=== PATIENT | male | born 1940 | race Caucasian/White ===

== ENCOUNTER → 2017-01-01 | Outpatient (CLI) | payer OTHER ==
[~2017-01-01] MED LIST: ALLO300T2 PO; ALPR-411 PO; CHOL100010 PO; CMD5 PO; CYAN10005 PO; ENAL1TAB34 PO; HYDR-5688 PO; LSX20 PO; LVNIS80 SQ; MAGN400T6 PO
== END ==
LOC: C.RDSM 14:31
PROVIDERS: ATTEND Orthopaedic Surgery
DX: M25.562 Pain in left knee (principal)

== ENCOUNTER 2017-02-05 21:23 | Emergency (ER) | payer OTHER ==
[~2017-02-05] VITALS: Ht 188 cm; Wt 85.0 kg
[2017-02-05 21:23] VITALS: TEMP 36.4; O2SAT 96; Ht 188 cm; Wt 85.0 kg
--- NOTE | 2017-02-05 21:54 | EMERGENCY ROOM VISIT NOTE ---
History Report prepared by Dakotah: Mona Hinton Under the Supervision of: Dr. Christopher Vasquez M.D. First contact with patient: 21:43 Chief Complaint: HYPERTENSION Stated Complaint: HTN History of Present Illness The patient is a 76 year old male who presents to the Emergency Room with complaints of constant hypertension beginning tonight. The patient states that he checks his blood pressure at home and he was concerned because it was 225/ 100 tonight. He reports that 1 month ago he had surgery on his sinuses and has been feeling dizzy intermittently since. He denies any headache, abdominal pain , chest pain, and shortness of breath. He notes that his dizziness is worsened when he gets up or walks around. The patient states that his right shoulder is normally out of place and he is seeing his doctor. Source of History: patient Onset: tonight Position: other (global) Symptom Intensity: 225/100 Quality: other (hypertension) Modifying Factors (Worsening): other (getting up) Associated Symptoms: No headache, No chest pain, No SOB, No abdominal pain Note: The patient complains of dizziness. Review of Systems See HPI for pertinent positives & negatives. A total of 10 systems reviewed and were otherwise negative. Past Medical & Surgical Medical Problems: (1) Anxiety (2) Gout (3) Hypertension (4) [place] Family History Diabetes mellitus MOTHER Heart disease FATHER Social History Smoking Status: Never Smoker Alcohol Use: none Drug Use: none Marital Status: Housing Status: lives alone Occupation Status: employed Current/Historical Medications Scheduled Allopurinol (Zyloprim), 300 MG PO QAM Cholecalciferol (Vitamin D), 1,000 UNITS PO DAILY Enalapril Maleate (Vasotec), 20 MG PO QAM Furosemide (Furosemide), 10 MG PO Q2D Multivitamin (Multivitamin), 1 TAB PO DAILY Pantoprazole (Protonix), 40 MG PO DAILY Allergies Coded Allergies: No Known Allergies (Unverified , 02/05/17) Physical Exam Vital Signs Date Time Temp Pulse Resp B/P (MAP) Pulse Ox O2 Delivery O2 Flow Rate FiO2 02/05/17 22:57 74 19 191/100 95 Room Air 02/05/17 22:35 71 21 95 Room Air 02/05/17 22:06 202/110 02/05/17 21:49 72 02/05/17 21:23 96 Room Air 02/05/17 21:23 36.4 83 20 212/106 96 Room Air 02/05/17 21:23 96 Room Air Physical Exam GENERAL: Patient is a healthy-appearing well-nourished male HEAD: Normocephalic atraumatic EYES: Ocular movements intact pupils equal and react to light OROPHARYNX mucous membranes are moist no exudates present no erythema or edema present NECK: Supple no nuchal rigidity CHEST: Good equal expansion LUNGS: Clear and equal to auscultation CARDIAC: Normal S1 and S2 ABDOMEN: Soft nontender no guarding BACK: No CVA tenderness EXTREMITIES: No pain upon palpation normal muscle strength in all groups no clubbing cyanosis or edema NEURO: Patient is following commands and answering questions appropriately. Alert and oriented x3 Cranial Nerves 2-12 grossly intact Medical Decision & Procedures ER Provider Diagnostic Interpretation: Radiology results as stated below per my review and radiologist interpretation: CHEST ONE VIEW PORTABLE FINDINGS: The heart is normal in size. There is mild aortic tortuosity/ectasia. There are old right-sided rib deformities. There is a 12 mm right midlung zone nodule versus healing rib fracture. There is a 1 cm left basilar nodule versus nipple shadow. A nonemergent CT scan should be considered in follow-up. There is no failure. There is no focal pulmonary consolidation. There is minor basilar atelectasis.[ IMPRESSION: 1. No evidence of acute parenchymal consolidation 2. 12 mm right midlung zone nodule versus healing rib fracture. 1 cm left basilar nodule versus nipple shadow. Electronically signed by: Ty Mcbride M.D. 02/05/2017 10:21 PM Dictated Date/Time: 02/05/2017 10:18 PM R SHOULDER MIN 2 VIEWS ROUTINE DISCUSSION: No acute fractures or dislocations are visualized. There is slight narrowing of the ureteral coronal distance raises the possibility of chronic rotator cuff degeneration. There are multiple old right-sided rib fractures. These likely explain the recently queried right midlung zone nodule/healing rib fracture. IMPRESSION: 1. No acute fractures or dislocations. 2. Slight narrowing of the humeral acromial distance suggesting rotator cuff disease 3. Multiple old right-sided rib fractures. These appear to explain the recently queried right midlung zone nodule. Electronically signed by: Ty Mcbride M.D. 02/05/2017 10:25 PM Dictated Date/Time: 02/05/2017 10:[address] HEAD WITHOUT CONTRAST (CT) FINDINGS: There are postsurgical changes of a right occipital craniotomy. There is right cerebellar encephalomalacia. There is no CT evidence of acute cortical infarction. There is no midline shift. There is no acute hemorrhage. There are moderate white matter hypodensities likely on a small vessel basis. There is mild ventricular dilatation likely secondary to volume loss There is no evidence of acute sinusitis IMPRESSION: Postsurgical changes of a right occipital craniotomy. No acute findings. Electronically signed by: Ty Mcbride M.D. 02/05/2017 10:27 PM Dictated Date/Time: 02/05/2017 10:25 PM Laboratory Results 02/05/17 21:50 Red Blood Count 4.88, Mean Corpuscular Volume 89.3, Mean Corpuscular Hemoglobin 30.3, Mean Corpuscular Hemoglobin Concent 33.9, Mean Platelet Volume 9.8, Neutrophils (%) (Auto) 68.0, Lymphocytes (%) (Auto) 21.5, Monocytes (%) (Auto) 8.2, Eosinophils (%) (Auto) 1.6, Basophils (%) (Auto) 0.5, Neutrophils # (Auto) 2.90, Lymphocytes # (Auto) 0.92, Monocytes # (Auto) 0.35, Eosinophils # (Auto) 0.07, Basophils # (Auto) 0.02 02/05/17 21:50 Test 02/05/17 21:44 02/05/17 21:50 Urine Color YELLOW Urine Appearance CLEAR (CLEAR) Urine pH 7.5 (4.5-7.5) Urine Specific [place] 1.011 (1.000-1.030) Urine Protein 1+ (NEG) Urine Glucose (UA) NEG (NEG) Urine Ketones NEG (NEG) Urine Occult Blood NEG (NEG) Urine Nitrite NEG (NEG) Urine Bilirubin NEG (NEG) Urine Urobilinogen NEG (NEG) Urine Leukocyte Esterase NEG (NEG) Urine WBC (Auto) 0 /hpf (0-5) Urine RBC (Auto) 0-4 /hpf (0-4) Urine Hyaline Casts (Auto) 0 /lpf (0-5) Urine Epithelial Cells (Auto) 0-5 /lpf (0-5) Urine Bacteria (Auto) NEG (NEG) White Blood Count 4.27 K/uL (4.8-10.8) Red Blood Count 4.88 M/uL (4.7-6.1) Hemoglobin 14.8 g/dL (14.0-18.0) Hematocrit 43.6 % (42-52) Mean Corpuscular Volume 89.3 fL (80-100) Mean Corpuscular Hemoglobin 30.3 pg (25-34) Mean Corpuscular Hemoglobin Concent 33.9 g/dl (32-36) Platelet Count 139 K/uL (130-400) Mean Platelet Volume 9.8 fL (7.4-10.4) Neutrophils (%) (Auto) 68.0 % Lymphocytes (%) (Auto) 21.5 % Monocytes (%) (Auto) 8.2 % Eosinophils (%) (Auto) 1.6 % Basophils (%) (Auto) 0.5 % Neutrophils # (Auto) 2.90 K/uL (1.4-6.5) Lymphocytes # (Auto) 0.92 K/uL (1.2-3.4) Monocytes # (Auto) 0.35 K/uL (0.11-0.59) Eosinophils # (Auto) 0.07 K/uL (0-0.5) Basophils # (Auto) 0.02 K/uL (0-0.2) RDW Standard Deviation 45.7 fL (36.4-46.3) RDW Coefficient of Variation 13.9 % (11.5-14.5) Immature Granulocyte % (Auto) 0.2 % Immature Granulocyte # (Auto) 0.01 K/uL (0.00-0.02) Prothrombin Time 9.6 SECONDS (9.0-12.0) Prothromb Time International Ratio 0.9 (0.9-1.1) Activated Partial Thromboplast Time 25.9 SECONDS (21.0-31.0) Partial Thromboplastin Ratio 1.0 Anion Gap 6.0 mmol/L (3-11) Est Creatinine Clear Calc Drug Dose 110.6 ml/min Estimated GFR () 108.7 Estimated GFR (Non- 93.8 BUN/Creatinine Ratio 19.2 (10-20) Calcium Level 8.7 mg/dl (8.5-10.1) Total Bilirubin 0.5 mg/dl (0.2-1) Direct Bilirubin 0.1 mg/dl (0-0.2) Aspartate Amino Transf (AST/SGOT) 20 U/L (15-37) Alanine Aminotransferase (ALT/SGPT) 23 U/L (12-78) Alkaline Phosphatase 83 U/L (45-117) Total Creatine Kinase 105 U/L (39-308) Creatine Kinase MB 3.0 ng/ml (0.5-3.6) Creatine Kinase MB Ratio 2.9 (0-3.0) Troponin I < 0.015 ng/ml (0-0.045) Pro-B-Type Natriuretic Peptide 891 pg/ml (0-1800) Total Protein 7.0 gm/dl (6.4-8.2) Albumin 3.7 gm/dl (3.4-5.0) Lipase 210 U/L (73-393) Thyroid Stimulating Hormone (TSH) 1.580 uIu/ml (0.300-4.500) Labs reviewed by ED physician. Medications Administered Medications (Trade) Dose Ordered Sig/Chris Route Start Time Stop Time Status Last Admin Dose Admin Potassium Chloride (Trudi Ciel Elix) 40 meq NOW STAT PO 02/05/17 22:55 02/05/17 22:58 DC 02/05/17 23:15 40 MEQ ECG Indication: weakness Rate (beats per minute): 72 Rhythm: normal sinus Findings: RBBB, no acute ischemic change, no ectopy ED Course 2142: Past medical records reviewed. The patient was evaluated in room A2. A complete history and physical examination was performed. 2220: Lopressor Tab 25mg PO. 2255: Potassium Chloride 40meq PO. 2300: I reevaluated and updated the patient. He notes that he has not taken his Lasix in 3 days. 2301: Upon reexamination the patient is doing well. I discussed results and treatment plan with the patient. He verbalizes agreement and understanding. The patient is ready for discharge. Medical Decision Differential diagnosis: Etiologies such as benign hypertension, hypertensive emergency, cardiovascular pathology, pheochromocytoma, electrolyte abnormality, renal disease, endorgan damage, as well as others were entertained. This is a 76-year-old male who presents emergency department complaining of hypertension. I will note that the patient does have an elevation in his blood pressure however without me doing anything the blood pressure has slowly come down. I do suspect there is an element of anxiety to the blood pressure just speaking with the patient about it. In addition the patient reports to me that he has not taken his Lasix medication and some time and I suspect this is contributed to the patient's high blood pressure. In addition the patient is also hypokalemic therefore he was given potassium. He is also convinced that his right shoulder is out of the socket therefore he was sent for x-rays of the right shoulder. This does not show any evidence of fracture dislocation. Based on these findings I felt that the patient can be safely discharged home however I stressed the need for follow-up with the patient's primary care physician as well as to take his medications as previously prescribed. Medication Reconcilliation Current Medication List: was personally reviewed by me Blood Pressure Screening Patient's blood pressure: Elevated blood pressure Blood pressure disposition: Referred to PCP Impression Primary Impression: Hypertension Scribe Attestation The scribe's documentation has been prepared under my direction and personally reviewed by me in its entirety. I confirm that the note above accurately reflects all work, treatment, procedures, and medical decision making performed by me. Departure Information Dispostion Home / Self-Care Referrals No Doctor, Assigned (PCP) Forms HOME CARE DOCUMENTATION FORM, IMPORTANT VISIT INFORMATION, WORK / SCHOOL INSTRUCTIONS Patient Instructions Hypertension Control, Hypertension Nv, [facility] [employer] Additional Instructions Take Lasix as directed Follow up with DR Arenas's office as directed You were found to have an elevated blood pressure today (>120 sytolic or >90 diastolic). Per medicare guidelines, you need to follow up with this blood pressure screening with your Primary Care Physician (PCP). For a new PCP call [phone]. You have been examined and treated today on an emergency basis only. This is not a substitute for, or an effort to provide, complete comprehensive medical care. It is impossible to recognize and treat all injuries or illnesses in a single emergency department visit. It is therefore important that you follow up closely with your PCP. Call as soon as possible for an appointment. Thank you for your time and consideration. I look forward to speaking with you again soon. Please don't hesitate to call us if you have any questions. Problem Qualifiers Primary Impression: Hypertension Hypertension type: unspecified Qualified Codes: I10 - Essential (primary) hypertension
[2017-02-05 22:01] LABS: BASO % 0.5 %; BASO ABS # 0.02 K/uL (0-0.2); COMPLETE YES; EOS % 1.6 %; HEMATOCRIT 43.6 % (42-52); IG% 0.2 %; LYMPH % 21.5 %; LYMPH ABS # 0.92 K/uL (1.2-3.4); MEAN CELL VOLUME 89.3 fL (80-100); MEAN CORPUSCULAR HEMOGLOBIN 30.3 pg (25-34); MEAN CORPUSCULAR HGB CONC 33.9 g/dl (32-36); MEAN PLATELET VOLUME 9.8 fL (7.4-10.4); MONO % 8.2 %; PLATELET COUNT 139 K/uL (130-400); RED BLOOD COUNT 4.88 M/uL (4.7-6.1); WHITE BLOOD COUNT 4.27 K/uL (4.8-10.8)
[2017-02-05 22:10] LABS: INR 0.9 (0.9-1.1); PROTHROMBIN TIME (PATIENT) 9.6 SECONDS (9.0-12.0)
[2017-02-05 22:11] LABS: URINE APPEARANCE CLEAR (CLEAR); URINE BILIRUBIN NEG (NEG); URINE COLOR YELLOW; URINE EPITHELIAL CELL AUTO 0-5 /lpf (0-5); URINE NITRITE NEG (NEG); URINE PH 7.5 (4.5-7.5); URINE SPECIFIC GRAVITY 1.011 (1.000-1.030); UROBILINOGEN NEG (NEG)
[2017-02-05 22:12] LABS: MANUAL MICROSCOPIC REQUIRED? NO; REVIEW REQ? NO
[2017-02-05 22:13] LABS: SULFASALICYLIC ACID POS (NEG)
[2017-02-05] MEDS ORDERED: CHOL100010 PO (22:16)
[2017-02-05] MEDS ORDERED: PANT40TA PO (22:16)
[2017-02-05] MEDS ORDERED: MULT-506 PO (22:16)
[2017-02-05 22:19] LABS: ALT/SGPT 23 U/L (12-78); BLOOD UREA NITROGEN 12 mg/dl (7-18); BUN/CREATININE RATIO 19.2 (10-20); CALCIUM 8.7 mg/dl (8.5-10.1); CARBON DIOXIDE 29 mmol/L (21-32); CHLORIDE 104 mmol/L (98-107); CREATININE 0.64 mg/dl (0.60-1.40); GLUCOSE 95 mg/dl (70-99); POTASSIUM 3.5 mmol/L (3.5-5.1); SODIUM 138 mmol/L (136-145)
[2017-02-05] MEDS ORDERED: METOPROLOL TARTRATE 25 MG TAB PO STA (22:21)
--- NOTE | 2017-02-05 22:23 | DIAGNOSTIC IMAGING REPORT ---
CHEST ONE VIEW PORTABLE CLINICAL HISTORY: severe hypertension COMPARISON STUDY: 06/26/2014 FINDINGS: The heart is normal in size. There is mild aortic tortuosity/ectasia. There are old right-sided rib deformities. There is a 12 mm right midlung zone nodule versus healing rib fracture. There is a 1 cm left basilar nodule versus nipple shadow. A nonemergent CT scan should be considered in follow-up. There is no failure. There is no focal pulmonary consolidation. There is minor basilar atelectasis.[ IMPRESSION: 1. No evidence of acute parenchymal consolidation 2. 12 mm right midlung zone nodule versus healing rib fracture. 1 cm left basilar nodule versus nipple shadow. Electronically signed by: Ty Mcbride M.D. 02/05/2017 10:21 PM Dictated Date/Time: 02/05/2017 10:18 PM
--- NOTE | 2017-02-05 22:26 | DIAGNOSTIC IMAGING REPORT ---
R SHOULDER MIN 2 VIEWS ROUTINE CLINICAL HISTORY: Right shoulder pain COMPARISON: None. DISCUSSION: No acute fractures or dislocations are visualized. There is slight narrowing of the ureteral coronal distance raises the possibility of chronic rotator cuff degeneration. There are multiple old right-sided rib fractures. These likely explain the recently queried right midlung zone nodule/healing rib fracture. IMPRESSION: 1. No acute fractures or dislocations. 2. Slight narrowing of the humeral acromial distance suggesting rotator cuff disease 3. Multiple old right-sided rib fractures. These appear to explain the recently queried right midlung zone nodule. Electronically signed by: Ty Mcbride M.D. 02/05/2017 10:25 PM Dictated Date/Time: 02/05/2017 10:23 PM
--- NOTE | 2017-02-05 22:28 | DIAGNOSTIC IMAGING REPORT ---
CT HEAD WITHOUT CONTRAST (CT) CLINICAL HISTORY: Severe hypertension COMPARISON STUDY: 10/30/2013 TECHNIQUE: Axial CT of the brain is performed from the vertex to the skull base. IV contrast was not administered for this examination. A dose lowering technique was utilized adhering to the principles of ALARA. CT DOSE: 712.55 mGy.cm FINDINGS: There are postsurgical changes of a right occipital craniotomy. There is right cerebellar encephalomalacia. There is no CT evidence of acute cortical infarction. There is no midline shift. There is no acute hemorrhage. There are moderate white matter hypodensities likely on a small vessel basis. There is mild ventricular dilatation likely secondary to volume loss There is no evidence of acute sinusitis IMPRESSION: Postsurgical changes of a right occipital craniotomy. No acute findings. Electronically signed by: Ty Mcbride M.D. 02/05/2017 10:27 PM Dictated Date/Time: 02/05/2017 10:25 PM
[2017-02-05 22:30] LABS: ALKALINE PHOSPHATASE 83 U/L (45-117); AST/SGOT 20 U/L (15-37); CKMB/CK RATIO 2.9 (0-3.0)
[2017-02-05] MEDS ORDERED: POTASSIUM CHLORIDE 20 MEQ/15 ML UDC PO STA (22:55)
[2017-02-05 22:57] VITALS: BP 191/100; PULSE 74; O2SAT 95
== END 2017-02-05 23:24 | disposition home or self-care (01) ==
LOC: C.EDA 21:23 → EDUNIT# 21:28 → EDBD 21:32 → C.EDA 23:24
DX: I10 Essential (primary) hypertension (principal); E87.6 Hypokalemia; I45.10 Unspecified right bundle-branch block; F41.9 Anxiety disorder, unspecified; M10.9 Gout, unspecified; Z79.899 Other long term (current) drug therapy; Z83.3 Family history of diabetes mellitus; Z82.49 Family history of ischemic heart disease and other diseases of the circulatory system

== ENCOUNTER 2018-10-02 18:13 | Inpatient (IN) ==
--- OUTSIDE RECORDS SUMMARY | 2018-10-02 18:18 | External Medical Summary | Continuity of Care Document ---
:1940 Author Name Rhea Aquino Address Unavailable Unavailable , Care Team Providers Name Role Phone Bienvenido Beckett PA-C Unavailable [email or web address] Luisa Aquino Unavailable [email or web address], NO Unavailable Unavailable Unavailable Unavailable Unavailable Assessments Assessed Problems:Paroxysmal atrial fibrillationRight bundle branch block HypertensionHyperlipidemiaPre-operative cardiovascular examinationCoronary artery disease Problems Right bundle branch block (426.4) (I45.0) Prostate cancer (185) (C61) Hyperlipidemia (272.4) (E78.5) Depression with anxiety (300.4) (F41.8) Coronary artery disease (414.00) (I25.10) Pre-operative cardiovascular examination (V72.81) (Z01.810) Paroxysmal atrial fibrillation (427.31) (I48.0) Sick sinus syndrome (427.81) (I49.5) Hypertension (401.9) (I10) Allergies and Adverse Reactions Simvastatin TABS (Allergy) Medications Vitamin D3 5000 UNIT Oral Tablet; Take 1 tablet daily Refills: 0 Allopurinol 300 MG Oral Tablet; TAKE 1 TABLET DAILY DIREC MEET. Refills: 0 hydroCHLOROthiazide 25 MG Oral Tablet; TAKE 1 TABLET D AILY. Alberto Bynum M.D. Start: 08-Dec-2011 Quantity: 30 [place] Refills: 5 Metoprolol Succinate ER 25 MG Oral Table t Extended Release 24 Hour; TAKE 1 TABLET DAILY. Miles Moran Start: 24-Nov-2011 Quantity: 30 [place] Refills: 3 Magnesium Oxide 400 MG Oral Tablet; TAKE (1) TABLET DA BENNETTSiddharth Bynum M.D. Start: 26-Nov-2011 Quantity: 30 [place] Refills: 0 Enalapril Maleate 20 MG Oral Tablet; TAKE 1 TABLET FLAQUITO LY DIRECTED. Miles Moran Start: 05-Feb-2012 Quantity: 30 [place] Refills: 3 Procedures History of Prostatectomy Robotic-Assisted Status: Completed History of Laminectomy Lumbar Status: Co mpleted History of Lithotomy Status: Completed History of Uvulectomy Status: Completed History of Division Of Trigeminal Nerve Status: Completed History of Tonsillectomy With Adenoidectomy Status: Completed Immunizations Immunizations not documented Family History Father Family history of Coronary Artery Disease (V17.49) Status: A ctive Mother Family history of Denial Of Any Significant Medical History Status: Active Social History - Smoking Status Never smoker Interventions Discussion/Summary presents today for preoperative cardiac evaluation. He has a history of paroxysmal atrial fibrillation and nonocclusive coronary artery disease (Cardiac catheterization 2011), hypertension, and dyslipidemia. He is scheduled undergo revision of right rotator cuff repair in the near future.Based on his levels of physical activity without limiting cardiopulmonary symptoms, normal LV systolic function, and nonocclusive coronary artery disease on cardiac catheterization 2011, he is an acceptable surgical risk to proceed with surgery as scheduled provided he take his usual dose of metoprolol succinate the morning of surgery with sips of water. There is no need for further cardiac workup atthis time.Thank you for asking us to see this patient in consultation. Return to our office as needed, or at next regularly scheduled visit with Dr. Peterson. Patient agrees. Plan of Treatment Planned Observations Planned Goals not documented Results No Known Results Results not documented Encounters Appointment; Ascencion Beckett PA-C 03-Mar-2013 10:45 Encounter Diagnosis: Problem not documented
[2018-10-02 19:01] LABS: Basophils # (auto) 0.01 K/uL (0-0.2); Basophils % (auto) 0.2 %; Eosinophils # (auto) 0.03 K/uL (0-0.5); Eosinophils % (auto) 0.6 %; Hematocrit (blood only) 44.8 % (42-52); Hemoglobin 14.9 g/dL (14.0-18.0); Immature Granulocytes # (auto) 0.01 K/uL (0.00-0.02); Immature Granulocytes % (auto) 0.2 %; Lymphocytes # (auto) 0.81 K/uL (1.2-3.4); Lymphocytes % (auto) 16.7 %; Mean Corpuscular Hgb Conc 33.3 g/dL (32-36); Mean Corpuscular Volume 85.8 fL (80-100); Mean Platelet Volume 9.8 fL (7.4-10.4); Monocytes # (auto) 0.44 K/uL (0.11-0.59); Monocytes % (auto) 9.1 %; Neutrophils # (auto) 3.54 K/uL (1.4-6.5); Neutrophils % (auto) 73.2 %; Platelet Count 131 K/uL (130-400); RDW Coefficient of Variation 17.7 % (11.5-14.5); RDW Standard Deviation 55.5 fL (36.4-46.3); Red Blood Count 5.22 M/uL (4.7-6.1); White Blood Count 4.84 K/uL (4.8-10.8)
[2018-10-02] MEDS ORDERED: SODIUM CHLORIDE 0.9% 1000ML 500 ML IV ONE (19:03)
[2018-10-02] MEDS ORDERED: LORazepam 0.5 MG/1 ML VIAL IV STA ×2 (19:06→22:08)
[2018-10-02 19:12] LABS: Partial Thromboplastin Ratio 0.9; Partial Thromboplastin Time 25.7 Seconds (21.0-31.0); Prothrombin Time 10.2 Seconds (9.0-12.0)
[2018-10-02 19:19] LABS: Alanine Aminotransferase 64 U/L (12-78); Albumin Level 3.5 gm/dl (3.4-5.0); Aspartate Aminotransferase 41 U/L (15-37); BUN Creatinine Ratio 23.2 (10-20); Blood Urea Nitrogen 18 mg/dl (7-18); Calcium 8.5 mg/dl (8.5-10.1); Carbon Dioxide 24 mmol/L (21-32); Chloride 109 mmol/L (98-107); Creatinine Clr Calc Pharmacy 85.1 ml/min; Est GFR (African American) 99.9; Est GFR (Non-African American) 86.2; Glucose 103 mg/dl (70-99); Magnesium 2.2 mg/dl (1.8-2.4); Potassium 3.9 mmol/L (3.5-5.1); Sodium 142 mmol/L (136-145)
[2018-10-02 19:30] LABS: Albumin Globulin Ratio 1.1 (0.9-2); Alkaline Phosphatase 88 U/L (45-117); Bilirubin,Total 0.7 mg/dl (0.2-1); Globulin 3.2 gm/dl (2.5-4.0); Total Protein 6.7 gm/dl (6.4-8.2); Troponin I < 0.015 ng/ml (0-0.045)
[2018-10-02 19:37] LABS: Acetaminophen < 2 ug/ml (10-30); Salicylate < 1.7 mg/dl (2.8-20)
[2018-10-02] MEDS ORDERED: METOPROLOL TARTRATE 1 MG/ML VIAL IV STA ×2 (19:40→22:43)
--- NOTE | 2018-10-02 19:55 | CT Scan Report ---
CT head/brain wo con CT DOSE: 614.27 mGy.cm HISTORY: Mental status change Reported homicidal statements TECHNIQUE: Multiaxial CT images of the head were performed without the use of intravenous contrast. A dose lowering technique was utilized adhering to the principles of ALARA. Comparison: 02/05/2017 Findings: The paranasal sinuses and mastoid air cells are clear. Findings of a lateral right occipita l craniotomy are again noted. 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 Findings of atrophy combined with moderate chronic small vessel change are noted and appears stable. No evidence for acute intracranial hemorrhage. No evidence for midline shift. Impression: 1. Findings of pre-existing postoperative and chronic small vessel change. 2. Findings of mild atrophy also stable. 3. No acute process. The above report was generated using voice recognition software. It may contain grammatical, syntax or spelling errors. Electronically signed by: Rigoberto Suh M.D. 10/02/2018 7:54 PM
[2018-10-02] MEDS ORDERED: METOPROLOL TARTRATE 50 MG TAB PO STA ×2 (21:24→22:55)
[2018-10-02] MEDS ORDERED: POTASSIUM CHLORIDE 20 MEQ TABCR PO STA (21:24)
--- NOTE | 2018-10-02 22:02 | History & Physical Report ---
Date of Service October 02, 2018 Assessment & Plan (1) Atrial flutter with rapid ventricular response: hx sick sinus syndrome hx DVT on Eliquis rx Hypertensive urgency ? Medication compliance given possible functional debility with possible dementia nonocclusive CAD as per records Prostate cancer status post surgery gout as per records PCU Facilitate home beta-britany Rx, may need titration Continue home Eliquis PT OT eval Social service RE discharge planning DVT prophylaxis. Eliquis Full code as per grandson, Mr. Brad Muro. He requests updates from providers through [phone]. History of Present Illness Chief Complaint: Something was wrong as per patient 302 petition by daughter from [place] as per records [facility] History obtained from patient, family, and records. Patient is not a reliable historian secondary to disorientation. Medical history significant for sick sinus syndrome/hx atrial flutter/hx DVT on Eliquis, nonocclusive CAD as per records, hypertension, gout as per records, prostate cancer status post surgery, anxiety/mood disorder. Recent confinement June 2014 for RLE DVT. Patient discharged on Coumadin. Patient brought in [facility] by ambulance after patient's daughter residing [place] called for patient to be evaluated at the hospital for homicidality. Patient denied homicidal allegations to psych liaison at the emergency room. Patient not homicidal as per patient's grandson who lives close by. At the emergency room, patient noted to be in rapid atrial flutter, cardiac rate 140s despite IV beta-britany administration at the ER. Patient denies chest pain, S OB, abdominal pain. Patient grandson thinks patient might be developing dementia. 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; lives by self, closest family member is a grandson who checks on px from time to time Allergies Allergy/AdvReac Type Severity Reaction Status Date / Time No Known Allergies Allergy Unverified 10/02/18 22:56 Home Medications Home Medications Medication Instructions Recorded Confirmed Type apixaban 5 mg PO Q12 10/02/18 10/02/18 History atorvastatin 40 mg PO PM 10/02/18 10/02/18 History bee pollen 0 mg PO DAILY 10/02/18 10/02/18 History calcium carbonate-vitamin D3 1 tab PO BID 10/02/18 10/02/18 History [Calcium 500 + D] cetirizine [Zyrtec] 10 mg PO DAILY 10/02/18 10/02/18 History cholecalciferol (vitamin D3) 2,000 unit PO DAILY 10/02/18 10/02/18 History [Vitamin D3] citalopram 10 mg PO DAILY 10/02/18 10/02/18 History clotrimazole-betamethasone 1 applic TOPICAL BID PRN 10/02/18 10/02/18 History cyanocobalamin (vitamin B-12) 1,000 mcg PO DAILY 10/02/18 10/02/18 History docusate sodium 100 mg PO DAILY 10/02/18 10/02/18 History food supplemt, lactose-reduced 1 ea PO DAILY 10/02/18 10/02/18 History [Ensure] furosemide 20 mg PO DAILY 10/02/18 10/02/18 History lisinopril 10 mg PO DAILY 10/02/18 10/02/18 History meclizine 12.5 mg PO BID PRN 10/02/18 10/02/18 History metoprolol tartrate 50 mg PO TID 10/02/18 10/02/18 History pantoprazole 20 mg PO DAILY 10/02/18 10/02/18 History polyethylene glycol 3350 [Miralax] 17 g PO DAILY PRN 10/02/18 10/02/18 History vitamin E 400 unit PO DAILY 10/02/18 10/02/18 History Past Med/Surg History Medical History Tic douloureux (Chronic) Anxiety (Chronic) Gout (Chronic) Hypertension (Chronic) Deep vein thrombosis (Acute) Hypertension (Acute) Family History Other No pertinent family history in first degree relatives Social History Preferred Language: Setswana Communication Ability: Effective Communication Ability Comment: [facility] 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 Required: No Beliefs That Will Affect Care: [employer] Current Living Situation: Alone Feels Safe at Home: Yes Safety Concerns: Feels Safe At This Time Smoking Status: Never smoker Do You Dip or Chew Tobacco: No ; Hx Alcohol Use: No Hx Substance Use: No Review of Systems Review of Systems: Could not be reliably obtained Physical Exam Physical Exam: GENERAL: Disoriented, hard of hearing, no respiratory distress SKIN: Normal color, warm HEENT: [place] palpebral conjunctivae, no ptosis, dry buccal mucosa NECK : Supple, no tenderness CHEST : CTA, no tenderness HEART : Tachycardic, systolic murmur ABDOMEN: Some distention, nontender EXTREMITIES : Minimal LE swelling, no LE tenderness, no other conspicuous deformities noted NEUROLOGIC : Disoriented, slightly hard of hearing, agitated, no facial asymmetry, gait and stance not assessed Results & Data Vital Signs (Past 12 Hours) Vital Signs Temp Pulse Resp BP Pulse Ox 10/02/18 21:00 78 17 145/90 H 95 10/02/18 20:50 92 H 17 94 10/02/18 20:40 91 H 16 94 10/02/18 20:30 92 H 14 163/109 H 98 10/02/18 20:20 91 H 21 93 10/02/18 20:10 110 H 16 96 10/02/18 20:07 114 H 15 141/121 H 97 10/02/18 20:04 103 H 20 138/108 H 10/02/18 20:02 126 H 28 H 152/129 H 10/02/18 20:00 142 H 18 10/02/18 19:58 143 H 12 145/116 H 10/02/18 19:55 142 H 10/02/18 19:40 143 H 10/02/18 19:38 141 H 23 151/122 H 10/02/18 19:30 142 H 20 10/02/18 19:20 144 H 25 H 10/02/18 19:16 144 H 23 10/02/18 18:41 37.2 C 130 H 18 164/119 H 98 Laboratory Results Laboratory Results WBC 4.84 K/uL (4.8-10.8) 10/02/18 18:40 RBC 5.22 M/uL (4.7-6.1) 10/02/18 18:40 Hgb 14.9 g/dL (14.0-18.0) 10/02/18 18:40 Hct 44.8 % (42-52) 10/02/18 18:40 MCV 85.8 fL (80-100) 10/02/18 18:40 MCH 28.5 pg (25-34) 10/02/18 18:40 MCHC 33.3 g/dL (32-36) 10/02/18 18:40 RDW Std Deviation 55.5 fL (36.4-46.3) H 10/02/18 18:40 RDW Coeff of Martha 17.7 % (11.5-14.5) H 10/02/18 18:40 Plt Count 131 K/uL (130-400) 10/02/18 18:40 MPV 9.8 fL (7.4-10.4) 10/02/18 18:40 Immature Gran % (Auto) 0.2 % 10/02/18 18:40 Neut % (Auto) 73.2 % 10/02/18 18:40 Lymph % (Auto) 16.7 % 10/02/18 18:40 [place] % (Auto) 9.1 % 10/02/18 18:40 Eos % (Auto) 0.6 % 10/02/18 18:40 Baso % (Auto) 0.2 % 10/02/18 18:40 Immature Gran # (Auto) 0.01 K/uL (0.00-0.02) 10/02/18 18:40 Neut # (Auto) 3.54 K/uL (1.4-6.5) 10/02/18 18:40 Lymph # (Auto) 0.81 K/uL (1.2-3.4) L 10/02/18 18:40 [place] # (Auto) 0.44 K/uL (0.11-0.59) 10/02/18 18:40 Eos # (Auto) 0.03 K/uL (0-0.5) 10/02/18 18:40 Baso # (Auto) 0.01 K/uL (0-0.2) 10/02/18 18:40 PT 10.2 Seconds (9.0-12.0) 10/02/18 18:40 INR 1.0 (0.9-1.1) 10/02/18 18:40 APTT 25.7 Seconds (21.0-31.0) 10/02/18 18:40 PTT Ratio 0.9 10/02/18 18:40 Sodium 142 mmol/L (136-145) 10/02/18 18:40 Potassium 3.9 mmol/L (3.5-5.1) 10/02/18 18:40 Chloride 109 mmol/L (98-107) H 10/02/18 18:40 Carbon Dioxide 24 mmol/L (21-32) 10/02/18 18:40 Anion Gap 9.0 (3-11) 10/02/18 18:40 BUN 18 mg/dl (7-18) 10/02/18 18:40 Creatinine 0.76 mg/dl (0.6-1.4) 10/02/18 18:40 Est Cr Clr Drug Dosing 85.1 ml/min 10/02/18 18:40 Est GFR ( Amer) 99.9 10/02/18 18:40 Est GFR (Non-Af Amer) 86.2 10/02/18 18:40 BUN/Creatinine Ratio 23.2 (10-20) H 10/02/18 18:40 Glucose 103 mg/dl (70-99) H 10/02/18 18:40 Calcium 8.5 mg/dl (8.5-10.1) 10/02/18 18:40 Magnesium 2.2 mg/dl (1.8-2.4) 10/02/18 18:40 Total Bilirubin 0.7 mg/dl (0.2-1) 10/02/18 18:40 AST 41 U/L (15-37) H 10/02/18 18:40 ALT 64 U/L (12-78) 10/02/18 18:40 Alkaline Phosphatase 88 U/L (45-117) 10/02/18 18:40 Troponin I < 0.015 ng/ml (0-0.045) 10/02/18 18:40 Total Protein 6.7 gm/dl (6.4-8.2) 10/02/18 18:40 Albumin 3.5 gm/dl (3.4-5.0) 10/02/18 18:40 Globulin 3.2 gm/dl (2.5-4.0) 10/02/18 18:40 Albumin/Globulin Ratio 1.1 (0.9-2) 10/02/18 18:40 TSH 1.380 uIu/ml (0.300-4.500) 10/02/18 18:40 Salicylates < 1.7 mg/dl (2.8-20) L 10/02/18 18:40 Acetaminophen < 2 ug/ml (10-30) L 10/02/18 18:40 Ethyl Alcohol mg/dL < 3.0 mg/dl (0-3) 10/02/18 18:[address] head: 1. Findings of pre-existing postoperative and chronic small vessel change. 2. Findings of mild atrophy also stable. 3. No acute process. Chest x-ray as per my interpretation: Atelectasis, elevated right hemidiaphragm, cardiomegaly EKG as per my interpretation : rate 95, atrial flutter, LAD, LAFB, RBBB, LVH
[2018-10-02] MEDS ORDERED: HEPARIN SODIUM/DEXTROSE 25,000 UNITS/500 ML BAG IV SCH (22:15)
[2018-10-02] MEDS ORDERED: HEPARIN 25000 UNIT/500 ML D5W IV ONE (22:15)
[2018-10-02] MEDS ORDERED: Heparin IV Standard *NO* Bolus IV SCH (22:19)
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
[2018-10-03] MEDS ORDERED: POLYETHYLENE (MIRALAX) 17 GM PACK PO PRN (00:10)
[2018-10-03] MEDS ORDERED: PROMETHAZINE HCL 12.5 MG in SODIUM CHLORIDE 0.9% 50 ML IV PRN (00:19)
[2018-10-03] MEDS ORDERED: OLANZapine 10 MG/2.1 ML SDV IM PRN (00:19)
[2018-10-03] MEDS ORDERED: NITROGLYCERIN SL 0.4 MG/TAB TAB SL PRN (00:19)
[2018-10-03] MEDS ORDERED: ACETAMINOPHEN 325 MG TAB PO PRN (00:19)
[2018-10-03 01:14] LABS: Appearance Urine Clear (Clear); Bacteria Urine Automated Negative (Negative); Bilirubin Urine Negative (Negative); Blood Urine Negative (Negative); Cast Urine Automated 0 /lpf (0-5); Color Urine Yellow; Glucose Urine UA Negative (Negative); Ketones Urine Negative (Negative); Leukocyte Esterase Urine Negative (Negative); Nitrite Urine Negative (Negative); Protein Urine 3+ (Negative); RBC Urine Automated 0-4 /hpf (0-4); Specific Gravity Urine 1.019 (1.000-1.030); Urobilinogen Urine Negative (Negative)
[2018-10-03] MEDS: APIXABAN 5 MG TABLET PO SCH ×3 (01:22→19:23)
[2018-10-03 01:30] LABS: Amphetamines+Metham, Urine Neg (Neg); Barbiturates, Urine Neg (Neg); Benzodiazepine, Urine Neg (Neg); Cocaine, Urine Neg (Neg); MDMA (Ecstacy), Urine Neg (Neg); Methadone, Urine Neg (Neg); Opiate, Urine Neg (Neg); Phencyclidine, Urine Neg (Neg)
[2018-10-03] MEDS ORDERED: POTASSIUM CHLORIDE 10 MEQ TABCR PO STA (03:52)
[2018-10-03] MEDS: LISINOPRIL 10 MG TAB PO SCH (03:55)
[2018-10-03 05:58] LABS: Basophils # (auto) 0.02 K/uL (0-0.2); Basophils % (auto) 0.5 %; Eosinophils # (auto) 0.03 K/uL (0-0.5); Eosinophils % (auto) 0.8 %; Hematocrit (blood only) 41.1 % (42-52); Hemoglobin 13.6 g/dL (14.0-18.0); Lymphocytes % (auto) 23.9 %; Mean Corpuscular Hgb Conc 33.1 g/dL (32-36); Mean Corpuscular Volume 86.3 fL (80-100); Mean Platelet Volume 9.1 fL (7.4-10.4); Monocytes # (auto) 0.38 K/uL (0.11-0.59); Monocytes % (auto) 10.1 %; Neutrophils # (auto) 2.43 K/uL (1.4-6.5); Neutrophils % (auto) 64.7 %; Platelet Count 119 K/uL (130-400); RDW Coefficient of Variation 17.7 % (11.5-14.5); RDW Standard Deviation 55.9 fL (36.4-46.3); Red Blood Count 4.76 M/uL (4.7-6.1); White Blood Count 3.76 K/uL (4.8-10.8)
[2018-10-03 06:23] LABS: RBC Morphology Unremarkable
--- NOTE | 2018-10-03 06:43 | XRay Report ---
XR chest 1V portable CLINICAL HISTORY: tachycardia COMPARISON STUDY: Chest CT June 26, 2014. Chest radiograph February 05, 2017. FINDINGS: Right shoulder arthroplasty is incidentally noted. There is no pneumothorax or pleural effu anaid. There is no evidence for pulmonary edema or pneumonia. Mild cardiomegaly is noted. Patient is r otated. Calcified left lower lobe granuloma is incidentally noted. IMPRESSION: No acute cardiopulmonary findings. Electronically signed by: Jason Fleming M.D. 10/03/2018 6:41 AM
[2018-10-03] MEDS: PANTOprazole 40 MG TAB PO SCH (08:04)
[2018-10-03] MEDS: METOPROLOL TARTRATE 50 MG TAB PO SCH ×3 (08:04→19:24)
[2018-10-03] MEDS: CYANOCOBALAMIN 500 MCG TABLET (VITAMIN B-12) PO SCH (08:04)
[2018-10-03] MEDS: CETIRIZINE HCL 10 MG TABLET PO SCH (08:04)
[2018-10-03] MEDS: DOCUSATE SODIUM 100 MG CAP PO SCH (08:04)
[2018-10-03] MEDS: CITALOPRAM 20 MG TAB PO SCH (08:04)
[2018-10-03] MEDS ORDERED: LISINOPRIL 10 MG TAB PO SCH (09:00)
--- NOTE | 2018-10-03 14:23 | Psychiatric Consultation ---
Date of Consultation October 03, 2018 Impression / Recommendations Impression 78-year-old male brought to the ED by police on a 302 warrant for mental health evaluation. Patient's daughter completed petitioning statement reporting that the patient had been making homicidal statements planning to "blow people away." According to grandson, patient does not have access to guns other than an air pellet gun, as they are currently secured by the grandson. We will confirm this history with the grandson to ensure this is the case. It would be beneficial to obtain information from the patient's daughter and petitioner, as she is clearly verbalizing concern regarding her father. However, without substantial information to suggest the patient is at acute risk of , serious bodily injury, or serious physical debilitation within 30 days. Given reports of the patient and his grandson, it also does not appear the patient is at acute risk of harm to others at this time, as he denies homicidal ideation and reportedly does not have access to weapons he could easily use to harm another individual. We will request that liaison gather additional information from the patient's grandson, and primary local support. We will also ensure that we attempt to reach out to petitioner regarding her concerns. Patient denies suicidal ideation, homicidal ideation, auditory or visual hallucinations, disorganized thinking, and other signs of acute psychosis. At this time, with information currently available, it does not appear the patient would meet criteria for inpatient psychiatric admission. We will attempt to gather collateral information from daughter; however, it is likely the patient could be discharged home at time of medical clearance. If this remains the case, 302 warrant would need to be disposed at or before time of discharge by attending physician. Please reach out to our service with any additional concerns. We appreciate the opportunity to participate in the care of this patient. At this time, patient's primary stressor is dealing with his daughter. It does not appear that adjustments in psychiatric medications would be necessary. Patient's home medication list suggests that he is taking 10 mg of citalopram; however, his external med history does not show this medication. Would recommend clarifying the patient is indeed to be on this medication. We will avoid further titration, as patient's QTc remains prolonged at this time. If ongoing issues with prolonged QTc consider discontinuation of the medication. Dr. Sheyla Feliz was directly involved in review and discussion of the patient's case and participated in medical decision making regarding treatment recommendations. Risk Factors Assessment Do You Have Access To A Gun?: No (Grandson has secured) CPT Code Initial Consultation: 62168 Psych History Identifying Data 78-year-old male admitted medically on 10/02/2018 due to atrial flutter and appearing unsteady on his feet. Patient initially presented to the ED by police on a 302 warrant to receive a mental health evaluation. 302 petitioning statement was completed by his daughter felt there were concerns related to patient and his potential harm to self and others. Psychiatric consultation is requested to further evaluate the patient to determine discharge recommendations. Information is gathered from hospital documentation, 302 petitioning statement, and the patient himself - combination of which is considered to be reliable. Chief Complaint "You really want to know? You are not the type of girl my daughter is. She is a witch, a thief, and a liar." History of Present Illness Haim Muro is an 78-year-old male who was initially brought to the ED by police on a 302 warrant for a mental health evaluation. 302 petitioning statement was completed by the patient's daughter who expressed concern about homicidal statements she states her father had made. While being evaluated in the emergency room, the patient was noted to be in atrial flutter with persistent tachycardia. As he was not responding to initial medications provided, it inpatient medical admission was recommended. Patient is seen on psychiatric consult service to further assess his mental status, and determine his disposition with the presence of a 302 warrant. Case is reviewed with psychiatric nurse liaison, who is able to speak with the patient with his grand son present. Prior medical documentation as well as conversation with the liaison suggests that there is limited history to confirm the patient had made the statements, or is actually intending to harm others. Prior to psychiatric evaluation, patient's grandson is documented to feel comfortable with him returning home and does not believe him to be acutely suicidal or homicidal. 302 petitioning statement completed by the patient's daughter. It reads: "Frequent states going to "blow people away", has hand guns. Threatens to use them. Unable to control anger threatened grandson with cane (with antlers on it). Not in control of emotions and has sat in driveway of his estranged son Fabio Muro of [place], [place] for long periods of time." Statement completed by Robert Nair, patient daughter ([phone]) residing in [place]. At time of evaluation, patient is found to be resting comfortably in bed with no visitors present. Patient states that his daughter is a "witch, a thief, and a liar." He states that his daughter had borrowed $2500 as a loan to pay for a car to make the trip to come see him. Patient states he was clear that he would require the money back, and was simply requesting for his daughter to pay what was owed to him. The patient states "I sent her a text message, she someone back in every other word was a cuss word. I called my senior c developer, I will just let him deal with it." The patient reports understanding that he was brought to the emergency room for mental health evaluation, patient states that his daughter believed "I was insane, that I was having thoughts to kill myself or other people." Patient denies truth to these allegations. 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 He also denies suicidal ideation stating, "God can take me when he is ready, but just because I am 78 years old does not mean I do not want to live. I am not in the grade yet." Patient does admit to lower than normal mood recently "because I have been dealing with all of the stuff with her." Patient denies significant anxiety as it relates to these situations. We reviewed that he is receiving an antidepressant medication, citalopram. He is not aware of his history with this medication. Patient denies previous psychiatric history, has not been hospitalized on an inpatient behavior health unit, and denies previous suicide attempts. Patient denies history of auditory or visual hallucinations, disorganized thoughts, and significant paranoia. Patient denies any other psychiatric concerns. Past Psychiatric History Previous Psych History: Patient denies previous psychiatric history; however, he is prescribed citalopram 10 mg daily. Patient is not able to provide history regarding the duration of this dose or because of its initiation. We will attempt to confirm that it is inaccurate medication, as external medication history does not have it listed. Current Psychiatric Diagnosis: Unknown Outpatient Services: None Previous Psych Admissions: Denied Do You Have Access To A Gun?: No (Grandson has secured) History of Previous Suicide Attempt: No Allergies Allergy/AdvReac Type Severity Reaction Status Date / Time No Known Allergies Allergy Unverified 10/02/18 22:56 Home Medications Home Medications Medication Instructions Recorded Confirmed Type apixaban 5 mg PO Q12 10/02/18 10/02/18 History atorvastatin 40 mg PO PM 10/02/18 10/02/18 History bee pollen 0 mg PO DAILY 10/02/18 10/02/18 History calcium carbonate-vitamin D3 1 tab PO BID 10/02/18 10/02/18 History [Calcium 500 + D] cetirizine [Zyrtec] 10 mg PO DAILY 10/02/18 10/02/18 History cholecalciferol (vitamin D3) 2,000 unit PO DAILY 10/02/18 10/02/18 History [Vitamin D3] citalopram 10 mg PO DAILY 10/02/18 10/02/18 History clotrimazole-betamethasone 1 applic TOPICAL BID PRN 10/02/18 10/02/18 History cyanocobalamin (vitamin B-12) 1,000 mcg PO DAILY 10/02/18 10/02/18 History docusate sodium 100 mg PO DAILY 10/02/18 10/02/18 History food supplemt, lactose-reduced 1 ea PO DAILY 10/02/18 10/02/18 History [Ensure] furosemide 20 mg PO DAILY 10/02/18 10/02/18 History lisinopril 10 mg PO DAILY 10/02/18 10/02/18 History meclizine 12.5 mg PO BID PRN 10/02/18 10/02/18 History metoprolol tartrate 50 mg PO TID 10/02/18 10/02/18 History pantoprazole 20 mg PO DAILY 10/02/18 10/02/18 History polyethylene glycol 3350 [Miralax] 17 g PO DAILY PRN 10/02/18 10/02/18 History vitamin E 400 unit PO DAILY 10/02/18 10/02/18 History Personal History Living Arrangements: Home (receives assistance from the [facility] on Aging) Living Arrangements Comments: Grandson living locally, checks on patient regularly Marital Status: (previously for 15 years) Number Of Children: 2 - one daughter, one son Beliefs That Will Affect Care: Restorationist Psychological Trauma History Comment: Previous service in the Patient History Medical History Tic douloureux (Chronic) Anxiety (Chronic) Gout (Chronic) Hypertension (Chronic) Deep vein thrombosis (Acute) Hypertension (Acute) Family History Other No pertinent family history in first degree relatives Social History Preferred Language: Mongolian Communication Ability: Effective Communication Ability Comment: [facility] Tabulating Clerk Required: No Beliefs That Will Affect Care: Restorationist marital status: / Current Living Situation: Alone Feels Safe at Home: Yes Safety Concerns: Feels Safe At This Time Smoking Status: Never smoker Do You Dip or Chew Tobacco: No ; Hx Alcohol Use: No Hx Substance Use: No Physical Exam Psychiatric: Orientation: alert, oriented to person, oriented to place, oriented to time and cooperative Apperance: appropriately dressed (In hospital gown, wearing [employer] hat), appropriately groomed and appeared stated age Eye Contact: good eye contact Motor Behavior: no abnormal motor movements (Observed while laying in bed) Speech: normal rate/rhythm/volume of speech (Speech is muffled at times, overall soft tone) Affect: + blunted affect (Appearing somewhat fatigued); no depressed affect and no anxious affect Mood: + depressed mood ("Well yeah, because of dealing with all this with my daughter") and + irritable mood (As it relates to his daughter's allegations); no anxious mood Thought Process: goal directed thought process, clear/coherent thought process and + circumstantial thought process (Mildly, interjects with stories related to his service, but returns to topic) Thought Content: reality based without delusions and + loneliness; no hopelessness and no worthlessness Suicidal Thoughts: denies suicidal thoughts, denies suicidal plan and denies suicidal intent Homicidal Thoughts: denies homicidal thoughts and denies homicidal intent Hallucinations: no auditory hallucinations and no visual hallucinations Cognition: remote memory grossly intact, attention grossly intact and language grossly intact Estimated Intelligence: consistent with education level Insight: + fair insight Judgement: + fair judgement Vital Signs (Past 24 Hours): Last Vital Signs Temp 36.6 C 10/03/18 07:14 Pulse 85 10/03/18 11:42 Resp 16 10/03/18 11:42 BP 147/97 H 10/03/18 11:42 Pulse Ox 95 10/03/18 11:42 Review of Systems Constitutional: denied Cardiovascular: denied Respiratory: denied Gastrointestinal: denied Neurological: denied Psychiatric: denies symptoms other than stated above Total of at least 10 systems reviewed, pertinent positives as above and in HPI. Results & Data Medications Administered Acetaminophen (Tylenol) 650 mg PO Q4H PRN PRN Reason: Pain or Fever Stop: 11/02/18 00:18 Last Admin: 10/03/18 13:03 Dose: 650 mg Documented by: [id number] Apixaban (Eliquis) 5 mg PO Q12 ELI Stop: 11/02/18 00:09 Last Admin: 10/03/18 08:05 Dose: 5 mg Documented by: [id number] Admin: 10/03/18 01:22 Dose: 5 mg Documented by: [id number] Cetirizine HCl (Zyrtec) 10 mg PO DAILY [facility] Stop: 11/02/18 08:59 Last Admin: 10/03/18 08:04 Dose: 10 mg Documented by: [id number] Citalopram Hydrobromide (Celexa) 10 mg PO DAILY [facility] Stop: 11/02/18 08:59 Last Admin: 10/03/18 08:04 Dose: 10 mg Documented by: [id number] Cyanocobalamin (Vitamin B-12) 1,000 mcg PO DAILY ELI Stop: 11/02/18 08:59 Last Admin: 10/03/18 08:04 Dose: 1,000 mcg Documented by: [id number] Docusate Sodium (Colace) 100 mg PO DAILY [facility] Stop: 11/02/18 08:59 Last Admin: 10/03/18 08:04 Dose: 100 mg Documented by: [id number] Lisinopril (Zestril) 10 mg PO DAILY [facility] Stop: 11/02/18 03:14 Last Admin: 10/03/18 03:55 Dose: 10 mg Documented by: [id number] Metoprolol Tartrate (Lopressor) 50 mg PO TID [facility] Stop: 11/02/18 08:59 Last Admin: 10/03/18 13:03 Dose: 50 mg Documented by: [id number] Admin: 10/03/18 08:04 Dose: 50 mg Documented by: [id number] Pantoprazole Sodium (Protonix) 40 mg PO DAILY [facility] Stop: 11/02/18 08:59 Last Admin: 10/03/18 08:04 Dose: 40 mg Documented by: [id number]
--- NOTE | 2018-10-03 15:44 | Hospitalist Progress Note ---
Date of Service October 03, 2018 Assessment & Plan (1) Atrial flutter with rapid ventricular response: hx sick sinus syndrome hx DVT on Eliquis rx --Currently patient is in atrial flutter with controlled heart rate --Continue usual metoprolol and Eliquis Continue monitoring telemetry unit Hypertensive urgency --Likely secondary to emotional stress Blood pressure has improved Continue usual lisinopril and metoprolol Report of homicidal statements --Patient's daughter found to petition for 302 --Today patient is oriented x3, denies homicidality --Psychiatry consulted for re-evaluation nonocclusive CAD as per records --Continue Eliquis and atorvastatin Prostate cancer status post surgery --No issues Disposition PT/OT evaluation today Social service RE discharge planning Full code as per grandson, Mr. Brad Muro. Subjective Follow-up for atrial flutter with rapid ventricular response Seen sitting up in bed, comfortable, not in distress Denies chest pain, shortness of breath, palpitations, dizziness States he was very upset with the events yesterday Still reports feeling upset with her daughter due to several disagreements On exam, no active chest pain, shortness of breath no palpitations, dizziness Patient is oriented x3, calm and cooperative on my exam Answers all questions appropriately Thought pattern is logical Remembers details very well Denies suicidal ideation or homicidal ideations No other symptoms Review of Systems Review of Systems: All systems reviewed & are unremarkable except as noted in HPI & below Physical Exam Physical Exam: General- oriented x 3, not in distress, speaks in sentences with no effort or accessory muscle use Head- atraumatic Eyes- PERRL, EOMI, anicteric ENT- oropharynx clear Neck- supple, no JVD, no adenopathy, no thyromegaly; carotids +2/2, no bruits appreciated Lungs- clear to auscultation bilaterally, no crackles, no wheezing Heart- normal rate, irregularly irregular rhythm; no murmur, no gallop, no rub appreciated Abdomen- normal bowel sounds, nondistended, soft, nontender, no masses or hepatosplenomegaly Extremities- no pretibial edema, no calf tenderness; peripheral pulses intact Neuro- alert, oriented x 3; CN 2-12 grossly intact; motor 5/5 bilaterally;sensation 100% on all extremities; no other gross focal neurologic deficits Skin- warm & dry Results & Data Vital Signs (Past 12 Hours) Vital Signs Temp Pulse Resp BP BP Pulse Ox 10/03/18 15:25 36.6 C 80 18 162/102 H 158/98 H 96 10/03/18 11:42 85 16 147/97 H 95 10/03/18 07:14 36.6 C 69 20 145/92 H 98 Laboratory Results Laboratory Results - last 24 hr 10/02/18 10/02/18 10/02/18 18:40 18:40 18:40 WBC 4.84 RBC 5.22 Hgb 14.9 Hct 44.8 MCV 85.8 MCH 28.5 MCHC 33.3 RDW Std Deviation 55.5 H RDW Coeff of Martha 17.7 H Plt Count 131 MPV 9.8 Immature Gran % (Auto) 0.2 Neut % (Auto) 73.2 Lymph % (Auto) 16.7 [place] % (Auto) 9.1 Eos % (Auto) 0.6 Baso % (Auto) 0.2 Immature Gran # (Auto) 0.01 Neut # (Auto) 3.54 Lymph # (Auto) 0.81 L [place] # (Auto) 0.44 Eos # (Auto) 0.03 Baso # (Auto) 0.01 RBC Morphology PT 10.2 INR 1.0 APTT 25.7 PTT Ratio 0.9 Sodium 142 Potassium 3.9 Chloride 109 H Carbon Dioxide 24 Anion Gap 9.0 BUN 18 Creatinine 0.76 Est Cr Clr Drug Dosing 85.1 Est GFR ( Amer) 99.9 Est GFR (Non-Af Amer) 86.2 BUN/Creatinine Ratio 23.2 H Glucose 103 H Calcium 8.5 Magnesium 2.2 Total Bilirubin 0.7 AST 41 H ALT 64 Alkaline Phosphatase 88 Troponin I < 0.015 Total Protein 6.7 Albumin 3.5 Globulin 3.2 Albumin/Globulin Ratio 1.1 TSH 1.380 Urine Color Urine Appearance Urine pH Ur Specific [place] Urine Protein Urine Glucose (UA) Urine Ketones Urine Blood Urine Nitrite Urine Bilirubin Urine Urobilinogen Ur Leukocyte Esterase Urine WBC (Auto) Urine RBC (Auto) U Hyaline Cast (Auto) U Epithel Cells (Auto) Urine Bacteria (Auto) Salicylates Urine Opiates Screen Ur Methadone, Qual Acetaminophen Urine Barbiturates Ur Phencyclidine (PCP) U Amphetamin/Meth Scrn MDMA (Ecstasy) Screen U Benzodiazepines Scrn Ur Cocaine Metabolite U Marijuana (THC) Screen Ethyl Alcohol mg/dL 10/02/18 10/02/18 10/02/18 18:40 18:40 22:05 WBC RBC Hgb Hct MCV MCH MCHC RDW Std Deviation RDW Coeff of Martha Plt Count MPV Immature Gran % (Auto) Neut % (Auto) Lymph % (Auto) [place] % (Auto) Eos % (Auto) Baso % (Auto) Immature Gran # (Auto) Neut # (Auto) Lymph # (Auto) [place] # (Auto) Eos # (Auto) Baso # (Auto) RBC Morphology PT INR APTT PTT Ratio Sodium Potassium Chloride Carbon Dioxide Anion Gap BUN Creatinine Est Cr Clr Drug Dosing Est GFR ( Amer) Est GFR (Non-Af Amer) BUN/Creatinine Ratio Glucose Calcium Magnesium Total Bilirubin AST ALT Alkaline Phosphatase Troponin I Total Protein Albumin Globulin Albumin/Globulin Ratio TSH Urine Color Urine Appearance Urine pH Ur Specific [place] Urine Protein Urine Glucose (UA) Urine Ketones Urine Blood Urine Nitrite Urine Bilirubin Urine Urobilinogen Ur Leukocyte Esterase Urine WBC (Auto) Urine RBC (Auto) U Hyaline Cast (Auto) U Epithel Cells (Auto) Urine Bacteria (Auto) Salicylates < 1.7 L Urine Opiates Screen Neg Ur Methadone, Qual Neg Acetaminophen < 2 L Urine Barbiturates Neg Ur Phencyclidine (PCP) Neg U Amphetamin/Meth Scrn Neg MDMA (Ecstasy) Screen Neg U Benzodiazepines Scrn Neg Ur Cocaine Metabolite Neg U Marijuana (THC) Screen Neg Ethyl Alcohol mg/dL < 3.0 10/02/18 10/03/18 22:05 05:39 WBC 3.76 L RBC 4.76 Hgb 13.6 L Hct 41.1 L MCV 86.3 MCH 28.6 MCHC 33.1 RDW Std Deviation 55.9 H RDW Coeff of Martha 17.7 H Plt Count 119 L MPV 9.1 Immature Gran % (Auto) 0.0 Neut % (Auto) 64.7 Lymph % (Auto) 23.9 [place] % (Auto) 10.1 Eos % (Auto) 0.8 Baso % (Auto) 0.5 Immature Gran # (Auto) 0.00 Neut # (Auto) 2.43 Lymph # (Auto) 0.90 L [place] # (Auto) 0.38 Eos # (Auto) 0.03 Baso # (Auto) 0.02 RBC Morphology Unremarkable PT INR APTT PTT Ratio Sodium Potassium Chloride Carbon Dioxide Anion Gap BUN Creatinine Est Cr Clr Drug Dosing Est GFR ( Amer) Est GFR (Non-Af Amer) BUN/Creatinine Ratio Glucose Calcium Magnesium Total Bilirubin AST ALT Alkaline Phosphatase Troponin I Total Protein Albumin Globulin Albumin/Globulin Ratio TSH Urine Color Yellow Urine Appearance Clear Urine pH 7.0 Ur Specific [place] 1.019 Urine Protein 3+ H Urine Glucose (UA) Negative Urine Ketones Negative Urine Blood Negative Urine Nitrite Negative Urine Bilirubin Negative Urine Urobilinogen Negative Ur Leukocyte Esterase Negative Urine WBC (Auto) 1-5 Urine RBC (Auto) 0-4 U Hyaline Cast (Auto) 0 U Epithel Cells (Auto) 5-10 H Urine Bacteria (Auto) Negative Salicylates Urine Opiates Screen Ur Methadone, Qual Acetaminophen Urine Barbiturates Ur Phencyclidine (PCP) U Amphetamin/Meth Scrn MDMA (Ecstasy) Screen U Benzodiazepines Scrn Ur Cocaine Metabolite U Marijuana (THC) Screen Ethyl Alcohol mg/dL
[2018-10-03] MEDS: ATORVASTATIN 40 MG TAB PO SCH (19:23)
[2018-10-04] MEDS: DOCUSATE SODIUM 100 MG CAP PO SCH (07:21)
[2018-10-04] MEDS: CITALOPRAM 20 MG TAB PO SCH (07:21)
[2018-10-04] MEDS: PANTOprazole 40 MG TAB PO SCH (07:21)
[2018-10-04] MEDS: APIXABAN 5 MG TABLET PO SCH ×2 (07:21→19:19)
[2018-10-04] MEDS: CYANOCOBALAMIN 500 MCG TABLET (VITAMIN B-12) PO SCH (07:21)
[2018-10-04] MEDS: METOPROLOL TARTRATE 50 MG TAB PO SCH ×3 (07:21→19:20)
[2018-10-04] MEDS: CETIRIZINE HCL 10 MG TABLET PO SCH (07:22)
[2018-10-04] MEDS: LISINOPRIL 10 MG TAB PO SCH (07:23)
[2018-10-04] MEDS ORDERED: MAGNESIUM HYDROXIDE SUSP 30 ML UDC PO PRN (09:16)
[2018-10-04] MEDS ORDERED: AMLODIPINE BESYLATE 5 MG TAB PO ONE (09:17)
[2018-10-04 09:41] LABS: Basophils # (auto) 0.02 K/uL (0-0.2); Basophils % (auto) 0.3 %; Eosinophils # (auto) 0.05 K/uL (0-0.5); Eosinophils % (auto) 0.8 %; Hematocrit (blood only) 44.8 % (42-52); Hemoglobin 15.2 g/dL (14.0-18.0); Immature Granulocytes # (auto) 0.01 K/uL (0.00-0.02); Immature Granulocytes % (auto) 0.2 %; Lymphocytes # (auto) 1.04 K/uL (1.2-3.4); Lymphocytes % (auto) 17.6 %; Mean Corpuscular Hgb Conc 33.9 g/dL (32-36); Mean Corpuscular Volume 85.2 fL (80-100); Mean Platelet Volume 9.5 fL (7.4-10.4); Monocytes # (auto) 0.44 K/uL (0.11-0.59); Monocytes % (auto) 7.4 %; Neutrophils # (auto) 4.35 K/uL (1.4-6.5); Neutrophils % (auto) 73.7 %; Platelet Count 148 K/uL (130-400); RDW Coefficient of Variation 17.5 % (11.5-14.5); RDW Standard Deviation 54.7 fL (36.4-46.3); Red Blood Count 5.26 M/uL (4.7-6.1); White Blood Count 5.91 K/uL (4.8-10.8)
[2018-10-04] MEDS: DOCUSATE SODIUM/SENNA 50/8.6MG TAB PO SCH (09:41)
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
[2018-10-04 10:24] LABS: BUN Creatinine Ratio 20.7 (10-20); Calcium 8.3 mg/dl (8.5-10.1); Creatinine Clr Calc Pharmacy 85.4 ml/min; Est GFR (African American) 97.8; Est GFR (Non-African American) 84.4; Potassium 4.4 mmol/L (3.5-5.1)
--- NOTE | 2018-10-04 10:31 | Hospitalist Progress Note ---
Date of Service October 04, 2018 Assessment & Plan (1) Atrial flutter with rapid ventricular response: History of sick sinus syndrome --Currently patient is in atrial flutter with episodes of rapid ventricular response up to 140s patient claims to monitor --Currently metoprolol 50 mg p.o. 3 times daily, Eliquis 5 milligrams twice daily --Records obtained from [place] [facility], medication list does not include metoprolol --[employer] Supervisor consulted for further recommendations History of DVT --On Eliquis twice daily Hypertensive urgency --Likely secondary to emotional stress --Started on metoprolol and lisinopril on admission Records from the [facility] system indicate that the patient is taking metoprolol and lisinopril and outpatient Will need to verify this with the patient --Amlodipine 1 dose ordered for today for BP control Monitor blood pressure and titrate medications accordingly Report of homicidal statements --Patient's daughter filed petition for 302, leading to patient's being brought to the emergency room and subsequently admitted --On exam, patient denies homicidal ideations --Psychiatry consulted for re-evaluation Discussed at length with Dr. Feliz today over the phone, expressed my concern over the situation, requested to evaluate patient and evaluate 302 petition as well After her evaluation, Dr. Feliz feels patient does not meet criteria for inpatient psychiatric admission at this time She has discussed case with patient's grandson Jt, he will make sure patient has no access to guns when he returns home, which should be confirmed prior to discharge Refer to her note for complete details Appreciate psychiatry service recommendations --As per [place] [facility] records, patient takes citalopram 10 mg p.o. daily Repeat EKG today reveals QT corrected of 490 Will need to be monitored closely as outpatient Nonocclusive CAD as per records --Continue Eliquis and atorvastatin Prostate cancer status post surgery --No issues with urination Disposition PT and OT evaluation: Recommends inpatient rehab, discussed with patient and is agreeable to go to [place] re[facility] when medically stable I have discussed the case with therapy manager Guadalupe Subjective Follow-up for atrial fibrillation with rapid response Patient seen resting in bed, comfortable, no acute distress Still upset with events leading up to his hospitalization, still expressing being very upset with her daughter States he feels fine overall otherwise His chest pain, shortness of breath, palpitations, dizziness Walking to the bathroom with no problems administration vice president reveals episodes of atrial flutter IN RVR apparently while patient was ambulating No other symptoms Review of Systems Review of Systems: All systems reviewed & are unremarkable except as noted in HPI & below Physical Exam Physical Exam: General- oriented x 3, not in distress, speaks in sentences with no effort or accessory muscle use Eyes- anicteric Neck- no JVD Lungs- clear breath sounds, no crackles, no wheezing bilaterally Heart- normal rate, irregularly irregular rhythm; no murmurs Abdomen- normal bowel sounds, nondistended, soft, nontender Extremities- no pretibial edema, no calf tenderness Neuro- alert, oriented x 3; no gross focal neurologic deficits Skin- warm & dry Results & Data Vital Signs (Past 12 Hours) Vital Signs Temp Pulse Pulse Resp BP BP Pulse Ox 10/04/18 08:27 180/120 H 160/120 H 10/04/18 07:17 36.8 C 93 H 18 171/101 H 96 10/04/18 03:00 36.3 C L 69 17 148/92 H 97 10/04/18 00:00 69 10/03/18 23:00 36.5 C 69 16 129/82 96 Laboratory Results Laboratory Results - last 24 hr 10/04/18 10/04/18 09:21 09:21 WBC 5.91 RBC 5.26 Hgb 15.2 Hct 44.8 MCV 85.2 MCH 28.9 MCHC 33.9 RDW Std Deviation 54.7 H RDW Coeff of Martha 17.5 H Plt Count 148 MPV 9.5 Immature Gran % (Auto) 0.2 Neut % (Auto) 73.7 Lymph % (Auto) 17.6 [place] % (Auto) 7.4 Eos % (Auto) 0.8 Baso % (Auto) 0.3 Immature Gran # (Auto) 0.01 Neut # (Auto) 4.35 Lymph # (Auto) 1.04 L [place] # (Auto) 0.44 Eos # (Auto) 0.05 Baso # (Auto) 0.02 Sodium 138 Potassium 4.4 Chloride 107 Carbon Dioxide 23 Anion Gap 8.0 BUN 16 Creatinine 0.80 Est Cr Clr Drug Dosing 85.4 Est GFR ( Amer) 97.8 Est GFR (Non-Af Amer) 84.4 BUN/Creatinine Ratio 20.7 H Glucose 111 H Calcium 8.3 L
[2018-10-04] MEDS ORDERED: AMIODARONE IV BOLUS / DRIP IV STA (12:32)
[2018-10-04] MEDS ORDERED: AMIODARONE / D5W 360 MG/200 ML BAG IV SCH (12:50)
[2018-10-04] MEDS: AMIODARONE / D5W 150 MG/100 ML BAG IV STA ×2 (13:14→13:23)
--- NOTE | 2018-10-04 14:49 | Cardiology Consultation ---
Date of Consultation October 04, 2018 Assessment & Plan (1) Atrial flutter with rapid ventricular response: As the patient has been maintained on Eliquis, will initiate intravenous amiodarone hoping to convert patient to sinus rhythm. Agree with continuation of metoprolol tartrate 50 mg t.i.d.. (2) CAD (coronary artery disease): Mild diffuse disease noted at the time of a cardiac catheterization in 2011. (3) Hypertension: Adequate control on current medical regimen. (4) Hypercholesterolemia: Continue atorvastatin. History of Present Illness Attending Physician: Robert Montiel MD History of Present Illness Mr. Muro is an 78-year-old male admitted yesterday on a 302 because of homicidal statements. The patient was noted to be in atrial flutter with a rapid ventricular response. Of note, the patient's continuity coordinator is located within the [place] system. History was obtained from the chart as the patient seem somewhat unreliable. In any event, he developed a rapid ventricular response to his atrial flutter earlier today which was refractory to usual treatments. The patient denies palpitations, exercise intolerance, and exertional dyspnea. He further denies chest discomfort, syncope, presyncope, PND, orthopnea, lower extremity edema, and claudication. The patient does carry history of mild diffuse coronary artery disease. In 2011, he presented to our institution in atrial fibrillation with a rapid ventricular response. Because of an elevated troponin level and 1 a cardiac catheterization. This revealed mild diffuse coronary artery disease. As above, [facility]. Currently, patient is resting comfortably at the bedside without complaints. Past medical and surgical history 1. Coronary artery [id number] 2. Hypertension 3. Hypercholesterolemia 4. Paroxysmal atrial fibrillation/flutter 5. RBBB 6. Gout 7. Anxiety 8. Possible dementia 9. Right lower extremity DVT 10. 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 Allergies Allergy/AdvReac Type Severity Reaction Status Date / Time No Known Allergies Allergy Unverified 10/02/18 22:56 Home Medications Home Medications Medication Instructions Recorded Confirmed Type apixaban 5 mg PO Q12 10/02/18 10/02/18 History atorvastatin 40 mg PO PM 10/02/18 10/02/18 History bee pollen 0 mg PO DAILY 10/02/18 10/02/18 History calcium carbonate-vitamin D3 1 tab PO BID 10/02/18 10/02/18 History [Calcium 500 + D] cetirizine [Zyrtec] 10 mg PO DAILY 10/02/18 10/02/18 History cholecalciferol (vitamin D3) 2,000 unit PO DAILY 10/02/18 10/02/18 History [Vitamin D3] citalopram 10 mg PO DAILY 10/02/18 10/02/18 History clotrimazole-betamethasone 1 applic TOPICAL BID PRN 10/02/18 10/02/18 History cyanocobalamin (vitamin B-12) 1,000 mcg PO DAILY 10/02/18 10/02/18 History docusate sodium 100 mg PO DAILY 10/02/18 10/02/18 History food supplemt, lactose-reduced 1 ea PO DAILY 10/02/18 10/02/18 History [Ensure] furosemide 20 mg PO DAILY 10/02/18 10/02/18 History lisinopril 10 mg PO DAILY 10/02/18 10/02/18 History meclizine 12.5 mg PO BID PRN 10/02/18 10/02/18 History metoprolol tartrate 50 mg PO TID 10/02/18 10/02/18 History pantoprazole 20 mg PO DAILY 10/02/18 10/02/18 History polyethylene glycol 3350 [Miralax] 17 g PO DAILY PRN 10/02/18 10/02/18 History vitamin E 400 unit PO DAILY 10/02/18 10/02/18 History Patient History Medical History Tic douloureux (Chronic) Anxiety (Chronic) Gout (Chronic) Hypertension (Chronic) Deep vein thrombosis (Acute) Hypertension (Acute) Family History Other No pertinent family history in first degree relatives Social History Preferred Language: [place] Communication Ability: Effective Communication Ability Comment: [facility] Invertebrate Paleontologist Required: No Beliefs That Will Affect Care: Caodaism marital status: / Current Living Situation: Alone Feels Safe at Home: Yes Safety Concerns: Feels Safe At This Time Smoking Status: Never smoker Do You Dip or Chew Tobacco: No ; Hx Alcohol Use: No Hx Substance Use: No Physical Exam Physical Exam: In general this is a well-developed well-nourished white male in no acute distress. HEENT exam is negative. Neck is supple with full carotid upstrokes. There are no carotid bruits. Jugular venous pressure is flat at 90. There is no thyromegaly. Cardiovascular exam reveals a rapid irregular rhythm. There are no obvious murmurs. Lungs are clear without rales, rhonchi or wheezes. Abdomen is soft and nontender without bruits. Extremities reveal intact radial artery and posterior tibial pulses bilaterally. There is trace pretibial edema. Results & Data Vital Signs (Past 12 Hours) Vital Signs Temp Pulse Resp BP BP Pulse Ox 10/04/18 11:35 36.4 C L 62 17 80/53 L 96 10/04/18 08:27 180/120 H 160/120 H 10/04/18 07:17 36.8 C 93 H 18 171/101 H 96 10/04/18 03:00 36.3 C L 69 17 148/92 H 97 Laboratory Results CBC notes hemoglobin 15.2, crit 44.8, white count 5.9, platelet count 149 1000. Electrolytes notice of 138, potassium 4.4, chloride 107, bicarb 23, BUN 16, creatinine 0.8, glucose of 111. Troponin I levels less than 0.015. Magnesium level is 2.2. TSH is 1.3. Diagnostic Findings EKG notes atrial flutter with variable AV conduction. There is a complete right bundle-branch block. Chest x-ray notes cardiomegaly but no active disease. PG Care Time/CCT Total # of Minutes Spent Total Time Spent with Patient: Total time spent is greater than 50% in coordination of care (as documented) at patient's floor/unit and/or counseling patient:
[2018-10-04] MEDS: AMIODARONE / D5W 360 MG/200 ML BAG IV SCH (19:07)
[2018-10-04] MEDS: ATORVASTATIN 40 MG TAB PO SCH (19:19)
[2018-10-05] MEDS: AMIODARONE / D5W 360 MG/200 ML BAG IV SCH ×2 (04:53→17:45)
[2018-10-05] MEDS: CYANOCOBALAMIN 500 MCG TABLET (VITAMIN B-12) PO SCH (07:46)
[2018-10-05] MEDS: DOCUSATE SODIUM 100 MG CAP PO SCH (07:46)
[2018-10-05] MEDS: PANTOprazole 40 MG TAB PO SCH (07:46)
[2018-10-05] MEDS: CITALOPRAM 20 MG TAB PO SCH (07:47)
[2018-10-05] MEDS: DOCUSATE SODIUM/SENNA 50/8.6MG TAB PO SCH (07:53)
[2018-10-05] MEDS: APIXABAN 5 MG TABLET PO SCH ×2 (07:53→21:30)
[2018-10-05] MEDS: METOPROLOL TARTRATE 50 MG TAB PO SCH ×3 (07:54→21:31)
[2018-10-05] MEDS: LISINOPRIL 10 MG TAB PO SCH (07:58)
--- NOTE | 2018-10-05 11:46 | Cardiology Progress Note ---
Date of Service October 05, 2018 Assessment & Plan (1) Atrial flutter with rapid ventricular response: Tolerating intravenous amiodarone without difficulty. Ventricular response now adequately controlled. At the end of the 24 hour infusion, could convert amiodarone 200 mg daily. Continue metoprolol tartrate and Eliquis. (2) CAD (coronary artery disease): Mild diffuse disease noted at the time of a cardiac catheterization in 2011. (3) Hypertension: Adequate control. (4) Hypercholesterolemia: Continue atorvastatin. Subjective The patient is resting comfortably at the bedside without complaints of chest pain, dyspnea, or palpitations. Physical Exam Physical Exam: In general this is a well-developed well-nourished white male in no acute distress. HEENT exam is negative. Neck is supple with full carotid upstrokes. There are no carotid bruits. Jugular venous pressure is flat at 90. There is no thyromegaly. Cardiovascular exam reveals a rapid irregular rhythm. There are no obvious murmurs. Lungs are clear without rales, rhonchi or wheezes. Abdomen is soft and nontender without bruits. Extremities reveal intact radial artery and posterior tibial pulses bilaterally. There is trace pretibial edema. Results & Data Vital Signs (Past 12 Hours) Vital Signs Temp Pulse Pulse Pulse Resp BP BP 10/05/18 10:57 36.9 C 89 18 157/105 H 10/05/18 09:45 145/91 H 10/05/18 08:02 190/111 H 10/05/18 07:31 36.6 C 93 H 19 75/49 L 10/05/18 04:50 36.5 C 98 H 17 159/110 H 10/05/18 00:00 36.4 C L 62 91 H 18 139/90 Pulse Ox 10/05/18 10:57 97 10/05/18 09:45 10/05/18 08:02 10/05/18 07:31 91 10/05/18 04:50 96 10/05/18 00:00 95 Diagnostic Findings athletic monitor notes atrial flutter with a controlled ventricular response. PG Care Time/CCT Total # of Minutes Spent Total Time Spent with Patient: Total time spent is greater than 50% in coordination of care (as documented) at patient's floor/unit and/or counseling patient:
--- NOTE | 2018-10-05 13:50 | Hospitalist Progress Note ---
Date of Service October 05, 2018 Assessment & Plan (1) Atrial flutter with rapid ventricular response: History of sick sinus syndrome Currently patient is in atrial flutter with episodes of rapid ventricular response up to 140s patient claims to monitor Cardiology consulted. Appreciate input and recommendation Was on metoprolol 50 mg p.o. 3 times daily, Eliquis 5 milligrams twice daily Records obtained from [place] [facility], medication list does not include metoprolol Has been on intravenous amiodarone-Will change to oral as per cardiology recommendation Heart rate remains stable History of DVT On Eliquis twice daily Hypertensive urgency Likely secondary to emotional stress Started on metoprolol and lisinopril on admission Amlodipine 1 dose ordered for today for BP control On 10/04 BP remains in the upper side Report of homicidal statements Patient's daughter filed petition for 302, leading to patient's being brought to the emergency room and subsequently admitted Psychiatry consulted for re-evaluation;Appreciate input and recommendation Dr. frey "discussed at length with Dr. Feliz today 0n 10/04 over the phone, expressed my concern over the situation, requested to evaluate patient and evaluate 302 petition as well After her evaluation, Dr. Feliz feels patient does not meet criteria for inpatient psychiatric admission at this time She has discussed case with patient's grandson Jt, he will make sure patient has no access to guns when he returns home, which should be confirmed prior to discharge Refer to her note for complete details" As per [place] [facility] records, patient takes citalopram 10 mg p.o. daily Remains stable as of today and denies any suicidal and/or homicidal tendencies He is strongly feels that does intentional from her daughter And he does not have any homicidal tendency Nonocclusive CAD as per records --Continue Eliquis and atorvastatin Prostate cancer status post surgery --No issues with urination Disposition PT and OT evaluation: Recommends inpatient rehab, discussed with patient and is agreeable to go to [place] rehab when medically stable I have discussed the case with manager it training Guadalupe Patient likes to go to rehab at the [place] facility Subjective 10/05 The patient was seen and examined in the telemetry unit He has significant Medical history of sick sinus syndrome/hx atrial flutter/hx DVT on Eliquis, nonocclusive CAD as per records, hypertension, gout as per records, prostate cancer status post surgery, anxiety/mood disorder was admitted with rapid A. fib and Homicidal intention Worried about having high blood pressure as of today Denies any symptoms of chest pain,Shortness of breath, abdominal pain nausea and/or vomiting Review of Systems Review of Systems: All systems reviewed and are unremarkable except as noted below Respiratory: no dyspnea Cardiovascular: no chest pain Neurologic: Alert, awake and oriented x3 Physical Exam Physical Exam: No apparent distress at rest Constitutional: cooperative and comfortable; no acute distress and not combative Eyes: PERRL, conjunctivae normal, anicteric sclerae Respiratory: normal respiratory effort; no respiratory distress Auscultation: lungs clear to auscultation bilaterally Cardiovascular: Rate/Rhythm: regular rate and regular rhythm Gastrointestinal (Abdomen): Inspection/Auscultation: abdomen normal to inspection and normal bowel sounds Percussion/Palpation: abdomen soft Musculoskeletal: No acute arthritis in any joints Neurologic: Alert, awake. Pleasantly confused Psychiatric: Orientation: alert, oriented to person, oriented to place, oriented to time and cooperative Apperance: appropriately dressed (Hospital gown), appropriately groomed and appeared stated age Eye Contact: good eye contact Motor Behavior: no abnormal motor movements Speech: normal rate/rhythm/volume of speech Affect: + blunted affect (Appearing somewhat fatigued); no depressed affect and no anxious affect Mood: + depressed mood ("Well yeah, because of dealing with all this with my daughter"); no anxious mood Thought Process: goal directed thought process, clear/coherent thought process and + circumstantial thought process Thought Content: reality based without delusions and + loneliness; no hopelessness and no worthlessness Suicidal Thoughts: denies suicidal thoughts, denies suicidal plan and denies suicidal intent Homicidal Thoughts: denies homicidal thoughts and denies homicidal intent Hallucinations: no auditory hallucinations and no visual elisa lucinations Cognition: recent memory grossly intact, remote memory grossly intact, attention grossly intact and language grossly intact Estimated Intelligence: consistent with education level Insight: + fair insight Judgement: + fair judgement Lymphatic: no cervical or axillary lymphadenopathy Results & Data Vital Signs (Past 12 Hours) Vital Signs Temp Pulse Resp BP BP Pulse Ox 10/05/18 10:57 36.9 C 89 18 157/105 H 97 10/05/18 09:45 145/91 H 10/05/18 08:02 190/111 H 10/05/18 07:31 36.6 C 93 H 19 75/49 L 91 10/05/18 04:50 36.5 C 98 H 17 159/110 H 96 Medications Administered Current Inpatient Medications Acetaminophen (Tylenol) 650 mg PO Q4H PRN PRN Reason: Pain or Fever Stop: 11/02/18 00:18 Last Admin: 10/03/18 13:03 Dose: 650 mg Documented by: Apixaban (Eliquis) 5 mg PO Q12 [facility]I Stop: 11/02/18 00:09 Last Admin: 10/05/18 07:53 Dose: 5 mg Documented by: Atorvastatin Calcium (Lipitor) 40 mg PO PM [facility]I Stop: 11/02/18 20:59 Last Admin: 10/04/18 19:19 Dose: 40 mg Documented by: Citalopram Hydrobromide (Celexa) 10 mg PO DAILY [facility] Stop: 11/02/18 08:59 Last Admin: 10/05/18 07:47 Dose: 10 mg Documented by: Cyanocobalamin (Vitamin B-12) 1,000 mcg PO DAILY [facility] Stop: 11/02/18 08:59 Last Admin: 10/05/18 07:46 Dose: 1,000 mcg Documented by: Docusate Sodium (Colace) 100 mg PO DAILY [facility] Stop: 11/02/18 08:59 Last Admin: 10/05/18 07:46 Dose: 100 mg Documented by: Promethazine HCl 12.5 mg/ (Sodium Chloride) 50.5 mls @ 202 mls/hr IV Q6H PRN PRN Reason: Nausea And Vomiting Stop: 11/02/18 00:18 Amiodarone HCl/Dextrose (Nexterone / D5w) 360 mg in 200 mls @ 16.667 mls/hr IV .Q12H ELI Stop: 11/03/18 18:49 Last Admin: 10/05/18 04:53 Dose: 0.5 mg/min, 16.7 mls/hr Documented by: Lisinopril (Zestril) 10 mg PO DAILY [facility] Stop: 11/02/18 03:14 Last Admin: 10/05/18 07:58 Dose: 10 mg Documented by: Magnesium Hydroxide (Milk Of Magnesia) 30 ml PO Q6H PRN PRN Reason: Constipation Stop: 11/03/18 09:15 Metoprolol Tartrate (Lopressor) 50 mg PO TID [facility] Stop: 11/02/18 08:59 Last Admin: 10/05/18 07:54 Dose: 50 mg Documented by: Nitroglycerin (Nitrostat) 0.4 mg SL UD PRN PRN Reason: Chest Pain Stop: 11/02/18 00:18 Olanzapine (Zyprexa) 2.5 mg IM Q4H PRN PRN Reason: Anxiety/Agitation Stop: 11/02/18 00:18 Pantoprazole Sodium (Protonix) 40 mg PO DAILY [facility] Stop: 11/02/18 08:59 Last Admin: 10/05/18 07:46 Dose: 40 mg Documented by: Polyethylene Glycol (Miralax Powder Packet) 17 gm PO DAILY PRN PRN Reason: Constipation Stop: 11/02/18 00:09 Senna/Docusate Sodium (Senokot S) 1 tab PO QAM [facility] Stop: 11/03/18 09:29 Last Admin: 10/05/18 07:53 Dose: 1 tab Documented by:
[2018-10-05] MEDS: ATORVASTATIN 40 MG TAB PO SCH (21:31)
[2018-10-06] MEDS: AMIODARONE / D5W 360 MG/200 ML BAG IV SCH (05:13)
[2018-10-06 05:59] LABS: Eosinophils # (auto) 0.03 K/uL (0-0.5); Eosinophils % (auto) 0.9 %; Hemoglobin 13.9 g/dL (14.0-18.0); Immature Granulocytes # (auto) 0.01 K/uL (0.00-0.02); Immature Granulocytes % (auto) 0.3 %; Lymphocytes # (auto) 0.66 K/uL (1.2-3.4); Lymphocytes % (auto) 20.7 %; Mean Corpuscular Hgb Conc 33.1 g/dL (32-36); Mean Corpuscular Volume 85.2 fL (80-100); Mean Platelet Volume 9.6 fL (7.4-10.4); Monocytes % (auto) 9.4 %; Neutrophils # (auto) 2.19 K/uL (1.4-6.5); Neutrophils % (auto) 68.7 %; Platelet Count 110 K/uL (130-400); RDW Coefficient of Variation 17.1 % (11.5-14.5); RDW Standard Deviation 53.1 fL (36.4-46.3); Red Blood Count 4.93 M/uL (4.7-6.1); White Blood Count 3.19 K/uL (4.8-10.8)
[2018-10-06 06:27] LABS: BUN Creatinine Ratio 19.3 (10-20); Est GFR (African American) 103.9; Est GFR (Non-African American) 89.7; Magnesium 1.8 mg/dl (1.8-2.4); Potassium 4.2 mmol/L (3.5-5.1)
[2018-10-06] MEDS: DOCUSATE SODIUM/SENNA 50/8.6MG TAB PO SCH (08:30)
[2018-10-06] MEDS: CITALOPRAM 20 MG TAB PO SCH (08:30)
[2018-10-06] MEDS: CYANOCOBALAMIN 500 MCG TABLET (VITAMIN B-12) PO SCH (08:31)
[2018-10-06] MEDS: DOCUSATE SODIUM 100 MG CAP PO SCH (08:31)
[2018-10-06] MEDS: PANTOprazole 40 MG TAB PO SCH (08:31)
[2018-10-06] MEDS: LISINOPRIL 10 MG TAB PO SCH (08:31)
[2018-10-06] MEDS: METOPROLOL TARTRATE 50 MG TAB PO SCH ×3 (08:32→20:15)
[2018-10-06] MEDS: APIXABAN 5 MG TABLET PO SCH ×2 (08:32→20:14)
[2018-10-06] MEDS ORDERED: AMIODARONE 200 MG TAB PO ONE (10:15)
[2018-10-06] MEDS: LISINOPRIL 20 MG TAB PO SCH (10:47)
--- NOTE | 2018-10-06 11:52 | Cardiology Progress Note ---
Date of Service October 06, 2018 Assessment & Plan (1) Atrial flutter with rapid ventricular response: Ventricular response now adequately controlled. Could convert amiodarone to 200 mg po BID. Continue metoprolol tartrate and Eliquis. (2) CAD (coronary artery disease): Mild diffuse disease noted at the time of a cardiac catheterization in 2011. (3) Hypertension: Borderline control on current medical regimen. (4) Hypercholesterolemia: Continue atorvastatin. Subjective The patient is resting comfortably in bed without complaints of chest pain, dyspnea, or palpitations. Physical Exam Physical Exam: In general this is a well-developed well-nourished white male in no acute distress. HEENT exam is negative. Neck is supple with full carotid upstrokes. There are no carotid bruits. Jugular venous pressure is flat at 90. There is no thyromegaly. Cardiovascular exam reveals a rapid irregular rhythm. There are no obvious murmurs. Lungs are clear without rales, rhonchi or wheezes. Abdomen is soft and nontender without bruits. Extremities reveal intact radial artery and posterior tibial pulses bilaterally. There is trace pretibial edema. Results & Data Vital Signs (Past 12 Hours) Vital Signs Temp Pulse Pulse Pulse Resp BP BP 10/06/18 11:33 37.0 C 76 18 155/97 H 10/06/18 09:43 83 10/06/18 07:07 37.0 C 57 L 19 171/93 H 10/06/18 04:19 165/100 H 10/06/18 03:48 36.9 C 60 16 10/06/18 03:35 174/104 H 10/06/18 00:14 36.4 C L 57 L 18 151/96 H 10/06/18 00:00 59 L Pulse Ox 10/06/18 11:33 96 10/06/18 09:43 10/06/18 07:07 96 10/06/18 04:19 10/06/18 03:48 97 10/06/18 03:35 10/06/18 00:14 97 10/06/18 00:00 Diagnostic Findings cardiac monitor technician notes rate controlled atrial flutter. PG Care Time/CCT Total # of Minutes Spent Total Time Spent with Patient: Total time spent is greater than 50% in coordination of care (as documented) at patient's floor/unit and/or counseling patient:
--- NOTE | 2018-10-06 16:33 | Hospitalist Progress Note ---
Date of Service October 06, 2018 Assessment & Plan (1) Atrial flutter with rapid ventricular response: History of sick sinus syndrome Currently patient is in atrial flutter with episodes of rapid ventricular response up to 140s patient claims to monitor Cardiology consulted. Appreciate input and recommendation Was on metoprolol 50 mg p.o. 3 times daily, Eliquis 5 milligrams twice daily Records obtained from [place] [facility] system, medication list does not include metoprolol Has been on intravenous amiodarone-Will change to oral as per cardiology recommendation Heart rate remains stable Amiodarone drip has been stopped and he has been put on amiodarone 200 mg twice daily We will continue other cardiac medications including beta-[place] Denies any symptoms History of DVT On Eliquis twice daily Hypertensive urgency Likely secondary to emotional stress Started on metoprolol and lisinopril on admission Amlodipine 1 dose ordered for today for BP control On 10/04 BP remains in the upper side Report of homicidal statements Patient's daughter filed petition for 302, leading to patient's being brought to the emergency room and subsequently admitted Psychiatry consulted for re-evaluation;Appreciate input and recommendation Dr. frey "discussed at length with Dr. Feliz today 0n 10/04 over the phone, expressed my concern over the situation, requested to evaluate patient and evaluate 302 petition as well After her evaluation, Dr. Feliz feels patient does not meet criteria for inpatient psychiatric admission at this time She has discussed case with patient's grandson Jt, he will make sure patient has no access to guns when he returns home, which should be confirmed prior to discharge Refer to her note for complete details" As per [place] [facility] records, patient takes citalopram 10 mg p.o. daily Remains stable as of today and denies any suicidal and/or homicidal tendencies He is strongly feels that does intentional from her daughter And he does not have any homicidal tendency He seems to be very depressed Nonocclusive CAD as per records --Continue Eliquis and atorvastatin Prostate cancer status post surgery --No issues with urination Disposition PT and OT evaluation: Recommends inpatient rehab, discussed with patient and is agreeable to go to [place] rehab when medically stable I have discussed the case with mds manager Guadalupe Patient likes to go to rehab at the [place] facility Awaiting to be placed Subjective 10/05 The patient was seen and examined in the telemetry unit He has significant Medical history of sick sinus syndrome/hx atrial flutter/hx DVT on Eliquis, nonocclusive CAD as per records, hypertension, gout as per records, prostate cancer status post surgery, anxiety/mood disorder was admitted with rapid A. fib and Homicidal intention Worried about having high blood pressure as of today Denies any symptoms of chest pain,Shortness of breath, abdominal pain nausea and/or vomiting 10/06 Patient is seen and examined in telemetry unit He complains of generalized weakness and some dyspepsia Denies any vomiting and his bowel has been moving He is anxious and also at the same time depressed Review of Systems Review of Systems: All systems reviewed and are unremarkable except as noted below Neurologic: Alert, awake and oriented x3 Physical Exam Physical Exam: Lying in bed very depressed Constitutional: + ill appearing, cooperative and comfortable; no acute distress and not combative Eyes: PERRL, conjunctivae normal, anicteric sclerae ENMT: external ear and nose normal, oropharynx normal Neck: trachea midline, no thyromegaly Respiratory: normal respiratory effort; no respiratory distress Auscultation: lungs clear to auscultation bilaterally Cardiovascular: Rate/Rhythm: regular rate and regular rhythm Gastrointestinal (Abdomen): Inspection/Auscultation: abdomen normal to inspection and normal bowel sounds Percussion/Palpation: abdomen soft Musculoskeletal: No acute arthritis in any joint Neurologic: moves all extremities; no focal motor deficits Psychiatric: Orientation: alert, oriented to person, oriented to place, oriented to time and cooperative Apperance: appropriately dressed (Hospital gown), appropriately groomed and appeared stated age Eye Contact: good eye contact Motor Behavior: no abnormal motor movements Speech: normal rate/rhythm/volume of speech Affect: + blunted affect (Appearing somewhat fatigued); no depressed affect and no anxious affect Mood: + depressed mood ("Well yeah, because of dealing with all this with my daughter"); no anxious mood Thought Process: goal directed thought process, clear/coherent thought process and + circumstantial thought process Thought Content: reality based without delusions and + loneliness; no hopelessness and no worthlessness Suicidal Thoughts: denies suicidal thoughts, denies suicidal plan and denies suicidal intent Homicidal Thoughts: denies homicidal thoughts and denies homicidal intent Hallucinations: no auditory hallucinations and no visual hallucinations Cognition: recent memory grossly intact, remote memory grossly intact, attention grossly intact and language grossly intact Estimated Intelligence: consistent with education level Insight: + fair insight Judgement: + fair judgement Lymphatic: no cervical or axillary lymphadenopathy Results & Data Vital Signs (Past 12 Hours) Vital Signs Temp Pulse Pulse Resp BP BP Pulse Ox 10/06/18 15:50 36.2 C L 70 19 158/98 H 96 10/06/18 15:21 71 10/06/18 11:33 37.0 C 76 18 155/97 H 96 10/06/18 09:43 83 10/06/18 07:07 37.0 C 57 L 19 171/93 H 96 Laboratory Results Short CBC 10/06/18 Range/Units 05:33 WBC 3.19 L (4.8-10.8) K/uL Hgb 13.9 L (14.0-18.0) g/dL Hct 42.0 (42-52) % Plt Count 110 L (130-400) K/uL BMP 10/06/18 05:33 Sodium 134 L Potassium 4.2 Chloride 101 Carbon Dioxide 28 BUN 13 Creatinine 0.69 Glucose 91 Calcium 8.0 L Medications Administered Current Inpatient Medications Acetaminophen (Tylenol) 650 mg PO Q4H PRN PRN Reason: Pain or Fever Stop: 11/02/18 00:18 Last Admin: 10/03/18 13:03 Dose: 650 mg Documented by: Amiodarone HCl (Cordarone) 200 mg PO BIDM [facility] Stop: 11/05/18 16:59 Apixaban (Eliquis) 5 mg PO Q12 [facility]I Stop: 11/02/18 00:09 Last Admin: 10/06/18 08:32 Dose: 5 mg Documented by: Atorvastatin Calcium (Lipitor) 40 mg PO PM [facility] Stop: 11/02/18 20:59 Last Admin: 10/05/18 21:31 Dose: 40 mg Documented by: Citalopram Hydrobromide (Celexa) 10 mg PO DAILY [facility] Stop: 11/02/18 08:59 Last Admin: 10/06/18 08:30 Dose: 10 mg Documented by: Cyanocobalamin (Vitamin B-12) 1,000 mcg PO DAILY [facility] Stop: 11/02/18 08:59 Last Admin: 10/06/18 08:31 Dose: 1,000 mcg Documented by: Docusate Sodium (Colace) 100 mg PO DAILY [facility] Stop: 11/02/18 08:59 Last Admin: 10/06/18 08:31 Dose: 100 mg Documented by: Promethazine HCl 12.5 mg/ (Sodium Chloride) 50.5 mls @ 202 mls/hr IV Q6H PRN PRN Reason: Nausea And Vomiting Stop: 11/02/18 00:18 Lisinopril (Zestril) 20 mg PO DAILY [facility] Stop: 11/05/18 09:29 Last Admin: 10/06/18 10:47 Dose: 20 mg Documented by: Magnesium Hydroxide (Milk Of Magnesia) 30 ml PO Q6H PRN PRN Reason: Constipation Stop: 11/03/18 09:15 Metoprolol Tartrate (Lopressor) 50 mg PO TID [facility] Stop: 11/02/18 08:59 Last Admin: 10/06/18 15:01 Dose: 50 mg Documented by: Nitroglycerin (Nitrostat) 0.4 mg SL UD PRN PRN Reason: Chest Pain Stop: 11/02/18 00:18 Olanzapine (Zyprexa) 2.5 mg IM Q4H PRN PRN Reason: Anxiety/Agitation Stop: 11/02/18 00:18 Pantoprazole Sodium (Protonix) 40 mg PO DAILY [facility] Stop: 11/02/18 08:59 Last Admin: 10/06/18 08:31 Dose: 40 mg Documented by: Polyethylene Glycol (Miralax Powder Packet) 17 gm PO DAILY PRN PRN Reason: Constipation Stop: 11/02/18 00:09 Senna/Docusate Sodium (Senokot S) 1 tab PO QAM [facility] Stop: 11/03/18 09:29 Last Admin: 10/06/18 08:30 Dose: 1 tab Documented by:
[2018-10-06] MEDS: AMIODARONE 200 MG TAB PO SCH (18:28)
[2018-10-06] MEDS: ATORVASTATIN 40 MG TAB PO SCH (20:15)
[2018-10-07] MEDS ORDERED: cloNIDine HCl 0.1 MG TAB PO ONE (04:58)
[2018-10-07] MEDS: DOCUSATE SODIUM 100 MG CAP PO SCH (08:10)
[2018-10-07] MEDS: AMIODARONE 200 MG TAB PO SCH (08:10)
[2018-10-07] MEDS: CITALOPRAM 20 MG TAB PO SCH (08:10)
[2018-10-07] MEDS: METOPROLOL TARTRATE 50 MG TAB PO SCH ×2 (08:11→15:06)
[2018-10-07] MEDS: DOCUSATE SODIUM/SENNA 50/8.6MG TAB PO SCH (08:11)
[2018-10-07] MEDS: PANTOprazole 40 MG TAB PO SCH (08:11)
[2018-10-07] MEDS: LISINOPRIL 20 MG TAB PO SCH (08:12)
[2018-10-07] MEDS: APIXABAN 5 MG TABLET PO SCH (08:12)
[2018-10-07] MEDS: CYANOCOBALAMIN 500 MCG TABLET (VITAMIN B-12) PO SCH (08:12)
[2018-10-07] MEDS ORDERED: LORazepam 0.5 MG TAB PO PRN (09:59)
--- NOTE | 2018-10-07 11:22 | Hospitalist Progress Note ---
Date of Service October 07, 2018 Assessment & Plan (1) SARA (generalized anxiety disorder): The patient was noted to be very anxious this morning and threatening to leave the hospital He is very much worried about the bills that he has to play for his hospital stay He is willing to go to a [facility] for rehab Not aggressive during the examination Ativan 0.5 mg twice daily as needed was prescribed Psychiatric reevaluation in case the patient wants to sign out AMA and required to have decision making capacity before he can do that Medically stable otherwise. Discussed with the case management (2) Atrial flutter with rapid ventricular response: History of sick sinus syndrome Currently patient is in atrial flutter with episodes of rapid ventricular response up to 140s patient claims to monitor Cardiology consulted. Appreciate input and recommendation Was on metoprolol 50 mg p.o. 3 times daily, Eliquis 5 milligrams twice daily Records obtained from [facility], medication list does not include metoprolol Has been on intravenous amiodarone-Will change to oral as per cardiology recommendation Heart rate remains stable Amiodarone drip has been stopped and he has been put on amiodarone 200 mg twice daily We will continue other cardiac medications including beta-britany Denies any symptoms Heart rate remains controlled and the blood pressure is in the upper side History of DVT On Eliquis twice daily Hypertensive urgency Likely secondary to emotional stress Started on metoprolol and lisinopril on admission Amlodipine 1 dose ordered for today for BP control On 10/04 BP remains in the upper side Report of homicidal statements Patient's daughter filed petition for 302, leading to patient's being brought to the emergency room and subsequently admitted Psychiatry consulted for re-evaluation;Appreciate input and recommendation Dr. frey "discussed at length with Dr. Feliz today 0n 10/04 over the phone, expressed my concern over the situation, requested to evaluate patient and evaluate 302 petition as well After her evaluation, Dr. Feliz feels patient does not meet criteria for inpatient psychiatric admission at this time She has discussed case with patient's grandson Jt, he will make sure patient has no access to guns when he returns home, which should be confirmed prior to discharge Refer to her note for complete details" As per [employer] system records, patient takes citalopram 10 mg p.o. daily Remains stable as of today and denies any suicidal and/or homicidal tendencies He is strongly feels that does intentional from her daughter And he does not have any homicidal tendency He seems to be very depressed Nonocclusive CAD as per records --Continue Eliquis and atorvastatin Prostate cancer status post surgery --No issues with urination Disposition PT and OT evaluation: Recommends inpatient rehab, discussed with patient and is agreeable to go to [facility] when medically stable I have discussed the case with senior risk manager Guadalupe Patient likes to go to rehab at the [facility] facility Awaiting to be placed Subjective 10/05 The patient was seen and examined in the telemetry unit He has significant Medical history of sick sinus syndrome/hx atrial flutter/hx DVT on Eliquis, nonocclusive CAD as per records, hypertension, gout as per records, prostate cancer status post surgery, anxiety/mood disorder was admitted with rapid A. fib and Homicidal intention Worried about having high blood pressure as of today Denies any symptoms of chest pain,Shortness of breath, abdominal pain nausea and/or vomiting 10/06 Patient is seen and examined in telemetry unit He complains of generalized weakness and some dyspepsia Denies any vomiting and his bowel has been moving He is anxious and also at the same time depressed 10/07 The patient was seen and examined in telemetry unit This morning he was anxious and he wanted to leave the hospital and called the police He is very much worried about the bleeding that he is going to pay He is very much willing to go to rehab at the [facility] facility Denies any chest pain, shortness of breath, palpitation, abdominal pain, nausea no vomiting, any headache, dizziness or any weakness involving any side of the body Review of Systems Review of Systems: All systems reviewed and are unremarkable except as noted below Cardiovascular: no chest pain Gastrointestinal: no abdominal pain, no nausea and no vomiting Neurologic: Alert, awake and oriented x3 Physical Exam 2 Physical Exam: Sitting at the age of the bed very anxious Constitutional: cooperative and comfortable; no acute distress, not ill appearing and not combative Eyes: PERRL, conjunctivae normal, anicteric sclerae ENMT: external ear and nose normal, oropharynx normal Neck: trachea midline, no thyromegaly Respiratory: normal respiratory effort; no respiratory distress Auscultation: lungs clear to auscultation bilaterally Cardiovascular: Rate/Rhythm: regular rate and regular rhythm Gastrointestinal (Abdomen): Inspection/Auscultation: abdomen normal to inspection and normal bowel sounds Percussion/Palpation: abdomen soft Neurologic: moves all extremities; no focal motor deficits Anxious, agitated this morning and threatening to leave the hospital. Psychiatric: Orientation: alert, oriented to person, oriented to place, oriented to time and cooperative Apperance: appropriately dressed (Hospital gown), appropriately groomed and appeared stated age Eye Contact: good eye contact Motor Behavior: no abnormal motor movements Speech: normal rate/rhythm/volume of speech Affect: + blunted affect (Appearing somewhat fatigued); no depressed affect and no anxious affect Mood: + depressed mood ("Well yeah, because of dealing with all this with my daughter"); no anxious mood Thought Process: goal directed thought process, clear/coherent thought process and + circumstantial thought process Thought Content: reality based without delusions and + loneliness; no hopelessness and no worthlessness Suicidal Thoughts: denies suicidal thoughts, denies suicidal plan and denies suicidal intent Homicidal Thoughts: denies homicidal thoughts and denies homicidal intent Hallucinations: no auditory hallucinations and no visual hallucinations Cognition: recent memory grossly intact, remote memory grossly intact, attention grossly intact and language grossly intact Estimated Intelligence: consistent with education level Insight: + fair insight Judgement: + fair judgement Lymphatic: no cervical or axillary lymphadenopathy Results & Data Vital Signs (Past 12 Hours) Vital Signs Temp Pulse Pulse Pulse Resp BP BP 10/07/18 07:58 62 10/07/18 07:39 36.5 C 67 18 157/79 H 10/07/18 03:14 36.8 C 60 16 178/101 H 181/112 H 10/06/18 23:32 37.0 C 68 18 147/87 H Pulse Ox 10/07/18 07:58 10/07/18 07:39 97 10/07/18 03:14 96 10/06/18 23:32 95 Medications Administered Current Inpatient Medications Acetaminophen (Tylenol) 650 mg PO Q4H PRN PRN Reason: Pain or Fever Stop: 11/02/18 00:18 Last Admin: 10/03/18 13:03 Dose: 650 mg Documented by: Amiodarone HCl (Cordarone) 200 mg PO BIDM [facility] Stop: 11/05/18 16:59 Last Admin: 10/07/18 08:10 Dose: 200 mg Documented by: Apixaban (Eliquis) 5 mg PO Q12 [facility] Stop: 11/02/18 00:09 Last Admin: 10/07/18 08:12 Dose: 5 mg Documented by: Atorvastatin Calcium (Lipitor) 40 mg PO PM ELI Stop: 11/02/18 20:59 Last Admin: 10/06/18 20:15 Dose: 40 mg Documented by: Citalopram Hydrobromide (Celexa) 10 mg PO DAILY [facility] Stop: 11/02/18 08:59 Last Admin: 10/07/18 08:10 Dose: 10 mg Documented by: Cyanocobalamin (Vitamin B-12) 1,000 mcg PO DAILY [facility] Stop: 11/02/18 08:59 Last Admin: 10/07/18 08:12 Dose: 1,000 mcg Documented by: Docusate Sodium (Colace) 100 mg PO DAILY [facility] Stop: 11/02/18 08:59 Last Admin: 10/07/18 08:10 Dose: Not Given Documented by: Promethazine HCl 12.5 mg/ (Sodium Chloride) 50.5 mls @ 202 mls/hr IV Q6H PRN PRN Reason: Nausea And Vomiting Stop: 11/02/18 00:18 Lisinopril (Zestril) 20 mg PO DAILY [facility] Stop: 11/05/18 09:29 Last Admin: 10/07/18 08:12 Dose: 20 mg Documented by: Lorazepam (Ativan) 0.5 mg PO Q12H PRN PRN Reason: Anxiety Stop: 11/06/18 09:58 Last Admin: 10/07/18 10:33 Dose: 0.5 mg Documented by: Magnesium Hydroxide (Milk Of Magnesia) 30 ml PO Q6H PRN PRN Reason: Constipation Stop: 11/03/18 09:15 Metoprolol Tartrate (Lopressor) 50 mg PO TID [facility] Stop: 11/02/18 08:59 Last Admin: 10/07/18 08:11 Dose: 50 mg Documented by: Nitroglycerin (Nitrostat) 0.4 mg SL UD PRN PRN Reason: Chest Pain Stop: 11/02/18 00:18 Olanzapine (Zyprexa) 2.5 mg IM Q4H PRN PRN Reason: Anxiety/Agitation Stop: 11/02/18 00:18 Pantoprazole Sodium (Protonix) 40 mg PO DAILY [facility] Stop: 11/02/18 08:59 Last Admin: 10/07/18 08:11 Dose: 40 mg Documented by: Polyethylene Glycol (Miralax Powder Packet) 17 gm PO DAILY PRN PRN Reason: Constipation Stop: 11/02/18 00:09 Senna/Docusate Sodium (Senokot S) 1 tab PO QAM [facility] Stop: 11/03/18 09:29 Last Admin: 10/07/18 08:11 Dose: Not Given Documented by:
--- NOTE | 2018-10-08 08:26 | Discharge Summary ---
Date of Service October 08, 2018 Admission HPI Per Admitting Provider Haim Muro is an 78-year-old male who was initially brought to the ED by police on a 302 warrant for a mental health evaluation. 302 petitioning statement was completed by the patient's daughter who expressed concern about homicidal statements she states her father had made. While being evaluated in the emergency room, the patient was noted to be in atrial flutter with persistent tachycardia. As he was not responding to initial medications provided, it inpatient medical admission was recommended. Patient is seen on psychiatric consult service to further assess his mental status, and determine his disposition with the presence of a 302 warrant. Case is reviewed with psychiatric nurse liaison, who is able to speak with the patient with his grandson present. Prior medical documentation as well as conversation with the liaison suggests that there is limited history to confirm the patient had made the statements, or is actually intending to harm others. Prior to psychiatric evaluation, patient's grandson is documented to feel comfortable with him returning home and does not believe him to be acutely suicidal or homicidal. 302 petitioning statement completed by the patient's daughter. It reads: "Frequent states going to "blow people away", has hand guns. Threatens to use them. Unable to control anger threatened grandson with cane (with antlers on it). Not in control of emotions and has sat in driveway of his estranged son Fabio Muro of [place], [place] for long periods of time." Statement completed by Robert Nair, patient daughter ([phone]) residing in [place]. At time of evaluation, patient is found to be resting comfortably in bed with no visitors present. Patient states that his daughter is a "witch, a thief, and a liar." He states that his daughter had borrowed $2500 as a loan to pay for a car to make the trip to come see him. Patient states he was clear that he would require the money back, and was simply requesting for his daughter to pay what was owed to him. The patient states "I sent her a text message, she someone back in every other word was a cuss word. I called my marketing analyst, I will just let him deal with it." The patient reports understanding that he was brought to the emergency room for mental health evaluation, patient states that his daughter believed "I was insane, that I was having thoughts to kill myself or other people." Patient denies truth to these allegations. 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 He also denies suicidal ideation stating, "God can take me when he is ready, but just because I am 78 years old does not mean I do not want to live. I am not in the grade yet." Patient does admit to lower than normal mood recently "because I have been dealing with all of the stuff with her." Patient denies significant anxiety as it relates to these situations. We reviewed that he is receiving an antidepressant medication, citalopram. He is not aware of his history with this medication. Patient denies previous psychiatric history, has not been hospitalized on an inpatient behavior health unit, and denies previous suicide attempts. Patient denies history of auditory or visual hallucinations, disorganized thoughts, and significant paranoia. Patient denies any other psychiatric concerns. Admission Exam Per Admitting Provider Physical Exam: GENERAL: Disoriented, hard of hearing, no respiratory distress SKIN: Normal color, warm HEENT: [place] palpebral conjunctivae, no ptosis, dry buccal mucosa NECK : Supple, no tenderness CHEST : CTA, no tenderness HEART : Tachycardic, systolic murmur ABDOMEN: Some distention, nontender EXTREMITIES : Minimal LE swelling, no LE tenderness, no other conspicuous deformities noted NEUROLOGIC : Disoriented, slightly hard of hearing, agitated, no facial asymmetry, gait and stance not assessed Principal Diagnosis Atrial flutter with rapid ventricular response, hypertensive urgency, generalized anxiety disorder Discharge Exam Constitutional cooperative and comfortable; no acute distress, not ill appearing and not combative Eyes PERRL, conjunctivae normal, anicteric sclerae ENMT external ear and nose normal, oropharynx normal Neck trachea midline, no thyromegaly Respiratory normal respiratory effort; no respiratory distress Auscultation: lungs clear to auscultation bilaterally Cardiovascular Rate/Rhythm: regular rate and regular rhythm Gastrointestinal (Abdomen) Inspection/Auscultation: abdomen normal to inspection and normal bowel sounds Percussion/Palpation: abdomen soft Neurologic moves all extremities; no focal motor deficits Psychiatric Orientation: alert, oriented to person, oriented to place, oriented to time and cooperative Apperance: appropriately dressed (Hospital gown), appropriately groomed and appeared stated age Eye Contact: good eye contact Motor Behavior: no abnormal motor movements Speech: normal rate/rhythm/volume of speech Affect: + blunted affect (Appearing somewhat fatigued); no depressed affect and no anxious affect Mood: + depressed mood ("Well yeah, because of dealing with all this with my daughter"); no anxious mood Thought Process: goal directed thought process, clear/coherent thought process and + circumstantial thought process Thought Content: reality based without delusions and + loneliness; no hopelessness and no worthlessness Suicidal Thoughts: denies suicidal thoughts, denies suicidal plan and denies suicidal intent Homicidal Thoughts: denies homicidal thoughts and denies homicidal intent Hallucinations: no auditory hallucinations and no visual hallucinations Cognition: recent memory grossly intact, remote memory grossly intact, attention grossly intact and language grossly intact Estimated Intelligence: consistent with education level Insight: + fair insight Judgement: + fair judgement Lymphatic no cervical or axillary lymphadenopathy Discharge Data Allergies Allergy/AdvReac Type Severity Reaction Status Date / Time No Known Allergies Allergy Unverified 10/02/18 22:56 Consultations 10/02/18 21:19 ED Decision to Admit Stat 10/03/18 00:19 Consult Case Management - Discharge Planning Routine 10/03/18 11:50 Consult Psychiatry Routine 10/04/18 09:18 Consult Health Information Management Stat 10/04/18 10:29 Consult Cardiology Routine Ordered Studies 10/02/18 18:27 CT head/brain wo con Stat Hospital Course (1) SARA (generalized anxiety disorder): The patient was noted to be very anxious this morning and threatening to leave the hospital He is very much worried about the bills that he has to play for his hospital stay [facility] Not aggressive during the examination Ativan 0.5 mg twice daily as needed was prescribed Psychiatric reevaluation in case the patient wants to sign out AMA and required to have decision making capacity before he can do that Medically stable otherwise. Discussed with the case management (2) Atrial flutter with rapid ventricular response: History of sick sinus syndrome Currently patient is in atrial flutter with episodes of rapid ventricular response up to 140s patient claims to monitor Cardiology consulted. Appreciate input and recommendation Was on metoprolol 50 mg p.o. 3 times daily, Eliquis 5 milligrams twice daily Records obtained from [facility], medication list does not include metoprolol Has been on intravenous amiodarone-Will change to oral as per cardiology recommendation Heart rate remains stable Amiodarone drip has been stopped and he has been put on amiodarone 200 mg twice daily We will continue other cardiac medications including beta-britany Denies any symptoms Heart rate remains controlled and the blood pressure is in the upper side History of DVT On Eliquis twice daily Hypertensive urgency Likely secondary to emotional stress Started on metoprolol and lisinopril on admission Amlodipine 1 dose ordered for today for BP control On 10/04 BP remains in the upper side Report of homicidal statements Patient's daughter filed petition for 302, leading to patient's being brought to the emergency room and subsequently admitted Psychiatry consulted for re-evaluation;Appreciate input and recommendation Dr. frey "discussed at length with Dr. Feliz today 0n 10/04 over the phone, expressed my concern over the situation, requested to evaluate patient and evaluate 302 petition as well After her evaluation, Dr. Feliz feels patient does not meet criteria for inpatient psychiatric admission at this time She has discussed case with patient's grandson Jt, he will make sure patient has no access to guns when he returns home, which should be confirmed prior to discharge Refer to her note for complete details" As per [facility], patient takes citalopram 10 mg p.o. daily Remains stable as of today and denies any suicidal and/or homicidal tendencies He is strongly feels that does intentional from her daughter And he does not have any homicidal tendency He seems to be very depressed Nonocclusive CAD as per records --Continue Eliquis and atorvastatin Prostate cancer status post surgery --No issues with urination Disposition PT and OT evaluation: Recommends inpatient rehab, discussed with patient and is agreeable to go to [place] rehab when medically stable I have discussed the case with aquatic centre manager Guadalupe Patient likes to go to rehab at the [place] Awaiting to be placed Total Time Total Time Spent Total Time Spent (In Minutes): 40 minutes Total Time Includes: Examination of the Patient, Discharge Planning, Medication Reconciliation and Communication With Other Providers Discharge Plan Discharge Items Patient Disposition: Home - Self-Care Reason For Visit: RAPID AFLUTTER Discharge Diagnosis: Atrial flutter with rapid ventricular response, hypertensive urgency, generalized anxiety disorder Condition: Good Discharge Goals: Decrease discomfort, Improve function and Increase independence Activity: Resume your previous activity Non-emergency contact: Primary Care Provider Call non-emergency contact if: you have any medication questions and your symptoms worsen Follow-up/Referrals: Flavio Muniz [Primary Care Provider] - (Please make an appointment with your primary care provider within 1 week) Diet: Heart Healthy Addtl Provider Instructions: New medications; amiodarone 200 mg twice daily Lisinopril has been changed to 20 mg once daily Will need to PCP appointment within 1 week and cardiology appointment in 2 to 3 weeks Prescriptions: New amiodarone 200 mg Tablet 200 mg PO BIDM 30 Days Qty: 60 RF: 0 Continued atorvastatin 80 mg Tablet 40 mg PO PM RF: 0 polyethylene glycol 3350 [Miralax] 17 gram Powder In Packet 17 g PO DAILY PRN (Reason: Constipation) RF: 0 cetirizine [Zyrtec] 10 mg Tablet 10 mg PO DAILY RF: 0 meclizine 12.5 mg Tablet 12.5 mg PO BID PRN (Reason: DIZZYNESS) RF: 0 pantoprazole 20 mg Tablet,Delayed Release (Dr/Ec) 20 mg PO DAILY RF: 0 citalopram 20 mg Tablet 10 mg PO DAILY RF: 0 cyanocobalamin (vitamin B-12) 500 mcg Tablet 1,000 mcg PO DAILY RF: 0 clotrimazole-betamethasone 1-0.05 % cream 1 applic topical BID PRN (Reason: AFFECTED AREA) RF: 0 metoprolol tartrate 50 mg tablet 50 mg PO TID RF: 0 furosemide 20 mg Tablet 20 mg PO DAILY RF: 0 docusate sodium 100 mg Tablet 100 mg PO DAILY RF: 0 vitamin E 400 unit Capsule 400 unit PO DAILY RF: 0 cholecalciferol (vitamin D3) [Vitamin D3] 1,000 unit Capsule 2,000 unit PO DAILY RF: 0 Ensure Liquid 1 ea PO DAILY RF: 0 calcium carbonate-vitamin D3 [Calcium 500 + D] 500 mg(1,250mg) -200 unit Tablet 1 tab PO BID RF: 0 apixaban 5 mg Tablet 5 mg PO Q12 RF: 0 bee pollen 550 mg Capsule PO DAILY RF: 0 Changed lisinopril 10 mg Tablet 20 mg PO DAILY 30 Days Qty: 60 RF: 0 Stand-Alone Forms: [employer] [facility] [employer]/Other Patient Handouts: Amiodarone Hydrochloride Oral tablet, Hypertension Control, AFL/Afib, Anxiety Body Response, Relaxation Progressive, Stress Causes Effects, Hypertension Dc, Blood Pressure Dc Discharge Orders: Discharge Order (Routine); Ordered 10/07/18 Ordered By: Isabel Viera Admission Data Admit Date/Time: 10/02/18 22:43 Attending Provider: Isabel Viera Admit Provider: Eamon Gates Primary Care Provider: Flavio Muniz Other Providers: Eamon Gates ; Pavel Murray Jeffrey G. ; Robert Montiel Service: Telemetry Other Interventions: Discharge Summary Assessment (RN) Last Done: 10/07/18 15:24 DC Date/Time DO NOT enter until pt leaves facility: 10/07/18 16:24
== END 2018-10-07 16:24 | disposition home or self-care (01) | DRG 310 ==
LOC: ED 18:13 → SUATTDRO 22:43 → 2S 22:43

== ENCOUNTER 2020-12-04 16:18 | Inpatient (IN) ==
[2020-12-04] MEDS ORDERED: HYDROmorphone INJ 0.5 MG/0.5 ML SYR ONE (17:37)
[2020-12-04] MEDS ORDERED: ONDANSETRON INJ 2 MG/ML 2 ML VIAL IV STA (17:40)
[2020-12-04] MEDS ORDERED: HYDROmorphone INJ 0.5 MG/0.5 ML SYR IV STA ×2 (17:40→19:14)
--- NOTE | 2020-12-04 17:48 | Emergency Department Note ---
History of Present Illness General Chief complaint: Fall Time Seen by Provider: 12/04/20 17:32 Source: patient Mode of arrival: EMS History of Present Illness Provider complaint: Right arm and leg pain Onset (ago): hour(s) Location: upper extremity, lower extremity and right Severity: severe Pain Consistency: + constant Maximum Pain Intensity: 10 Quality: + sharp Exacerbated By: + movement Associated symptoms: no chest pain, no cough, no fever/chills, no headaches, no nausea/vomiting, no shortness of breath or no syncope This is an 80-year-old male who was found at home on the ground near his bathroom. He states that he was going to the bathroom and his knees buckled causing him to fall onto his right side. He complains of pain to the right arm and leg. He rates it a 10 out of 10 in severity. Pain is sharp. Is worse with movement. He is not sure if he hit his head. He denies any headache. He states his neck feels stiff because he has been lying with his neck turned to the right for several hours. He denies any chest pain, vomiting, fever, cough or cold symptoms, abdominal pain or back pain. He states the left leg does not hurt him. He did not pass out. He was found to have dried feces all over his body. Home Medications Medication Instructions Recorded Confirmed Type apixaban 5 mg tablet 5 mg PO Q12 10/02/18 09/18/20 History cholecalciferol (vitamin D3) 25 2,000 unit PO DAILY 10/02/18 09/18/20 History mcg (1,000 unit) capsule (Vitamin D3) cyanocobalamin (vitamin B-12) 500 500 mcg PO DAILY 10/02/18 09/18/20 History mcg tablet docusate sodium 100 mg tablet 100 mg PO DAILY 10/02/18 09/18/20 History furosemide 20 mg tablet 20 mg PO DAILY 10/02/18 09/18/20 History vitamin E 400 unit capsule 400 unit PO DAILY 10/02/18 09/18/20 History amiodarone 200 mg tablet 200 mg PO DAILY 04/27/20 09/18/20 History lisinopril 20 mg tablet 20 mg PO DAILY 04/27/20 09/18/20 History spironolactone 25 mg tablet 25 mg PO DAILY 04/27/20 09/18/20 History tramadol 50 mg tablet 50 mg PO Q8H PRN #10 tab 04/28/20 09/18/20 Rx Allergies Allergy/AdvReac Type Severity Reaction Status Date / Time No Known Allergies Allergy Unverified 12/04/20 17:59 Past Med/Surg History Medical History (Updated 12/04/20 @ 22:32 by Kris Mack MD) Atrial flutter Deep vein thrombosis Gout Hypertension Tic [place] Surgical History (Updated 12/04/20 @ 21:17 by Alie Ruelas DO) History of arthroplasty of right knee History of arthroplasty of right shoulder History of vertebroplasty Family History Other No pertinent family history in first degree relatives Social History Smoking Status: Unknown if ever smoked Hx Alcohol Use: No Hx Substance Use: No Preferred Language: Australian Communication Ability: Effective 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 and A total of 10 systems reviewed and were otherwise negative Physical Exam Vital Signs Vital Signs - 24 hr 12/04/20 16:48 12/04/20 17:40 12/04/20 18:52 Pulse Rate 73 Pulse Rate [Right Radial] 61 Pulse Rate from SpO2 Sensor Pulse Rhythm Regular Pulse Rhythm [Right Radial] Regular Pulse Strength Normal Pulse Strength [Right Radial] Normal Respiratory Rate 21 18 Respiratory Effort / Characteristics Non-Labored Spontaneous Non-Labored Spontaneous Respiratory Depth Normal Normal Respiratory Pattern Regular Regular Blood Pressure 174/88 H Blood Pressure [Left Arm] 165/77 H Blood Pressure Mean 116 Blood Pressure Mean [Left Arm] 106 Blood Pressure Position Lying Blood Pressure Position [Left Arm] Lying Pulse Oximetry 92 91 94 Oxygen Delivery Method Room Air Room Air Nasal Cannula Oxygen Flow Rate 2 Sepsis Recent Fever Within 48 Hours No Sepsis New/Unexplained Change in Mental Status N/A Sepsis Action Taken by Nursing No Action Required 12/04/20 18:54 12/04/20 19:00 Pulse Rate 61 68 Pulse Rate [Right Radial] Pulse Rate from SpO2 Sensor 62 68 Pulse Rhythm Pulse Rhythm [Right Radial] Pulse Strength Pulse Strength [Right Radial] Respiratory Rate 22 23 Respiratory Effort / Characteristics Respiratory Depth Respiratory Pattern Blood Pressure 165/77 H Blood Pressure [Left Arm] Blood Pressure Mean 106 Blood Pressure Mean [Left Arm] Blood Pressure Position Blood Pressure Position [Left Arm] Pulse Oximetry 93 93 Oxygen Delivery Method Oxygen Flow Rate Sepsis Recent Fever Within 48 Hours Sepsis New/Unexplained Change in Mental Status Sepsis Action Taken by Nursing Constitutional: Vital signs reviewed. The patient is lying semiprone with the right arm propped up. Eyes: Pupils are equal round reactive to light. Conjunctiva are noninjected. ENT: Pharynx is clear without erythema or exudate. Mucous membranes are moist. Neck supple without meningeal signs. Respiratory: Clear to auscultation bilaterally. Breath sounds are equal bilaterally. Cardiovascular: Regular rate and rhythm. No rubs or gallops. GI: Soft, nondistended and nontender. Bowel sounds are present. Musculoskeletal: Tenderness to the mid right femur without obvious deformity. No hip or knee tenderness or tib-fib or ankle tenderness. Normal dorsalis pedis pulse. He is able to feel his toes. He can wiggle his toes. No tenderness to the left leg. There is deformity and tenderness to the mid humerus of the right arm. Distal radial pulses intact. He is able to move his fingers and feel his fingers. Integumentary: No cyanosis. or jaundice. Neurological: The patient is awake and alert. Very hard of hearing. Psychiatric: Anxious. Course Administered Medications Discontinued Medications Fentanyl Citrate (Fentanyl Citrate 100 Mcg/2 Ml Vial) 50 mcg IV NOW STA Stop: 12/04/20 20:38 Last Admin: 12/04/20 20:41 Dose: 50 mcg Documented by: [id number] Hydromorphone HCl (Hydromorphone Inj 0.5 Mg/0.5 Ml Syr) Confirm Administered Dose 0.5 mg .ROUTE .[facility] Stop: 12/04/20 17:38 Last Admin: 12/04/20 17:39 Dose: 0.5 mg Documented by: [id number] Hydromorphone HCl (Hydromorphone Inj 0.5 Mg/0.5 Ml Syr) 0.5 mg IV NOW STA Stop: 12/04/20 17:41 Last Admin: 12/04/20 18:48 Dose: Not Given Documented by: [id number] Hydromorphone HCl (Hydromorphone Inj 0.5 Mg/0.5 Ml Syr) 0.5 mg IV NOW STA Stop: 12/04/20 19:15 Last Admin: 12/04/20 19:22 Dose: 0.5 mg Documented by: [id number] Ondansetron HCl (Ondansetron Inj 2 Mg/Ml 2 Ml Vial) 4 mg IV NOW STA Stop: 12/04/20 17:41 Last Admin: 12/04/20 19:22 Dose: 4 mg Documented by: [id number] Medical Decision Making Differential Diagnosis Femur fracture, hip fracture, humeral fracture, shoulder dislocation, head injury, intracranial hemorrhage Medical Records Attestation: I reviewed the patient's medical records. I did perform a limited focused review of portions of the patient's old chart on the electronic medical record. The patient was seen here for mental health evaluation in September. Home Medications Current Medication List: was personally reviewed by me Laboratory Data Attestation: I reviewed the patient's lab results. Result diagrams: 12/04/20 17:57 12/04/20 17:57 Lab Results 12/04/20 12/04/20 12/04/20 Range/Units 17:57 17:57 17:57 WBC 10.84 H (4.8-10.8) K/uL RBC 4.24 L (4.7-6.1) M/uL Hgb 12.4 L (14.0-18.0) g/dL Hct 39.1 L (42-52) % MCV 92.2 (80-100) fL MCH 29.2 (25-34) pg MCHC 31.7 L (32-36) g/dL RDW Std Deviation 50.3 H (36.4-46.3) fL RDW Coeff of Martha 14.9 H (11.5-14.5) % Plt Count 170 (130-400) K/uL MPV 9.1 (7.4-10.4) fL Immature Gran % (Auto) 1.0 % Neut % (Auto) 87.9 % Lymph % (Auto) 5.1 % [place] % (Auto) 5.8 % Eos % (Auto) 0.1 % Baso % (Auto) 0.1 % Neut # (Auto) 9.53 H (1.4-6.5) K/uL Lymph # (Auto) 0.55 L (1.2-3.4) K/uL [place] # (Auto) 0.63 H (0.11-0.59) K/uL Eos # (Auto) 0.01 (0-0.5) K/uL Baso # (Auto) 0.01 (0-0.2) K/uL Immature Gran # (Auto) 0.11 H (0.00-0.02) K/uL Sodium 139 (136-145) mmol/L Potassium 3.8 (3.5-5.1) mmol/L Chloride 108 H (98-107) mmol/L Carbon Dioxide 26 (21-32) mmol/L Anion Gap 5.0 (3-11) BUN 16 (7-18) mg/dl Creatinine 0.81 (0.6-1.4) mg/dl Est Cr Clr Drug Dosing 74.9 ml/min Est GFR ( Amer) 95.9 ml/min Est GFR (Non-Af Amer) 82.8 ml/min BUN/Creatinine Ratio 19.7 (10-20) Glucose 139 H (70-99) mg/dl Calcium 8.1 L (8.5-10.1) mg/dl Total Bilirubin 0.7 (0.2-1) mg/dl AST 28 (15-37) U/L ALT 28 (12-78) U/L Alkaline Phosphatase 69 (45-117) U/L Total Creatine Kinase 140 (39-308) U/L Troponin I 0.074 H* (0-0.045) ng/ml Total Protein 6.3 L (6.4-8.2) gm/dl Albumin 2.9 L (3.4-5.0) gm/dl Globulin 3.4 (2.5-4.0) gm/dl Albumin/Globulin Ratio 0.9 (0.9-2) Blood Type A Positive Antibody Screen NEGATIVE Imaging Data Radiologist's Impression: Cervical Spine CT 12/04/20 17:40 CT OF THE CERVICAL SPINE WITHOUT CONTRAST CLINICAL HISTORY: Fall. Evaluate for fracture. COMPARISON STUDY: No previous studies for comparison. TECHNIQUE: Helical axial images of the cervical spine were obtained without IV contrast. Sagittal and coronal reconstructions were viewed. Automated exposure control was utilized for the study. A dose lowering technique was utilized adhering to the principles of ALARA. FINDINGS: Alignment of the cervical spine is anatomic. Vertebral body heights are maintained. No acute cervical spine fracture or subluxation is present. There is no prevertebral edema. Facet joints are intact. A mild compression deformity of the superior endplate of C7 is unchanged since CT of June 26, 2014. Extensive degenerative changes at the C1-C2 articulation are noted. Multilevel degenerative disc disease and facet arthrosis is present. Small left mastoid effusion is unchanged. IMPRESSION: 1. No acute cervical spine fracture or subluxation. 2. No change in an old C7 mild compression deformity. ACT 112: Negative or not required by law. Electronically signed by: Jason Fleming M.D. 12/04/2020 6:54 PM Chest X-Ray 12/04/20 17:40 XR chest 1V portable CLINICAL HISTORY: fall COMPARISON STUDY: Chest radiograph September 18, 2020. FINDINGS: Lung volumes are normal. Lungs are clear. There is no pneumothorax or pleural effusion. Cardiac size is stable. Mediastinal contours are normal. There is no evidence for pulmonary edema. Calcified left lower lung nodule is incidentally noted. Numerous old right-sided rib fractures are noted. There are also several age indeterminate lateral right rib fractures. IMPRESSION: 1. No acute cardiopulmonary findings. 2. Several age indeterminate lateral right rib fractures. ACT 112: Negative or not required by law. Electronically signed by: Jason Fleming M.D. 12/04/2020 8:08 PM Elbow X-Ray 12/04/20 17:40 XR elbow RT min 3V routine CLINICAL HISTORY: Fall. Evaluate for fracture. COMPARISON: None FINDINGS: Right shoulder arthroplasty is better depicted on the right shoulder radiographs. Note is made of an acute displaced oblique fracture of the mid to distal shaft of the right humerus. Fracture is displaced 2.4 cm and located just distal to the humeral component of the arthroplasty. Alignment of the right elbow is anatomic. Osteoarthritis of the right elbow is present. There is no evidence for right elbow joint effusion. IMPRESSION: Acute displaced oblique distal diaphyseal fracture of the right humerus, just distal to the humeral component of the right shoulder arthroplasty. ACT 112: Negative or not required by law. Electronically signed by: Jason Fleming M.D. 12/04/2020 7:58 PM Femur X-Ray 12/04/20 17:40 XR femur RT 2V routine CLINICAL HISTORY: Fall. Evaluate for fracture. COMPARISON: Right femur radiographs April 14, 2014. FINDINGS: No proximal right femoral fracture is noted although evaluation is compromised given difficulty positioning. Right knee arthroplasty is noted. Right knee joint effusion with lipohemarthrosis is present. No acute fracture of the right femur is identified. IMPRESSION: 1. No proximal right femoral fracture identified although evaluation compromised given some difficulty positioning. 2. Status post total right knee arthroplasty. 3. Right knee joint effusion with lipohemarthrosis which raises the possibility of an occult intra-articular fracture. CT of the right knee is recommended for further evaluation. ACT 112: Negative or not required by law. Electronically signed by: Jason Fleming M.D. 12/04/2020 8:[address] 12/04/20 17:40 CT OF THE HEAD WITHOUT CONTRAST CLINICAL HISTORY: Fall. Evaluate for bleed. COMPARISON STUDY: Head CT September 18, 2020. TECHNIQUE: Helical axial images of the head were obtained without IV contrast. Automated exposure control was utilized for the study. A dose lowering technique was utilized adhering to the principles of ALARA. FINDINGS: Postoperative findings within the right posterior fossa are noted. 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 No acute intracranial hemorrhage, midline shift or mass effect is present. The ventricular system is stable. White matter hypodensities are unchanged and favor small vessel disease. The basal cisterns are patent. No extra-axial collections are present. There are no findings to suggest acute dural sinus thrombosis or acute territorial infarct. No significant calvarial abnormalities are present. Small amount of fluid within the left mastoid air cells is unchanged. IMPRESSION: 1. No acute intracranial findings. No change in appearance of the brain. 2. No calvarial fracture. ACT 112: Negative or not required by law. Electronically signed by: Jason Fleming M.D. 12/04/2020 6:50 PM Humerus X-Ray 12/04/20 17:40 XR humerus RT 2V CLINICAL HISTORY: fall eval for fx COMPARISON: Right shoulder radiographs February 05, 2017. FINDINGS: Alignment of the reverse total right shoulder arthroplasty is noted. Note is made of an acute displaced angulated fracture through the distal diaphysis of the right humerus, just distal to the humeral component of the right shoulder arthroplasty. There is also subtle cortical irregularity and lucency of the proximal right humerus. IMPRESSION: 1. Acute oblique displaced distal diaphyseal fracture of the humerus located just distal to the humeral component of the right shoulder arthroplasty. 2. Cortical irregularity and lucency of the proximal diaphysis of the right humerus. This appears chronic although is age indeterminate. An additional acute fracture is considered less likely however a CT could be obtained for further evaluation. ACT 112: Negative or not required by law. Electronically signed by: Jason Fleming M.D. 12/04/2020 8:01 PM Knee X-Ray 12/04/20 17:40 XR knee RT 1 or 2V routine CLINICAL HISTORY: Fall. Evaluate for fracture. COMPARISON: Right knee radiographs May 04, 2014. MRI of the right knee May 21, 2014. FINDINGS: Alignment of the right knee arthroplasty is anatomic. Note is made of a right knee joint effusion with lipohemarthrosis. This suggests an intra- articular fracture. No fracture is identified by radiography. There is extensive vascular calcification. IMPRESSION: 1. Status post total right knee arthroplasty. 2. Right knee joint effusion with lipohemarthrosis which raises the possibility of an occult intra-articular fracture. CT of the right knee is recommended for further evaluation. ACT 112: Negative or not required by law. Electronically signed by: Jason Fleming M.D. 12/04/2020 7:[address] 12/04/20 17:40 CT lumbar spine wo con CLINICAL HISTORY: Fall. Evaluate for fracture. COMPARISON STUDY: Lumbar spine CT April 27, 2020. TECHNIQUE: Axial images of the lumbar spine were obtained without IV contrast. Sagittal and coronal reconstructions were viewed. Automated exposure control was utilized for the study. A dose lowering technique was utilized adhering to the principles of ALARA. FINDINGS: For purposes of numbering on this exam, the L5-S1 disc space is assigned to axial image 326 [phone] [phone]. There is mild dextroscoliosis of the lumbar spine. Note is made of T12, L1 and L4 vertebroplasty. Old T11 compression fracture is also noted. No acute lumbar spine fracture is noted. L3-L5 posterior decompression is noted. Moderate to severe multilevel facet arthrosis and degenerative disc disease is present. The central canal and neural foramen are suboptimally assessed given CT technique. Paravertebral soft tissues are unremarkable. IMPRESSION: 1. No acute lumbar spine fracture or subluxation. 2. Status post T12, L1 and L4 vertebroplasties and L3-L5 posterior decompression. ACT 112: Negative or not required by law. Electronically signed by: Jason Fleming M.D. 12/04/2020 7:10 PM Pelvis X-Ray 12/04/20 17:40 XR pelvis 1-2V routine CLINICAL HISTORY: Fall. Evaluate for fracture. COMPARISON: CT of the abdomen and pelvis April 27, 2020. FINDINGS: No acute fracture is identified although sensitivity is significantly diminished given osteopenia. The sacroiliac joints and symphysis pubis are intact. Mild to moderate bilateral hip osteoporosis present. Vertebroplasty within the lower lumbar spine is noted. IMPRESSION: No acute fracture identified although sensitivity is significantly diminished given osteopenia. ACT 112: Negative or not required by law. Electronically signed by: Jason Fleming M.D. 12/04/2020 7:54 PM Shoulder X-Ray 12/04/20 17:40 XR shoulder RT min 2V routine CLINICAL HISTORY: fall eval for fx COMPARISON: Right shoulder radiographs February 05, 2017. FINDINGS: Numerous rib fractures are noted. These are probably old. Alignment of the right shoulder arthroplasty is anatomic. A displaced fracture of the diaphysis of the right humerus just distal to the humeral component is partially imaged on this examination. There is subtle cortical irregularity proximal shaft of the right humerus. IMPRESSION: 1. Anatomic alignment of the total right shoulder arthroplasty. 2. Acute displaced fracture of the mid to distal diaphysis of the right humerus, just distal to the humeral component of the right shoulder arthroplasty. 3. Subtle cortical irregularity of the proximal shaft of the right humerus. This is probably chronic however CT could be obtained to exclude an additional fracture. ACT 112: Negative or not required by law. Electronically signed by: Jason Fleming M.D. 12/04/2020 8:[address] 12/04/20 17:40 CT OF THE THORACIC SPINE CLINICAL HISTORY: Fall. Evaluate for fracture COMPARISON STUDY: Chest CT June 26, 2014. TECHNIQUE: Helical axial images of the thoracic spine were obtained. Sagittal and coronal reconstructions were viewed. Automated exposure control was utilized for the study. A dose lowering technique was utilized adhering to the principles of ALARA. FINDINGS: Alignment of the thoracic spine is anatomic. No acute thoracic spine fracture is noted. Old C7, T1, T2, T11 and T12 compression fractures are present. T12 vertebroplasty is noted. Facet joints are intact. Central canal neural foramen are suboptimally assessed by CT. Paravertebral soft tissues are unremarkable. No acute fractures identified within visualized portions of the posterior ribs. Cardiomegaly is noted. There is a right shoulder arthroplasty. Lumbar spine CT will be reported separately. IMPRESSION: 1. No acute thoracic spine fracture or subluxation. 2. Multiple old thoracic spine compression fractures, unchanged since chest CT of June 26, 2014. ACT 112: Negative or not required by law. Electronically signed by: Jason Fleming M.D. 12/04/2020 7:04 PM [facility] Patient: ZEENAT ZAVALA (Male) : 36 Status: ER Date: 12/04/20 21:42 Room #: History: ?acute intra-articular fracture mentioned on XR Slices: [id number] Priors: Tech: Shannan Hogan @ [phone] Exams: CT RIGHT KNEE Contrast: Accession Numbers: [id number] Referring Physician: REFERRED SELF Preliminary Findings Only See Final Report For Complete Findings CT RIGHT KNEE: Total knee prosthesis in place with normal alignment. Diffuse osteoporosis. No distinct fracture. Peripheral arterial disease. Nonspecific soft tissue swelling. There is significant artifact related to the nuclear spaces excluding a adjacent bony detail. There is no distinct linear fracture visualized however called fracture is not entirely excluded given extensive artifact is diffuse osteoporosis. Lipohemarthrosis visualized. Radiologist: Lisette Orlando MD Study ready at 21:46 and initial results transmitted at 22:24 ECG Data Attestation: I personally reviewed and interpreted this ECG as follows: Indication: + other (Fall) Rate (beats per minute): 63 Rhythm: + normal sinus ECG Intervals/blocks: + First degree AV block and + Right Bundle branch block ECG Lowry: + Left axis deviation Comparison ECG Date: from (September 18, 2020) Change: no significant change Head Trauma GCS Score: 15 MDM Narrative I was asked to see this patient immediately he was in significant distress. I did evaluate the patient as noted above. Initially on exam he has an obvious humeral fracture but he is neurovascularly intact. He also had significant pain when I moved his right leg but no obvious tenderness other than to his mid femur which was mild. There is no deformity suggesting fracture. IV access was established. I did treat him with IV morphine and Zofran. He had significant pain and was given Dilaudid 0.5 mg IV. He did feel better after this. I did place an order for continuous cardiac monitoring. The monitor showed normal sinus rhythm at a rate of 68 bpm. I did order and personally review the patient's 12-lead EKG as described above. He has no evidence of acute ischemia. I did order and personally reviewed the images of the patient's multiple x-rays as described above. He has a fracture to his humerus which is displaced and angulated. He is neurovascularly intact on exam. Chest x-ray demonstrates age- indeterminate right rib fractures. No pneumothorax is noted. I did order and review the patient's blood work as noted in the electronic medical record. His white count is 10.8. Hemoglobin is 12.4. Platelet count is 170. Electrolytes are unremarkable other than a chloride of 108. His troponin is 0.074. CPK is not elevated. Calcium is 8.1. I did order a CT of the head and spine. I did review the images myself as well as the radiology report as described above. There is no evidence of spinal fracture or acute intracranial abnormality. I did discuss case with Dr. Ruelas as the patient states he has no orthopedic doctor. He is feeling much better at this time. Dr. Ruelas recommended placing the patient in a coaptation splint without reduction. He stated that he should sat upright in order for gravity to bring his elbow down. He was placed in a coaptation splint and sling. He remains neurovascularly intact. I did discuss case with the hospitalist and shelter case manager. They did order a CT of the knee because of the radiology read and there was no evidence of acute fracture although there was some artifact from his hemarthrosis. The patient was able to lift his leg without pain when I reexamined him. Impression & Plan Closed right humeral fracture, Elevated troponin, Multiple rib fractures Discharge Plan Visit Data Chief Complaint: Fall ED Provider: Kris Mack Discharge Problem: Closed right humeral fracture, Elevated troponin, Multiple rib fractures Patient Disposition: Being Evaluated by Hospitalist Forms Stand Alone Forms: My [facility] Prescriptions Prescriptions: No Action cyanocobalamin (vitamin B-12) 500 mcg Tablet 500 mcg PO DAILY RF: 0 furosemide 20 mg Tablet 20 mg PO DAILY RF: 0 docusate sodium 100 mg Tablet 100 mg PO DAILY RF: 0 vitamin E 400 unit Capsule 400 unit PO DAILY RF: 0 cholecalciferol (vitamin D3) [Vitamin D3] 1,000 unit Capsule 2,000 unit PO DAILY RF: 0 apixaban 5 mg Tablet 5 mg PO Q12 RF: 0 amiodarone 200 mg tablet 200 mg PO DAILY RF: 0 lisinopril 20 mg Tablet 20 mg PO DAILY RF: 0 spironolactone 25 mg tablet 25 mg PO DAILY RF: 0 tramadol 50 mg tablet 50 mg PO Q8H PRN (Reason: pain) Qty: 10 RF: 0 Referrals Referrals: PCP,NO [Primary Care Provider] -
[2020-12-04 18:09] LABS: Basophils # (auto) 0.01 K/uL (0-0.2); Basophils % (auto) 0.1 %; Eosinophils # (auto) 0.01 K/uL (0-0.5); Eosinophils % (auto) 0.1 %; Hematocrit (blood only) 39.1 % (42-52); Hemoglobin 12.4 g/dL (14.0-18.0); Immature Granulocytes # (auto) 0.11 K/uL (0.00-0.02); Lymphocytes # (auto) 0.55 K/uL (1.2-3.4); Lymphocytes % (auto) 5.1 %; Mean Corpuscular Hemoglobin 29.2 pg (25-34); Mean Corpuscular Hgb Conc 31.7 g/dL (32-36); Mean Corpuscular Volume 92.2 fL (80-100); Mean Platelet Volume 9.1 fL (7.4-10.4); Monocytes # (auto) 0.63 K/uL (0.11-0.59); Monocytes % (auto) 5.8 %; Neutrophils # (auto) 9.53 K/uL (1.4-6.5); Neutrophils % (auto) 87.9 %; Platelet Count 170 K/uL (130-400); RDW Coefficient of Variation 14.9 % (11.5-14.5); RDW Standard Deviation 50.3 fL (36.4-46.3); Red Blood Count 4.24 M/uL (4.7-6.1); White Blood Count 10.84 K/uL (4.8-10.8)
[2020-12-04 18:24] LABS: Albumin Level 2.9 gm/dl (3.4-5.0); BUN Creatinine Ratio 19.7 (10-20); Calcium 8.1 mg/dl (8.5-10.1); Creatinine Clr Calc Pharmacy 74.9 ml/min; Est GFR (African American) 95.9 ml/min; Est GFR (Non-African American) 82.8 ml/min; Potassium 3.8 mmol/L (3.5-5.1)
[2020-12-04 18:31] LABS: Albumin Globulin Ratio 0.9 (0.9-2); Bilirubin,Total 0.7 mg/dl (0.2-1); Globulin 3.4 gm/dl (2.5-4.0); Total Protein 6.3 gm/dl (6.4-8.2); Troponin I 0.074 ng/ml (0-0.045)
--- NOTE | 2020-12-04 18:51 | CT Scan Report ---
CT OF THE HEAD WITHOUT CONTRAST CLINICAL HISTORY: Fall. Evaluate for bleed. COMPARISON STUDY: Head CT September 18, 2020. TECHNIQUE: Helical axial images of the head were obtained without IV contrast. Automated exposure con trol was utilized for the study. A dose lowering technique was utilized adhering to the principles o f ALARA. FINDINGS: Postoperative findings within the right posterior fossa are noted. 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 No acute intracranial hemorrhage, midline shift or mass effect is present. The ventricular system is stable. White matter hypodensities are unchanged and favor smal l vessel disease. The basal cisterns are patent. No extra-axial collections are present. There are no findings to suggest acute dural sinus thrombosis or acute territorial infarct. No significant calvar ial abnormalities are present. Small amount of fluid within the left mastoid air cells is unchanged. IMPRESSION: 1. No acute intracranial findings. No change in appearance of the brain. 2. No calvarial fracture. ACT 112: Negative or not required by law. Electronically signed by: Jason Fleming M.D. 12/04/2020 6:50 PM
--- NOTE | 2020-12-04 18:55 | CT Scan Report ---
CT OF THE CERVICAL SPINE WITHOUT CONTRAST CLINICAL HISTORY: Fall. Evaluate for fracture. COMPARISON STUDY: No previous studies for comparison. TECHNIQUE: Helical axial images of the cervical spine were obtained without IV contrast. Sagittal a nd coronal reconstructions were viewed. Automated exposure control was utilized for the study. A do se lowering technique was utilized adhering to the principles of ALARA. FINDINGS: Alignment of the cervical spine is anatomic. Vertebral body heights are maintained. No acut e cervical spine fracture or subluxation is present. There is no prevertebral edema. Facet joints are intact. A mild compression deformity of the superior endplate of C7 is unchanged since CT of June. Extensive degenerative changes at the C1-C2 articulation are noted. Multilevel degenerative d isc disease and facet arthrosis is present. Small left mastoid effusion is unchanged. IMPRESSION: 1. No acute cervical spine fracture or subluxation. 2. No change in an old C7 mild compression deformity. ACT 112: Negative or not required by law. Electronically signed by: Jason Fleming M.D. 12/04/2020 6:54 PM
--- NOTE | 2020-12-04 19:05 | CT Scan Report ---
CT OF THE THORACIC SPINE CLINICAL HISTORY: Fall. Evaluate for fracture COMPARISON STUDY: Chest CT June 26, 2014. TECHNIQUE: Helical axial images of the thoracic spine were obtained. Sagittal and coronal reconstru ctions were viewed. Automated exposure control was utilized for the study. A dose lowering techniqu e was utilized adhering to the principles of ALARA. FINDINGS: Alignment of the thoracic spine is anatomic. No acute thoracic spine fracture is noted. Old C7, T1, T2, T11 and T12 compression fractures are present. T12 vertebroplasty is noted. Facet joints are intact. Central canal neural foramen are suboptimally assessed by CT. Paravertebral soft tissues are unremarkable. No acute fractures identified within visualized portions of the posterior ribs. Ca rdiomegaly is noted. There is a right shoulder arthroplasty. Lumbar spine CT will be reported marimra dickinson. IMPRESSION: 1. No acute thoracic spine fracture or subluxation. 2. Multiple old thoracic spine compression fractures, unchanged since chest CT of June 26, 2014. ACT 112: Negative or not required by law. Electronically signed by: Jason Fleming M.D. 12/04/2020 7:04 PM
--- NOTE | 2020-12-04 19:12 | CT Scan Report ---
CT lumbar spine wo con CLINICAL HISTORY: Fall. Evaluate for fracture. COMPARISON STUDY: Lumbar spine CT April 27, 2020. TECHNIQUE: Axial images of the lumbar spine were obtained without IV contrast. Sagittal and coronal r econstructions were viewed. Automated exposure control was utilized for the study. A dose lowering t echnique was utilized adhering to the principles of ALARA. FINDINGS: For purposes of numbering on this exam, the L5-S1 disc space is assigned to axial image 326 [phone] [id number]. There is mild dextroscoliosis of the lumbar spine. Note is made of T12, L1 and L4 vertebropl asty. Old T11 compression fracture is also noted. No acute lumbar spine fracture is noted. L3-L5 post erior decompression is noted. Moderate to severe multilevel facet arthrosis and degenerative disc dis ease is present. The central canal and neural foramen are suboptimally assessed given CT technique. P aravertebral soft tissues are unremarkable. IMPRESSION: 1. No acute lumbar spine fracture or subluxation. 2. Status post T12, L1 and L4 vertebroplasties and L3-L5 posterior decompression. ACT 112: Negative or not required by law. Electronically signed by: Jason Fleming M.D. 12/04/2020 7:10 PM
--- NOTE | 2020-12-04 19:56 | XRay Report ---
XR pelvis 1-2V routine CLINICAL HISTORY: Fall. Evaluate for fracture. COMPARISON: CT of the abdomen and pelvis April 27, 2020. FINDINGS: No acute fracture is identified although sensitivity is significantly diminished given ost eopenia. The sacroiliac joints and symphysis pubis are intact. Mild to moderate bilateral hip osteopo rosis present. Vertebroplasty within the lower lumbar spine is noted. IMPRESSION: No acute fracture identified although sensitivity is significantly diminished given osteo penia. ACT 112: Negative or not required by law. Electronically signed by: Jason Fleming M.D. 12/04/2020 7:54 PM
--- NOTE | 2020-12-04 19:58 | XRay Report ---
XR knee RT 1 or 2V routine CLINICAL HISTORY: Fall. Evaluate for fracture. COMPARISON: Right knee radiographs May 04, 2014. MRI of the right knee May 21, 2014. FINDINGS: Alignment of the right knee arthroplasty is anatomic. Note is made of a right knee joint e ffusion with lipohemarthrosis. This suggests an intra-articular fracture. No fracture is identified b y radiography. There is extensive vascular calcification. IMPRESSION: 1. Status post total right knee arthroplasty. 2. Right knee joint effusion with lipohemarthrosis which raises the possibility of an occult intra-ar ticular fracture. CT of the right knee is recommended for further evaluation. ACT 112: Negative or not required by law. Electronically signed by: Jason Fleming M.D. 12/04/2020 7:56 PM
--- NOTE | 2020-12-04 20:00 | XRay Report ---
XR elbow RT min 3V routine CLINICAL HISTORY: Fall. Evaluate for fracture. COMPARISON: None FINDINGS: Right shoulder arthroplasty is better depicted on the right shoulder radiographs. Note is made of an acute displaced oblique fracture of the mid to distal shaft of the right humerus. Fracture is displaced 2.4 cm and located just distal to the humeral component of the arthroplasty. Alignment of the right elbow is anatomic. Osteoarthritis of the right elbow is present. There is no evidence fo r right elbow joint effusion. IMPRESSION: Acute displaced oblique distal diaphyseal fracture of the right humerus, just distal to t he humeral component of the right shoulder arthroplasty. ACT 112: Negative or not required by law. Electronically signed by: Jason Fleming M.D. 12/04/2020 7:58 PM
--- NOTE | 2020-12-04 20:03 | XRay Report ---
XR humerus RT 2V CLINICAL HISTORY: fall eval for fx COMPARISON: Right shoulder radiographs February 05, 2017. FINDINGS: Alignment of the reverse total right shoulder arthroplasty is noted. Note is made of an ac yohannes displaced angulated fracture through the distal diaphysis of the right humerus, just distal to th e humeral component of the right shoulder arthroplasty. There is also subtle cortical irregularity an d lucency of the proximal right humerus. IMPRESSION: 1. Acute oblique displaced distal diaphyseal fracture of the humerus located just distal to the humer al component of the right shoulder arthroplasty. 2. Cortical irregularity and lucency of the proximal diaphysis of the right humerus. This appears ch ronic although is age indeterminate. An additional acute fracture is considered less likely however a CT could be obtained for further evaluation. ACT 112: Negative or not required by law. Electronically signed by: Jason Fleming M.D. 12/04/2020 8:01 PM
--- NOTE | 2020-12-04 20:06 | XRay Report ---
XR shoulder RT min 2V routine CLINICAL HISTORY: fall eval for fx COMPARISON: Right shoulder radiographs February 05, 2017. FINDINGS: Numerous rib fractures are noted. These are probably old. Alignment of the right shoulder a rthroplasty is anatomic. A displaced fracture of the diaphysis of the right humerus just distal to th e humeral component is partially imaged on this examination. There is subtle cortical irregularity pr oximal shaft of the right humerus. IMPRESSION: 1. Anatomic alignment of the total right shoulder arthroplasty. 2. Acute displaced fracture of the mid to distal diaphysis of the right humerus, just distal to the h umeral component of the right shoulder arthroplasty. 3. Subtle cortical irregularity of the proximal shaft of the right humerus. This is probably chronic however CT could be obtained to exclude an additional fracture. ACT 112: Negative or not required by law. Electronically signed by: Jason Fleming M.D. 12/04/2020 8:05 PM
--- NOTE | 2020-12-04 20:08 | XRay Report ---
XR femur RT 2V routine CLINICAL HISTORY: Fall. Evaluate for fracture. COMPARISON: Right femur radiographs April 14, 2014. FINDINGS: No proximal right femoral fracture is noted although evaluation is compromised given diffi culty positioning. Right knee arthroplasty is noted. Right knee joint effusion with lipohemarthrosis is present. No acute fracture of the right femur is identified. IMPRESSION: 1. No proximal right femoral fracture identified although evaluation compromised given some difficult y positioning. 2. Status post total right knee arthroplasty. 3. Right knee joint effusion with lipohemarthrosis which raises the possibility of an occult intra-ar ticular fracture. CT of the right knee is recommended for further evaluation. ACT 112: Negative or not required by law. Electronically signed by: Jason Fleming M.D. 12/04/2020 8:06 PM
--- NOTE | 2020-12-04 20:09 | XRay Report ---
XR chest 1V portable CLINICAL HISTORY: fall COMPARISON STUDY: Chest radiograph September 18, 2020. FINDINGS: Lung volumes are normal. Lungs are clear. There is no pneumothorax or pleural effusion. Car diac size is stable. Mediastinal contours are normal. There is no evidence for pulmonary edema. Calci fied left lower lung nodule is incidentally noted. Numerous old right-sided rib fractures are noted. There are also several age indeterminate lateral right rib fractures. IMPRESSION: 1. No acute cardiopulmonary findings. 2. Several age indeterminate lateral right rib fractures. ACT 112: Negative or not required by law. Electronically signed by: Jason Fleming M.D. 12/04/2020 8:08 PM
[2020-12-04] MEDS ORDERED: fentaNYL citrate 100 MCG/2 ML VIAL IV STA (20:37)
--- NOTE | 2020-12-04 21:26 | History & Physical Report ---
Date of Service December 04, 2020 Assessment & Plan (1) Unwitnessed fall: Plan: 80yo male with history of atrial flutter, CAD, HTN, HLP and SARA presenting by ambulance after unwitnessed fall at home - found down in prone position, unknown down time, acute fracture of right humerus. Baseline functional status unclear - patient states that he sometimes uses a walker. States that he did not pass out or hit his head. Imaging otherwise negative. -Fall precautions -PT/OT evaluation -CT of the right knee to further assess for possible intra-articular fracture is NEGATIVE (2) Right humeral fracture: Plan: Patient found to have acute obliquie displaced distal diaphyseal fracture of the humerus just distal to the humeral component of the right shoulder arthroplasty. Neurovascularly intact. Splint has been placed. Patient is on Apixaban for history of PAF and VTE. -Pain control with Morphine 2mg IV q 4 hours as needed, will adjust to comfort. Cautious use in elderly patient with underlying dementia at high risk for delirium -Bowel regimen with Colace and Miralax PRN -Maintain splint -Neurovascular checks RUE q 4 hours -Orthopedic surgery consultation appreciated (3) Elevated troponin: Plan: Patient with mild elevation in troponin, non-specific ST-T wave changes present on EKG. He denies chest pain -Telemetry monitoring -Trend troponin (4) SARA (generalized anxiety disorder): Plan: Presently not on any medications for this issue -Monitor (5) CAD (coronary artery disease): Plan: Cardiac catheterization in 2011 performed for elevated troponin following episode of atrial fibrillation with RVR which revealed mild diffuse CAD. [facility]. Presently not on BB, ASA or Statin therapy -Continue Lisinopril (6) Atrial flutter: Plan: Paroxysmal. Patient is anticoagulated on Apixaban. On Amiodarone -Continue Amiodarone -Hold Apixaban for now -Telemetry monitoring (7) Hypertension: Plan: Blood pressure mildly elevated in setting of pain, trauma. No CP, SOB, BERNARD, dizziness -Continue Lisinopril -Continue Spironolactone -Continue to monitor (8) Confusion: Plan: Mention of underlying dementia. Uncertain of functional and cognitive baseline. Attempted to contact patient's grandson. Visit from [facility] in chart from September 2020 mention patient is resistant to care, delusional and paranoid. He was held on a 302 in 2019 for homicidal ideations -Frequent orientation -Avoid delirium-inducing agents where possible Plan: F/E/N - Ppx - SCDs Code - Full per record review. Patient unable to answer question, family unable to be reached Dispo - Admit to medical with telemetry History of Present Illness Chief Complaint: unwitnessed fall Primary Care Provider: NO PCP Patient is mildly confused and extremely hard of hearing. Majority of history obtained through chart review and discussion with ER team. Attempted to contact patient's grandson, Nathaniel Muro at [phone] with no answer. Haim Muro is an 80yo male with history of atrial flutter on Apixaban anticoagulation, CAD, HTN, Gout presenting by ambulance for unwitnessed fall at home. Patient was found by EMS laying on his floor in the prone position covered with feces. Patient's RUE was tucked under his body. He was severely confused, unable to stand or ambulate without assistance. Patient reports that he was trying to ambulate from the bathroom to the bedroom when his knees "gave out" and he fell. He states he did not pass out or hit his head. He is complaining of significant pain in his right arm. Otherwise is denying chest pain, cough, SOB, vomiting, fever. EMS reports neighbors stating that he is confused at baseline due to dementia. Upon arrival to the ER patient afebrile, hypertensive otherwise HD stable. He had trauma scanning completed which revealed an acute oblique displaced distal diaphyseal fracture of the right humerus just distal to the humeral component of the right shoulder arthroplasty. XR of the knee also suspicious for possible occult intra-articular fracture. Orthopedics was contacted and recommended coaptation splint placement. ER Course: Fentanyl 50mcg, Dilaudid 0.5mg x 2, Zofran 4mg Medication reconciliation team in ER made extensive effort to update patient's medications. However, very limited outpatient records. Patient was seen at [facility] years ago. He receives some care at [place]. Family unavailable by phone with multiple attempts. Med rec last updated in our system in September 2020. Will continue as last updated and try to obtain outpatient records. Allergies Allergy/AdvReac Type Severity Reaction Status Date / Time No Known Allergies Allergy Verified 12/04/20 23:59 Home Medications Medication Instructions Recorded Confirmed Type apixaban 5 mg tablet 5 mg PO Q12 10/02/18 12/05/20 History cholecalciferol (vitamin D3) 25 2,000 unit PO DAILY 10/02/18 12/05/20 History mcg (1,000 unit) capsule (Vitamin D3) cyanocobalamin (vitamin B-12) 500 500 mcg PO DAILY 10/02/18 12/05/20 History mcg tablet docusate sodium 100 mg tablet 100 mg PO DAILY 10/02/18 12/05/20 History furosemide 20 mg tablet 20 mg PO DAILY 10/02/18 12/05/20 History vitamin E 400 unit capsule 400 unit PO DAILY 10/02/18 12/05/20 History amiodarone 200 mg tablet 200 mg PO DAILY 04/27/20 12/05/20 History lisinopril 20 mg tablet 20 mg PO DAILY 04/27/20 12/05/20 History spironolactone 25 mg tablet 25 mg PO DAILY 04/27/20 12/05/20 History tramadol 50 mg tablet 50 mg PO Q8H PRN #10 tab 04/28/20 12/05/20 Rx Past Med/Surg History Medical History (Updated 12/04/20 @ 22:32 by Kris Mack MD) Atrial flutter Deep vein thrombosis Gout Hypertension Tic [place] Surgical History (Updated 12/04/20 @ 21:17 by Alie Ruelas DO) History of arthroplasty of right knee History of arthroplasty of right shoulder History of vertebroplasty Family History Other No pertinent family history in first degree relatives Social History Smoking Status: Unknown if ever smoked Hx Alcohol Use: No Hx Substance Use: No Preferred Language: French Communication Ability: Effective Egg Smeller Required: No Beliefs That Will Affect Care: Orthodox marital status: / Current Living Situation: Alone Feels Safe at Home: Yes Assistive Devices: Walker Review of Systems Review of Systems: All systems reviewed & are unremarkable except as noted in HPI & below difficult to obtain - patient confused, doesn't answer questions clearly Physical Exam Physical Exam: General: elderly male patient resting supine in bed, oriented to self, able to provide some details of events prior to arrival, NAD Skin: warm, dry, tear present on right hand, bruising on right arm and forearm, small abrasion on coccyx, bruising to left hip HEENT: NC/AT, facial bones stable with no periorbital or mastoid bruising, PERRL, EOMI, anicteric sclera, conjunctiva without injection, external ear normal to inspection and nontender, nares patent,dry mucus membranes, dentition intact, no oropharyngeal lesions, neck supple, c-spine nontender, trachea midline, no LAD, no thyromegaly, no JVD Heart: +S1/S2, regular, 2/6 LAITH at LSB, no rubs/gallops Lungs: equal air entry bilaterally, no rales/rhonchi/wheezes Abd: +BS, soft, NT/ND, no masses/organomegaly/ascites Ext: warm, 2+ pulses in UE/LE bilaterally, deformity of RUE with bruising, crusting of feet Neuro: limited mobility RUE, speech clear but confused, no facial droop Results & Data Results & Data ([facility]) Vital Signs (Past 12 Hours) Vital Signs Pulse Pulse Resp BP BP Pulse Ox 12/04/20 19:00 68 23 165/77 H 93 12/04/20 18:54 61 22 93 12/04/20 18:52 61 18 165/77 H 94 12/04/20 17:40 91 12/04/20 16:48 73 21 174/88 H 92 Laboratory Results Laboratory Results WBC 10.84 K/uL (4.8-10.8) H 12/04/20 17:57 RBC 4.24 M/uL (4.7-6.1) L 12/04/20 17:57 Hgb 12.4 g/dL (14.0-18.0) L 12/04/20 17:57 Hct 39.1 % (42-52) L 12/04/20 17:57 MCV 92.2 fL (80-100) 12/04/20 17:57 MCH 29.2 pg (25-34) 12/04/20 17:57 MCHC 31.7 g/dL (32-36) L 12/04/20 17:57 RDW Std Deviation 50.3 fL (36.4-46.3) H 12/04/20 17:57 RDW Coeff of Martha 14.9 % (11.5-14.5) H 12/04/20 17:57 Plt Count 170 K/uL (130-400) 12/04/20 17:57 MPV 9.1 fL (7.4-10.4) 12/04/20 17:57 Immature Gran % (Auto) 1.0 % 12/04/20 17:57 Neut % (Auto) 87.9 % 12/04/20 17:57 Lymph % (Auto) 5.1 % 12/04/20 17:57 [place] % (Auto) 5.8 % 12/04/20 17:57 Eos % (Auto) 0.1 % 12/04/20 17:57 Baso % (Auto) 0.1 % 12/04/20 17:57 Neut # (Auto) 9.53 K/uL (1.4-6.5) H 12/04/20 17:57 Lymph # (Auto) 0.55 K/uL (1.2-3.4) L 12/04/20 17:57 [place] # (Auto) 0.63 K/uL (0.11-0.59) H 12/04/20 17:57 Eos # (Auto) 0.01 K/uL (0-0.5) 12/04/20 17:57 Baso # (Auto) 0.01 K/uL (0-0.2) 12/04/20 17:57 Immature Gran # (Auto) 0.11 K/uL (0.00-0.02) H 12/04/20 17:57 Sodium 139 mmol/L (136-145) 12/04/20 17:57 Potassium 3.8 mmol/L (3.5-5.1) 12/04/20 17:57 Chloride 108 mmol/L (98-107) H 12/04/20 17:57 Carbon Dioxide 26 mmol/L (21-32) 12/04/20 17:57 Anion Gap 5.0 (3-11) 12/04/20 17:57 BUN 16 mg/dl (7-18) 12/04/20 17:57 Creatinine 0.81 mg/dl (0.6-1.4) 12/04/20 17:57 Est Cr Clr Drug Dosing 74.9 ml/min 12/04/20 17:57 Est GFR ( Amer) 95.9 ml/min 12/04/20 17:57 Est GFR (Non-Af Amer) 82.8 ml/min 12/04/20 17:57 BUN/Creatinine Ratio 19.7 (10-20) 12/04/20 17:57 Glucose 139 mg/dl (70-99) H 12/04/20 17:57 Calcium 8.1 mg/dl (8.5-10.1) L 12/04/20 17:57 Total Bilirubin 0.7 mg/dl (0.2-1) 12/04/20 17:57 AST 28 U/L (15-37) 12/04/20 17:57 ALT 28 U/L (12-78) 12/04/20 17:57 Alkaline Phosphatase 69 U/L (45-117) 12/04/20 17:57 Total Creatine Kinase 140 U/L (39-308) 12/04/20 17:57 Troponin I 0.074 ng/ml (0-0.045) H* 12/04/20 17:57 Total Protein 6.3 gm/dl (6.4-8.2) L 12/04/20 17:57 Albumin 2.9 gm/dl (3.4-5.0) L 12/04/20 17:57 Globulin 3.4 gm/dl (2.5-4.0) 12/04/20 17:57 Albumin/Globulin Ratio 0.9 (0.9-2) 12/04/20 17:57 Blood Type A Positive 12/04/20 17:57 Antibody Screen NEGATIVE 12/04/20 17:[address] 12/04/20 17:40 CT OF THE CERVICAL SPINE WITHOUT CONTRAST CLINICAL HISTORY: Fall. Evaluate for fracture. COMPARISON STUDY: No previous studies for comparison. TECHNIQUE: Helical axial images of the cervical spine were obtained without IV contrast. Sagittal and coronal reconstructions were viewed. Automated exposure control was utilized for the study. A dose lowering technique was utilized adhering to the principles of ALARA. FINDINGS: Alignment of the cervical spine is anatomic. Vertebral body heights are maintained. No acute cervical spine fracture or subluxation is present. There is no prevertebral edema. Facet joints are intact. A mild compression deformity of the superior endplate of C7 is unchanged since CT of June 26, 2014. Extensive degenerative changes at the C1-C2 articulation are noted. Multilevel degenerative disc disease and facet arthrosis is present. Small left mastoid effusion is unchanged. IMPRESSION: 1. No acute cervical spine fracture or subluxation. 2. No change in an old C7 mild compression deformity. ACT 112: Negative or not required by law. Electronically signed by: Jason Fleming M.D. 12/04/2020 6:54 PM Chest X-Ray 12/04/20 17:40 XR chest 1V portable CLINICAL HISTORY: fall COMPARISON STUDY: Chest radiograph September 18, 2020. FINDINGS: Lung volumes are normal. Lungs are clear. There is no pneumothorax or pleural effusion. Cardiac size is stable. Mediastinal contours are normal. There is no evidence for pulmonary edema. Calcified left lower lung nodule is incidentally noted. Numerous old right-sided rib fractures are noted. There are also several age indeterminate lateral right rib fractures. IMPRESSION: 1. No acute cardiopulmonary findings. 2. Several age indeterminate lateral right rib fractures. ACT 112: Negative or not required by law. Electronically signed by: Jason Fleming M.D. 12/04/2020 8:08 PM Elbow X-Ray 12/04/20 17:40 XR elbow RT min 3V routine CLINICAL HISTORY: Fall. Evaluate for fracture. COMPARISON: None FINDINGS: Right shoulder arthroplasty is better depicted on the right shoulder radiographs. Note is made of an acute displaced oblique fracture of the mid to distal shaft of the right humerus. Fracture is displaced 2.4 cm and located just distal to the humeral component of the arthroplasty. Alignment of the right elbow is anatomic. Osteoarthritis of the right elbow is present. There is no evidence for right elbow joint effusion. IMPRESSION: Acute displaced oblique distal diaphyseal fracture of the right humerus, just distal to the humeral component of the right shoulder arthroplasty. ACT 112: Negative or not required by law. Electronically signed by: Jason Fleming M.D. 12/04/2020 7:58 PM Femur X-Ray 12/04/20 17:40 XR femur RT 2V routine CLINICAL HISTORY: Fall. Evaluate for fracture. COMPARISON: Right femur radiographs April 14, 2014. FINDINGS: No proximal right femoral fracture is noted although evaluation is compromised given difficulty positioning. Right knee arthroplasty is noted. Right knee joint effusion with lipohemarthrosis is present. No acute fracture of the right femur is identified. IMPRESSION: 1. No proximal right femoral fracture identified although evaluation compromised given some difficulty positioning. 2. Status post total right knee arthroplasty. 3. Right knee joint effusion with lipohemarthrosis which raises the possibility of an occult intra-articular fracture. CT of the right knee is recommended for further evaluation. ACT 112: Negative or not required by law. Electronically signed by: Jason Fleming M.D. 12/04/2020 8:[address] 12/04/20 17:40 CT OF THE HEAD WITHOUT CONTRAST CLINICAL HISTORY: Fall. Evaluate for bleed. COMPARISON STUDY: Head CT September 18, 2020. TECHNIQUE: Helical axial images of the head were obtained without IV contrast. Automated exposure control was utilized for the study. A dose lowering technique was utilized adhering to the principles of ALARA. FINDINGS: Postoperative findings within the right posterior fossa are noted. 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 No acute intracranial hemorrhage, midline shift or mass effect is present. The ventricular system is stable. White matter hypodensities are unchanged and favor small vessel disease. The basal cisterns are patent. No extra-axial collections are present. There are no findings to suggest acute dural sinus thrombosis or acute territorial infarct. No significant calvarial abnormalities are present. Small amount of fluid within the left mastoid air cells is unchanged. IMPRESSION: 1. No acute intracranial findings. No change in appearance of the brain. 2. No calvarial fracture. ACT 112: Negative or not required by law. Electronically signed by: Jason Fleming M.D. 12/04/2020 6:50 PM Humerus X-Ray 12/04/20 17:40 XR humerus RT 2V CLINICAL HISTORY: fall eval for fx COMPARISON: Right shoulder radiographs February 05, 2017. FINDINGS: Alignment of the reverse total right shoulder arthroplasty is noted. Note is made of an acute displaced angulated fracture through the distal diaphysis of the right humerus, just distal to the humeral component of the right shoulder arthroplasty. There is also subtle cortical irregularity and lucency of the proximal right humerus. IMPRESSION: 1. Acute oblique displaced distal diaphyseal fracture of the humerus located just distal to the humeral component of the right shoulder arthroplasty. 2. Cortical irregularity and lucency of the proximal diaphysis of the right humerus. This appears chronic although is age indeterminate. An additional acute fracture is considered less likely however a CT could be obtained for further evaluation. ACT 112: Negative or not required by law. Electronically signed by: Jason Fleming M.D. 12/04/2020 8:01 PM Knee X-Ray 12/04/20 17:40 XR knee RT 1 or 2V routine CLINICAL HISTORY: Fall. Evaluate for fracture. COMPARISON: Right knee radiographs May 04, 2014. MRI of the right knee May 21, 2014. FINDINGS: Alignment of the right knee arthroplasty is anatomic. Note is made of a right knee joint effusion with lipohemarthrosis. This suggests an intra- articular fracture. No fracture is identified by radiography. There is extensive vascular calcification. IMPRESSION: 1. Status post total right knee arthroplasty. 2. Right knee joint effusion with lipohemarthrosis which raises the possibility of an occult intra-articular fracture. CT of the right knee is recommended for further evaluation. ACT 112: Negative or not required by law. Electronically signed by: Jason Fleming M.D. 12/04/2020 7:[address] 12/04/20 17:40 CT lumbar spine wo con CLINICAL HISTORY: Fall. Evaluate for fracture. COMPARISON STUDY: Lumbar spine CT April 27, 2020. TECHNIQUE: Axial images of the lumbar spine were obtained without IV contrast. Sagittal and coronal reconstructions were viewed. Automated exposure control was utilized for the study. A dose lowering technique was utilized adhering to the principles of ALARA. FINDINGS: For purposes of numbering on this exam, the L5-S1 disc space is assigned to axial image 326 [phone] [id number]. There is mild dextroscoliosis of the lumbar spine. Note is made of T12, L1 and L4 vertebroplasty. Old T11 compression fracture is also noted. No acute lumbar spine fracture is noted. L3-L5 posterior decompression is noted. Moderate to severe multilevel facet arthrosis and degenerative disc disease is present. The central canal and neural foramen are suboptimally assessed given CT technique. Paravertebral soft tissues are unremarkable. IMPRESSION: 1. No acute lumbar spine fracture or subluxation. 2. Status post T12, L1 and L4 vertebroplasties and L3-L5 posterior decompression. ACT 112: Negative or not required by law. Electronically signed by: Jason Fleming M.D. 12/04/2020 7:10 PM Pelvis X-Ray 12/04/20 17:40 XR pelvis 1-2V routine CLINICAL HISTORY: Fall. Evaluate for fracture. COMPARISON: CT of the abdomen and pelvis April 27, 2020. FINDINGS: No acute fracture is identified although sensitivity is significantly diminished given osteopenia. The sacroiliac joints and symphysis pubis are intact. Mild to moderate bilateral hip osteoporosis present. Vertebroplasty within the lower lumbar spine is noted. IMPRESSION: No acute fracture identified although sensitivity is significantly diminished given osteopenia. ACT 112: Negative or not required by law. Electronically signed by: Jason Fleming M.D. 12/04/2020 7:54 PM Shoulder X-Ray 12/04/20 17:40 XR shoulder RT min 2V routine CLINICAL HISTORY: fall eval for fx COMPARISON: Right shoulder radiographs February 05, 2017. FINDINGS: Numerous rib fractures are noted. These are probably old. Alignment of the right shoulder arthroplasty is anatomic. A displaced fracture of the diaphysis of the right humerus just distal to the humeral component is partially imaged on this examination. There is subtle cortical irregularity proximal shaft of the right humerus. IMPRESSION: 1. Anatomic alignment of the total right shoulder arthroplasty. 2. Acute displaced fracture of the mid to distal diaphysis of the right humerus, just distal to the humeral component of the right shoulder arthroplasty. 3. Subtle cortical irregularity of the proximal shaft of the right humerus. This is probably chronic however CT could be obtained to exclude an additional fracture. ACT 112: Negative or not required by law. Electronically signed by: Jason Fleming M.D. 12/04/2020 8:[address] 12/04/20 17:40 CT OF THE THORACIC SPINE CLINICAL HISTORY: Fall. Evaluate for fracture COMPARISON STUDY: Chest CT June 26, 2014. TECHNIQUE: Helical axial images of the thoracic spine were obtained. Sagittal and coronal reconstructions were viewed. Automated exposure control was utilized for the study. A dose lowering technique was utilized adhering to the principles of ALARA. FINDINGS: Alignment of the thoracic spine is anatomic. No acute thoracic spine fracture is noted. Old C7, T1, T2, T11 and T12 compression fractures are present. T12 vertebroplasty is noted. Facet joints are intact. Central canal neural foramen are suboptimally assessed by CT. Paravertebral soft tissues are unremarkable. No acute fractures identified within visualized portions of the posterior ribs. Cardiomegaly is noted. There is a right shoulder arthroplasty. Lumbar spine CT will be reported separately. IMPRESSION: 1. No acute thoracic spine fracture or subluxation. 2. Multiple old thoracic spine compression fractures, unchanged since chest CT of June 26, 2014. ACT 112: Negative or not required by law. Electronically signed by: Jason Fleming M.D. 12/04/2020 7:04 PM ECG Additional Comments: EKG wtih SR at 63, 1st degree AV block with UC=567, EHI=885, EYy=758, left axis deviation with RBBB, lateral T wave flattening RBB and left axis present on prior study in September 2020 Code Status & VTE Plan VTE Prophylaxis Plan VTE Prophylaxis will be ordered: Yes PG Care Time/CCT Total # of Minutes Spent Total Time Spent with Patient: Total time spent is greater than 50% in coordination of care (as documented) at patient's floor/unit and/or counseling patient: Coding Level of Care Code 75744 Initial Inpt Care Lvl 3 Diagnoses SARA (generalized anxiety disorder) F41.1 CAD (coronary artery disease) I25.10 Atrial flutter I48.92 Hypertension I10 Right humeral fracture S42.301A Unwitnessed fall R29.6 Elevated troponin R77.8 Confusion R41.0
[2020-12-05 02:23] LABS: Appearance Urine Clear (Clear); Bacteria Urine Automated Negative (Negative); Bilirubin Urine Negative (Negative); Blood Urine Negative (Negative); Color Urine Yellow; Epithelial Cell Urine Auto >30 /lpf (0-5); Glucose Urine UA Negative (Negative); Ketones Urine Negative (Negative); Leukocyte Esterase Urine Negative (Negative); Nitrite Urine Negative (Negative); Protein Urine 2+ (Negative); RBC Urine Automated 0-4 /hpf (0-4); Specific Gravity Urine 1.018 (1.000-1.030); Urobilinogen Urine Negative (Negative)
[2020-12-05] MEDS ORDERED: DOCUSATE SODIUM 100 MG CAP PO PRN (03:09)
[2020-12-05] MEDS: MoRPHine SULFATE 2 MG/ML CARP IV PRN ×4 (03:43→22:44)
[2020-12-05] MEDS: LACTATED RINGER'S 1,000 ML IV SCH ×2 (04:00→11:28)
[2020-12-05 06:23] LABS: Appearance Urine Clear (Clear); Bacteria Urine Automated Negative (Negative); Bilirubin Urine Negative (Negative); Blood Urine Negative (Negative); Color Urine Yellow; Glucose Urine UA Negative (Negative); Ketones Urine Negative (Negative); Leukocyte Esterase Urine Negative (Negative); Nitrite Urine Negative (Negative); Protein Urine 2+ (Negative); RBC Urine Automated 0-4 /hpf (0-4); Specific Gravity Urine 1.018 (1.000-1.030); Urobilinogen Urine Negative (Negative)
--- NOTE | 2020-12-05 07:44 | Orthopedic Consultation ---
Date of Service December 05, 2020 Assessment & Plan (1) Closed right humeral fracture: Has a right hip periprosthetic femur fracture. A fairly classic fracture. He also has a radial nerve palsy. This is some that is typically treated nonoperatively. He is in a sugar tong splint and the plan will be to leave him in that for 2 weeks. He should be have his head of bed up as much as possible to allow gravity to reduce this. I will see him back in 2 weeks and convert him to a Jack brace. The radial nerve palsy has about an 80 to 90% chance of resolving over time. There is no need for surgical intervention for this at this time. (2) Effusion, right knee: Scattered right knee effusion with a history of total knee replacement. There is no apparent fracture. He is on blood thinners and that could be related to just a contusion of some slight the bleeding. We will get him up and begin ambulating and see how he does. Skin I did require some degree of custodial care for several weeks. (3) Status post right knee replacement: History of Present Illness Reason for Consultation: . Right arm injury. Requesting Physician: . Attending Physician: Aleah Santiago MD . The patient is an 80-year-old gentleman who lives by self who was sustained an unwitnessed fall late yesterday. He was paranoid found and covered in feces. The exact mechanism nature of the fall is unclear. He was a seen and brought to the emergency room where x-rays revealed a right periprosthetic humerus fracture. I was consulted for evaluation. He does have a history of a right reverse shoulder arthroplasty that he says was done 20 years ago. No pre- existing arm pain. Denies any real significant other injuries. Denies any head injury or loss of consciousness. He was having some mild right knee pain. Does have a history of right knee replacement as well. Allergies Allergy/AdvReac Type Severity Reaction Status Date / Time No Known Allergies Allergy Verified 12/04/20 23:59 Home Medications Medication Instructions Recorded Confirmed Type apixaban 5 mg tablet 5 mg PO Q12 10/02/18 12/05/20 History cholecalciferol (vitamin D3) 25 2,000 unit PO DAILY 10/02/18 12/05/20 History mcg (1,000 unit) capsule (Vitamin D3) cyanocobalamin (vitamin B-12) 500 500 mcg PO DAILY 10/02/18 12/05/20 History mcg tablet docusate sodium 100 mg tablet 100 mg PO DAILY 10/02/18 12/05/20 History furosemide 20 mg tablet 20 mg PO DAILY 10/02/18 12/05/20 History vitamin E 400 unit capsule 400 unit PO DAILY 10/02/18 12/05/20 History amiodarone 200 mg tablet 200 mg PO DAILY 04/27/20 12/05/20 History lisinopril 20 mg tablet 20 mg PO DAILY 04/27/20 12/05/20 History spironolactone 25 mg tablet 25 mg PO DAILY 04/27/20 12/05/20 History tramadol 50 mg tablet 50 mg PO Q8H PRN #10 tab 04/28/20 12/05/20 Rx Past Med/Surg History Medical History Atrial flutter Deep vein thrombosis Gout Hypertension Tic [place]re[place] Surgical History History of arthroplasty of right knee History of arthroplasty of right shoulder History of vertebroplasty Family History Other No pertinent family history in first degree relatives Social History Smoking Status: Unknown if ever smoked Hx Alcohol Use: No Hx Substance Use: No Preferred Language: Norwegian Communication Ability: Effective Skiver Box Toe Required: No Beliefs That Will Affect Care: None marital status: / Current Living Situation: Family Feels Safe at Home: Yes Assistive Devices: Hearing Aid - Bilateral Review of Systems All systems reviewed & are unremarkable except as noted in HPI & below. Physical Exam . Phonation grossly a pleasant elderly male. He sitting up in bed and looks reasonably comfortable. Very hard of hearing and a little difficult to communicate with as a result. Examination of the right arm reveals a sugar tong splint to be in place. Looks to be pretty well aligned and in good position. He does not have any obvious major deformity and really not much swelling. His wrist is in a slightly flexed position. He cannot make a fist. He has difficulty and unable to extend his wrist or his fingers. He is got brisk refill and good distal pulse. No pain in his forearm. Examination the right knee and leg reveals a well-healed incision from his previous knee replacement. He does have a small to moderate sized knee effusion. There is no malalignment. Mild pain with hip motion. Is extensor mechanism is palpably intact. Can dorsiflex and plantarflex his foot appropriately. Results & Data Results & Data Laboratory Results . Diagnostic Findings . X-rays of the right shoulder, humerus, and elbow reveal a right reverse shoulder arthroplasty be in place. He is got a right distal periprosthetic humerus fracture with significant displacement. Has got diffuse osteopenia. He is got some arthritis in his elbow. X-rays of the right femur and knee reveal a right total knee replacement. He is got diffuse osteopenia. Had a knee effusion. There is no obvious or apparent fracture. Multiple CT scans of the spine were reviewed. Diffuse arthritic changes. No signs of fracture. PG Care Time/CCT Total # of Minutes Spent Total Time Spent with Patient: Total time spent is greater than 50% in coordination of care (as documented) at patient's floor/unit and/or counseling patient: Coding Level of Care Code 25165 Inpt Consult Level 4 Diagnoses Closed right humeral fracture S42.331A Encounter type: initial encounter Fracture alignment: displaced Fracture morphology: oblique Humerus Location: shaft Effusion, right knee M25.461 Status post right knee replacement Z96.651 (1) Closed right humeral fracture Encounter type: initial encounter Fracture alignment: displaced Fracture morphology: oblique Humerus Location: shaft Qualified Code(s): S42.331A - Displaced oblique fracture of shaft of humerus, right arm, initial encounter for closed fracture
[2020-12-05] MEDS ORDERED: PNEUMOCOCCAL POLYSACCHARIDES 25 MCG/0.5 ML VIAL/SYR IM ONE (08:00)
[2020-12-05] MEDS ORDERED: INFLUENZA VACCINE HIGH DOSE PF 65+ 0.7 ML SYR IM ONE (08:00)
[2020-12-05] MEDS: AMIODARONE 200 MG TAB PO SCH (08:18)
[2020-12-05] MEDS: SPIRONOLACTONE 25 MG TAB PO SCH (08:18)
[2020-12-05] MEDS: lisinopril 20 MG TAB PO SCH (08:18)
[2020-12-05 08:33] LABS: Basophils # (auto) 0.01 K/uL (0-0.2); Basophils % (auto) 0.1 %; Hematocrit (blood only) 37.5 % (42-52); Hemoglobin 11.9 g/dL (14.0-18.0); Immature Granulocytes # (auto) 0.01 K/uL (0.00-0.02); Immature Granulocytes % (auto) 0.1 %; Lymphocytes # (auto) 0.63 K/uL (1.2-3.4); Lymphocytes % (auto) 7.4 %; Mean Corpuscular Hemoglobin 29.5 pg (25-34); Mean Corpuscular Hgb Conc 31.7 g/dL (32-36); Mean Corpuscular Volume 93.1 fL (80-100); Mean Platelet Volume 9.8 fL (7.4-10.4); Monocytes # (auto) 0.61 K/uL (0.11-0.59); Monocytes % (auto) 7.2 %; Neutrophils # (auto) 7.26 K/uL (1.4-6.5); Neutrophils % (auto) 85.2 %; Platelet Count 148 K/uL (130-400); RDW Coefficient of Variation 15.1 % (11.5-14.5); RDW Standard Deviation 51.5 fL (36.4-46.3); Red Blood Count 4.03 M/uL (4.7-6.1); White Blood Count 8.52 K/uL (4.8-10.8)
[2020-12-05 08:42] LABS: Prothrombin Time 9.8 Seconds (9.0-12.0)
[2020-12-05] MEDS ORDERED: POTASSIUM CHLORIDE CRTAB 20 MEQ TABCR PO STA (08:57)
[2020-12-05 09:01] LABS: BUN Creatinine Ratio 27.2 (10-20); Calcium 8.3 mg/dl (8.5-10.1); Creatinine Clr Calc Pharmacy 85.4 ml/min; Est GFR (African American) 101.3 ml/min; Est GFR (Non-African American) 87.4 ml/min; Magnesium 2.1 mg/dl (1.8-2.4); Potassium 4.2 mmol/L (3.5-5.1)
[2020-12-05 09:19] LABS: Troponin I 0.115 ng/ml (0-0.045)
--- NOTE | 2020-12-05 09:44 | CT Scan Report ---
CT SCAN OF THE RIGHT KNEE WITHOUT IV CONTRAST CLINICAL HISTORY: Fall. Right knee injury. COMPARISON STUDY: Radiographs of the right knee dated 12/04/2020. TECHNIQUE: CT scan of the right knee is performed from the distal femur to the proximal tibia and fib boubacar. Images are reviewed in the axial, sagittal, coronal planes. IV contrast was not administered for this examination. A dose lowering technique was utilized adhering to the principles of ALARA. The Ex amination is significantly degraded by streak artifact from a right knee arthroplasty. CT DOSE: 186.67 mGy.cm FINDINGS: The skeletal structures are osteopenic. A right knee arthroplasty is in near anatomic align ment. There has been undersurface remodeling of the patella. No periprosthetic lucency is identified. There is lipohemarthrosis. No definite fracture is identified. Anterior soft tissue edema is noted. There is generalized atrophy of the regional musculature. IMPRESSION: 1. Lipohemarthrosis indicates occult fracture. 2. No fracture is clearly identified. Note that the examination is severely degraded by extensive str eak artifact from the knee arthroplasty. 3. Anterior soft tissue edema is noted. ACT 112: Negative or not required by law. Dictated: 12/05/2020 8:18 AM Transcribed: 12/05/2020 8:38 AM Irma [id number] [email or web address] Electronically signed by: Jerel Alberto M.D. 12/05/2020 9:43 AM
--- NOTE | 2020-12-05 10:03 | Hospitalist Progress Note ---
Date of Service December 05, 2020 Assessment & Plan (1) Effusion, right knee: Plan: 80yo male with history of atrial flutter, CAD, HTN, HLP and SARA presenting by ambulance after unwitnessed fall at home - found down in prone position, unknown down time, acute fracture of right humerus. Baseline functional status unclear - patient states that he sometimes uses a walker. States that he did not pass out or hit his head. Imaging otherwise negative. Unwitnessed fall: -Fall precautions -PT/OT evaluation -- SNF recommended by OT, PT pending - CM to assist -CT of the right knee to further assess for possible intra-articular fracture is NEGATIVE Right humeral fracture: -Patient found to have acute oblique displaced distal diaphyseal fracture of the humerus just distal to the humeral component of the right shoulder arthroplasty. Neurovascularly intact. Splint has been placed. Patient is on Apixaban for history of PAF and VTE. -Pain control with Morphine 2mg IV q 4 hours as needed, will adjust to comfort. Cautious use in elderly patient with underlying dementia at high risk for delirium -Bowel regimen with Colace and Miralax PRN -Neurovascular checks RUE q 4 hours -Orthopedic surgery consulted: - He is in a sugar tong splint and the plan will be to leave him in that for 2 weeks. - He should be have his head of bed up as much as possible to allow gravity to reduce this. - F/U in 2 weeks and convert him to a Jack brace. The radial nerve palsy has about an 80 to 90% chance of resolving over time. - There is no need for surgical intervention for this at this time. Confusion: -Mention of underlying dementia. Uncertain of functional and cognitive baseline. Attempted to contact patient's grandson. -Visit from [facility] in chart from September 2020 mention patient is resistant to care, delusional and paranoid. He was held on a 302 in 2019 for homicidal ideations -Frequent orientation -Avoid delirium-inducing agents where possible Elevated troponin: - Patient with mild elevation in troponin (0.07), non-specific ST-T wave changes present on EKG. He denies chest pain - Likely demand ischemia in the setting of pain due to fracture -Telemetry monitoring -Trend troponin CAD (coronary artery disease): -Cardiac catheterization in 2011 performed for elevated troponin following episode of atrial fibrillation with RVR which revealed mild diffuse CAD. He follows with [facility] for [facility]. Presently not on BB, ASA or Statin therapy -Continue Lisinopril Atrial flutter: -Paroxysmal. Patient is anticoagulated on Apixaban. On Amiodarone -Continue Amiodarone -Hold Apixaban for now -Telemetry monitoring Hypertension: - Blood pressure mildly elevated in setting of pain, trauma. No CP, SOB, BERNARD, dizziness -Continue Lisinopril -Continue Spironolactone -Continue to monitor SARA (generalized anxiety disorder): - Presently not on any medications for this issue -Monitor FENGI: Heart healthy, easy to chew Ppx: Anticoagulated on apixaban Code: Full Code Dispo: Med with telemetry (2) Closed right humeral fracture: (3) Elevated troponin: (4) Unwitnessed fall: Admission and Anticipated Discharge Date Admission Date: December 04, 2020 Supervising Physician Co-Signing Physician Notes Resident Physician Supervision Note: I independently interviewed and examined the patient and verified the zamorano history and physical, reviewed labs and image studies and agree with resident Dr. Carrington findings and care plan. Subjective No acute events overnight. Patient seen at bedside this morning. He reports mild pain and discomfort in his right arm and right leg. Otherwise denies all other symptoms. He is on board with seeking SNF or rehabilitation depending on PT/OT recommendations. Review of Systems Review of Systems: per subjective Physical Exam Physical Exam: GENERAL: A&Ox3. NAD. CHEST/LUNGS: CTAB A/P. No crackles, wheezes, rales, rhonchi. HEART: RRR. No m/g/r. No carotid bruits. ABDOMEN: NT/ND, soft. BS+ x4 EXTREMITIES: No cyanosis, no clubbing, no edema -- right arm in splint and sling SKIN: Warm and dry. No rashes or lesions. PSYCHIATRIC: Euthymic affect, no SI, no pressured speech, no hallucinations NEUROLOGIC: No FND. CN II-XII grossly intact. Results & Data Results & Data ([facility]) Vital Signs (Past 12 Hours) Vital Signs Temp Pulse Pulse Resp BP Pulse Ox 12/05/20 07:44 37.1 C 68 18 152/68 H 97 12/05/20 05:17 70 12/05/20 03:09 36.9 C 75 18 195/88 H 85 L 12/05/20 01:23 70 18 168/77 H 97 12/04/20 22:48 63 17 167/76 H 99 12/04/20 22:29 62 17 194/71 H 98 Resident Activity Tracking Resident Involvement: Resident Care Provided Care Provided: Adult Hospital Medicine (1) Closed right humeral fracture Encounter type: initial encounter Fracture alignment: displaced Fracture morphology: oblique Humerus Location: shaft Qualified Code(s): S42.331A - Displaced oblique fracture of shaft of humerus, right arm, initial encounter for closed fracture
[2020-12-05] MEDS: DICLOFENAC SOD 1% GEL 100 GM TUBE EXT SCH ×4 (10:06→19:49)
--- NOTE | 2020-12-05 13:27 | Electrocardiogram Report ---
Test Reason : Blood Pressure : / mmHG Vent. Rate : 063 BPM Atrial Rate : 063 BPM P-R Int : 214 ms QRS Dur : 158 ms QT Int : 488 ms P-R-T Axes : 050 -37 -15 degrees QTc Int : 499 ms Sinus rhythm with 1st degree A-V block Left axis deviation Right bundle branch block Abnormal ECG When compared with ECG of 18-SEP-2020 17:24, Nonspecific T wave abnormality, worse in Inferior leads T wave inversion now evident in Lateral leads Confirmed by Jeff New ([id number]) on 12/05/2020 1:27:23 PM Referred By: REFERRED SELF Confirmed By:Jeff New
[2020-12-05] MEDS: APIXABAN 5 MG TABLET PO SCH (19:49)
[2020-12-05] MEDS ORDERED: LORazepam 2 MG/ML VIAL (IM USE) IM PRN (22:58)
[2020-12-05] MEDS ORDERED: diphenhydrAMINE 50 MG/ML VIAL IM PRN (22:58)
[2020-12-05] MEDS ORDERED: LORazepam 2 MG/4 ML VIAL IV STA (23:57)
[2020-12-05] MEDS ORDERED: LORazepam 2 MG/4 ML VIAL IV PRN (23:58)
[2020-12-06 07:43] LABS: Basophils # (auto) 0.01 K/uL (0-0.2); Basophils % (auto) 0.1 %; Eosinophils # (auto) 0.08 K/uL (0-0.5); Eosinophils % (auto) 1.2 %; Hematocrit (blood only) 36.5 % (42-52); Hemoglobin 12.2 g/dL (14.0-18.0); Immature Granulocytes # (auto) 0.01 K/uL (0.00-0.02); Immature Granulocytes % (auto) 0.1 %; Lymphocytes # (auto) 0.63 K/uL (1.2-3.4); Lymphocytes % (auto) 9.3 %; Mean Corpuscular Hemoglobin 30.6 pg (25-34); Mean Corpuscular Hgb Conc 33.4 g/dL (32-36); Mean Corpuscular Volume 91.5 fL (80-100); Mean Platelet Volume 9.4 fL (7.4-10.4); Monocytes # (auto) 0.56 K/uL (0.11-0.59); Monocytes % (auto) 8.3 %; Neutrophils # (auto) 5.49 K/uL (1.4-6.5); Platelet Count 128 K/uL (130-400); RDW Coefficient of Variation 15.1 % (11.5-14.5); RDW Standard Deviation 51.1 fL (36.4-46.3); Red Blood Count 3.99 M/uL (4.7-6.1); White Blood Count 6.78 K/uL (4.8-10.8)
[2020-12-06 08:01] LABS: BUN Creatinine Ratio 27.7 (10-20); Calcium 8.8 mg/dl (8.5-10.1); Creatinine Clr Calc Pharmacy 97.8 ml/min; Est GFR (African American) 107.1 ml/min; Est GFR (Non-African American) 92.4 ml/min; Potassium 4.5 mmol/L (3.5-5.1)
--- NOTE | 2020-12-06 08:02 | Hospitalist Progress Note ---
Date of Service December 06, 2020 Assessment & Plan (1) Effusion, right knee: Plan: 80yo male with history of atrial flutter, CAD, HTN, HLP and SARA presenting by ambulance after unwitnessed fall at home - found down in prone position, unknown down time, acute fracture of right humerus. Baseline functional status unclear - patient states that he sometimes uses a walker. States that he did not pass out or hit his head. Imaging otherwise negative. Unwitnessed fall: -Fall precautions -PT/OT evaluation -- SNF recommended by OT, PT pending - CM to assist -CT of the right knee to further assess for possible intra-articular fracture is NEGATIVE Right humeral fracture: -Patient found to have acute oblique displaced distal diaphyseal fracture of the humerus just distal to the humeral component of the right shoulder arthroplasty. Neurovascularly intact. Splint has been placed. Patient is on Apixaban for history of PAF and VTE. -Pain control with Morphine 2mg IV q 4 hours as needed, will adjust to comfort. Cautious use in elderly patient with underlying dementia at high risk for delirium -Bowel regimen with Colace and Miralax PRN -Neurovascular checks RUE q 4 hours -Orthopedic surgery consulted: - He is in a sugar tong splint and the plan will be to leave him in that for 2 weeks. - He should be have his head of bed up as much as possible to allow gravity to reduce this. - F/U in 2 weeks and convert him to a Jack brace. The radial nerve palsy has about an 80 to 90% chance of resolving over time. - There is no need for surgical intervention for this at this time. Confusion: -Underlying dementia -Per conversation with the grandson, patient has difficulty carrying out conversations and is significantly confused at home as well family interested in pursuing fdc placement -Case management to assist with placement -Visit from [facility] in chart from September 2020 mention patient is resistant to care, delusional and paranoid. He was held on a 302 in 2019 for homicidal ideations -Frequent orientation -Avoid delirium-inducing agents where possible -Avoid Haldol as patient had QTC of 499 -Benadryl/Ativan only as needed for aggressive agitation/confusion Temp of 100.04 -If spikes higher - panculture and start abx. Elevated troponin: -Patient with mild elevation in troponin (0.07), non-specific ST-T wave changes present on EKG. He denies chest pain -Likely demand ischemia in the setting of pain due to fracture -Monitored on Telemetry - move to med/surg -Troponin downtrended CAD (coronary artery disease): -Cardiac catheterization in 2011 performed for elevated troponin following episode of atrial fibrillation with RVR which revealed mild diffuse CAD. [facility]. Presently not on BB, ASA or Statin therapy -Continue Lisinopril Atrial flutter: -Paroxysmal. Patient is anticoagulated on Apixaban. On Amiodarone -Continue Amiodarone -Hold Apixaban for now Hypertension: - Blood pressure mildly elevated in setting of pain, trauma. No CP, SOB, BERNARD, dizziness -Continue Lisinopril -Continue Spironolactone -Continue to monitor SARA (generalized anxiety disorder): -Presently not on any medications for this issue FENGI: Heart healthy, easy to chew Ppx: Anticoagulated on apixaban Code: Full Code - will discuss with family. Dispo: Med with telemetry. Case management working on placement. (2) Closed right humeral fracture: (3) Elevated troponin: (4) Unwitnessed fall: Admission and Anticipated Discharge Date Admission Date: December 04, 2020 Supervising Physician Co-Signing Physician Notes Resident Physician Supervision Note: I independently interviewed and examined the patient and verified the zamorano history and physical, reviewed labs and image studies and agree with resident Dr. Carrington findings and care plan. Subjective Overnight patient became agitated and physically aggressive received 50 mg of Benadryl and 2 mg lorazepam, which resolved the episode. On my evaluation in the morning patient is sleeping comfortably and difficult to converse with. He mumbles unintelligibly when asked questions. Patient has remained confused throughout the day. RN reporting that he has been intermittently aggressive, consistently confused. Refusing oral medications and oral nutrition. Review of Systems Review of Systems: per subjective Physical Exam Physical Exam: GENERAL: Sleeping comfortably. NAD. CHEST/LUNGS: CTAB A/P. No crackles, wheezes, rales, rhonchi. HEART: RRR. No m/g/r. No carotid bruits. ABDOMEN: NT/ND, soft. BS+ x4 EXTREMITIES: No cyanosis, no clubbing, no edema -- right arm in splint and sling SKIN: Warm and dry. No rashes or lesions. NEUROLOGIC: No FND. CN II-XII grossly intact. Results & Data Results & Data ([facility]) Vital Signs (Past 12 Hours) Vital Signs Temp Pulse Resp BP Pulse Ox 12/05/20 23:00 36.5 C 79 22 171/79 H 91 Resident Activity Tracking Resident Involvement: Resident Care Provided Care Provided: [facility] (1) Closed right humeral fracture Encounter type: initial encounter Fracture alignment: displaced Fracture mor phology: oblique Humerus Location: shaft Qualified Code(s): S42.331A - Displ aced oblique fracture of shaft of humerus, right arm, initial encounter for closed fracture
--- NOTE | 2020-12-06 08:54 | Progress Notes ---
DATE OF SERVICE: 12/06/2020 SUBJECTIVE: An 80-year-old gentleman who was admitted with a right periprosthetic humeral diaphyseal fracture. This was misdictated yesterday as a periprosthetic hip fracture. He is sitting up in bed and kind of slunched over. Seems a bit confused this morning. Denies any significant pain. OBJECTIVE: VITAL SIGNS: Temperature is 36.5. Vital signs are stable. PHYSICAL EXAMINATION: Shows an elderly male. He is sitting up in bed, a little bit slunched over. H is sugar tong splint is in place. Some mild swelling. He really does not follow commands much this morning at all. He does spontaneously flex his fingers. He still cannot extend his wrist or his fi ngers by any visible movements. He has got brisk refill. ASSESSMENT: An 80-year-old gentleman admitted with a right periprosthetic humeral diaphyseal fractur e with a radial nerve palsy. He also has a knee effusion without signs of fracture. He appears orth opedically stable. Seems a little bit more confused this morning, but it is early in the morning. PLAN: 1. Periprosthetic humeral diaphyseal fracture. Plan is to keep him in a sugar-tong splint for 2 week s. I will see him back in 2 weeks. I will change him to a Jack brace at that time. He should be in the upright position as much as possible for both treatment and comfort reasons. 2. Right knee effusion. No apparent fracture. We will mobilize him and he can weight bear as mina ated. I need to see him back in 2 weeks. Any orthopedic questions can be directed to me at . Job ID: [id number]
[2020-12-06] MEDS: APIXABAN 5 MG TABLET PO SCH ×2 (09:49→22:58)
[2020-12-06] MEDS: SPIRONOLACTONE 25 MG TAB PO SCH (09:49)
[2020-12-06] MEDS: DICLOFENAC SOD 1% GEL 100 GM TUBE EXT SCH ×4 (09:49→23:04)
[2020-12-06] MEDS: lisinopril 20 MG TAB PO SCH (09:49)
[2020-12-06] MEDS: AMIODARONE 200 MG TAB PO SCH (09:49)
[2020-12-06] MEDS: MoRPHine SULFATE 2 MG/ML CARP IV PRN (10:01)
[2020-12-07] MEDS: ACETAMINOPHEN 500 MG TAB PO PRN ×2 (00:08→15:04)
--- NOTE | 2020-12-07 07:36 | Hospitalist Progress Note ---
Date of Service December 07, 2020 Assessment & Plan (1) Effusion, right knee: Plan: 80yo male with history of atrial flutter, CAD, HTN, HLP and SARA presenting by ambulance after unwitnessed fall at home - found down in prone position, unknown down time, acute fracture of right humerus. Baseline functional status unclear - patient states that he sometimes uses a walker. States that he did not pass out or hit his head. Imaging otherwise negative. Unwitnessed fall: -Fall precautions -PT/OT evaluation -- SNF recommended by OT, PT pending - CM to assist -CT of the right knee to further assess for possible intra-articular fracture is NEGATIVE Right humeral fracture: -Patient found to have acute oblique displaced distal diaphyseal fracture of the humerus just distal to the humeral component of the right shoulder arthroplasty. Neurovascularly intact. Splint has been placed. Patient is on Apixaban for history of PAF and VTE. -Pain control; Cautious use in elderly patient with underlying dementia at high risk for delirium - decreased morphine 2 mg IV q4h PRN to 1 mg IV q4h PRN. Removed IV benadryl PRN for agitation order. Changed IV ativan 2 mg IM q6h PRN for agitation to 1 mg IM q6h PRN. Added [place] 5/325 1 tab TID PRN for pain -Bowel regimen with Colace and Miralax PRN -Neurovascular checks RUE q 4 hours -Orthopedic surgery consulted: - He is in a sugar tong splint and the plan will be to leave him in that for 2 weeks. - He should be have his head of bed up as much as possible to allow gravity to reduce this. - F/U in 2 weeks and convert him to a Jack brace. The radial nerve palsy has about an 80 to 90% chance of resolving over time. - There is no need for surgical intervention for this at this time. Confusion: -Underlying dementia -Per conversation with the grandson, patient has difficulty carrying out conversations and is significantly confused at home as well family interested in pursuing halfway placement -Case management to assist with placement -Visit from [facility] in chart from September 2020 mention patient is resistant to care, delusional and paranoid. He was held on a 302 in 2019 for homicidal ideations -Frequent orientation -Avoid delirium-inducing agents where possible -Avoid Haldol as patient had QTC of 499 -Benadryl/Ativan only as needed for aggressive agitation/confusion Elevated troponin: -trop peaked .115 -non-specific ST-T wave changes present on EKG. He denies chest pain -Likely demand ischemia in the setting of pain due to fracture -Monitored on Telemetry CAD (coronary artery disease): -Cardiac catheterization in 2011 performed for elevated troponin following episode of atrial fibrillation with RVR which revealed mild diffuse CAD. He follows with the [facility] for this. Presently not on BB, ASA or Statin therapy -Continue Lisinopril Atrial flutter: -Paroxysmal. Patient is anticoagulated on Apixaban. On Amiodarone -Continue Amiodarone -Hold Apixaban for now Hypertension: - Blood pressure mildly elevated in setting of pain, trauma. No CP, SOB, BERNARD, dizziness -Continue Lisinopril -Continue Spironolactone -Continue to monitor SARA (generalized anxiety disorder), Depression: -Restarted Paxil 10 daily (home med per patient) - per chart review, had been on sertraline 25 in 2017([facility]) and citalopram 10 in 2018 ([facility]). no records of Paxil; patient follows [facility] FENGI: Heart healthy, easy to chew Ppx: Anticoagulated on apixaban Code: Full Code - will discuss with family. Dispo: Med with telemetry. Case management working on placement. (2) Closed right humeral fracture: (3) Elevated troponin: (4) Unwitnessed fall: Admission and Anticipated Discharge Date Admission Date: December 04, 2020 Supervising Physician Co-Signing Physician Notes Resident Physician Supervision Note: I independently interviewed and examined the patient and verified the zamorano h istory and physical, reviewed labs and image studies and agree with resident Dr. Keen findings and care plan. Subjective Patient is feeling ok at the moment. 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 R shoulder pain w/ movement. Denies current confusion or headache. Review of Systems Review of Systems: All systems reviewed & are unremarkable except as noted in HPI & below Constitutional: Denies fever, chills Eyes: Denies blurry vision, vision changes ENT: Denies sore throat, sinus pain Cardiovascular: Denies chest pain, palpitations Respiratory: Denies shortness of breath Gastrointestinal: Denies abdominal pain, nausea, vomiting, constipation, diarrhea Genitourinary: Denies urinary symptoms including dysuria Musculoskeletal: Denies weaknes Neurological: Denies headache, numbness, tingling, focal weakness, dizziness Physical Exam Physical Exam: General: A&Ox4. NAD. Cooperative. HEENT: Atraumatic, normocephalic. EOMI Pulm: CTAB. -wheezes, -rales, -rhonchi. Listened to posterior L field and anterior/lateral R field. No respiratory distress. Cardiac: RRR, -mrg. Radial pulses intact and symmetrical. No LE edema Abdominal: Nontender, nondistended, soft. Integ: mild bilat chronic skin changes/darkening of shins. Msk: wearing sling and has splint of R shoulder Results & Data Results & Data ([facility]) Vital Signs (Past 12 Hours) Vital Signs 37.8H x1 yest 2:36PM. mildly elev BPs 150s systolic. 2L NC 93-97 Temp Pulse Pulse Resp BP Pulse Ox 12/07/20 06:36 36.6 C 64 16 152/76 H 94 12/07/20 04:47 37.2 C 60 18 165/80 H 95 12/07/20 03:07 36.3 C L 58 L 16 153/75 H 97 12/06/20 23:04 36.3 C L 69 18 133/76 97 Laboratory Results no new labs. trop peaked .115 12/05/20. Hb stable 12.2 12/06/20 07:28 12/06/20 07:28 Diagnostic Findings no new imaging. multiple xrs/cts of msk system at admission no micro Resident Activity Tracking Resident Involvement: Resident Care Provided Care Provided: Adult Hospital Medicine (1) Closed right humeral fracture Encounter type: initial encounter Fracture alignment: displaced Fracture morphology: oblique Humerus Location: shaft Qualified Code(s): S42.331A - Displaced oblique fracture of shaft of humerus, right arm, initial encounter for closed fracture
[2020-12-07] MEDS: APIXABAN 5 MG TABLET PO SCH ×2 (08:56→21:00)
[2020-12-07] MEDS: AMIODARONE 200 MG TAB PO SCH (08:56)
[2020-12-07] MEDS: lisinopril 20 MG TAB PO SCH (08:57)
[2020-12-07] MEDS: DICLOFENAC SOD 1% GEL 100 GM TUBE EXT SCH ×4 (08:57→21:00)
[2020-12-07] MEDS: SPIRONOLACTONE 25 MG TAB PO SCH (08:58)
[2020-12-07] MEDS: MoRPHine SULFATE 2 MG/ML CARP IV PRN ×2 (16:16→21:19)
[2020-12-07] MEDS: PARoxetine HCL 10 MG TAB PO SCH (16:26)
[2020-12-08] MEDS ORDERED: LORazepam 2 MG/ML VIAL (IM USE) IM STA (00:54)
[2020-12-08] MEDS ORDERED: OLANZapine 10 MG/2.1 ML SDV IM PRN (00:55)
[2020-12-08 05:41] LABS: Basophils # (auto) 0.01 K/uL (0-0.2); Basophils % (auto) 0.2 %; Eosinophils # (auto) 0.06 K/uL (0-0.5); Eosinophils % (auto) 1.1 %; Hematocrit (blood only) 33.1 % (42-52); Hemoglobin 10.7 g/dL (14.0-18.0); Immature Granulocytes # (auto) 0.01 K/uL (0.00-0.02); Immature Granulocytes % (auto) 0.2 %; Lymphocytes % (auto) 11.4 %; Mean Corpuscular Hgb Conc 32.3 g/dL (32-36); Mean Corpuscular Volume 92.7 fL (80-100); Mean Platelet Volume 9.5 fL (7.4-10.4); Monocytes # (auto) 0.53 K/uL (0.11-0.59); Monocytes % (auto) 10.1 %; Neutrophils # (auto) 4.05 K/uL (1.4-6.5); Platelet Count 140 K/uL (130-400); RDW Coefficient of Variation 14.9 % (11.5-14.5); Red Blood Count 3.57 M/uL (4.7-6.1); White Blood Count 5.26 K/uL (4.8-10.8)
[2020-12-08 06:12] LABS: BUN Creatinine Ratio 26.3 (10-20); Calcium 8.5 mg/dl (8.5-10.1); Creatinine Clr Calc Pharmacy 86.7 ml/min; Est GFR (African American) 101.9 ml/min; Est GFR (Non-African American) 87.9 ml/min; Potassium 4.4 mmol/L (3.5-5.1)
--- NOTE | 2020-12-08 09:00 | Hospitalist Progress Note ---
Date of Service December 08, 2020 Assessment & Plan (1) Effusion, right knee: Plan: 80yo male with history of atrial flutter, CAD, HTN, HLP and SARA presenting by ambulance after unwitnessed fall at home - found down in prone position, unknown down time, acute fracture of right humerus. Baseline functional status unclear - patient states that he sometimes uses a walker. States that he did not pass out or hit his head. Imaging otherwise negative. Unwitnessed fall: -Fall precautions -PT/OT evaluation -- SNF recommended by OT, PT pending - CM to assist -CT of the right knee to further assess for possible intra-articular fracture is NEGATIVE Right humeral fracture: -Patient found to have acute oblique displaced distal diaphyseal fracture of the humerus just distal to the humeral component of the right shoulder arthroplasty. Neurovascularly intact. Splint has been placed. Patient is on Apixaban for history of PAF and VTE. -Pain control; Cautious use in elderly patient with underlying dementia at high risk for delirium - decreased morphine 2 mg IV q4h PRN to 1 mg IV q4h PRN. Removed IV benadryl PRN for agitation order. Changed IV ativan 2 mg IM q6h PRN for agitation to 1 mg IM q6h PRN. Added [place] 5/325 1 tab TID PRN for pain -Bowel regimen with Colace and Miralax PRN -Neurovascular checks RUE q 4 hours -Orthopedic surgery consulted: - He is in a sugar tong splint and the plan will be to leave him in that for 2 weeks. - He should have his head of bed up as much as possible to allow gravity to reduce this. - F/U in 2 weeks and convert him to a Jack brace. The radial nerve palsy has about an 80 to 90% chance of resolving over time. - There is no need for surgical intervention for this at this time. - 12/08/20 update: right hand swelling noted; per ortho not unexpected w/ hum eral fracture and splint. ortho will f/u in outpatient setting. leave the sugar- tong splint in place for 2 weeks. Confusion: -Underlying dementia -Per conversation with the grandson, patient has difficulty carrying out conversations and is significantly confused at home as well family interested in pursuing retirement placement -Case management to assist with placement -Visit from [facility] in chart from September 2020 mention patient is resistant to care, delusional and paranoid. He was held on a 302 in 2019 for homicidal ideations -Frequent orientation -Avoid delirium-inducing agents where possible -Avoid Haldol as patient had QTC of 499 -Zyprexa prn for agitation. Avoid sedating medications if possible Elevated troponin: -trop peaked .115 -non-specific ST-T wave changes present on EKG. He denies chest pain -Likely demand ischemia in the setting of pain due to fracture -Monitored on Telemetry CAD (coronary artery disease): -Cardiac catheterization in 2011 performed for elevated troponin following episode of atrial fibrillation with RVR which revealed mild diffuse CAD. He follows with the [facility] for this. Presently not on BB, ASA or Statin therapy -Continue Lisinopril Atrial flutter: -Paroxysmal. Patient is anticoagulated on Apixaban. -Continue Amiodarone -Hold Apixaban for now Hypertension: -Blood pressure mildly elevated in setting of pain, trauma. No CP, SOB, BERNARD, dizziness -Continue Lisinopril -Continue Spironolactone -Continue to monitor SARA (generalized anxiety disorder), Depression: -Restarted Paxil 10 daily (home med per patient) - per chart review, had been on sertraline 25 in 2017([facility]) and citalopram 10 in 2018 ([facility]). no records of Paxil; patient follows [facility] - spoke with patient's son who states that patient was prescribed this by doctor and he will bring in the records FENGI: Heart healthy, easy to chew Ppx: Anticoagulated on apixaban Code: DNR/DNI. Palliative consult placed Dispo: Med with telemetry. Case management working on placement. (2) Closed right humeral fracture: (3) Elevated troponin: (4) Unwitnessed fall: Admission and Anticipated Discharge Date Admission Date: December 04, 2020 Supervising Physician Co-Signing Physician Notes Resident Physician Supervision Note: I independently interviewed and examined the patient and verified the zamorano history and physical, reviewed labs and image studies and agree with resident Dr. Keen findings and care plan. Subjective Agitated overnight. Received zyprexa and ativan w/ relief of agitation. Denies complaints. HPI limited per patient's sedated appearing state. Review of Systems Review of Systems: Grossly denies complaints. ROS limited Physical Exam Physical Exam: General: Grossly A&O. NAD. Cooperative. Mouth open, eyes closed, sleepy. Responds verbally w/ loud prompting, HEENT: Atraumatic, normocephalic. Pulm: CTAB anteriorly No respiratory distress. Cardiac: RRR, -mrg. Radial pulses intact and symmetrical. No LE edema. Abdominal: Nontender, nondistended, soft. Integ: mild bilat chronic skin changes/darkening of shins. Msk: wearing sling and has splint of R shoulder. R hand appears swollen, pulses intact Results & Data Results & Data ([facility]) Vital Signs (Past 12 Hours) Vital Signs vitals reviewed. bps acceptable. satting 92-93 on room air Temp Pulse Resp BP Pulse Ox 12/08/20 06:12 36.5 C 69 14 133/73 92 12/07/20 21:59 36.7 C 72 18 153/77 H 93 Laboratory Results no leukocytosis. Hb 11.9->12.2->10.7. plts 148->128>140, stable. electrolytes wnl. CBC 12/08/20 Range/Units 05:18 WBC 5.26 (4.8-10.8) K/uL RBC 3.57 L (4.7-6.1) M/uL Hgb 10.7 L (14.0-18.0) g/dL Hct 33.1 L (42-52) % Plt Count 140 (130-400) K/uL Neut # (Auto) 4.05 (1.4-6.5) K/uL Lymph # (Auto) 0.60 L (1.2-3.4) K/uL [place] # (Auto) 0.53 (0.11-0.59) K/uL Eos # (Auto) 0.06 (0-0.5) K/uL Baso # (Auto) 0.01 (0-0.2) K/uL Comprehensive Metabolic Panel 12/08/20 Range/Units 05:18 Sodium 139 (136-145) mmol/L Potassium 4.4 (3.5-5.1) mmol/L Chloride 107 (98-107) mmol/L Carbon Dioxide 29 (21-32) mmol/L BUN 18 (7-18) mg/dl Creatinine 0.70 (0.6-1.4) mg/dl Glucose 96 (70-99) mg/dl Calcium 8.5 (8.5-10.1) mg/dl Intake and Output 12/07/20 12/08/20 12/08/20 22:59 06:59 14:59 Output Total 250 / 1375 900 / 1375 Balance -250 / -1375 -900 / -1375 Output: Urine Amount (Catheter) 250 / 1375 900 / 1375 [place]/Indwelling 250 / 1375 900 / 1375 Resident Activity Tracking Resident Involvement: Resident Care Provided Care Provided: Adult [facility] (1) Closed right humeral fracture Encounter type: initial encounter Fracture alignment: displaced Fracture morphology: oblique Humerus Location: shaft Qualified Code(s): S42.331A - Displaced oblique fracture of shaft of humerus, right arm, initial encounter for closed fracture
--- NOTE | 2020-12-08 10:19 | Progress Notes ---
DATE OF SERVICE: 12/08/2020. SUBJECTIVE: An 80-year-old gentleman admitted with a right periprosthetic humeral diaphyseal fractur e from a fall as well as a small knee effusion. He is now in the orthopedic floor. He is sitting up on bed. Fairly confused this morning. Denies any real pain. Does not look uncomfortable. OBJECTIVE: VITAL SIGNS: Temperature 36.5. Vital signs are stable. GENERAL: Physical examination shows an elderly male. He is sitting up on bed, a bit sluggish over. EXTREMITIES: His sugar-tong splint is in place. He does have some moderate swelling in his hand. A rm looks reasonably well aligned. Really does not follow commands very well. Examination of the right knee reveals just a small knee effusion. No real pain with palpation or mov ement. ASSESSMENT: An 80-year-old gentleman with, 1. Right displaced humeral diaphyseal fracture, which should do well with conservative care. He dwyer s have radial nerve palsy. He does have increased swelling in his hand, which is to be expected afte r placing the sugar-tong splint and with his fracture. Nothing out of the ordinary. 2. Right knee effusion without signs of fracture. PLAN: At this point, we will leave the sugar-tong splint in place for 2 weeks. He should be in the splint pretty much all the time. I need to see him back in 2 weeks. We can mobilize him as tolerate d. He can weight bear as tolerated. Any orthopedic questions can be directed to me at [phone]. He is orthopedically okay for discharge any time medically stable. Job ID: [id number]
[2020-12-08] MEDS: APIXABAN 5 MG TABLET PO SCH ×2 (12:36→20:12)
[2020-12-08] MEDS: AMIODARONE 200 MG TAB PO SCH (12:36)
[2020-12-08] MEDS: DICLOFENAC SOD 1% GEL 100 GM TUBE EXT SCH ×5 (12:37→20:12)
[2020-12-08] MEDS: SPIRONOLACTONE 25 MG TAB PO SCH (12:37)
[2020-12-08] MEDS: lisinopril 20 MG TAB PO SCH (12:37)
[2020-12-08] MEDS: PARoxetine HCL 10 MG TAB PO SCH (12:37)
[2020-12-08] MEDS ORDERED: GLYCOPYRROLATE 0.2 MG/ML VIAL IV ONE (23:52)
[2020-12-08] MEDS ORDERED: OLANZapine 10 MG/2.1 ML SDV IM STA (23:59)
[2020-12-09 06:40] LABS: Hematocrit (blood only) 36.1 % (42-52); Hemoglobin 11.7 g/dL (14.0-18.0)
--- NOTE | 2020-12-09 08:12 | Hospitalist Progress Note ---
Date of Service December 09, 2020 Assessment & Plan (1) Effusion, right knee: Plan: 80yo male with history of atrial flutter, CAD, HTN, HLP and SARA presenting by ambulance after unwitnessed fall at home - found down in prone position, unknown down time, acute fracture of right humerus. Baseline functional status unclear - patient states that he sometimes uses a walker. States that he did not pass out or hit his head. Imaging otherwise negative. Unwitnessed fall: -Fall precautions -PT/OT evaluation -- SNF recommended by OT, PT pending - CM to assist -CT of the right knee to further assess for possible intra-articular fracture is NEGATIVE Dysphagia: - Speech consult obtained -Aspiration on all tested consistencies - Continue NPO with oral care - Palliative consult had been requested due to patient's multiple comorbidities and declining status -- provider aware and attempted to contact patient's son - Continue to follow Right humeral fracture: -Patient found to have acute oblique displaced distal diaphyseal fracture of the humerus just distal to the humeral component of the right shoulder arthroplasty. Neurovascularly intact. Splint has been placed. Patient is on Apixaban for history of PAF and VTE. -Pain control; Cautious use in elderly patient with underlying dementia at high risk for delirium - decreased morphine 2 mg IV q4h PRN to 1 mg IV q4h PRN. Removed IV benadryl PRN for agitation order. Changed IV ativan 2 mg IM q6h PRN for agitation to 1 mg IM q6h PRN. Added [place] 5/325 1 tab TID PRN for pain -Bowel regimen with Colace and Miralax PRN -Neurovascular checks RUE q 4 hours -Orthopedic surgery consulted: - He is in a sugar tong splint and the plan will be to leave him in that for 2 weeks. - He should have his head of bed up as much as possible to allow gravity to reduce this. - F/U in 2 weeks and convert him to a Jack brace. The radial nerve palsy has about an 80 to 90% chance of resolving over time. - There is no need for surgical intervention for this at this time. - 12/08/20 update: right hand swelling noted; per ortho not unexpected w/ humeral fracture and splint. ortho will f/u in outpatient setting. leave the sugar-tong splint in place for 2 weeks. Confusion: -Underlying dementia -Per conversation with the grandson, patient has difficulty carrying out conversations and is significantly confused at home as well family interested in pursuing longterm placement -Case management to assist with placement -Visit from [facility] in chart from September 2020 mention patient is resistant to care, delusional and paranoid. He was held on a 302 in 2019 for homicidal ideations -Frequent orientation -Avoid delirium-inducing agents where possible -Avoid Haldol as patient had QTC of 499 -Zyprexa prn for agitation. Avoid sedating medications if possible Elevated troponin: -trop peaked .115 -non-specific ST-T wave changes present on EKG. He denies chest pain -Likely demand ischemia in the setting of pain due to fracture -Monitored on Telemetry CAD (coronary artery disease): -Cardiac catheterization in 2011 performed for elevated troponin following episode of atrial fibrillation with RVR which revealed mild diffuse CAD. He follows with the [facility] for this. Presently not on BB, ASA or Statin therapy -Continue Lisinopril Atrial flutter: -Paroxysmal. Patient is anticoagulated on Apixaban. -Continue Amiodarone -Hold Apixaban for now Hypertension: -Blood pressure mildly elevated in setting of pain, trauma. No CP, SOB, BERNARD, dizziness -Continue Lisinopril -Continue Spironolactone -Continue to monitor SARA (generalized anxiety disorder), Depression: -Restarted Paxil 10 daily (home med per patient) - per chart review, had been on sertraline 25 in 2017([facility]) and citalopram 10 in 2018 ([facility]). no records of Paxil; patient follows [facility] - spoke with patient's son who states that patient was prescribed this by doctor and he will bring in the records FENGI: Heart healthy, easy to chew Ppx: Anticoagulated on apixaban Code: DNR/DNI Dispo: Medsurg. Case management working on placement. (2) Closed right humeral fracture: (3) Elevated troponin: (4) Unwitnessed fall: Admission and Anticipated Discharge Date Admission Date: December 04, 2020 Supervising Physician Co-Signing Physician Notes I personally examined the patient and verified all zamorano points of history and exam, discussed case, and agree with decision making with Dr Carrington. No meaningful HPI review of systems. Appears to be resting comfortably. Speech input greatly appreciated. Palliative trying to reach family. Vitals noted, in general he is resting in bed does not appear to be in any distress. HEENT normocephalic atraumatic mucous membranes are moist. Breathing is unlabored but with a degree of a gurgling sound, no accessory muscles no tachypnea, good pulse ox on room air. Arm in a sling Humerus fractureimmobilization, pain control, supportive care. Dysphagia/aspiration riskn.p.o. for now, trying to get a hold of the family, suspect given the rest of his mode of care is more strongly palliative, this will likely be a permissive aspiration situation, but definitely will want to have family input in this regard Severe dementiasupportive care Anticoagulated on apixaban Subjective Overnight RN called overnight resident mentioning that he was struggling to handle his secretions -- patient made NPO, given dose of glycopyrrolate and speec consult ordered. No further issues. Satting well. This AM he was in no acute distress. Able to follow simple commands but not able to communicate as his speech is unintelligible. Review of Systems Review of Systems: per subjective Physical Exam Physical Exam: GENERAL: Awake in bed. NAD. CHEST/LUNGS: CTAB A/P. No crackles, wheezes, rales, rhonchi. HEART: RRR. No m/g/r. No carotid bruits. ABDOMEN: NT/ND, soft. BS+ x4 EXTREMITIES: No cyanosis, no clubbing, no edema -- right arm in splint and sling SKIN: Warm and dry. No rashes or lesions. NEUROLOGIC: No FND. CN II-XII grossly intact. Results & Data Results & Data ([facility]) Vital Signs (Past 12 Hours) Vital Signs Temp Pulse Resp BP Pulse Ox 12/09/20 07:22 36.7 C 89 20 144/79 H 93 12/09/20 06:01 36.9 C 96 H 36 H 158/81 H 92 12/08/20 21:53 36.7 C 82 17 146/69 H 93 Resident Activity Tracking Resident Involvement: Resident Care Provided Care Provided: Adult Hospital Medicine (1) Closed right humeral fracture Encounter type: initial encounter Fracture alignment: displaced Fracture morphology: oblique Humerus Location: shaft Qualified Code(s): S42.331A - Displaced oblique fracture of shaft of humerus, right arm, initial encounter for closed fracture
[2020-12-09] MEDS: MoRPHine SULFATE 2 MG/ML CARP IV PRN (10:01)
--- NOTE | 2020-12-09 10:35 | Palliative Care Consultation ---
Date of Consultation December 09, 2020 Assessment & Plan (1) Palliative care encounter: Mr. Muro is an 80 year old male who presented to the [facility] from his home after experiencing an unwitnessed fall at home. He was found face down for which we are unclear on length of downtime. He did sustain a right humerus fracture for which orthopedics has seen the patient and provided a splint and advised conservative measures be taken. Additional PMH includes: HTN, CAD s/p heart catheterization, HTN, HLD, SARA. He has been followed by [facility] since September 2020 for paranoia and delusions. Palliative Care was consulted at the family request to discuss overall goals of care. I met with Mr. Muro who did open his eyes and respond to verbal stimuli. He was able to follow the command of lifting his left arm, but otherwise was unable to follow commands. His speech was quite garbled, which is not uncommon for him. Per nursing, he became agitated with care earlier. He did have Zyprexa ordered that has been discontinued. See below. I did attempt to call Sam, the patients grandson at [phone] and left a voicemail. Overall goals would be beneficial to discuss, including feeding concerns/permissive aspiration. patient is an established DNR/DNI. Palliative will follow. (2) Dysphagia: Patient with dysphagia noted. Per Speech therapy who evaluated the patient today, had significant aspiration noted during their eval. Important for conversation to be held with family regarding their goals regarding nutritional needs and permissive aspiration. (3) Agitation: Per nursing, he became agitated with care earlier. He did have Zyprexa ordered that has been discontinued. He has been followed by [facility] since September 2020 for paranoia and delusions He was a 302 hold in 09/2020. Prolonged QTC on Haldol. Use behavior modifying medications with caution. Will order Zyprexa PRN. Will monitor. (4) SARA (generalized anxiety disorder): (5) Paranoia: He has been followed by [facility] since September 2020 for paranoia and delusions He was a 302 hold in 09/2020. Minimal records have been accessed. History of Present Illness Reason for Consultation: Goals of care Requesting Physician: Dr. Keen Attending Physician: Cedric Mayfield DO History of Present Illness Mr. Muro is an 80 year old caucasiabn male who presented to the [facility] from his home after experiencing an unwitnessed fall at home. He was found face down for which we are unclear on length of downtime. He did sustain a right humerus fracture for which orthopedics has seen the patient and provided a splint and advised conservative measures be taken. Additional PMH includes: HTN, CAD s/p heart catheterization, HTN, HLD, SARA. He has been followed by [facility] since September 2020 for paranoia and delusions. Palliative Care was consulted at the family request to discuss overall goals of care. Please see A/P for further details. Thanks for involving Palliative Medicine with this individual. Allergies Allergy/AdvReac Type Severity Reaction Status Date / Time No Known Allergies Allergy Verified 12/04/20 23:59 Home Medications Medication Instructions Recorded Confirmed Type apixaban 5 mg tablet 5 mg PO Q12 10/02/18 12/05/20 History cholecalciferol (vitamin D3) 25 2,000 unit PO DAILY 10/02/18 12/05/20 History mcg (1,000 unit) capsule (Vitamin D3) cyanocobalamin (vitamin B-12) 500 500 mcg PO DAILY 10/02/18 12/05/20 History mcg tablet docusate sodium 100 mg tablet 100 mg PO DAILY 10/02/18 12/05/20 History furosemide 20 mg tablet 20 mg PO DAILY 10/02/18 12/05/20 History vitamin E 400 unit capsule 400 unit PO DAILY 10/02/18 12/05/20 History amiodarone 200 mg tablet 200 mg PO DAILY 04/27/20 12/05/20 History lisinopril 20 mg tablet 20 mg PO DAILY 04/27/20 12/05/20 History spironolactone 25 mg tablet 25 mg PO DAILY 04/27/20 12/05/20 History tramadol 50 mg tablet 50 mg PO Q8H PRN #10 tab 04/28/20 12/05/20 Rx Patient History Medical History (Updated 12/09/20 @ 23:07 by WILMAR Syed) Agitation Atrial flutter Deep vein thrombosis Dementia with behavioral disturbance Dysphagia Gout Hypertension Palliative care encounter Paranoia [place] Surgical History History of arthroplasty of right knee History of arthroplasty of right shoulder History of vertebroplasty Family History Other No pertinent family history in first degree relatives Social History Smoking Status: Unknown if ever smoked Hx Alcohol Use: No Hx Substance Use: No Preferred Language: Faroese Communication Ability: 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 Beliefs That Will Affect Care: None marital status: / Current Living Situation: Family Feels Safe at Home: Yes Assistive Devices: Brace/Splint/Immobilizer Review of Systems Review of Systems: [place] System Assessment Scale: By observation Pain: 1/3 Anxiety: 1/3 SOB: 0/3 Tiredness: 13 Palliative Performance Scale: 30% Physical Exam Constitutional: + ill appearing and + frail appearing ENMT: Mouth: + dry oral mucous membranes Respiratory: normal respiratory effort Auscultation: + diminished lung sounds Cardiovascular: Rate/Rhythm: regular rate and regular rhythm Heart Sounds: normal S1 and normal S2 Extremities: normal capillary refill Gastrointestinal (Abdomen): Inspection/Auscultation: abdomen normal to inspection Skin: + ecchymosis and + pallor Psychiatric: Orientation: alert and oriented to person; + uncooperative Mood: + irritable mood Insight: + poor insight Judgement: + poor judgement Results & Data ([facility]) Vital Signs (Past 12 Hours) Vital Signs Temp Pulse Resp BP Pulse Ox 12/09/20 07:22 36.7 C 89 20 144/79 H 93 12/09/20 06:01 36.9 C 96 H 36 H 158/81 H 92 PG Care Time/CCT Total # of Minutes Spent Total Time Spent with Patient: Total time spent is greater than 50% in coord ination of care (as documented) at patient's floor/unit and/or counseling patient: 70 minutes with >50% of that time spent assessing the patient, attempting to discuss goals of care with family, addressing symptom management needs, and collaborating with IDT Coding Level of Care Code 89270 Initial Inpt Care Lvl 3 Diagnoses Palliative care encounter Z51.5 SARA (generalized anxiety disorder) F41.1 Paranoia F22 Agitation R45.1 Dysphagia R13.10 Time Spent (min) 70
[2020-12-09] MEDS: APIXABAN 5 MG TABLET PO SCH ×2 (11:06→20:10)
[2020-12-09] MEDS: AMIODARONE 200 MG TAB PO SCH (11:06)
[2020-12-09] MEDS: PARoxetine HCL 10 MG TAB PO SCH (11:06)
[2020-12-09] MEDS: lisinopril 20 MG TAB PO SCH (11:06)
[2020-12-09] MEDS: DICLOFENAC SOD 1% GEL 100 GM TUBE EXT SCH ×4 (11:07→21:26)
[2020-12-09] MEDS: SPIRONOLACTONE 25 MG TAB PO SCH (11:07)
--- NOTE | 2020-12-09 15:54 | Billing Data ---
Date of Service December 09, 2020 Coding Level of Care Code 78183 Subseq Hosp Care Lvl 1
[2020-12-09] MEDS ORDERED: SODIUM CHLORIDE 0.9% 1000ML 1,000 ML IV ONE (23:56)
[2020-12-10 02:43] LABS: Basophils # (auto) 0.01 K/uL (0-0.2); Basophils % (auto) 0.2 %; Eosinophils # (auto) 0.04 K/uL (0-0.5); Eosinophils % (auto) 0.7 %; Hematocrit (blood only) 35.9 % (42-52); Hemoglobin 11.6 g/dL (14.0-18.0); Immature Granulocytes # (auto) 0.02 K/uL (0.00-0.02); Immature Granulocytes % (auto) 0.3 %; Lymphocytes # (auto) 0.74 K/uL (1.2-3.4); Lymphocytes % (auto) 12.6 %; Mean Corpuscular Hemoglobin 29.7 pg (25-34); Mean Corpuscular Hgb Conc 32.3 g/dL (32-36); Mean Corpuscular Volume 91.8 fL (80-100); Mean Platelet Volume 9.8 fL (7.4-10.4); Monocytes # (auto) 0.48 K/uL (0.11-0.59); Monocytes % (auto) 8.2 %; Neutrophils # (auto) 4.56 K/uL (1.4-6.5); Platelet Count 162 K/uL (130-400); RDW Standard Deviation 50.5 fL (36.4-46.3); Red Blood Count 3.91 M/uL (4.7-6.1); White Blood Count 5.85 K/uL (4.8-10.8)
[2020-12-10 03:00] LABS: Calcium 8.5 mg/dl (8.5-10.1); Creatinine Clr Calc Pharmacy 84.2 ml/min; Est GFR (African American) 100.7 ml/min; Est GFR (Non-African American) 86.9 ml/min; Magnesium 2.1 mg/dl (1.8-2.4)
[2020-12-10 03:12] LABS: Troponin I 0.319 ng/ml (0-0.045)
--- NOTE | 2020-12-10 03:43 | Communication Note ---
Date of Service: December 10, 2020 Nursing staff made night team aware of new onset tachycardia. BP was 93/64, patient afebrile, RR to 34. On exam, patient did not appear to be in any pain, although he was not able to answer questions appropriately. - I ordered a liter bolus, after which BP improved to 118/80, however HR remained unchanged. - He is on apixaban, so PE was thought to be unlikley. - EKG obtained: showing new onset ST segment depression in V1 and V3; PVC visualized; not in A-flutter - Troponin was obtained - elevated to 0.3. Likely demand ischemia in setting of new onset tachycardia. Repeat level ordered in 6 hours. - CBC was obtained - Hgb was stable, WBC not elevated - BMP showed mildly elevated BUN. Additional 500cc bolus ordered - Lopressor PRN with parameters ordered - Of note: patient was originally admitted to [facility] (see admission order). However, patient was located on 3rd floor - no monitoring coordinator in place. I did ask nursing to transfer him to [facility] for closer monitoring given new onset tachycardia. I was asked by charge nurse to place a transfer order to [facility] - (which is where patient should have been put in the first place per admission order).
[2020-12-10] MEDS ORDERED: SODIUM CHLORIDE 0.9% 1000ML 500 ML IV ONE (03:50)
[2020-12-10] MEDS ORDERED: METOPROLOL TARTRATE 25 MG TAB PO STA (04:42)
[2020-12-10] MEDS: MoRPHine SULFATE 2 MG/ML CARP IV PRN ×2 (05:25→20:44)
[2020-12-10] MEDS: METOPROLOL TARTRATE 1 MG/ML VIAL IV PRN ×2 (05:26→07:16)
--- NOTE | 2020-12-10 09:26 | Palliative Care Progress Note ---
Date of Service December 10, 2020 Assessment & Plan (1) Palliative care encounter: Plan: This morning, Mr. Muro is more awake and responsive to verbal stimuli; however, not reliably. He continues to have garbled speech, but is more interactive; however, is picking at his sheets more and appears increasingly restless. I did attempt to call Sam, the patients grandson at [phone] and left a voicemail. Apparently, he works until 1500. I did call another contact listed, his grandson Nathaniel and left a non-descript voicemail. Overall goals would be beneficial to discuss, including feeding concerns/permissive aspiration. patient is an established DNR/DNI. Palliative will follow. Update: Sam called back and we were able to talk at length. Sam states that he stops over at the house to drop food off, but hasn't had a big appetite for quite a while (multiple years). Before he broke his arm, he was doing 'ok'. He had recently had hardwood stephan installed as it has been challenging getting around in his wheelchair. He is able to wash up at the sink, but is unable to to get in the shower. He is unable to really eat independently by himself anymore. I asked how he uses his phone (he was holding a cell phone in his room), he is not really able to reliably call anyone on the phone. Previously, he has had back surgery and then went to [facility]. He recognizes Sam by facial recognition, but lately he has been more confused and confusing Sam and Nathaniel. If he were to go home, he would not follow any recommendations and he recognizes it is not safe for him to return home at this point. We discussed a transition to SNF for gentle rehabilitation and evaluate how he progresses, but taking into consideration his frail state, poorly healing pressure ulcers, known aspiration, and overall cognitive decline, he is getting to the point of a more conservative approach to his care. As far as discussing things that bring him nikhil, Sam said there is not much that makes him smile anymore. Being in the [employer] is the reported 'best time of his life'. He prefers SNF approach to be at the [facility] in [place], [facility] in [place], or [facility] but does recognize placement issues right now. Should he decline further medically after SNF placement or even while here in the hospital, he would not want him to return to the hospital for further treatment and, at that time, would want to transition him to a more hospice or comfort focused approach to his care. Current FAST score is all of 6 and including 7A. 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 POLST form completed. See below. The above and below were discussed with the hospitalist resident and outpatient case manager. Thanks for involving palliative medicine with this individual. (2) Dysphagia: Plan: Patient with dysphagia noted. Per Speech therapy who evaluated the patient today, had significant aspiration noted during their eval. Discussed the above with the patients son, Sam. Pt would not want feeding tubes or artificial nutrition/hydration. Discussed permissive aspiration, and Sam is in support of focusing on allowing him to eat for pleasure, with known risk of aspiration as a focus of quality of life. He said that he really likes to eat cheese puffs. (3) Agitation: Plan: Per nursing, he became agitated with care earlier. He did have Zyprexa ordered that has been discontinued, but now that we are making a more conservative approach to his care, will have some on board PRN. He has been followed by [facility] since September 2020 for paranoia and delusions He was a 302 hold in 09/2020. Prolonged QTC on Haldol. Use behavior modifying medications with caution. Will order Zyprexa PRN. Will monitor. (4) Paranoia: Plan: He has been followed by [facility] since September 2020 for paranoia and delusions He was a 302 hold in 09/2020. Minimal records have been accessed. (5) POLST (Physician Orders for Life-Sustaining Treatment): Plan: Discussed and completed over the phone with the patients son, Sam. it reads: DNR/DNI, MANAGER OF PRODUCTION, trial abx and no artificial nutrition or hydration. Avoid future hospitalizations unless cleared by family. Copy and original placed on chart. (6) SARA (generalized anxiety disorder): Admission and Anticipated Discharge Date Admission Date: December 04, 2020 Subjective Patient awake, remains NPO and has garbled speech. Overnight he had an episode of tachycardia, remains slightly tachycardic today. See below for goals of care conversation. Palliative will follow. Review of Systems Review of Systems: [place] System Assessment Scale: By observation Pain: 1/3 Anxiety: 1/3 SOB: 0/3 Tiredness: 1/3 Palliative Performance Scale: 30% Physical Exam Constitutional: + ill appearing and + frail appearing ENMT: Mouth: + dry oral mucous membranes Respiratory: normal respiratory effort Auscultation: + diminished lung sounds Cardiovascular: Rate/Rhythm: regular rate and regular rhythm Heart Sounds: normal S1 and normal S2 Extremities: normal capillary refill Gastrointestinal (Abdomen): Inspection/Auscultation: abdomen normal to insp ection Skin: + ecchymosis and + pallor Psychiatric: Orientation: alert and oriented to person; + uncooperative Mood: + irritable mood Insight: + poor insight Judgement: + poor judgement Results & Data ([facility]) Vital Signs (Past 12 Hours) Vital Signs Temp Pulse Pulse Resp BP BP Pulse Ox 12/10/20 07:36 36.6 C 101 H 20 163/105 H 95 12/10/20 05:26 120 H 135/75 12/10/20 04:39 125 H 12/10/20 03:51 36.8 C 122 H 20 147/74 H 93 12/10/20 01:20 115 H 118/80 12/09/20 23:37 122 H 34 H 88/63 L 90 12/09/20 22:12 37.0 C 116 H 22 93/64 L 93 PG Care Time/CCT Total # of Minutes Spent Total Time Spent with Patient: Total time spent is greater than 50% in coordination of care (as documented) at patient's floor/unit and/or counseling patient: 45 minutes with >50% of that time spent assessing the patient, attempting to reach family, addressing symptom needs, and collaborating with IDT Coding Level of Care Code 12720 Subseq Hosp Care Lvl 3 Diagnoses Palliative care encounter Z51.5 Dysphagia R13.10 Agitation R45.1 SARA (generalized anxiety disorder) F41.1 Paranoia F22 POLST (Physician Orders for Life-Sustaining Treatment) Z78.9 Time Spent (min) 45
[2020-12-10] MEDS ORDERED: OLANZapine ZYDIS 5 MG ORALLY DIS. TAB PO PRN (10:20)
--- NOTE | 2020-12-10 10:34 | Hospitalist Progress Note ---
Date of Service December 10, 2020 Assessment & Plan (1) Effusion, right knee: Plan: 80yo male with history of atrial flutter, CAD, HTN, HLP and SARA presenting by ambulance after unwitnessed fall at home - found down in prone position, unknown down time, acute fracture of right humerus. Baseline functional status unclear - patient states that he sometimes uses a walker. States that he did not pass out or hit his head. Imaging otherwise negative. NSTEMI: - Tachycardic episode overnight likely due to NSTEMI in the setting of a patient with coronary artery disease, not on medical management -Troponin 0 0.319 overnight with a.m. recheck at 0.246 -Made beta-britany scheduled IV for now -Start aspirin IA -Repeat EKG if ST changes no better, consider heparinizing patient -Start atorvastatin 40 mg daily -Continue to monitor Unwitnessed fall: -Fall precautions -PT/OT evaluation -- SNF recommended by OT, PT pending - CM to assist -CT of the right knee to further assess for possible intra-articular fracture is NEGATIVE Dysphagia/dementia/goals of care: - Speech consult obtained -Aspiration on all tested consistencies - Palliative consult had been requested due to patient's multiple comorbidities and declining status -- permissive aspiration accepted by patient's son -Per palliative note, plan to proceed with SNF and possibly transition to hospice thereafter - Continue to follow Right humeral fracture: -Patient found to have acute oblique displaced distal diaphyseal fracture of the humerus just distal to the humeral component of the right shoulder arthroplasty. Neurovascularly intact. Splint has been placed. Patient is on Apixaban for history of PAF and VTE. -Pain control; Cautious use in elderly patient with underlying dementia at high risk for delirium - decreased morphine 2 mg IV q4h PRN to 1 mg IV q4h PRN. Removed IV benadryl PRN for agitation order. Changed IV ativan 2 mg IM q6h PRN for agitation to 1 mg IM q6h PRN. Added [place] 5/325 1 tab TID PRN for pain -Bowel regimen with Colace and Miralax PRN -Neurovascular checks RUE q 4 hours -Orthopedic surgery consulted: - He is in a sugar tong splint and the plan will be to leave him in that for 2 weeks. - He should have his head of bed up as much as possible to allow gravity to reduce this. - F/U in 2 weeks and convert him to a Jack brace. The radial nerve palsy has about an 80 to 90% chance of resolving over time. - There is no need for surgical intervention for this at this time. - 12/08/20 update: right hand swelling noted; per ortho not unexpected w/ hum eral fracture and splint. ortho will f/u in outpatient setting. leave the sugar- tong splint in place for 2 weeks. Confusion: -Underlying dementia -Per conversation with the grandson, patient has difficulty carrying out conversations and is significantly confused at home as well family interested in pursuing residential placement -Case management to assist with placement -Visit from [facility] in chart from September 2020 mention patient is resistant to care, delusional and paranoid. He was held on a 302 in 2018 for homicidal ideations -Frequent orientation -Avoid delirium-inducing agents where possible -Avoid Haldol as patient had QTC of 499 -Zyprexa prn for agitation. Avoid sedating medications if possible Elevated troponin: -trop peaked .115 -non-specific ST-T wave changes present on EKG. He denies chest pain -Likely demand ischemia in the setting of pain due to fracture -Monitored on Telemetry CAD (coronary artery disease): -Cardiac catheterization in 2011 performed for elevated troponin following episode of atrial fibrillation with RVR which revealed mild diffuse CAD. He follows with the [facility] for this. Presently not on BB, ASA or Statin therapy -Continue Lisinopril Atrial flutter: -Paroxysmal. Patient is anticoagulated on Apixaban. -Continue Amiodarone -Hold Apixaban for now Hypertension: -Blood pressure mildly elevated in setting of pain, trauma. No CP, SOB, BERNARD, dizziness -Continue Lisinopril -Continue Spironolactone -Continue to monitor SARA (generalized anxiety disorder), Depression: -Restarted Paxil 10 daily (home med per patient) - per chart review, had been on sertraline 25 in 2017([facility]) and [facility] 10 in [facility] no records of Paxil; patient follows [facility] - spoke with patient's son who states that patient was prescribed this by doctor and he will bring in the records FENGI: Heart healthy, easy to chew Ppx: Anticoagulated on apixaban Code: DNR/DNI Dispo: Medsurg telemetry. Case management working on placement. (2) Closed right humeral fracture: (3) Elevated troponin: (4) Unwitnessed fall: Admission and Anticipated Discharge Date Admission Date: December 04, 2020 Supervising Physician Co-Signing Physician Notes I personally examined the patient and verified all zamorano points of history and e xam, discussed case, and agree with decision making with Dr Carrington. Very demented and mostly speaks with rapid minimally intelligible garbled speech, but does answer yes/no questions when prompted. That said, HPI and review of systems still a very questionable veracity. To that end however, he notes right arm pain. No chest pain. His knee feels better. No other complaints. Vitals noted, in general he is awake but disoriented pleasant no distress. HEENT normocephalic atraumatic mucous membranes moist. Right arm in a splint and sling. Cardio is regular without rubs murmurs or gallops. Lungs are clear to auscultation, no adventitious sounds. Extremities show no cyanosis or clubbing. Mental status has him to be pleasantly confused. Humerus fractureimmobilization, pain control, supportive care. NSTEMIfortunately very mild. Med management. Asymptomatic now. Troponin has already started to trend down after only a nominal elevation. Dysphagia/aspiration riskpermissive aspiration and supportive care. Severe dementiasupportive care Anticoagulated on apixaban Subjective Overnight he had an episode of tachycardia--overnight resident ordered EKG and trop. EKG with new T wave changes and trop elevated. Started on IV beta britany. Morphine x1. This AM patient more awake than previous, still with garbled speech. No acute distress. Review of Systems Review of Systems: per subjective Physical Exam Physical Exam: GENERAL: Awake in bed. NAD. CHEST/LUNGS: CTAB A/P. No crackles, wheezes, rales, rhonchi. HEART: RRR. No m/g/r. No carotid bruits. ABDOMEN: NT/ND, soft. BS+ x4 EXTREMITIES: No cyanosis, no clubbing, no edema -- right arm in splint and sling SKIN: Warm and dry. No rashes or lesions. NEUROLOGIC: No FND. CN II-XII grossly intact. Results & Data Results & Data ([facility]) Vital Signs (Past 12 Hours) Vital Signs Temp Pulse Pulse Resp BP BP Pulse Ox 12/10/20 07:36 36.6 C 101 H 20 163/105 H 95 12/10/20 05:26 120 H 135/75 12/10/20 04:39 125 H 12/10/20 03:51 36.8 C 122 H 20 147/74 H 93 12/10/20 01:20 115 H 118/80 12/09/20 23:37 122 H 34 H 88/63 L 90 Resident Activity Tracking Resident Involvement: Resident Care Provided Care Provided: Adult [facility] Medicine (1) Closed right humeral fracture Encounter type: initial encounter Fracture alignment: displaced Fracture morphology: oblique Humerus Location: shaft Qualified Code(s): S42.331A - Displaced oblique fracture of shaft of humerus, right arm, initial encounter for closed fracture
[2020-12-10] MEDS: lisinopril 20 MG TAB PO SCH (10:35)
[2020-12-10] MEDS: PARoxetine HCL 10 MG TAB PO SCH (10:35)
[2020-12-10] MEDS: SPIRONOLACTONE 25 MG TAB PO SCH (10:35)
[2020-12-10] MEDS: AMIODARONE 200 MG TAB PO SCH (10:36)
[2020-12-10] MEDS: APIXABAN 5 MG TABLET PO SCH ×2 (10:36→20:46)
[2020-12-10] MEDS ORDERED: ASPIRIN 300 MG SUPP PR ONE (10:37)
[2020-12-10] MEDS ORDERED: NITROGLYCERIN SL 0.4 MG/TAB TAB SL PRN (10:44)
[2020-12-10] MEDS: METOPROLOL TARTRATE 1 MG/ML VIAL IV SCH ×4 (10:58→20:44)
--- NOTE | 2020-12-10 12:07 | Progress Notes ---
DATE OF SERVICE: 12/10/2020 SUBJECTIVE: An 80-year-old gentleman with multiple underlying medical comorbidities, admitted with a right periprosthetic humerus fracture. He is kind of deteriorated since being in the hospital, appe ars a bit more confused. He has got underlying dementia. Denies any particular pain this morning. OBJECTIVE: VITAL SIGNS: Temperature 36.9. Vital signs are stable. PHYSICAL EXAMINATION: GENERAL: Shows an elderly male. He is sitting up in bed, but is hunched over. EXTREMITIES: He does have a sugar-tong splint in place/coaptation splint. Sling is in place. His a rm looks reasonably well aligned. He does not follow commands. He does have a drop wrist. Moderate to diffuse swelling of his right upper extremity. Examination of the right knee reveals minimal knee effusion today. He moves his foot and his knee ap propriately. ASSESSMENT: An 80-year-old gentleman with multiple medical comorbidities including underlying ulysses ia with, 1. Right periprosthetic humeral diaphyseal fracture, in a coaptation splint and appears to be doing okay. 2. Right knee effusion without apparent fracture with a history of knee replacement in the past. PLAN: At this point, he seems to be doing reasonably well from the orthopedic standpoint. Multiple other medical issues and pretty significant dementia, which has worsened in his hospitalization. His sugar-tong splint is in place and we will leave that on for 2 weeks. He can once again weight bear as tolerated. He needs to see me back in about 2 weeks from his admission date. Any orthopedic ques tions can be directed to me at [phone]. Job ID: [id number]
--- NOTE | 2020-12-10 13:31 | Billing Data ---
Date of Service December 10, 2020 Coding Level of Care Code 12362 Subseq Hosp Care Lvl 3
[2020-12-10] MEDS: DICLOFENAC SOD 1% GEL 100 GM TUBE EXT SCH ×4 (13:51→20:44)
[2020-12-10] MEDS: ATORVASTATIN 40 MG TAB PO SCH (13:52)
[2020-12-11] MEDS: METOPROLOL TARTRATE 1 MG/ML VIAL IV SCH ×4 (00:15→12:35)
--- NOTE | 2020-12-11 05:02 | Electrocardiogram Report ---
Test Reason : Blood Pressure : / mmHG Vent. Rate : 127 BPM Atrial Rate : 113 BPM P-R Int : 000 ms QRS Dur : 150 ms QT Int : 372 ms P-R-T Axes : 000 -56 033 degrees QTc Int : 540 ms Possible Sinus tachycardia with 1st degree A-V block Premature ventricular complexes Right bundle branch block Left anterior fascicular block Bifascicular block Abnormal ECG When compared with ECG of 04-DEC-2020 18:05, T wave inversion now evident in Anterior leads T wave inversion no longer evident in Anterolateral leads Confirmed by Lonnie Chavez ([id number]) on 12/11/2020 5:01:36 AM Referred By: REFERRED SELF Confirmed By:Lonnie Chavez
--- NOTE | 2020-12-11 05:25 | Electrocardiogram Report ---
Test Reason : Blood Pressure : / mmHG Vent. Rate : 113 BPM Atrial Rate : 120 BPM P-R Int : 000 ms QRS Dur : 136 ms QT Int : 370 ms P-R-T Axes : 000 -36 004 degrees QTc Int : 507 ms Possible Sinus rhythm with 1st degree A-V block vs accelerated junctional rhythm Left axis deviation Right bundle branch block Moderate voltage criteria for LVH, may be normal variant Abnormal ECG When compared with ECG of 10-DEC-2020 01:58, Premature ventricular complexes are no longer Present Confirmed by Lonnie Chavez ([id number]) on 12/11/2020 5:24:53 AM Referred By: REFERRED SELF Confirmed By:Lonnie Chavez
--- NOTE | 2020-12-11 08:04 | Hospitalist Progress Note ---
Date of Service December 11, 2020 Assessment & Plan (1) Effusion, right knee: Plan: 80yo male with history of atrial flutter, CAD, HTN, HLP and SARA presenting by ambulance after unwitnessed fall at home - found down in prone position, unknown down time, acute fracture of right humerus. Baseline functional status unclear - patient states that he sometimes uses a walker. States that he did not pass out or hit his head. Imaging otherwise negative. NSTEMI: - Tachycardic episode overnight likely due to NSTEMI in the setting of a patient with coronary artery disease, not on medical management -Troponin 0 0.319 overnight with a.m. recheck at 0.246 -Made beta-britany scheduled IV for now -Start aspirin 81mg PO daily -Start atorvastatin 40 mg daily -Continue to monitor Unwitnessed fall/dysphagia/dementia/goals of care: -Underlying dementia -Visit from [facility] in chart from September 2020 mention patient is resistant to care, delusional and paranoid. He was held on a 302 in 2019 for homicidal ideations -CT of the right knee to further assess for possible intra-articular fracture is NEGATIVE -Fall precautions -PT/OT evaluation -- SNF recommended by OT, PT pending - CM to assist - Speech consult obtained -Aspiration on all tested consistencies - permissive aspiration accepted by patient's son (POA) - Palliative consult had been requested due to patient's multiple comorbidities and declining status -- permissive aspiration accepted by patient's son -Per palliative note, plan to proceed with SNF and possibly transition to hospice thereafter -Frequent orientation -Avoid delirium-inducing agents where possible -Avoid Haldol as patient had QTC of 499 -Zyprexa prn for agitation. Avoid sedating medications if possible Right humeral fracture: -Patient found to have acute oblique displaced distal diaphyseal fracture of the humerus just distal to the humeral component of the right shoulder arthroplasty. Neurovascularly intact. Splint has been placed. Patient is on Apixaban for history of PAF and VTE. -Pain control; Cautious use in elderly patient with underlying dementia at high risk for delirium - decreased morphine 2 mg IV q4h PRN to 1 mg IV q4h PRN. Removed IV benadryl PRN for agitation order. Changed IV ativan 2 mg IM q6h PRN for agitation to 1 mg IM q6h PRN. Added [place] 5/325 1 tab TID PRN for pain -Bowel regimen with Colace and Miralax PRN -Neurovascular checks RUE q 4 hours -Orthopedic surgery consulted: - He is in a sugar tong splint and the plan will be to leave him in that for 2 weeks. - He should have his head of bed up as much as possible to allow gravity to reduce this. - F/U in 2 weeks and convert him to a Jack brace. The radial nerve palsy has about an 80 to 90% chance of resolving over time. - There is no need for surgical intervention for this at this time. - 12/08/20: right hand swelling noted; per ortho not unexpected w/ humeral fracture and splint. ortho will f/u in outpatient setting. leave the sugar-tong splint in place for 2 weeks. Elevated troponin: -trop peaked .115 -non-specific ST-T wave changes present on EKG. He denies chest pain -Likely demand ischemia in the setting of pain due to fracture -Monitored on Telemetry CAD (coronary artery disease): -Cardiac catheterization in 2011 performed for elevated troponin following episode of atrial fibrillation with RVR which revealed mild diffuse CAD. He follows with the [facility] for this. Presently not on BB, ASA or Statin therapy -Continue Lisinopril Atrial flutter: -Paroxysmal. Patient is anticoagulated on Apixaban. -Continue Amiodarone -Hold Apixaban for now Hypertension: -Blood pressure mildly elevated in setting of pain, trauma. No CP, SOB, BERNARD, dizziness -Continue Lisinopril -Continue Spironolactone -Continue to monitor SARA (generalized anxiety disorder), Depression: -Restarted Paxil 10 daily (home med per patient) - per chart review, had been on sertraline 25 in 2017([facility]) and citalopram 10 in 2018 ([facility] no records of Paxil; patient follows [facility] - spoke with patient's son who states that patient was prescribed this by doctor and he will bring in the records FENGI: Heart healthy, easy to chew Ppx: Anticoagulated on apixaban Code: DNR/DNI Dispo: [facility]sur telemetry. Case management working on placement. (2) Closed right humeral fracture: (3) Elevated troponin: (4) Unwitnessed fall: Admission and Anticipated Discharge Date Admission Date: December 04, 2020 Supervising Physician Co-Signing Physician Notes I personally examined the patient and verified all zamorano points of history and exam, discussed case, and agree with decision making with Dr Carrington. continues to speak with rapid minimally intelligible garbled speech, but does answer yes/no questions when prompted. That said, HPI and review of systems still of very questionable veracity. Vitals noted, in general he is awake but disoriented pleasant no distress. HEENT normocephalic atraumatic mucous membranes moist. Right arm in a splint and sling. Breathing unlabored no accessory muscle use good effort.. Extremities show no cyanosis or clubbing. Mental status has him to be pleasantly confused. Skin shows no rashes, pallor, icterus. Humerus fractureimmobilization, pain control, supportive care. NSTEMIfortunately very mild. Med management. Appears to be asymptomatic now. Troponin trended down after only a nominal elevation Dysphagia/aspiration riskpermissive aspiration and supportive care. Severe dementiasupportive care Anticoagulated on apixaban For SNF Subjective No acute events overnight. Sleeping comfortably in bed, difficult to arouse. Hemodynamically stable. Review of Systems Review of Systems: per subjective Physical Exam Physical Exam: GENERAL: Sleeping comfortably. NAD. CHEST/LUNGS: CTAB A/P. No crackles, wheezes, rales, rhonchi. HEART: RRR. No m/g/r. No carotid bruits. EXTREMITIES: No cyanosis, no clubbing, no edema -- right arm in sugar tong splint and sling SKIN: Warm and dry. No rashes or lesions. Results & Data Results & Data ([facility]) Vital Signs (Past 12 Hours) Vital Signs Temp Pulse Pulse Resp BP Pulse Ox 12/11/20 07:37 36.4 C L 97 H 20 164/78 H 95 12/11/20 04:29 97 H 12/11/20 04:00 36.6 C 76 18 145/84 H 95 12/11/20 01:19 96 H 12/11/20 00:15 98 H 12/10/20 23:32 36.7 C 102 H 18 129/89 95 12/10/20 20:44 98 H Resident Activity Tracking Resident Involvement: Resident Care Provided Care Provided: Adult [facility] (1) Closed right humeral fracture Encounter type: initial encounter Fracture alignment: displaced Fracture morphology: oblique Humerus Location: shaft Qualified Code(s): S42.331A - Displaced oblique fracture of shaft of humerus, right arm, initial encounter for closed fracture
[2020-12-11] MEDS: APIXABAN 5 MG TABLET PO SCH ×2 (12:32→20:31)
[2020-12-11] MEDS: AMIODARONE 200 MG TAB PO SCH (12:32)
[2020-12-11] MEDS: ATORVASTATIN 40 MG TAB PO SCH (12:32)
[2020-12-11] MEDS: DICLOFENAC SOD 1% GEL 100 GM TUBE EXT SCH ×4 (12:33→20:31)
[2020-12-11] MEDS: lisinopril 20 MG TAB PO SCH (12:33)
[2020-12-11] MEDS: SPIRONOLACTONE 25 MG TAB PO SCH (12:34)
[2020-12-11] MEDS: PARoxetine HCL 10 MG TAB PO SCH (12:34)
[2020-12-11] MEDS: ASPIRIN 81 MG ECTAB PO SCH (12:34)
--- NOTE | 2020-12-11 16:01 | Billing Data ---
Date of Service December 11, 2020 Coding Level of Care Code 53381 Subseq Hosp Care Lvl 1
[2020-12-11] MEDS: METOPROLOL TARTRATE 25 MG TAB PO SCH (20:31)
[2020-12-11] MEDS: MoRPHine SULFATE 2 MG/ML CARP IV PRN (20:46)
--- NOTE | 2020-12-12 08:08 | Hospitalist Progress Note ---
Date of Service December 12, 2020 Assessment & Plan (1) Effusion, right knee: Plan: 80yo male with history of atrial flutter, CAD, HTN, HLP and SARA presenting by ambulance after unwitnessed fall at home - found down in prone position, unknown down time, acute fracture of right humerus. Baseline functional status unclear - patient states that he sometimes uses a walker. States that he did not pass out or hit his head. Imaging otherwise negative. NSTEMI: - Tachycardic episode overnight likely due to NSTEMI in the setting of a patient with coronary artery disease, not on medical management -Troponin 0 0.319 with recheck at 0.246 -Metoprolol 37.5mg PO BID -Continue aspirin 81mg PO daily -Continue atorvastatin 40 mg daily -Continue to monitor Unwitnessed fall/dysphagia/dementia/goals of care: -Underlying dementia -Visit from [facility] in chart from September 2020 mention patient is resistant to care, delusional and paranoid. He was held on a 302 in 2019 for homicidal ideations -CT of the right knee to further assess for possible intra-articular fracture is NEGATIVE -Fall precautions -PT/OT evaluation -- SNF recommended by OT, PT pending - CM to assist -- no beds available at this time, referrals sent and pending - Speech consult obtained -Aspiration on all tested consistencies - permissive aspiration accepted by patient's son (POA) - Palliative consult had been requested due to patient's multiple comorbidities and declining status -- permissive aspiration accepted by patient's son -Per palliative note, plan to proceed with SNF and possibly transition to hospice thereafter -Frequent orientation -Avoid delirium-inducing agents where possible -Avoid Haldol as patient had QTC of 499 -Zyprexa prn for agitation. Avoid sedating medications if possible Right humeral fracture: -Patient found to have acute oblique displaced distal diaphyseal fracture of the humerus just distal to the humeral component of the right shoulder arthroplasty. Neurovascularly intact. Splint has been placed. Patient is on Apixaban for history of PAF and VTE. -Pain control; Cautious use in elderly patient with underlying dementia at high risk for delirium - decreased morphine 2 mg IV q4h PRN to 1 mg IV q4h PRN. Removed IV benadryl PRN for agitation order. Changed IV ativan 2 mg IM q6h PRN for agitation to 1 mg IM q6h PRN. Added [place] 5/325 1 tab TID PRN for pain -Bowel regimen with Colace and Miralax PRN -Neurovascular checks RUE q 4 hours -Orthopedic surgery consulted: - He is in a sugar tong splint and the plan will be to leave him in that for 2 weeks. - He should have his head of bed up as much as possible to allow gravity to reduce this. - F/U in 2 weeks and convert him to a Jack brace. The radial nerve palsy has about an 80 to 90% chance of resolving over time. - There is no need for surgical intervention for this at this time. - 12/08/20: right hand swelling noted; per ortho not unexpected w/ humeral fracture and splint. ortho will f/u in outpatient setting. leave the sugar-tong splint in place for 2 weeks. Elevated troponin: -trop peaked .115 -non-specific ST-T wave changes present on EKG. He denies chest pain -Likely demand ischemia in the setting of pain due to fracture -Monitored on Telemetry CAD (coronary artery disease): -Cardiac catheterization in 2011 performed for elevated troponin following episode of atrial fibrillation with RVR which revealed mild diffuse CAD. He follows with the [facility] for this. Presently not on BB, ASA or Statin therapy -Continue Lisinopril Atrial flutter: -Paroxysmal. Patient is anticoagulated on Apixaban. -Continue Amiodarone -Hold Apixaban for now Hypertension: -Blood pressure mildly elevated in setting of pain, trauma. No CP, SOB, BERNARD, dizziness -Continue Lisinopril -Continue Spironolactone -Continue to monitor SARA (generalized anxiety disorder), Depression: -Restarted Paxil 10 daily (home med per patient) - per chart review, had been on sertraline 25 in 2017([facility]) and citalopram 10 in 2018 ([facility]). no records of Paxil; patient follows [facility] - spoke with patient's son who states that patient was prescribed this by doctor and he will bring in the records FENGI: Heart healthy, easy to chew Ppx: Anticoagulated on apixaban Code: DNR/DNI Dispo: Medsurg telemetry. Case management working on placement. (2) Closed right humeral fracture: (3) Elevated troponin: (4) Unwitnessed fall: Admission and Anticipated Discharge Date Admission Date: December 04, 2020 Supervising Physician Co-Signing Physician Notes I personally examined the patient and verified all zamorano points of history and exam, discussed case, and agree with decision making with Dr Carrington. no meaningful HPI or ROS. Vitals noted, in general he is awake but disoriented pleasant no distress. HEENT normocephalic atraumatic mucous membranes moist. Right arm in a splint and sling. Breathing unlabored no accessory muscle use good effort.. Extremities show no cyanosis. Mental status has him to be pleasantly confused. Skin shows no rashes, pallor, icterus. Humerus fractureimmobilization, pain control, supportive care. appreciate ortho input NSTEMIfortunately very mild. Med management. Appears to be asymptomatic now. Troponin trended down after only a nominal elevation. Dysphagia/aspiration riskpermissive aspiration and supportive care. 98% on RA Severe dementiasupportive care Anticoagulated on apixaban For SNF once matched. Subjective No acute events overnight. ROS not possible due to patient's speech being unintelligible. However, he is calmer than on previous days. Review of Systems Review of Systems: per subjective Physical Exam Physical Exam: GENERAL: Sleeping comfortably. NAD. CHEST/LUNGS: CTAB A/P. No crackles, wheezes, rales, rhonchi. HEART: RRR. No m/g/r. No carotid bruits. EXTREMITIES: No cyanosis, no clubbing, no edema -- right arm in sugar tong splint and sling SKIN: Warm and dry. No rashes or lesions. Results & Data Results & Data ([facility]) Vital Signs (Past 12 Hours) Vital Signs Temp Pulse Pulse Resp BP Pulse Ox 12/12/20 07:22 36.4 C L 80 20 164/82 H 95 12/12/20 04:36 36.5 C 93 H 18 172/98 H 96 12/12/20 00:40 101 H 12/11/20 23:22 36.5 C 62 20 112/54 L 93 Resident Activity Tracking Resident Involvement: Resident Care Provided Care Provided: Adult Hospital Medicine (1) Closed right humeral fracture Encounter type: initial encounter Fracture alignment: displaced Fracture morphology: oblique Humerus Location: shaft Qualified Code(s): S42.331A - Displaced oblique fracture of shaft of humerus, right arm, initial encounter for closed fracture
[2020-12-12 08:33] LABS: Basophils # (auto) 0.01 K/uL (0-0.2); Basophils % (auto) 0.2 %; Eosinophils % (auto) 2.1 %; Hematocrit (blood only) 38.2 % (42-52); Hemoglobin 12.2 g/dL (14.0-18.0); Immature Granulocytes # (auto) 0.01 K/uL (0.00-0.02); Immature Granulocytes % (auto) 0.2 %; Lymphocytes # (auto) 0.76 K/uL (1.2-3.4); Lymphocytes % (auto) 15.6 %; Mean Corpuscular Hemoglobin 29.1 pg (25-34); Mean Corpuscular Hgb Conc 31.9 g/dL (32-36); Mean Corpuscular Volume 91.2 fL (80-100); Monocytes % (auto) 6.2 %; Neutrophils # (auto) 3.68 K/uL (1.4-6.5); Neutrophils % (auto) 75.7 %; Platelet Count 227 K/uL (130-400); RDW Coefficient of Variation 14.9 % (11.5-14.5); RDW Standard Deviation 49.8 fL (36.4-46.3); Red Blood Count 4.19 M/uL (4.7-6.1); White Blood Count 4.86 K/uL (4.8-10.8)
[2020-12-12] MEDS: PARoxetine HCL 10 MG TAB PO SCH (08:49)
[2020-12-12] MEDS: ATORVASTATIN 40 MG TAB PO SCH (08:49)
[2020-12-12] MEDS: ASPIRIN 81 MG ECTAB PO SCH (08:49)
[2020-12-12] MEDS: AMIODARONE 200 MG TAB PO SCH (08:49)
[2020-12-12] MEDS: METOPROLOL TARTRATE 25 MG TAB PO SCH ×2 (08:50→19:57)
[2020-12-12] MEDS: SPIRONOLACTONE 25 MG TAB PO SCH (08:50)
[2020-12-12] MEDS: lisinopril 20 MG TAB PO SCH (08:50)
[2020-12-12] MEDS: APIXABAN 5 MG TABLET PO SCH ×2 (08:51→19:57)
[2020-12-12 09:04] LABS: Calcium 8.9 mg/dl (8.5-10.1); Creatinine Clr Calc Pharmacy 100.5 ml/min; Est GFR (African American) 109.3 ml/min; Est GFR (Non-African American) 94.3 ml/min; Potassium 3.5 mmol/L (3.5-5.1)
[2020-12-12] MEDS: DICLOFENAC SOD 1% GEL 100 GM TUBE EXT SCH ×4 (09:14→19:57)
--- NOTE | 2020-12-12 14:00 | Progress Notes ---
DATE OF SERVICE: 12/12/2020 SUBJECTIVE: An 80-year-old gentleman admitted with a right periprosthetic humerus fracture. He has been fairly confused throughout his stay. He seems to be a little bit better today. Certainly more awake, but still quite confused. Denies any significant arm pain. PHYSICAL EXAMINATION: EXTREMITIES: Physical examination of the right arm reveals a sugar-tong splint to be in place. He d oes have diffuse swelling in his lower arm. He has got obvious radial nerve palsy. He can slightly flex his fingers, but no extension. ASSESSMENT: An 80-year-old gentleman with multiple medical comorbidities including pretty significan t dementia with a right periprosthetic humerus fracture. The splint is fitting reasonably well. He has got a radial nerve palsy, which we will just observe over time. PLAN: We will continue him in this coaptation splint for another week. Hopefully, by then, he will be moved out of the hospital and we can get him into a Jack brace at our office. I need to see him back if possible in about 2 weeks from his injury, somewhere between 2 and 3 weeks. Any orthoped ic questions can be directed to me at [phone]. Job ID: [id number]
--- NOTE | 2020-12-12 17:17 | Billing Data ---
Date of Service December 12, 2020 Coding Level of Care Code 88043 Subseq Hosp Care Lvl 1
[2020-12-12] MEDS: HYDROCODONE/ACETAMOPHEN 5/325MG TAB PO PRN (19:57)
[2020-12-13] MEDS: MoRPHine SULFATE 2 MG/ML CARP IV PRN (03:11)
--- NOTE | 2020-12-13 08:38 | Hospitalist Progress Note ---
Date of Service December 13, 2020 Assessment & Plan (1) Effusion, right knee: Plan: 80yo male with history of atrial flutter, CAD, HTN, HLP and SARA presenting by ambulance after unwitnessed fall at home - found down in prone position, unknown down time, acute fracture of right humerus. Baseline functional status unclear - patient states that he sometimes uses a walker. States that he did not pass out or hit his head. Imaging otherwise negative. NSTEMI: - Tachycardic episode overnight likely due to NSTEMI in the setting of a patient with coronary artery disease, not on medical management -Troponin 0 0.319 with recheck at 0.246 -Continue Metoprolol 37.5mg PO BID -Continue aspirin 81mg PO daily -Continue atorvastatin 40 mg daily -Continue to monitor Unwitnessed fall/dysphagia/dementia/goals of care: -Underlying dementia -Visit from [facility] in chart from September 2020 mention patient is resistant to care, delusional and paranoid. He was held on a 302 in 2019 for homicidal ideations -CT of the right knee to further assess for possible intra-articular fracture is NEGATIVE -Fall precautions -PT/OT evaluation -- SNF recommended by OT, PT pending - CM to assist -- correction beds unavailable in [facility]; referrals sent to facilities in [place] with no availability as of yet - Speech consult obtained -Aspiration on all tested consistencies - permissive aspiration accepted by patient's son (POA) - Palliative consult had been requested due to patient's multiple comorbidities and declining status -- permissive aspiration accepted by patient's son -Per palliative note, plan to proceed with SNF and possibly transition to hospice thereafter -Frequent orientation -Avoid delirium-inducing agents where possible -Avoid Haldol as patient had QTC of 499 -Zyprexa prn for agitation. Avoid sedating medications if possible Right humeral fracture: -Patient found to have acute oblique displaced distal diaphyseal fracture of the humerus just distal to the humeral component of the right shoulder arthroplasty. Neurovascularly intact. Splint has been placed. Patient is on Apixaban for history of PAF and VTE. -Pain control; Cautious use in elderly patient with underlying dementia at high risk for delirium - decreased morphine 2 mg IV q4h PRN to 1 mg IV q4h PRN. Removed IV benadryl PRN for agitation order. Changed IV ativan 2 mg IM q6h PRN for agitation to 1 mg IM q6h PRN. Added [place] 5/325 1 tab TID PRN for pain -Bowel regimen with Colace and Miralax PRN -Neurovascular checks RUE q 4 hours -Orthopedic surgery consulted: - Continue him in this coaptation splint for another week. (As of 12/12) - Hopefully, by then, he will be moved out of the hospital and we can get him into a Jack brace at our office. - Need to see him back if possible in about 2 weeks from his injury, somewhere between 2 and 3 weeks. - Any orthopedic questions can be directed to Dr. Caesar Ruelas at . Elevated troponin: -trop peaked .115 -non-specific ST-T wave changes present on EKG. He denies chest pain -Likely demand ischemia in the setting of pain due to fracture -Monitored on Telemetry CAD (coronary artery disease): -Cardiac catheterization in 2011 performed for elevated troponin following episode of atrial fibrillation with RVR which revealed mild diffuse CAD. He follows with the [facility] for this. Presently not on BB, ASA or Statin therapy -Continue Lisinopril Atrial flutter: -Paroxysmal. Patient is anticoagulated on Apixaban. -Continue Amiodarone -Hold Apixaban for now Hypertension: -Blood pressure mildly elevated in setting of pain, trauma. No CP, SOB, BERNARD, dizziness -Continue Lisinopril -Continue Spironolactone -Continue to monitor SARA (generalized anxiety disorder), Depression: -Restarted Paxil 10 daily (home med per patient) - per chart review, had been on sertraline 25 in 2017([facility]) and citalopram 10 in 2018 ([facility] no records of Paxil; patient follows [facility] - spoke with patient's son who states that patient was prescribed this by doctor and he will bring in the records FENGI: Heart healthy, easy to chew Ppx: Anticoagulated on apixaban Code: DNR/DNI Dispo: Medsurg telemetry. Case management working on placement. (2) Closed right humeral fracture: (3) Elevated troponin: (4) Unwitnessed fall: Admission and Anticipated Discharge Date Admission Date: December 04, 2020 Supervising Physician Co-Signing Physician Notes I personally examined the patient and verified all zamorano points of history and exam, discussed case, and agree with decision making with Dr Carrington. no meaningful HPI or ROS. Vitals noted, in general he is awake but disoriented pleasant no distress. HEENT normocephalic atraumatic mucous membranes moist. Right arm in a splint and sling. Breathing unlabored no accessory muscle use good effort.. Extremities show no cyanosis. Mental status has him to be pleasantly confused. Skin shows no rashes, pallor, icterus. Humerus fractureimmobilization, continue pain control, supportive care. appreciate ortho input NSTEMIfortunately very mild. Med management. Troponin trended down after only a nominal elevation. Dysphagia/aspiration riskpermissive aspiration and supportive care. stable on RA Severe dementiasupportive care Anticoagulated on apixaban For SNF once matched. Subjective No acute events overnight. Patient is much more lucid this morning, his speech is somewhat more understandable. He does focus on conversing about past experiences with his orthopedist. And [facility] and his time at the [facility] as well. He denies pain at this time, also denies chest pain, palpitations, shortness of breath. Review of Systems Review of Systems: per subjective Physical Exam Physical Exam: GENERAL: Sleeping comfortably. NAD. CHEST/LUNGS: CTAB A/P. No crackles, wheezes, rales, rhonchi. HEART: RRR. No m/g/r. No carotid bruits. EXTREMITIES: No cyanosis, no clubbing, no edema -- right arm in sugar tong splint and sling SKIN: Warm and dry. No rashes or lesions. Results & Data Results & Data ([facility]) Vital Signs (Past 12 Hours) Vital Signs Temp Pulse Resp BP Pulse Ox 12/13/20 07:30 36.5 C 81 16 124/79 93 12/13/20 03:16 36.4 C L 82 18 170/75 H 98 12/12/20 22:44 36.5 C 82 20 144/75 H 95 Resident Activity Tracking Resident Involvement: Resident Care Provided Care Provided: Adult Hospital Medicine (1) Closed right humeral fracture Encounter type: initial encounter Fracture alignment: displaced Fracture morphology: oblique Humerus Location: shaft Qualified Code(s): S42.331A - Displaced oblique fracture of shaft of humerus, right arm, initial encounter for closed fracture
[2020-12-13] MEDS: METOPROLOL TARTRATE 25 MG TAB PO SCH ×2 (10:42→21:09)
[2020-12-13] MEDS: lisinopril 20 MG TAB PO SCH (10:44)
[2020-12-13] MEDS: PARoxetine HCL 10 MG TAB PO SCH (10:46)
[2020-12-13] MEDS: SPIRONOLACTONE 25 MG TAB PO SCH (10:46)
[2020-12-13] MEDS: AMIODARONE 200 MG TAB PO SCH (10:47)
[2020-12-13] MEDS: ATORVASTATIN 40 MG TAB PO SCH (10:47)
[2020-12-13] MEDS: ASPIRIN 81 MG ECTAB PO SCH (10:47)
[2020-12-13] MEDS: APIXABAN 5 MG TABLET PO SCH ×3 (10:48→21:09)
[2020-12-13] MEDS: DICLOFENAC SOD 1% GEL 100 GM TUBE EXT SCH ×4 (10:50→21:09)
[2020-12-13] MEDS: HYDROCODONE/ACETAMOPHEN 5/325MG TAB PO PRN ×2 (13:51→21:08)
--- NOTE | 2020-12-13 16:30 | Billing Data ---
Date of Service December 13, 2020 Coding Level of Care Code 76717 Subseq Hosp Care Lvl 1
--- NOTE | 2020-12-14 08:21 | Hospitalist Progress Note ---
Date of Service December 14, 2020 Assessment & Plan (1) Effusion, right knee: Plan: 80yo male with history of atrial flutter, CAD, HTN, HLP and SARA presenting by ambulance after unwitnessed fall at home - found down in prone position, unknown down time, acute fracture of right humerus. Baseline functional status unclear - patient states that he sometimes uses a walker. States that he did not pass out or hit his head. Imaging otherwise negative. NSTEMI: - Tachycardic episode overnight likely due to NSTEMI in the setting of a patient with coronary artery disease, not on medical management -Troponin 0 0.319 with recheck at 0.246 -Continue Metoprolol 37.5mg PO BID -Continue aspirin 81mg PO daily -Continue atorvastatin 40 mg daily -Continue to monitor Unwitnessed fall/dysphagia/dementia/goals of care: -Underlying dementia -Visit from [facility] in chart from September 2020 mention patient is resistant to care, delusional and paranoid. He was held on a 302 in 2019 for homicidal ideations -CT of the right knee to further assess for possible intra-articular fracture is NEGATIVE -Fall precautions -PT/OT evaluation -- SNF recommended by OT, PT pending - CM to assist -- 12/13 new referral to [facility] still pending - Speech consult obtained -Aspiration on all tested consistencies - permissive aspiration accepted by patient's son (POA) - Palliative consult had been requested due to patient's multiple comorbidities and declining status -- permissive aspiration accepted by patient's son -Per palliative note, plan to proceed with SNF and possibly transition to hospice thereafter -Frequent orientation -Avoid delirium-inducing agents where possible -Avoid Haldol as patient had QTC of 499 -Zyprexa prn for agitation. Avoid sedating medications if possible Right humeral fracture: -Patient found to have acute oblique displaced distal diaphyseal fracture of the humerus just distal to the humeral component of the right shoulder arthroplasty. Neurovascularly intact. Splint has been placed. Patient is on Apixaban for history of PAF and VTE. -Pain control; Cautious use in elderly patient with underlying dementia at high risk for delirium - decreased morphine 2 mg IV q4h PRN to 1 mg IV q4h PRN. Removed IV benadryl PRN for agitation order. Changed IV ativan 2 mg IM q6h PRN for agitation to 1 mg IM q6h PRN. Added [place] 5/325 1 tab TID PRN for pain -Bowel regimen with Colace and Miralax PRN -Neurovascular checks RUE q 4 hours -Orthopedic surgery consulted: - Continue him in this coaptation splint for another week. (As of 12/12) - Hopefully, by then, he will be moved out of the hospital and we can get him into a Jack brace at our office. - Need to see him back if possible in about 2 weeks from his injury, somewhere between 2 and 3 weeks. - Any orthopedic questions can be directed to Dr. Caesar Ruelas at [phone]. Elevated troponin: -trop peaked .115 -non-specific ST-T wave changes present on EKG. He denies chest pain -Likely demand ischemia in the setting of pain due to fracture -Monitored on Telemetry CAD (coronary artery disease): -Cardiac catheterization in 2011 performed for elevated troponin following episode of atrial fibrillation with RVR which revealed mild diffuse CAD. He follows with the [facility] for this. Presently not on BB, ASA or Statin therapy -Continue Lisinopril Atrial flutter: -Paroxysmal. Patient is anticoagulated on Apixaban. -Continue Amiodarone -Hold Apixaban for now Hypertension: -Blood pressure mildly elevated in setting of pain, trauma. No CP, SOB, BERNARD, dizziness -Continue Lisinopril -Continue Spironolactone -Continue to monitor SARA (generalized anxiety disorder), Depression: -Restarted Paxil 10 daily (home med per patient) - per chart review, had been on sertraline 25 in 2017([facility]) and citalopram 10 in 2018 ([facility]). no records of Paxil; patient follows [facility] - spoke with patient's son who states that patient was prescribed this by doctor and he will bring in the records FENGI: Heart healthy, easy to chew Ppx: Anticoagulated on apixaban Code: DNR/DNI Dispo: Medsurg. Case management working on placement. (2) Closed right humeral fracture: (3) Elevated troponin: (4) Unwitnessed fall: Admission and Anticipated Discharge Date Admission Date: December 04, 2020 Supervising Physician Co-Signing Physician Notes I personally examined the patient and verified all zamorano points of history and exam, discussed case, and agree with decision making with Dr Carrington. no meaningful HPI or ROS. nursing notes no new issues overall. Vitals noted, in general he is in no distress. HEENT normocephalic atraumatic mucous membranes moist. Right arm in a splint and sling. Breathing unlabored no accessory muscle use good effort.. Extremities show no cyanosis. Skin shows no rashes, pallor, icterus. Humerus fractureimmobilization, continue pain control, supportive care. appreciate ortho input, for outpt ortho follow up NSTEMIfortunately very mild. Med management. Troponin trended down after only a nominal elevation. Dysphagia/aspiration riskpermissive aspiration and supportive care. stable on RA Severe dementiasupportive care Anticoagulated on apixaban For SNF once matched. Subjective No acute events overnight. No changes reported. His speech still remains difficult to understand but he consistently denies pain or any distress/concerning symptoms. Review of Systems Review of Systems: per subjective Physical Exam Physical Exam: GENERAL: Sleeping comfortably. NAD. CHEST/LUNGS: CTAB A/P. No crackles, wheezes, rales, rhonchi. HEART: RRR. No m/g/r. No carotid bruits. EXTREMITIES: No cyanosis, no clubbing, no edema -- right arm in sugar tong splint and sling SKIN: Warm and dry. No rashes or lesions. Results & Data Results & Data ([facility]) Vital Signs (Past 12 Hours) Vital Signs Pulse 12/13/20 22:21 93 H Resident Activity Tracking Resident Involvement: Resident Care Provided Care Provided: Adult Hospital Medicine (1) Closed right humeral fracture Encounter type: initial encounter Fracture alignment: displaced Fracture morphology: oblique Humerus Location: shaft Qualified Code(s): S42.331A - Displaced oblique fracture of shaft of humerus, right arm, initial encounter for closed fracture
[2020-12-14] MEDS: METOPROLOL TARTRATE 25 MG TAB PO SCH ×3 (10:53→20:15)
[2020-12-14] MEDS: lisinopril 20 MG TAB PO SCH ×2 (10:53→12:27)
[2020-12-14] MEDS: DICLOFENAC SOD 1% GEL 100 GM TUBE EXT SCH ×4 (10:54→20:16)
[2020-12-14] MEDS: ATORVASTATIN 40 MG TAB PO SCH (10:54)
[2020-12-14] MEDS: SPIRONOLACTONE 25 MG TAB PO SCH (10:55)
[2020-12-14] MEDS: APIXABAN 5 MG TABLET PO SCH ×2 (10:55→20:16)
[2020-12-14] MEDS: AMIODARONE 200 MG TAB PO SCH ×2 (10:55→12:28)
[2020-12-14] MEDS: PARoxetine HCL 10 MG TAB PO SCH (10:56)
[2020-12-14] MEDS: ASPIRIN 81 MG ECTAB PO SCH (10:56)
--- NOTE | 2020-12-14 18:07 | Billing Data ---
Date of Service December 14, 2020 Coding Level of Care Code 27321 Subseq Hosp Care Lvl 1
--- NOTE | 2020-12-15 08:12 | Hospitalist Progress Note ---
Date of Service December 15, 2020 Assessment & Plan (1) Effusion, right knee: Plan: 80yo male with history of atrial flutter, CAD, HTN, HLP and SARA presenting by ambulance after unwitnessed fall at home - found down in prone position, unknown down time, acute fracture of right humerus. Baseline functional status unclear - patient states that he sometimes uses a walker. States that he did not pass out or hit his head. Imaging otherwise negative. NSTEMI: - Tachycardic episode overnight likely due to NSTEMI in the setting of a patient with coronary artery disease, not on medical management -Troponin 0 0.319 with recheck at 0.246 -Continue Metoprolol 37.5mg PO BID -Continue aspirin 81mg PO daily -Continue atorvastatin 40 mg daily -Continue to monitor Unwitnessed fall/dysphagia/dementia/goals of care: -Underlying dementia -Visit from [facility] in chart from September 2020 mention patient is resistant to care, delusional and paranoid. He was held on a 302 in 2019 for homicidal ideations -CT of the right knee to further assess for possible intra-articular fracture is NEGATIVE -Fall precautions -PT/OT evaluation -- SNF recommended by OT, PT pending - CM to assist -- 12/13 new referral to [facility] pending; no further developments re: placement, CM continues to work on referrals - Speech consult obtained -Aspiration on all tested consistencies - permissive aspiration accepted by patient's son (POA) - Palliative consult had been requested due to patient's multiple comorbidities and declining status -- permissive aspiration accepted by patient's son -Per palliative note, plan to proceed with SNF and possibly transition to hospice thereafter -Frequent orientation -Avoid delirium-inducing agents where possible -Avoid Haldol as patient had QTC of 499 -Zyprexa prn for agitation. Avoid sedating medications if possible Right humeral fracture: -Patient found to have acute oblique displaced distal diaphyseal fracture of the humerus just distal to the humeral component of the right shoulder arthroplasty. Neurovascularly intact. Splint has been placed. Patient is on Apixaban for history of PAF and VTE. -Pain control; Cautious use in elderly patient with underlying dementia at high risk for delirium - decreased morphine 2 mg IV q4h PRN to 1 mg IV q4h PRN. Removed IV benadryl PRN for agitation order. Changed IV ativan 2 mg IM q6h PRN for agitation to 1 mg IM q6h PRN. Added [place] 5/325 1 tab TID PRN for pain -Bowel regimen with Colace and Miralax PRN -Neurovascular checks RUE q 4 hours -Orthopedic surgery consulted: - Continue him in this coaptation splint for another week. (As of 12/12) - Hopefully, by then, he will be moved out of the hospital and we can get him into a Jack brace at our office. - Need to see him back if possible in about 2 weeks from his injury, somewhere between 2 and 3 weeks. - Any orthopedic questions can be directed to Dr. Caesar Ruelas at [phone]. Elevated troponin: -trop peaked .115 -non-specific ST-T wave changes present on EKG. He denies chest pain -Likely demand ischemia in the setting of pain due to fracture -Monitored on Telemetry CAD (coronary artery disease): -Cardiac catheterization in 2011 performed for elevated troponin following episode of atrial fibrillation with RVR which revealed mild diffuse CAD. He follows with the [facility] for this. Presently not on BB, ASA or Statin therapy -Continue Lisinopril Atrial flutter: -Paroxysmal. Patient is anticoagulated on Apixaban. -Continue Amiodarone -Hold Apixaban for now Hypertension: -Blood pressure mildly elevated in setting of pain, trauma. No CP, SOB, BERNARD, dizziness -Continue Lisinopril -Continue Spironolactone -Continue to monitor SARA (generalized anxiety disorder), Depression: -Restarted Paxil 10 daily (home med per patient) - per chart review, had been on sertraline 25 in 2017([facility]) and citalopram 10 in 2018 ([facility]). no records of Paxil; patient follows [facility] - spoke with patient's son who states that patient was prescribed this by doctor and he will bring in the records FENGI: Heart healthy, easy to chew Ppx: Anticoagulated on apixaban Code: DNR/DNI Dispo: Medsurg. Case management working on placement. (2) Closed right humeral fracture: (3) Elevated troponin: (4) Unwitnessed fall: Admission and Anticipated Discharge Date Admission Date: December 04, 2020 Supervising Physician Co-Signing Physician Notes I personally examined the patient and verified all zamorano points of history and exam, discussed case, and agree with decision making with Dr Carrington. no meaningful HPI or ROS. Did not do a lot with therapy today. He tells me a story of when he was working for the [employer], was called to a conference/convention in [place], where he received an award for having all of his paperwork perfect over a yearhe notes that it was really the secretary of police working with him that had the perfect paperwork, so whenever he got home he gave the word to her. In general he is in no distress. HEENT normocephalic atraumatic mucous membranes moist. Right arm in a splint and sling. Breathing unlabored no accessory muscle use good effort.. Extremities show no cyanosis. Skin shows no rashes, pallor, icterus. Humerus fractureimmobilization, pain control, supportive care. appreciate ortho input, for outpt ortho follow up NSTEMIfortunately very mild. Med management. Troponin trended down after only a nominal elevation. Dysphagia/aspiration riskpermissive aspiration and supportive care. stable on RA Severe dementiasupportive care Anticoagulated on apixaban For SNF once matched. Subjective No acute events overnight. Patient seen at bedside this morning resting comfortably. He was focused on trying to call somebody on his cell phone but was unable to say the name of the person. Denying pain or concerning symptoms when asked. Further review of systems limited due to cognitive status. Review of Systems Review of Systems: per subjective Physical Exam Physical Exam: GENERAL: NAD. CHEST/LUNGS: CTAB A/P. No crackles, wheezes, rales, rhonchi. HEART: RRR. No m/g/r. No carotid bruits. EXTREMITIES: No cyanosis, no clubbing, no edema -- right arm in sugar tong splint and sling SKIN: Warm and dry. No rashes or lesions. Results & Data Results [facility] ([facility]) Vital Signs (Past 12 Hours) Vital Signs Temp Pulse Pulse Resp BP Pulse Ox 12/15/20 07:38 36.3 C L 83 20 120/77 97 12/14/20 22:47 36.4 C L 56 L 18 111/68 96 12/14/20 20:27 84 133/85 Resident Activity Tracking Resident Involvement: Resident Care Provided Care Provided: Adult Hospital Medicine (1) Closed right humeral fracture Encounter type: initial encounter Fracture alignment: displaced Fracture morphology: oblique Humerus Location: shaft Qualified Code(s): S42.331A - Displaced oblique fracture of shaft of humerus, right arm, initial encounter for closed fracture
[2020-12-15] MEDS: DICLOFENAC SOD 1% GEL 100 GM TUBE EXT SCH ×4 (08:34→20:39)
[2020-12-15] MEDS: APIXABAN 5 MG TABLET PO SCH ×2 (08:34→20:36)
[2020-12-15] MEDS: ASPIRIN 81 MG ECTAB PO SCH (08:34)
[2020-12-15] MEDS: METOPROLOL TARTRATE 25 MG TAB PO SCH ×2 (08:34→20:36)
[2020-12-15] MEDS: AMIODARONE 200 MG TAB PO SCH (08:35)
[2020-12-15] MEDS: PARoxetine HCL 10 MG TAB PO SCH (08:35)
[2020-12-15] MEDS: lisinopril 20 MG TAB PO SCH (08:35)
[2020-12-15] MEDS: SPIRONOLACTONE 25 MG TAB PO SCH (08:35)
[2020-12-15] MEDS: ATORVASTATIN 40 MG TAB PO SCH (08:35)
--- NOTE | 2020-12-15 15:50 | Billing Data ---
Date of Service December 15, 2020 Coding Level of Care Code 29459 Subseq Hosp Care Lvl 1
[2020-12-16] MEDS: ACETAMINOPHEN 500 MG TAB PO PRN ×2 (01:57→09:27)
[2020-12-16 08:00] LABS: BUN Creatinine Ratio 34.9 (10-20); Calcium 8.3 mg/dl (8.5-10.1); Creatinine Clr Calc Pharmacy 91.1 ml/min; Est GFR (Non-African American) 90.6 ml/min; Potassium 4.2 mmol/L (3.5-5.1)
--- NOTE | 2020-12-16 08:14 | Hospitalist Progress Note ---
Date of Service December 16, 2020 Assessment & Plan (1) Unwitnessed fall: Plan: 80yo male with history of atrial flutter, CAD, HTN, HLD and SARA presenting by ambulance after unwitnessed fall at home - found down in prone position, unknown down time, acute fracture of right humerus. Baseline functional status unclear - patient states that he sometimes uses a walker. States that he did not pass out or hit his head. Imaging otherwise negative. Unwitnessed fall/dysphagia/dementia/goals of care - Underlying dementia - Visit from [facility] in chart from September 2020 mention patient is resistant to care, delusional and paranoid. He was held on a 302 in 2019 for homicidal ideations - CT of the right knee to further assess for possible intra-articular fracture is NEGATIVE - Fall precautions - PT/OT evaluation -- SNF recommended by OT, PT - CM to assist --12/13 new referral [facility] pending;no new developments re: placement - Speech consulted; aspiration on all tested consistencies - permissive aspiration accepted by patient's son (POA) - Palliative consult discussed goals of care with family; plan to proceed with SNF and possibly transition to hospice thereafter - Frequent orientation - Avoid delirium-inducing agents where possible - Avoid Haldol as patient had QTC of 499 - Zyprexa prn for agitation. Avoid sedating medications if possible - Ativan 1mg IM q6h prn agitation Right humeral fracture -Patient found to have acute oblique displaced distal diaphyseal fracture of the humerus just distal to the humeral component of the right shoulder arthroplasty. Neurovascularly intact. Splint has been placed. Patient is on Apixaban for history of PAF and VTE. -Pain control with APAP 1000mg q8h scheduled, voltaren gel; morphine 1mg IV q4h prn breakthrough pain -Bowel regimen with Colace and Miralax (changed 12/16 from PRN to scheduled) -Neurovascular checks RUE q 4 hours -Orthopedic surgery consulted: - Continue him in this coaptation splint for another week. (As of 12/12) - Hopefully, by then, he will be moved out of the hospital and we can get him into a Jack brace at our office. - Need to see him back if possible in about 2 weeks from his injury, somewhere between 2 and 3 weeks. - Any orthopedic questions can be directed to Dr. Caesar Rueals at [phone]. NSTEMI -Troponin 0 0.319 with recheck at 0.246 -Continue Metoprolol 37.5mg PO BID -Continue aspirin 81mg PO daily -Continue atorvastatin 40 mg daily -Continue to monitor CAD (coronary artery disease): -Cardiac catheterization in 2011 performed for elevated troponin following episode of atrial fibrillation with RVR which revealed mild diffuse CAD -[facility] -Continue Lisinopril -Continue beta britany, ASA, statin as above Atrial flutter: -Paroxysmal, on chronic eliquis therapy -Continue amiodarone, continue eliquis Hypertension: -Blood pressure mildly elevated in setting of pain, trauma. No CP, SOB, BERNARD, dizziness -Continue Lisinopril -Continue Spironolactone -Continue to monitor SARA (generalized anxiety disorder), Depression: -Restarted Paxil 10 daily (home med per patient) - per chart review, had been on sertraline 25 in 2017([facility]) and citalopram 10 in 2018 ([facility]). no records of Paxil; [facility] - spoke with patient's son who states that patient was prescribed this by doctor and he will bring in the records FENGI: Heart healthy, easy to chew Ppx: Anticoagulated on apixaban Code: DNR/DNI Dispo: Medsurg. Case management working on placement. FEN: heart-healthy, [id number] diet Code status: DNR/DNI DVT ppx: eliquis PT/OT: following Case management: assisting with SNF placement Dispo: med/surg Admission and Anticipated Discharge Date Admission Date: December 04, 2020 Supervising Physician Co-Signing Physician Notes Patient seen and examined with PGY 2 Dr. Suresh. Agree with history, exam findings care as outlined. In brief, Mr. Muro is an 80-year-old male with history of CAD, hypertension and a flutter admitted with a right humeral fracture. Today, he has no complaints. Denies chest pain, dyspnea, abdominal pain. Vital signs and nursing notes were reviewed He is well-appearing. No acute distress. Heart with regular rhythm. No lower extremity edema. Lungs are clear to auscultation in all lung coburn. Right arm is in a sling. Imaging and labs reviewed. 1. Right humeral fracture. Currently splinted. No surgical intervention necessary. Pain control with Tylenol, morphine. Bowel regimen with Colace and MiraLAX is changed to scheduled rather than as needed. He will follow-up with orthopedics in 2 to 3 weeks. 2. NSTEMI. Troponins have peaked and now are downtrending. Continue metoprolol, lisinopril, spironolactone, aspirin and atorvastatin 3. A flutter. Rate controlled. Continue amiodarone for rhythm control. He is also on metoprolol for rate control. Anticoagulated with Eliquis. 4. Dementia and dysphagia. Permissive aspiration following goals of care discussion by last week's team. They are in touch with palliative as well. He does have Zyprexa as needed for agitation. Dispo: He is medically stable for discharge. We are awaiting a bed at a long-term facility. Subjective No acute events overnight. Patient seen at bedside this morning. Patient continues to have confusion at baseline but is otherwise well. Patient denies CP, SOB, pain, nausea, vomiting, and diarrhea. Review of Systems Review of Systems: See HPI Physical Exam Physical Exam: Constitutional: well-appearing, no acute distress, laying comfortably in bed CV: regular rhythm, no murmur appreciated, extremities well-perfused, no LE edema Resp: CTABL, no wheezes/rales/rhonchi appreciated, no increased work of breathing MSK: right arm in sling Neuro: confused, oriented to person only, speech a bit garbled Results & Data Results & Data ([facility]) Vital Signs (Past 12 Hours) Vital Signs Temp Pulse Resp BP Pulse Ox 12/15/20 22:35 36.6 C 79 20 114/71 90 Resident Activity Tracking Resident Involvement: Resident Care Provided Care Provided: Adult Hospital Medicine
[2020-12-16] MEDS: METOPROLOL TARTRATE 25 MG TAB PO SCH ×4 (09:22→20:09)
[2020-12-16] MEDS: APIXABAN 5 MG TABLET PO SCH ×4 (09:22→20:09)
[2020-12-16] MEDS: lisinopril 20 MG TAB PO SCH ×3 (09:23→15:09)
[2020-12-16] MEDS: AMIODARONE 200 MG TAB PO SCH ×3 (09:23→15:08)
[2020-12-16] MEDS: ATORVASTATIN 40 MG TAB PO SCH ×3 (09:23→15:09)
[2020-12-16] MEDS: PARoxetine HCL 10 MG TAB PO SCH ×3 (09:24→15:09)
[2020-12-16] MEDS: SPIRONOLACTONE 25 MG TAB PO SCH ×3 (09:24→15:09)
[2020-12-16] MEDS: ASPIRIN 81 MG ECTAB PO SCH ×3 (09:24→15:09)
[2020-12-16] MEDS: DICLOFENAC SOD 1% GEL 100 GM TUBE EXT SCH ×5 (09:30→20:08)
[2020-12-16] MEDS ORDERED: MoRPHine SULFATE 2 MG/ML CARP IV PRN (13:32)
[2020-12-16] MEDS: ACETAMINOPHEN 500 MG TAB PO SCH ×3 (14:20→20:10)
[2020-12-16] MEDS: DOCUSATE SODIUM 100 MG CAP PO SCH (20:08)
[2020-12-16] MEDS: oxyCODONE HCL IR 5 MG TAB (IMMEDIATE RELEASE) PO PRN (20:10)
[2020-12-17] MEDS: ACETAMINOPHEN 500 MG TAB PO SCH ×3 (06:01→20:33)
[2020-12-17] MEDS: DICLOFENAC SOD 1% GEL 100 GM TUBE EXT SCH ×4 (08:38→20:32)
[2020-12-17] MEDS: SPIRONOLACTONE 25 MG TAB PO SCH (08:39)
[2020-12-17] MEDS: DOCUSATE SODIUM 100 MG CAP PO SCH ×2 (08:39→20:33)
[2020-12-17] MEDS: ATORVASTATIN 40 MG TAB PO SCH (08:39)
[2020-12-17] MEDS: APIXABAN 5 MG TABLET PO SCH ×2 (08:39→20:34)
[2020-12-17] MEDS: METOPROLOL TARTRATE 25 MG TAB PO SCH ×2 (08:39→20:30)
[2020-12-17] MEDS: lisinopril 20 MG TAB PO SCH (08:39)
[2020-12-17] MEDS: PARoxetine HCL 10 MG TAB PO SCH (08:39)
[2020-12-17] MEDS: AMIODARONE 200 MG TAB PO SCH (08:39)
[2020-12-17] MEDS: ASPIRIN 81 MG ECTAB PO SCH (08:39)
--- NOTE | 2020-12-17 09:11 | Hospitalist Progress Note ---
Date of Service December 17, 2020 Assessment & Plan (1) Unwitnessed fall: Plan: 80yo male with history of atrial flutter, CAD, HTN, HLD and SARA presenting by ambulance after unwitnessed fall at home - found down in prone position, unknown down time, acute fracture of right humerus. Baseline functional status unclear - patient states that he sometimes uses a walker. States that he did not pass out or hit his head. Imaging otherwise negative. Unwitnessed fall/dysphagia/dementia/goals of care - Patient with known underlying dementia; visit from [facility] (09/2020) mention patient is resistant to care, delusional and paranoid; was held on a 302 in 2019 for homicidal ideations - CT of the right knee to further assess for possible intra-articular fracture negative - PT/OT evaluation -- SNF recommended by OT, PT - CM to assist --12/13 new referral to [facility] pending;no new developments re: placement - Speech consulted; aspiration on all tested consistencies - permissive aspiration accepted by patient's son (POA) - Palliative consult discussed goals of care with family; plan to proceed with SNF and possibly transition to hospice thereafter - Frequent reorientation, fall precautions - Avoid delirium-inducing agents where possible; avoid Haldol as patient had QTC of 499 - Zyprexa prn for agitation. Avoid sedating medications if possible - Ativan 1mg IM q6h prn agitation unresponsive to zyprexa - Daily labs discontinued Right humeral fracture -Patient found to have acute oblique displaced distal diaphyseal fracture of the humerus just distal to the humeral component of the right shoulder arthroplasty. Neurovascularly intact. Splint has been placed. Patient is on Apixaban for history of PAF and VTE. -Pain control with APAP 1000mg q8h scheduled, voltaren gel; morphine 1mg IV q4h prn breakthrough pain -Bowel regimen with colace and miralax (changed 12/16 from PRN to scheduled) -Neurovascular checks RUE q4h -Orthopedic surgery consulted: - Continue him in this coaptation splint for another week. (As of 12/12) - Hopefully, by then, he will be moved out of the hospital and we can get him into a Jack brace at our office. - Need to see him back if possible in about 2 weeks from his injury, somewhere between 2 and 3 weeks. - Any orthopedic questions can be directed to Dr. Caesar Ruelas at [phone]. NSTEMI -Troponin 0 0.319 with recheck at 0.246 -Continue Metoprolol 37.5mg PO BID -Continue aspirin 81mg PO daily -Continue atorvastatin 40 mg daily -Continue to monitor CAD (coronary artery disease) -Cardiac catheterization in 2011 performed for elevated troponin following episode of atrial fibrillation with RVR which revealed mild diffuse CAD -[facility] -[facility] Lisinop[facility] -Continue beta britany, ASA, statin as above Atrial flutter -Paroxysmal, on chronic eliquis therapy -Continue amiodarone, continue eliquis Hypertension -Blood pressure mildly elevated in setting of pain, trauma. No CP, SOB, BERNARD, dizziness -Continue Lisinopril -Continue Spironolactone -Continue to monitor SARA (generalized anxiety disorder), Depression -Restarted Paxil 10 daily (home med per patient) Anemia - Chronic, stable - No intervention indicated at this time FEN: heart-healthy, [id number] diet Code status: DNR/DNI DVT ppx: elitracyis PT/OT: following Case management: assisting with SNF placement Dispo: med/surg Admission and Anticipated Discharge Date Admission Date: December 04, 2020 Supervising Physician Co-Signing Physician Notes Patient seen and examined with PGY 2 Dr. Suresh. Agree with history, exam findings care as outlined. In brief, Mr. Muro is an 80-year-old male with history of CAD, hypertension and a flutter admitted with a right humeral fracture. Today, he has no complaints. Reports feeling a adonay in his back. Vital signs and nursing notes were reviewed He is well-appearing. No acute distress. Splint to the right upper extremity. The sling is barely hanging around his neck. Imaging and labs reviewed. 1. Right humeral fracture. Currently splinted. No surgical intervention necessary. Pain control with Tylenol, morphine. Bowel regimen with Colace and MiraLAX is changed to scheduled rather than as needed. He will follow-up with orthopedics in 2 to 3 weeks. 2. NSTEMI. Troponins have peaked and now are downtrending. Continue metoprolol, lisinopril, spironolactone, aspirin and atorvastatin. 3. A flutter. Rate controlled. Continue amiodarone for rhythm control. He is also on metoprolol for rate control. Anticoagulated with Eliquis. 4. Dementia and dysphagia. Permissive aspiration following goals of care discussion by last week's team. They are in touch with palliative as well. He does have Zyprexa as needed for agitation. Dispo: He is medically stable for discharge. We are awaiting a bed at a halfway facility. Subjective Patient seen and evaluated at bedside this morning. No acute events overnight. Patient feels well this morning and has no complaints. Denies any pain. Patient denies CP, SOB, abdominal pain, nausea, vomiting, lightheadedness, dizziness, and diarrhea. Review of Systems Review of Systems: See HPI Physical Exam Physical Exam: Constitutional: well-appearing, no acute distress, sitting up in bed, eating breakfast CV: regular rhythm, no murmur appreciated, extremities well-perfused, no LE edema Resp: CTABL, no wheezes/rales/rhonchi appreciated, no increased work of breathing MSK: right arm in sling Neuro: alert, oriented to person only, no focal deficit appreciated Results & Data Results & [facility] ([facility]) Vital Signs (Past 12 Hours) Vital Signs Temp Pulse Resp BP Pulse Ox 12/17/20 07:47 36.5 C 66 20 138/78 91 12/16/20 23:52 69 17 102/56 L 96 Resident Activity Tracking Resident Involvement: Resident Care Provided Care Provided: Adult Hospital Medicine
[2020-12-17] MEDS: oxyCODONE HCL IR 5 MG TAB (IMMEDIATE RELEASE) PO PRN ×2 (10:20→20:30)
[2020-12-18] MEDS: ACETAMINOPHEN 500 MG TAB PO SCH ×3 (05:41→20:35)
--- NOTE | 2020-12-18 07:14 | Hospitalist Progress Note ---
Date of Service December 18, 2020 Assessment & Plan (1) Unwitnessed fall: Plan: 80yo male with history of atrial flutter, CAD, HTN, HLD and SARA presenting by ambulance after unwitnessed fall at home - found down in prone position, unknown down time, acute fracture of right humerus. Baseline functional status unclear - patient states that he sometimes uses a walker. States that he did not pass out or hit his head. Imaging otherwise negative. Unwitnessed fall/dysphagia/dementia/goals of care - Patient with known underlying dementia; visit from [facility] (09/2020) mention patient is resistant to care, delusional and paranoid; was held on a 302 in 2019 for homicidal ideations - CT of the right knee to further assess for possible intra-articular fracture negative - PT/OT evaluation -- SNF recommended by OT, PT - CM to assist --12/13 new referral to [facility] pending;no new developments re: placement - Speech consulted; aspiration on all tested consistencies - permissive aspiration accepted by patient's son (POA) - Palliative consult discussed goals of care with family; plan to proceed with SNF and possibly transition to hospice thereafter - Frequent reorientation, fall precautions - Avoid delirium-inducing agents where possible; avoid Haldol as patient had QTC of 499 - Zyprexa prn for agitation. Avoid sedating medications if possible - Ativan 1mg IM q6h prn agitation unresponsive to zyprexa - Daily labs discontinued Right humeral fracture -Patient found to have acute oblique displaced distal diaphyseal fracture of the humerus just distal to the humeral component of the right shoulder arthroplasty. Neurovascularly intact. Splint has been placed. Patient is on Apixaban for history of PAF and VTE. -Pain control with APAP 1000mg q8h scheduled, voltaren gel; morphine 1mg IV q4h prn breakthrough pain -Bowel regimen with colace and miralax (changed 12/16 from PRN to scheduled) -Neurovascular checks RUE q4h -Orthopedic surgery consulted: - Continue him in this coaptation splint for another week. (As of 12/12) - Hopefully, by then, he will be moved out of the hospital and we can get him into a Jack brace at our office. - Need to see him back if possible in about 2 weeks from his injury, somewhere between 2 and 3 weeks. - Any orthopedic questions can be directed to Dr. Caesar Ruelas at [phone]. NSTEMI -Troponin 0 0.319 with recheck at 0.246 -Continue Metoprolol 37.5mg PO BID -Continue aspirin 81mg PO daily -Continue atorvastatin 40 mg daily -Continue to monitor CAD (coronary artery disease) -Cardiac catheterization in 2011 performed for elevated troponin following episode of atrial fibrillation with RVR which revealed mild diffuse CAD -[facility] -Continue Lisinop[facility] -Continue beta britany, ASA, statin as above Atrial flutter -Paroxysmal, on chronic eliquis therapy -Continue amiodarone, continue eliquis Hypertension -Blood pressure mildly elevated in setting of pain, trauma. No CP, SOB, BERNARD, dizziness -Continue Lisinopril -Continue Spironolactone -Continue to monitor SARA (generalized anxiety disorder), Depression -Restarted Paxil 10 daily (home med per patient) Anemia - Chronic, stable - No intervention indicated at this time FEN: heart-healthy, [id number] diet Code status: DNR/DNI DVT ppx: eliquis PT/OT: following Case management: assisting with SNF placement Dispo: med/surg Admission and Anticipated Discharge Date Admission Date: December 04, 2020 Supervising Physician Co-Signing Physician Notes Patient seen and examined independently of PGY 2 Dr. Suresh. Agree with history, exam findings, assessment and plan of care as outlined. In brief, Mr. Muro is an 80-year-old male with history of CAD, hypertension and a flutter admitted with a right humeral fracture. Today, he has no complaints. Reports feeling a adonay in his back. Vital signs and nursing notes were reviewed He is well-appearing. No acute distress. Splint to the right upper extremity. The sling is not on. The right hand is moderately edematous. Skin in tact. Imaging and labs reviewed. 1. Right humeral fracture. Currently splinted. No surgical intervention necessary. Pain control with Tylenol, morphine. Bowel regimen with Colace and MiraLAX is changed to scheduled rather than as needed. He will follow-up with orthopedics in 2 to 3 weeks. 2. NSTEMI. Troponins have peaked and downtrended. Continue metoprolol, lisinopril, spironolactone, aspirin and atorvastatin. 3. A flutter. Rate controlled. Continue amiodarone for rhythm control. He is also on metoprolol for rate control. Anticoagulated with Eliquis. 4. Dementia and dysphagia. Permissive aspiration following goals of care discussion by last week's team. They are in touch with palliative as well. He does have Zyprexa as needed for agitation. Dispo: He is medically stable for discharge. We are awaiting a bed at a senior living facility. Subjective Patient seen and evaluated at bedside this morning. No acute events overnight. Patient feels well this morning and has no complaints. Very talkative this morning. Denies any pain. Patient denies CP, SOB, abdominal pain, nausea, vomiting, lightheadedness, dizziness, and diarrhea. Review of Systems Review of Systems: See HPI Physical Exam Physical Exam: Constitutional: well-appearing, no acute distress, sitting up in bed, eating breakfast CV: regular rhythm, no murmur appreciated, extremities well-perfused, no LE edema Resp: CTABL, no wheezes/rales/rhonchi appreciated, no increased work of breathing MSK: right arm in sling Neuro: alert, oriented to person only, no focal deficit appreciated Results & Data Results & Data ([facility]) Vital Signs (Past 12 Hours) Vital Signs Temp Pulse Resp BP Pulse Ox 12/17/20 22:37 36.5 C 85 18 108/69 94 Resident Activity Tracking Resident Involvement: Resident Care Provided Care Provided: Adult Hospital Medicine
[2020-12-18] MEDS: AMIODARONE 200 MG TAB PO SCH (07:59)
[2020-12-18] MEDS: ASPIRIN 81 MG ECTAB PO SCH (07:59)
[2020-12-18] MEDS: SPIRONOLACTONE 25 MG TAB PO SCH (07:59)
[2020-12-18] MEDS: DOCUSATE SODIUM 100 MG CAP PO SCH ×2 (07:59→20:35)
[2020-12-18] MEDS: DICLOFENAC SOD 1% GEL 100 GM TUBE EXT SCH ×4 (07:59→20:33)
[2020-12-18] MEDS: lisinopril 20 MG TAB PO SCH (07:59)
[2020-12-18] MEDS: METOPROLOL TARTRATE 25 MG TAB PO SCH ×2 (07:59→20:34)
[2020-12-18] MEDS: ATORVASTATIN 40 MG TAB PO SCH (08:00)
[2020-12-18] MEDS: PARoxetine HCL 10 MG TAB PO SCH (08:00)
[2020-12-18] MEDS: APIXABAN 5 MG TABLET PO SCH ×2 (08:36→20:36)
[2020-12-18] MEDS: oxyCODONE HCL IR 5 MG TAB (IMMEDIATE RELEASE) PO PRN ×2 (10:32→20:33)
[2020-12-19] MEDS: ACETAMINOPHEN 500 MG TAB PO SCH ×3 (05:55→20:27)
--- NOTE | 2020-12-19 07:33 | Hospitalist Progress Note ---
Date of Service December 19, 2020 Assessment & Plan (1) Unwitnessed fall: Plan: 80yo male with history of atrial flutter, CAD, HTN, HLD and SARA presenting by ambulance after unwitnessed fall at home - found down in prone position, unknown down time, acute fracture of right humerus. Baseline functional status unclear - patient states that he sometimes uses a walker. States that he did not pass out or hit his head. Imaging otherwise negative. Unwitnessed fall/dysphagia/dementia/goals of care - Patient with known underlying dementia; visit from [facility] (09/2020) mention patient is resistant to care, delusional and paranoid; was held on a 302 in 2019 for homicidal ideations - CT of the right knee to further assess for possible intra-articular fracture negative - PT/OT evaluation -- SNF recommended by OT, PT - CM assisting; 12/19: no beds at [facility], [place], or [place]; search for male SNF bed continues - Speech consulted; aspiration on all tested consistencies - permissive aspiration accepted by patient's son (POA) - Palliative consult discussed goals of care with family; plan to proceed with SNF and possibly transition to hospice thereafter - Frequent reorientation, fall precautions - Avoid delirium-inducing agents where possible; avoid Haldol as patient had QTC of 499 - Zyprexa prn for agitation. Avoid sedating medications if possible - Ativan 1mg IM q6h prn agitation unresponsive to zyprexa - Daily labs discontinued Right humeral fracture -Patient found to have acute oblique displaced distal diaphyseal fracture of the humerus just distal to the humeral component of the right shoulder arthroplasty. Neurovascularly intact. Splint has been placed. Patient is on Apixaban for history of PAF and VTE. -Pain control with APAP 1000mg q8h scheduled, voltaren gel; morphine 1mg IV q4h prn breakthrough pain -Bowel regimen with colace and miralax (changed 12/16 from PRN to scheduled) -Neurovascular checks RUE q4h -Orthopedic surgery consulted: - Continue him in this coaptation splint for another week. (As of 12/12) - Hopefully, by then, he will be moved out of the hospital and we can get him into a Jack brace at our office. - Need to see him back if possible in about 2 weeks from his injury, somewhere between 2 and 3 weeks. - Any orthopedic questions can be directed to Dr. Caesar Ruelas at [phone]. NSTEMI -Troponin 0 0.319 with recheck at 0.246 -Continue Metoprolol 37.5mg PO BID -Continue aspirin 81mg PO daily -Continue atorvastatin 40 mg daily -Continue to monitor CAD (coronary artery disease) -Cardiac catheterization in 2011 performed for elevated troponin following episode of atrial fibrillation with RVR which revealed mild diffuse CAD -[facility] -Continue Lisinopril -Continue beta britany, ASA, statin as above Atrial flutter -Paroxysmal, on chronic eliquis therapy -Continue amiodarone, continue eliquis Hypertension -Blood pressure mildly elevated in setting of pain, trauma. No CP, SOB, BERNARD, dizziness -Continue Lisinopril -Continue Spironolactone -Continue to monitor SARA (generalized anxiety disorder), Depression -Restarted Paxil 10 daily (home med per patient) Anemia - Chronic, stable - No intervention indicated at this time FEN: heart-healthy, [id number] diet Code status: DNR/DNI DVT ppx: tre PT/OT: following Case management: assisting with SNF placement Dispo: med/surg Admission and Anticipated Discharge Date Admission Date: December 04, 2020 Supervising Physician Co-Signing Physician Notes Patient seen and examined independently of PGY 2 Dr. Suresh. Agree with his tory, exam findings, assessment and plan of care as outlined. In brief, Mr. Muro is an 80-year-old male with history of CAD, hypertension and a flutter admitted with a right humeral fracture. Today, he has no complaints. Vital signs and nursing notes were reviewed He is well-appearing. No acute distress. Splint to the right upper extremity. The sling is not on. The right hand is moderately edematous. Skin in tact. Imaging and labs reviewed. 1. Right humeral fracture. Currently splinted. No surgical intervention necessary. Pain control with Tylenol, morphine. Bowel regimen with Colace and MiraLAX is changed to scheduled rather than as needed. He will follow-up with orthopedics in 2 to 3 weeks. 2. NSTEMI. Troponins have peaked and downtrended. Continue metoprolol, lisinopril, spironolactone, aspirin and atorvastatin. 3. A flutter. Rate controlled. Continue amiodarone for rhythm control. He is also on metoprolol for rate control. Anticoagulated with Eliquis. 4. Dementia and dysphagia. Permissive aspiration following goals of care discussion by last week's team. They are in touch with palliative as well. He does have Zyprexa as needed for agitation. Dispo: He is medically stable for discharge. We are awaiting a bed at a assisted facility. Subjective Patient seen and evaluated at bedside this morning. No acute events overnight. Patient feels well today and has no complaints. Reports shoulder pain has improved a bit. Patient denies CP, SOB, abdominal pain, nausea, vomiting, lightheadedness, dizziness, and diarrhea. Review of Systems Review of Systems: See HPI Physical Exam Physical Exam: Constitutional: well-appearing, no acute distress, sitting up in bed CV: regular rhythm, no murmur appreciated, extremities well-perfused, no LE edema Resp: CTABL, no wheezes/rales/rhonchi appreciated, no increased work of breathing MSK: right arm in sling Neuro: alert, oriented to person only, no focal deficit appreciated Results & Data Results & Data ([facility]) Vital Signs (Past 12 Hours) Vital Signs Temp Pulse Resp BP Pulse Ox 12/19/20 07:05 36.5 C 68 16 138/83 96 Resident Activity Tracking Resident Involvement: Resident Care Provided Care Provided: Adult Hospital Medicine
[2020-12-19] MEDS: AMIODARONE 200 MG TAB PO SCH (08:39)
[2020-12-19] MEDS: APIXABAN 5 MG TABLET PO SCH ×2 (08:39→20:26)
[2020-12-19] MEDS: ASPIRIN 81 MG ECTAB PO SCH (08:39)
[2020-12-19] MEDS: DOCUSATE SODIUM 100 MG CAP PO SCH ×2 (08:40→20:26)
[2020-12-19] MEDS: DICLOFENAC SOD 1% GEL 100 GM TUBE EXT SCH ×4 (08:40→20:25)
[2020-12-19] MEDS: METOPROLOL TARTRATE 25 MG TAB PO SCH ×2 (08:40→20:26)
[2020-12-19] MEDS: ATORVASTATIN 40 MG TAB PO SCH (08:40)
[2020-12-19] MEDS: lisinopril 20 MG TAB PO SCH (08:40)
[2020-12-19] MEDS: PARoxetine HCL 10 MG TAB PO SCH (08:41)
[2020-12-19] MEDS: SPIRONOLACTONE 25 MG TAB PO SCH (08:42)
[2020-12-19] MEDS: oxyCODONE HCL IR 5 MG TAB (IMMEDIATE RELEASE) PO PRN ×2 (08:43→20:24)
[2020-12-20] MEDS: ACETAMINOPHEN 500 MG TAB PO SCH ×3 (05:38→20:37)
[2020-12-20] MEDS: oxyCODONE HCL IR 5 MG TAB (IMMEDIATE RELEASE) PO PRN (05:38)
--- NOTE | 2020-12-20 08:02 | Hospitalist Progress Note ---
Date of Service December 20, 2020 Assessment & Plan (1) Unwitnessed fall: Plan: 80yo male with history of atrial flutter, CAD, HTN, HLD and SARA presenting by ambulance after unwitnessed fall at home - found down in prone position, unknown down time, acute fracture of right humerus. Unwitnessed fall/dysphagia/dementia/goals of care Patient with known underlying dementia; visit from [facility] (09/2020) mention patient is resistant to care, delusional and paranoid; was held on a 302 in [address] of the right knee to further assess for possible intra-articular fracture negative PT/OT evaluation -- SNF recommended by OT, PT CM assisting; no beds at [facility], [place], or [place]; search for male SNF bed continues Speech consulted; aspiration on all tested consistencies - permissive aspiration accepted by patient's son (POA) Palliative consult discussed goals of care with family; plan to proceed with SNF and possibly transition to hospice thereafter Frequent reorientation, fall precautions Avoid delirium-inducing agents where possible; avoid Haldol as patient had QTC of 499 Zyprexa prn for agitation. Avoid sedating medications if possible Ativan 1mg IM q6h prn agitation unresponsive to zyprexa Daily labs discontinued Right humeral fracture Patient found to have acute oblique displaced distal diaphyseal fracture of the humerus just distal to the humeral component of the right shoulder arthroplasty. Neurovascularly intact. Splint has been placed. Patient is on Apixaban for history of PAF and VTE. Pain control with APAP 1000mg q8h scheduled, voltaren gel; morphine 1mg IV q4h prn breakthrough pain Bowel regimen with colace and miralax (changed 12/16 from PRN to scheduled) Neurovascular checks RUE q4h Orthopedic surgery consulted: Continue him in this coaptation splint for another week. (As of 12/12) Hopefully, by then, he will be moved out of the hospital and we can get him into a Jack brace at our office. Need to see him back if possible in about 2 weeks from his injury, somewhere between 2 and 3 weeks. Any orthopedic questions can be directed to Dr. Caesar Ruelas at [phone]. NSTEMI Troponin 0.319 with recheck at 0.246 - peaked on 12/10 Continue Metoprolol 37.5mg PO BID Continue aspirin 81mg PO daily Continue atorvastatin 40 mg daily CAD (coronary artery disease) Cardiac catheterization in 2011 performed for elevated troponin following episode of atrial fibrillation with RVR which revealed mild diffuse CAD [facility] Continue Lisinopril Continue beta britany, ASA, statin as above Atrial flutter Paroxysmal, on chronic eliquis therapy Continue amiodarone, continue eliquis Hypertension Blood pressure mildly elevated in setting of pain, trauma. No CP, SOB, BERNARD, dizziness Continue Lisinopril Continue Spironolactone Continue to monitor SARA (generalized anxiety disorder), Depression Restarted Paxil 10 daily (home med per patient) Anemia Chronic, stable No intervention indicated at this time FEN: heart-healthy, lukt-vc-hygh diet Code status: DNR/DNI DVT ppx: tre PT/OT: following Case management: assisting with SNF placement Dispo: med/surg Admission and Anticipated Discharge Date Admission Date: December 04, 2020 Supervising Physician Co-Signing Physician Notes Attending attestation Pt seen and examined in concert with Dr. Suresh. In agreement with the documented findings as noted in the resident documentation with any exceptions or additions as noted here. No acute complaints at present. Pain well controlled at present. On examination, S1/S2 nl RRR no MCG. CTAB. Abd NT/ND. Arm in sling. Right humeral fracture - splinted - pain control Constipation - continue bowel regimen as no BM today and consider escalation of miralax in AM if persistent NSTEMI - Continue metoprolol, lisinopril, spironolactone, ASA, statin Dementia, dysphagia - permissive aspiration w/ goals of care discussion as noted previously. Continue Zyprexa. Likes: grapes, ice cream and cheetoes puffs. Else see resident documentation as noted. Subjective Patient seen and evaluated at bedside this morning. No acute events overnight. Patient feels well today and is without complaint, though he remembers his arm hurts when asked. Patient denies CP, SOB, abdominal pain, nausea, vomiting, lightheadedness, dizziness, and diarrhea. Review of Systems Review of Systems: See HPI Physical Exam Physical Exam: Constitutional: well-appearing, no acute distress, laying in bed CV: regular rhythm, no murmur appreciated, extremities well-perfused, no LE edema Resp: CTABL, no wheezes/rales/rhonchi appreciated, no increased work of breathing MSK: right arm in sling, right hand mildly edematous Neuro: alert, oriented to person only, no focal deficit appreciated Results & Data Results & Data ([facility]) Vital Signs (Past 12 Hours) Vital Signs Temp Pulse Resp BP BP Pulse Ox 12/20/20 07:42 36.6 C 70 18 108/62 97 12/19/20 23:29 36.5 C 76 18 122/74 93 Resident Activity Tracking Resident Involvement: Resident Care Provided Care Provided: Adult Hospital Medicine
[2020-12-20] MEDS: ATORVASTATIN 40 MG TAB PO SCH (08:47)
[2020-12-20] MEDS: PARoxetine HCL 10 MG TAB PO SCH (08:47)
[2020-12-20] MEDS: lisinopril 20 MG TAB PO SCH (08:47)
[2020-12-20] MEDS: METOPROLOL TARTRATE 25 MG TAB PO SCH ×2 (08:47→20:35)
[2020-12-20] MEDS: APIXABAN 5 MG TABLET PO SCH ×2 (08:47→20:36)
[2020-12-20] MEDS: SPIRONOLACTONE 25 MG TAB PO SCH (08:47)
[2020-12-20] MEDS: AMIODARONE 200 MG TAB PO SCH (08:48)
[2020-12-20] MEDS: DICLOFENAC SOD 1% GEL 100 GM TUBE EXT SCH ×4 (08:48→20:34)
[2020-12-20] MEDS: ASPIRIN 81 MG ECTAB PO SCH (08:48)
[2020-12-20] MEDS: DOCUSATE SODIUM 100 MG CAP PO SCH ×2 (08:50→20:34)
[2020-12-21] MEDS: ACETAMINOPHEN 500 MG TAB PO SCH ×3 (05:46→20:44)
--- NOTE | 2020-12-21 06:02 | Hospitalist Progress Note ---
Date of Service December 21, 2020 Assessment & Plan (1) Unwitnessed fall: Plan: 80yo male with history of atrial flutter, CAD, HTN, HLD and SARA presenting by ambulance after unwitnessed fall at home - found down in prone position, unknown down time, acute fracture of right humerus. Unwitnessed fall/dysphagia/dementia/goals of care Patient with known underlying dementia; visit from [facility] (09/2020) mention patient is resistant to care, delusional and paranoid; was held on a 302 in [address] of the right knee to further assess for possible intra-articular fracture negative PT/OT evaluation -- SNF recommended by OT, PT CM assisting; no beds at [facility], [place], or [place]; search for male SNF bed continues Speech consulted; aspiration on all tested consistencies - permissive aspiration accepted by patient's son (POA) Palliative consult discussed goals of care with family; plan to proceed with SNF and possibly transition to hospice thereafter Frequent reorientation, fall precautions Avoid delirium-inducing agents where possible; avoid Haldol as patient had QTC of 499 Zyprexa prn for agitation. Avoid sedating medications if possible Ativan 1mg IM q6h prn agitation unresponsive to zyprexa Daily labs discontinued Right humeral fracture Patient found to have acute oblique displaced distal diaphyseal fracture of the humerus just distal to the humeral component of the right shoulder arthroplasty. Neurovascularly intact. Splint has been placed. Patient is on Apixaban for history of PAF and VTE. Pain control with APAP 1000mg q8h scheduled, Voltaren gel; morphine 1mg IV q4h prn breakthrough pain Bowel regimen with colace and miralax (changed 12/16 from PRN to scheduled) Neurovascular checks RUE q4h Orthopedic surgery consulted: Continue him in this coaptation splint for another week. (As of 12/12) Hopefully, by then, he will be moved out of the hospital and we can get him into a Jack brace at our office. Need to see him back if possible in about 2 weeks from his injury, somewhere between 2 and 3 weeks. Any orthopedic questions can be directed to Dr. Caesar Ruelas at [phone]. NSTEMI Troponin 0.319 with recheck at 0.246 - peaked on 12/10 Continue Metoprolol 37.5mg PO BID Continue aspirin 81mg PO daily Continue atorvastatin 40 mg daily CAD (coronary artery disease) Cardiac catheterization in 2011 performed for elevated troponin following episode of atrial fibrillation with RVR which revealed mild diffuse CAD [facility] Lisinopril Continue beta britany, ASA, statin as above Atrial flutter Paroxysmal, on chronic eliquis therapy Continue amiodarone, continue eliquis Hypertension Blood pressure mildly elevated in setting of pain, trauma. No CP, SOB, BERNARD, dizziness Continue Lisinopril Continue Spironolactone Continue to monitor SARA (generalized anxiety disorder), Depression Restarted Paxil 10 daily (home med per patient) Anemia Chronic, stable No intervention indicated at this time FEN: heart-healthy, [id number] diet Code status: DNR/DNI DVT ppx: tre PT/OT: following Case management: assisting with SNF placement Dispo: med/surg, d/c tele Admission and Anticipated Discharge Date Admission Date: December 04, 2020 Supervising Physician Co-Signing Physician Notes Attending attestation Pt seen and examined in concert with Dr. Jones. In agreement with the documented findings as noted in the resident documentation with any exceptions or additions as noted here. No acute complaints at present. Pain well controlled at present. On examination, S1/S2 nl RRR no MCG. CTAB. Abd NT/ND. Arm in sling, sling disconnected (reconnected). Right humeral fracture - splinted - pain control Constipation - continue bowel regimen NSTEMI - Continue metoprolol, lisinopril, spironolactone, ASA, statin Dementia, dysphagia - permissive aspiration w/ goals of care discussion as noted previously. Continue Zyprexa. Likes: grapes, ice cream and cheetoes puffs. Else see resident documentation as noted. Subjective No acute events overnight. Patient seen at the bedside this morning, feeling well. Intermittently confused. Able to respond to questions overall appropriately. Denies any pain. Says his arm feels good. He is looking forward to leaving the hospital. Endorses a good appetite. Review of Systems Review of Systems: as per HPI Physical Exam Physical Exam: General: 80-year-old gentleman who is lying back in his hosp ital bed, ox upon my arrival. He is fully alert, does occasionally confabulate. HEENT: NCAT. Eyes - Sclera are white, anicteric, and without injection. Cardiac: Normal rate and regular rhythm; S1 and S2 present with no murmurs, rubs, or gallops. Pulmonary: Good respiratory effort with symmetric expansion of the chest. No use of accessory muscles. Lungs were clear to auscultation bilaterally with no crackles or wheezes. Abdominal: Normoactive bowel sounds. Abdomen was soft, nondistended, and non- tender to palpation. Extremities: Upper and lower extremities are warm and well perfused. Right arm is wrapped. Distal sensation and strength intact. Capillary refill under 3 seconds. Strong radial pulse. Results & Data Results & Data ([facility]) Vital Signs (Past 12 Hours) Vital Signs Temp Pulse Resp BP Pulse Ox 12/20/20 23:25 36.5 C 85 20 117/70 97 12/20/20 19:38 36.7 C 74 18 117/69 98 Resident Activity Tracking Resident Involvement: Resident Care Provided Care Provided: Adult Hospital Medicine
[2020-12-21 08:01] LABS: Hematocrit (blood only) 38.6 % (42-52); Hemoglobin 12.2 g/dL (14.0-18.0); Mean Corpuscular Hemoglobin 28.9 pg (25-34); Mean Corpuscular Hgb Conc 31.6 g/dL (32-36); Mean Corpuscular Volume 91.5 fL (80-100); Platelet Count 276 K/uL (130-400); RDW Coefficient of Variation 14.6 % (11.5-14.5); RDW Standard Deviation 48.9 fL (36.4-46.3); Red Blood Count 4.22 M/uL (4.7-6.1); White Blood Count 6.14 K/uL (4.8-10.8)
[2020-12-21 08:02] LABS: Basophils # (auto) 0.01 K/uL (0-0.2); Basophils % (auto) 0.2 %; Eosinophils # (auto) 0.04 K/uL (0-0.5); Eosinophils % (auto) 0.7 %; Immature Granulocytes # (auto) 0.04 K/uL (0.00-0.02); Immature Granulocytes % (auto) 0.7 %; Lymphocytes # (auto) 0.74 K/uL (1.2-3.4); Lymphocytes % (auto) 12.1 %; Mean Platelet Volume 9.9 fL (7.4-10.4); Monocytes # (auto) 0.33 K/uL (0.11-0.59); Monocytes % (auto) 5.4 %; Neutrophils # (auto) 4.98 K/uL (1.4-6.5); Neutrophils % (auto) 80.9 %
[2020-12-21] MEDS: ATORVASTATIN 40 MG TAB PO SCH (08:04)
[2020-12-21] MEDS: PARoxetine HCL 10 MG TAB PO SCH (08:04)
[2020-12-21] MEDS: SPIRONOLACTONE 25 MG TAB PO SCH (08:04)
[2020-12-21] MEDS: APIXABAN 5 MG TABLET PO SCH ×2 (08:04→20:44)
[2020-12-21] MEDS: METOPROLOL TARTRATE 25 MG TAB PO SCH ×3 (08:04→20:46)
[2020-12-21] MEDS: lisinopril 20 MG TAB PO SCH (08:04)
[2020-12-21] MEDS: DOCUSATE SODIUM 100 MG CAP PO SCH ×2 (08:04→20:43)
[2020-12-21] MEDS: DICLOFENAC SOD 1% GEL 100 GM TUBE EXT SCH ×4 (08:05→20:43)
[2020-12-21] MEDS: ASPIRIN 81 MG ECTAB PO SCH (08:05)
[2020-12-21] MEDS: AMIODARONE 200 MG TAB PO SCH (08:05)
[2020-12-21 08:30] LABS: Calcium 8.4 mg/dl (8.5-10.1); Creatinine Clr Calc Pharmacy 91.1 ml/min; Est GFR (Non-African American) 90.6 ml/min; Potassium 4.7 mmol/L (3.5-5.1)
[2020-12-22] MEDS: ACETAMINOPHEN 500 MG TAB PO SCH ×3 (06:48→22:11)
--- NOTE | 2020-12-22 07:10 | Hospitalist Progress Note ---
Date of Service December 22, 2020 Assessment & Plan (1) Unwitnessed fall: Plan: 80yo male with history of atrial flutter, CAD, HTN, HLD and SARA presenting by ambulance after unwitnessed fall at home - found down in prone position, unknown down time, acute fracture of right humerus. Unwitnessed fall/dysphagia/dementia/goals of care Patient with known underlying dementia; visit from [facility] (09/2020) mention patient is resistant to care, delusional and paranoid; was held on a 302 in [address] of the right knee to further assess for possible intra-articular fracture negative PT/OT evaluation -- SNF recommended, search ongoing by CM Speech consulted; aspiration on all tested consistencies - permissive aspiration accepted by patient's son (POA) Palliative consult discussed goals of care with family; proceed with SNF, possibly hospice thereafter Frequent reorientation, fall precautions Avoid delirium-inducing agents where possible; avoid Haldol as patient had QTC of 499 Zyprexa prn for agitation. Avoid sedating medications if possible Ativan 1mg IM q6h prn agitation unresponsive to Zyprexa Right humeral fracture Patient found to have acute oblique displaced distal diaphyseal fracture of the humerus just distal to the humeral component of the right shoulder arthroplasty. Neurovascularly intact. Splint has been placed. Patient is on Apixaban for history of PAF and VTE. Pain control with APAP 1000mg q8h scheduled, Voltaren gel; morphine 1mg IV q4h prn breakthrough pain Orthopedic surgery consulted: Continue him in this coaptation splint for another week. (As of 12/12) Hopefully, by then, he will be moved out of the hospital and we can get him into a Jack brace at our office. Need to see him back if possible in about 2 weeks from his injury, somewhere between 2 and 3 weeks. Any orthopedic questions can be directed to Dr. Caesar Ruelas at [phone]. NSTEMI Troponin 0.319 with recheck at 0.246 - peaked on 12/10 Continue Metoprolol 37.5mg PO BID Continue aspirin 81mg PO daily Continue atorvastatin 40 mg daily CAD (coronary artery disease) Cardiac catheterization in 2011 performed for elevated troponin following episode of atrial fibrillation with RVR which revealed mild diffuse CAD [facility] Continue Lisinopril Continue beta britany, ASA, statin as above Atrial flutter Paroxysmal, on chronic Eliquis therapy Continue amiodarone, continue Eliquis Hypertension Blood pressure mildly elevated in setting of pain, trauma. No CP, SOB, BERNARD, dizziness Continue Lisinopril Continue Spironolactone Continue to monitor SARA (generalized anxiety disorder), Depression Restarted Paxil 10 daily (home med per patient) Anemia Chronic, stable No intervention indicated at this time FEN: heart-healthy, [id number] diet Bowel: Colace and MiraLax s.c.h. Code status: DNR/DNI DVT ppx: eliquis PT/OT: following Case management: assisting with SNF placement Dispo: med/surg, d/c tele Admission and Anticipated Discharge Date Admission Date: December 04, 2020 Supervising Physician Co-Signing Physician Notes Attending attestation Pt seen and examined in concert with Dr. Jones. In agreement with the documented findings as noted in the resident documentation with any exceptions or additions as noted here. No acute complaints at present. Pain well controlled at present. Bowel movement this AM. On examination, S1/S2 nl RRR no MCG. CTAB. Abd NT/ND. Arm in sling, sling in place. Right humeral fracture - splinted - pain control adequate on present regimen. Pending placement. Constipation - continue bowel regimen NSTEMI - Continue metoprolol, lisinopril, spironolactone, ASA, statin Dementia, dysphagia - permissive aspiration w/ goals of care discussion as noted previously. Continue Zyprexa. Likes: grapes, ice cream and cheetoes puffs. Else see resident documentation as noted. Subjective Per nursing, patient does have intermittent episodes of night where he gets confused and will occasionally become incontinent. Thankfully, this does seem to resolve as the day goes on. He has produced urine in the urinal without difficulty. Otherwise, patient reports feeling well this morning. He is still intermittently confused. He denies pain. Denies any chest pain, palpitations, shortness of breath. No nausea or vomiting. Good appetite. Arm is feeling good, no numbness or tingling. Review of Systems Review of Systems: as per HPI Physical Exam Physical Exam: General: 80-year-old gentleman who is lying back in his hospital bed, ox upon my arrival. He is fully alert, does occasionally confabulate. HEENT: NCAT. Eyes - Sclera are white, anicteric, and without injection. Cardiac: Normal rate and regular rhythm; S1 and S2 present with no murmurs, rubs, or gallops. Pulmonary: Good respiratory effort with symmetric expansion of the chest. No use of accessory muscles. Lungs were clear to auscultation bilaterally with no crackles or wheezes. Abdominal: Normoactive bowel sounds. Abdomen was soft, nondistended, and non- tender to palpation. Extremities: Upper and lower extremities are warm and well perfused. Right arm is wrapped. Distal sensation and strength intact. Capillary refill under 3 seconds. Strong radial pulse. Resident Activity Tracking Resident Involvement: Resident Care Provided Care Provided: Adult Hospital Medicine
[2020-12-22 08:17] LABS: BUN Creatinine Ratio 25.2 (10-20); Creatinine Clr Calc Pharmacy 82.2 ml/min; Est GFR (African American) 100.7 ml/min; Est GFR (Non-African American) 86.9 ml/min; Potassium 4.6 mmol/L (3.5-5.1)
[2020-12-22] MEDS: ATORVASTATIN 40 MG TAB PO SCH (08:46)
[2020-12-22] MEDS: METOPROLOL TARTRATE 25 MG TAB PO SCH ×2 (08:46→20:43)
[2020-12-22] MEDS: lisinopril 20 MG TAB PO SCH (08:46)
[2020-12-22] MEDS: SPIRONOLACTONE 25 MG TAB PO SCH (08:46)
[2020-12-22] MEDS: POLYETHYLENE (MIRALAX) 17 GM PACK PO PRN (08:46)
[2020-12-22] MEDS: DOCUSATE SODIUM 100 MG CAP PO SCH ×2 (08:46→20:44)
[2020-12-22] MEDS: APIXABAN 5 MG TABLET PO SCH ×2 (08:47→20:44)
[2020-12-22] MEDS: ASPIRIN 81 MG ECTAB PO SCH (08:47)
[2020-12-22] MEDS: DICLOFENAC SOD 1% GEL 100 GM TUBE EXT SCH ×4 (08:47→20:55)
[2020-12-22] MEDS: PARoxetine HCL 10 MG TAB PO SCH (10:25)
[2020-12-22] MEDS: AMIODARONE 200 MG TAB PO SCH (10:25)
[2020-12-22] MEDS: oxyCODONE HCL IR 5 MG TAB (IMMEDIATE RELEASE) PO PRN (12:30)
[2020-12-23] MEDS: ACETAMINOPHEN 500 MG TAB PO SCH ×4 (05:43→22:35)
--- NOTE | 2020-12-23 06:59 | Hospitalist Progress Note ---
Date of Service December 23, 2020 Assessment & Plan (1) Unwitnessed fall: Plan: 80yo male with history of atrial flutter, CAD, HTN, HLD and SARA presenting by ambulance after unwitnessed fall at home - found down in prone position, unknown down time, acute fracture of right humerus. Unwitnessed fall/dysphagia/dementia/goals of care Patient with known underlying dementia; visit from [facility] (09/2020) mention patient is resistant to care, delusional and paranoid; was held on a 302 in [address] of the right knee to further assess for possible intra-articular fracture negative PT/OT evaluation -- SNF recommended, search ongoing by CM Speech consulted; aspiration on all tested consistencies - permissive aspiration accepted by patient's son (POA) Palliative consult discussed goals of care with family; proceed with SNF, possibly hospice thereafter Frequent reorientation, fall precautions Avoid delirium-inducing agents where possible; avoid Haldol as patient had QTc of 499 Given behavioral concerns, will initiate seroquel 50mg qhs Right humeral fracture Patient found to have acute oblique displaced distal diaphyseal fracture of th e humerus just distal to the humeral component of the right shoulder arthroplasty. Neurovascularly intact. Splint has been placed. Patient is on Apixaban for history of PAF and VTE. Pain control with APAP 1000mg q8h scheduled, Voltaren gel; morphine 1mg IV q4h prn breakthrough pain Orthopedic surgery consulted: Continue him in this coaptation splint for another week. (As of 12/12) Hopefully, by then, he will be moved out of the hospital and we can get him into a Jack brace at our office. Need to see him back if possible in about 2 weeks from his injury, somewhere between 2 and 3 weeks. Any orthopedic questions can be directed to Dr. Caesar Ruelas at [phone]. NSTEMI Troponin 0.319 with recheck at 0.246 - peaked on 12/10 Continue Metoprolol 37.5mg PO BID Continue aspirin 81mg PO daily Continue atorvastatin 40 mg daily CAD (coronary artery disease) Cardiac catheterization in 2011 performed for elevated troponin following episode of atrial fibrillation with RVR which revealed mild diffuse CAD [facility] Continue Lisinopril Continue beta britany, ASA, statin as above Atrial flutter Paroxysmal, on chronic Eliquis therapy Continue amiodarone, continue Eliquis Hypertension Blood pressure mildly elevated in setting of pain, trauma. No CP, SOB, BERNARD, dizziness Continue Lisinopril Continue Spironolactone Continue to monitor SARA (generalized anxiety disorder), Depression Restarted Paxil 10 daily (home med per patient) Anemia Chronic, stable No intervention indicated at this time FEN: heart-healthy, [id number] diet Bowel: Colace and MiraLax s.c.h. Code status: DNR/DNI DVT ppx: eliquis PT/OT: following Case management: assisting with SNF placement Dispo: med/surg, d/c tele Admission and Anticipated Discharge Date Admission Date: December 04, 2020 Supervising Physician Co-Signing Physician Notes I personally examined the patient and verified all zamorano points of history and exam, discussed case, and agree with decision making with Dr Suresh no meaningful HPI or ROS. Apparently still restless at times. In general he is in no distress. HEENT normocephalic atraumatic mucous membranes moist. Right arm in a splint and sling. Breathing unlabored no accessory muscle use good effort.. Extremities show no cyanosis. Skin shows no rashes, pallor, icterus. Humerus fractureimmobilization, pain control, supportive care. Based on orthopedics last note from about 10 days ago, he is likely due for a change in the type of splint. Since he has unfortunately been unable to be placed during this time, we will ask orthopedics to reevaluate. NSTEMIfortunately very mild. Med management. Troponin trended down after only a nominal elevation. Dysphagia/aspiration riskpermissive aspiration and supportive care. stable on RA Severe dementiasupportive care Anticoagulated on apixaban For SNF once matched. Physical move Subjective Patient seen and evaluated at bedside this morning. No acute events overnight. Patient feels well today and complains only of mild right shoulder pain. No new symptoms or concerns today. Patient denies CP, SOB, abdominal pain, nausea, vomiting, lightheadedness, dizziness, and diarrhea. Review of Systems Review of Systems: See HPI Physical Exam Physical Exam: Constitutional: well-appearing, no acute distress, sitting up in bed eating breakfast CV: regular rhythm, no murmur appreciated, extremities well-perfused, no LE edema Resp: CTABL, no wheezes/rales/rhonchi appreciated, no increased work of breathing MSK: right arm in sling, right hand mildly edematous Neuro: alert, oriented to person only, no focal deficit appreciated, calm and cooperative Results & Data Results & Data ([facility]) Vital Signs (Past 12 Hours) Vital Signs Pulse BP 12/22/20 20:41 68 100/62 Resident Activity Tracking Resident Involvement: Resident Care Provided Care Provided: Adult Hospital Medicine
[2020-12-23] MEDS: AMIODARONE 200 MG TAB PO SCH (07:52)
[2020-12-23] MEDS: DOCUSATE SODIUM 100 MG CAP PO SCH ×2 (07:52→20:47)
[2020-12-23] MEDS: ASPIRIN 81 MG ECTAB PO SCH (07:53)
[2020-12-23] MEDS: APIXABAN 5 MG TABLET PO SCH ×2 (07:53→20:47)
[2020-12-23] MEDS: lisinopril 20 MG TAB PO SCH (07:53)
[2020-12-23] MEDS: PARoxetine HCL 10 MG TAB PO SCH (07:53)
[2020-12-23] MEDS: SPIRONOLACTONE 25 MG TAB PO SCH (07:54)
[2020-12-23] MEDS: ATORVASTATIN 40 MG TAB PO SCH (07:54)
[2020-12-23] MEDS: DICLOFENAC SOD 1% GEL 100 GM TUBE EXT SCH ×4 (07:54→20:47)
[2020-12-23] MEDS: METOPROLOL TARTRATE 25 MG TAB PO SCH ×2 (07:55→20:45)
[2020-12-23] MEDS: oxyCODONE HCL IR 5 MG TAB (IMMEDIATE RELEASE) PO PRN (10:35)
--- NOTE | 2020-12-23 19:26 | Billing Data ---
Date of Service December 23, 2020 Coding Level of Care Code 57047 Subseq Hosp Care Lvl 2
[2020-12-23] MEDS ORDERED: QUEtiapine FUMARATE 25 MG TABLET PO SCH (21:00)
[2020-12-24 08:48] LABS: Basophils # (auto) 0.01 K/uL (0-0.2); Basophils % (auto) 0.2 %; Eosinophils # (auto) 0.05 K/uL (0-0.5); Eosinophils % (auto) 0.8 %; Hematocrit (blood only) 38.4 % (42-52); Hemoglobin 12.6 g/dL (14.0-18.0); Immature Granulocytes # (auto) 0.02 K/uL (0.00-0.02); Immature Granulocytes % (auto) 0.3 %; Lymphocytes # (auto) 1.02 K/uL (1.2-3.4); Lymphocytes % (auto) 16.9 %; Mean Corpuscular Hemoglobin 29.5 pg (25-34); Mean Corpuscular Hgb Conc 32.8 g/dL (32-36); Mean Corpuscular Volume 89.9 fL (80-100); Mean Platelet Volume 9.7 fL (7.4-10.4); Monocytes # (auto) 0.33 K/uL (0.11-0.59); Monocytes % (auto) 5.5 %; Neutrophils # (auto) 4.59 K/uL (1.4-6.5); Neutrophils % (auto) 76.3 %; Platelet Count 229 K/uL (130-400); RDW Standard Deviation 48.8 fL (36.4-46.3); Red Blood Count 4.27 M/uL (4.7-6.1); White Blood Count 6.02 K/uL (4.8-10.8)
[2020-12-24] MEDS: PARoxetine HCL 10 MG TAB PO SCH (09:10)
[2020-12-24] MEDS: lisinopril 20 MG TAB PO SCH (09:10)
[2020-12-24] MEDS: APIXABAN 5 MG TABLET PO SCH ×2 (09:10→19:35)
[2020-12-24] MEDS: DOCUSATE SODIUM 100 MG CAP PO SCH ×2 (09:10→19:34)
[2020-12-24] MEDS: AMIODARONE 200 MG TAB PO SCH (09:11)
[2020-12-24] MEDS: METOPROLOL TARTRATE 25 MG TAB PO SCH ×2 (09:11→19:34)
[2020-12-24] MEDS: CEROVITE ADV FORMULA TAB PO SCH (09:11)
[2020-12-24] MEDS: ATORVASTATIN 40 MG TAB PO SCH (09:11)
[2020-12-24] MEDS: ASPIRIN 81 MG ECTAB PO SCH (09:11)
[2020-12-24] MEDS: SPIRONOLACTONE 25 MG TAB PO SCH (09:11)
[2020-12-24] MEDS: DICLOFENAC SOD 1% GEL 100 GM TUBE EXT SCH ×4 (09:12→20:00)
[2020-12-24 09:17] LABS: BUN Creatinine Ratio 28.5 (10-20); Calcium 8.9 mg/dl (8.5-10.1); Creatinine Clr Calc Pharmacy 66.5 ml/min; Est GFR (African American) 92.3 ml/min; Est GFR (Non-African American) 79.6 ml/min
[2020-12-24] MEDS: POLYETHYLENE (MIRALAX) 17 GM PACK PO PRN (09:19)
[2020-12-24] MEDS: ACETAMINOPHEN 500 MG TAB PO SCH ×4 (09:19→23:31)
--- NOTE | 2020-12-24 10:03 | Hospitalist Progress Note ---
Date of Service December 24, 2020 Assessment & Plan (1) Unwitnessed fall: Plan: 80yo male with history of atrial flutter, CAD, HTN, HLD and SARA presenting by ambulance after unwitnessed fall at home - found down in prone position, unknown down time, acute fracture of right humerus. Unwitnessed fall/dysphagia/dementia/goals of care Patient with known underlying dementia; visit from [facility] (09/2020) mention patient is resistant to care, delusional and paranoid; was held on a 302 in [address] of the right knee to further assess for possible intra-articular fracture negative PT/OT evaluation -- SNF recommended, search ongoing by CM Speech consulted; aspiration on all tested consistencies - permissive aspiration accepted by patient's son (POA) Palliative consult discussed goals of care with family; proceed with SNF, possibly hospice thereafter Frequent reorientation, fall precautions Avoid delirium-inducing agents where possible; avoid Haldol as patient had QTc of 499 12/23: added seroquel 50mg PO hs; patient less agitated overnight but did refuse vitals 12/24: increasing to 100mg PO hs Right humeral fracture Patient found to have acute oblique displaced distal diaphyseal fracture of the humerus just distal to the humeral component of the right shoulder arthroplasty. Neurovascularly intact. Splint has been placed. Patient is on Apixaban for history of PAF and VTE. Pain control with APAP 1000mg q8h scheduled, Voltaren gel; morphine 1mg IV q4h prn breakthrough pain Orthopedic surgery consulted: Continue him in this coaptation splint for another week. (As of 12/12) Hopefully, by then, he will be moved out of the hospital and we can get him into a Jack brace at our office. Need to see him back if possible in about 2 weeks from his injury, somewhere between 2 and 3 weeks. Any orthopedic questions can be directed to Dr. Caesar Ruelas at [phone]. NSTEMI Troponin 0.319 with recheck at 0.246 - peaked on 12/10 Continue Metoprolol 37.5mg PO BID Continue aspirin 81mg PO daily Continue atorvastatin 40 mg daily CAD (coronary artery disease) Cardiac catheterization in 2011 performed for elevated troponin following episode of atrial fibrillation with RVR which revealed mild diffuse CAD [facility] Continue Lisinopril Continue beta britany, ASA, statin as above Atrial flutter Paroxysmal, on chronic Eliquis therapy Continue amiodarone, continue Eliquis Hypertension Blood pressure mildly elevated in setting of pain, trauma. No CP, SOB, BERNARD, dizziness Continue Lisinopril Continue Spironolactone Continue to monitor SARA (generalized anxiety disorder), Depression Restarted Paxil 10 daily (home med per patient) Anemia Chronic, stable No intervention indicated at this time FEN: heart-healthy, [id number] diet Bowel: colace, miralax Code status: DNR/DNI DVT ppx: eliquis PT/OT: following Case management: assisting with SNF placement Dispo: med/surg Admission and Anticipated Discharge Date Admission Date: December 04, 2020 Supervising Physician Co-Signing Physician Notes I personally examined the patient and verified all zamorano points of history and exam, discussed case, and agree with decision making with Dr Suresh no meaningful HPI or ROS. In general he is in no distress. HEENT normocephalic atraumatic mucous membranes moist. Right arm in a splint and sling. Breathing unlabored no accessory muscle use good effort.. Extremities show no cyanosis. Skin shows no rashes, pallor, icterus. Humerus fractureimmobilization, pain control, supportive care. splint changed. next ortho follow up in a couple weeks NSTEMIfortunately very mild. Med management. Troponin trended down after only a nominal elevation. Dysphagia/aspiration riskpermissive aspiration and supportive care. stable on RA Severe dementiasupportive care, seroquel (after discussion w son) Anticoagulated on apixaban For SNF once matched. Subjective Patient seen and evaluated at bedside this morning. Overnight, patient was uncooperative and refused vitals, but seems to have been less aggressive than previous overnight periods. Patient feels well today and complains only of mild right shoulder pain. No new symptoms today. Patient denies CP, SOB, abdominal pain, nausea, vomiting, lightheadedness, dizziness, and diarrhea. Review of Systems Review of Systems: See HPI Physical Exam Physical Exam: Constitutional: well-appearing, no acute distress, sitting up in bed eating breakfast CV: regular rhythm, no murmur appreciated, extremities well-perfused, no LE edema Resp: CTABL, no wheezes/rales/rhonchi appreciated, breathing non-labored MSK: right arm in sling Neuro: alert, oriented to person only, no focal deficit appreciated, calm and cooperative Results & Data Results & Data ([facility]) Vital Signs (Past 12 Hours) Vital Signs Temp Pulse Pulse Resp BP BP Pulse Ox 12/24/20 08:38 36.8 C 68 19 118/77 93 12/24/20 04:00 73 17 117/78 96 Resident Activity Tracking Resident Involvement: Resident Care Provided Care Provided: Adult Hospital Medicine
[2020-12-24] MEDS: oxyCODONE HCL IR 5 MG TAB (IMMEDIATE RELEASE) PO PRN (11:51)
--- NOTE | 2020-12-24 13:38 | Electrocardiogram Report ---
Test Reason : Blood Pressure : / mmHG Vent. Rate : 067 BPM Atrial Rate : 067 BPM P-R Int : 000 ms QRS Dur : 150 ms QT Int : 434 ms P-R-T Axes : 000 -25 015 degrees QTc Int : 458 ms Normal sinus rhythm with 1st degree A-V block Premature atrial complexes Right bundle branch block Inferior infarct , age undetermined Abnormal ECG When compared with ECG of 10-DEC-2020 12:55, Vent. rate has decreased BY 46 BPM T wave inversion no longer evident in Anterior leads Confirmed by Clifford Bowling ([id number]) on 12/24/2020 1:38:20 PM Referred By: REFERRED SELF Confirmed By:Clifford Bowling
--- NOTE | 2020-12-24 15:10 | Palliative Care Progress Note ---
Date of Service December 24, 2020 Assessment & Plan (1) Palliative care encounter: Plan: This afternoon, Mr. Muro is more awake and responsive, including being able to answer some simple questions; however, not reliably. Patient placement has been proving to be challenging due to his restlessness and agitation. He was requiring a 1:1 which has been discontinued, which hopefully can increase his SNF placement capabilities. As previously discussed a transition to SNF for gentle rehabilitation and evaluate how he progresses, but taking into consideration his frail state, poorly healing pressure ulcers, known aspiration, and overall cognitive decline, he is getting to the point of a more conservative approach to his care. As far as discussing things that bring him nikhil, Sam said there is not much that makes him smile anymore. Being in [employer] is the reported 'best time of his life'. He prefers SNF approach to be at the [facility] in [place], [facility] in [place], or [facility] but does recognize placement issues right now. Should he decline further medically after SNF placement or even while here in the hospital, he would not want him to return to the hospital for further treatment and, at that time, would want to transition him to a more hospice or comfort focused approach to his care. Current FAST score is all of 6 and including 7A. 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 POLST form completed during initial encounter and conversation with patients family.. See below. The above and below were discussed with the hospitalist resident and patient case coordinator. Thanks for involving palliative medicine with this individual. (2) Dysphagia: Plan: Patient with dysphagia noted. Per Speech therapy who evaluated the patient today, had significant aspiration noted during their eval. Discussed the above with the patients son, Sam. Pt would not want feeding tubes or artificial nutrition/hydration. Discussed permissive aspiration, and Sam is in support of focusing on allowing him to eat for pleasure, with known risk of aspiration as a focus of quality of life. He said that he really likes to eat cheese puffs. (3) Agitation: Plan: Patient with waxing and waning agitation. He has been started on Seroquel at . Initially he was taking 50 mg, now increased to 100 mg QHS. He has been followed by [facility] since September 2020 for paranoia and delusions He was a 302 hold in 09/2020. Prolonged QTC on Haldol. Use behavior modifying medications with caution. Continue to have Zyprexa PRN on board no doses utilized. 1:1 has been discontinued. (4) Paranoia: Plan: He has been followed by [facility] since September 2020 for paranoia and delusions He was a 302 hold in 09/2020. Minimal records have been accessed. (5) POLST (Physician Orders for Life-Sustaining Treatment): Plan: Discussed and completed over the phone with the patients son, Sam during previous encounter. it reads: DNR/DNI, PACKAGE CLERK, trial abx and no artificial nutrition or hydration. Avoid future hospitalizations unless cleared by family. Copy and original placed on chart. (6) SARA (generalized anxiety disorder): Admission and Anticipated Discharge Date Admission Date: December 04, 2020 Subjective Pt seen today and was sitting upright in his chair. He was able to converse with me and appears to be less agitated. He had just finished eating his lunch. See A/P for further details. Review of Systems Review of Systems: [place] System Assessment Scale: By observation Pain: 1/3 Anxiety: 1/3 SOB: 0/3 Tiredness: 1/3 Palliative Performance Scale: 30% Physical Exam Constitutional: + ill appearing and + frail appearing ENMT: Mouth: + dry oral mucous membranes Respiratory: normal respiratory effort Auscultation: + diminished lung sounds Cardiovascular: Rate/Rhythm: regular rate and regular rhythm Heart Sounds: normal S1 and normal S2 Extremities: normal capillary refill Gastrointestinal (Abdomen): Inspection/Auscultation: abdomen normal to inspection Skin: + ecchymosis and + pallor Psychiatric: Orientation: alert and oriented to person; + uncooperative Mood: + irritable mood Insight: + poor insight Judgement: + poor judgement Results & Data ([facility]) Vital Signs (Past 12 Hours) Vital Signs Temp Pulse Pulse Resp BP BP BP 12/24/20 15:09 36.5 C 78 18 103/61 12/24/20 10:38 36.4 C L 56 L 17 96/62 L 12/24/20 08:38 36.8 C 68 19 118/77 12/24/20 04:00 73 17 117/78 Pulse Ox 12/24/20 15:09 95 11/09/21 10:38 96 12/24/20 08:38 93 12/24/20 04:00 96 PG Care Time/CCT Total # of Minutes Spent Total Time Spent with Patient: Total time spent is greater than 50% in coordination of care (as documented) at patient's floor/unit and/or counseling patient: 35 minutes with > 50% of that time spent assessing the patient, discussing and evaluating symptom management needs and collaborating with IDT Coding Level of Care Code 21154 Subseq Hosp Care Lvl 3 Diagnoses Palliative care encounter Z51.5 Dysphagia R13.10 Agitation R45.1 Paranoia F22 POLST (Physician Orders for Life-Sustaining Treatment) Z78.9 SARA (generalized anxiety disorder) F41.1 Time Spent (min) 35
[2020-12-24] MEDS: QUEtiapine FUMARATE 100 MG TABLET PO SCH (19:34)
--- NOTE | 2020-12-24 20:12 | Progress Notes ---
DATE OF SERVICE: 12/24/2020 CHIEF COMPLAINT: Follow up of his right periprosthetic humeral diaphyseal fracture, now about 3 week s out. SUBJECTIVE: The patient is an 80-year-old gentleman, now about 3 weeks out from the above injury. Gurpreet victor is doing pretty well. He has been in a sugar-tong/coaptation splint for the past 3 weeks. He is n ot really having much pain. Has not gained any better function of his hand. No other real complaint s. OBJECTIVE: VITAL SIGNS: Temperature 36.7. Vital signs are stable. PHYSICAL EXAMINATION: EXTREMITIES: Physical examination of the right arm with the splint removed reveals diffuse bruising. There is just a slight bit of an angle at his humerus. It feels fairly stiff and feels to be heali ng. Seems to move as a single unit. He can make a fist to some degree. He cannot extend his finger s or his wrist. X-RAYS: None. ASSESSMENT: An 80-year-old gentleman 3 weeks out from a right displaced periprosthetic humerus fract ure, doing reasonably well. Pain is controlled. Fracture does seem to be healing. 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 This most likely will recover over elva e, but may take 6 months. PLAN: We are going to change him to a Jack brace today. I need to see him back in about 3 week s or so in clinic. Brace should be on at all times. Any questions can be directed to me at . Job ID: [id number]
[2020-12-25] MEDS: oxyCODONE HCL IR 5 MG TAB (IMMEDIATE RELEASE) PO PRN ×2 (01:01→10:27)
[2020-12-25] MEDS: ACETAMINOPHEN 500 MG TAB PO SCH ×3 (06:03→22:41)
--- NOTE | 2020-12-25 06:46 | Hospitalist Progress Note ---
Date of Service December 25, 2020 Assessment & Plan (1) Unwitnessed fall: Plan: 80yo male with history of atrial flutter, CAD, HTN, HLD and SARA presenting by ambulance after unwitnessed fall at home - found down in prone position, unknown down time, acute fracture of right humerus. Unwitnessed fall/dysphagia/dementia/goals of care Patient with known underlying dementia; visit from [facility] (09/2020) mention patient is resistant to care, delusional and paranoid; was held on a 302 in [address] of the right knee to further assess for possible intra-articular fracture negative PT/OT evaluation -- SNF recommended, search ongoing by CM Speech consulted; aspiration on all tested consistencies - permissive aspiration accepted by patient's son (POA) Palliative consult discussed goals of care with family; proceed with SNF, possibly hospice thereafter Frequent reorientation, fall precautions Avoid delirium-inducing agents where possible; avoid Haldol as patient had QTc of 499 Continue seroquel 100mg qhs - seems to have prevented agitation/aggression overnight Right humeral fracture Patient found to have acute oblique displaced distal diaphyseal fracture of the humerus just distal to the humeral component of the right shoulder arthroplasty. Neurovascularly intact. Splint has been placed. Patient is on Apixaban for history of PAF and VTE. Pain control with APAP 1000mg q8h scheduled, Voltaren gel; morphine 1mg IV q4h prn breakthrough pain Orthopedic surgery consulted: Continue him in this coaptation splint for another week. (As of 12/12) Hopefully, by then, he will be moved out of the hospital and we can get him into a Jack brace at our office. Need to see him back if possible in about 2 weeks from his injury, somewhere between 2 and 3 weeks. Any orthopedic questions can be directed to Dr. Caesar Ruelas at [phone]. NSTEMI Troponin 0.319 with recheck at 0.246 - peaked on 12/10 Continue Metoprolol 37.5mg PO BID Continue aspirin 81mg PO daily Continue atorvastatin 40 mg daily CAD (coronary artery disease) Cardiac catheterization in 2011 performed for elevated troponin following episode of atrial fibrillation with RVR which revealed mild diffuse CAD [facility] Lisinopril Continue beta britany, ASA, statin as above Atrial flutter Paroxysmal, on chronic Eliquis therapy Continue amiodarone, continue Eliquis Hypertension Blood pressure mildly elevated in setting of pain, trauma. No CP, SOB, BERNARD, d izziness Continue Lisinopril Continue Spironolactone Continue to monitor SARA (generalized anxiety disorder), Depression Restarted Paxil 10 daily (home med per patient) Anemia Chronic, stable No intervention indicated at this time FEN: heart-healthy, wkeg-[id number] diet Bowel: colace, miralax Code status: DNR/DNI DVT ppx: eliquis PT/OT: following Case management: assisting with SNF placement Dispo: med/surg Admission and Anticipated Discharge Date Admission Date: December 04, 2020 Supervising Physician Co-Signing Physician Notes I personally examined the patient and verified all zamorano points of history and ex am, discussed case, and agree with decision making with Dr Suresh no meaningful HPI or ROS. In general he is in no distress. HEENT normocephalic atraumatic mucous membranes moist. Right arm in a splint and sling. Breathing unlabored no accessory muscle use good effort.. Extremities show no cyanosis. Skin shows no rashes, pallor, icterus. Humerus fractureimmobilization, pain control, supportive care. splint changed. next ortho follow up in a couple weeks NSTEMIfortunately very mild. Med management. Troponin trended down after only a nominal elevation. Dysphagia/aspiration riskpermissive aspiration and supportive care. stable on RA Severe dementiasupportive care, titrate seroquel Anticoagulated on apixaban For SNF once matched. Subjective Patient seen and evaluated at bedside this morning. Per nursing documentation, patient had an uneventful night without behavioral disturbance. This morning, patient feels well and has no complaints. Report his shoulder feels fine today. No new symptoms. Patient denies CP, SOB, abdominal pain, nausea, vomiting, lightheadedness, dizziness, and diarrhea. Review of Systems Review of Systems: See HPI Physical Exam Physical Exam: Constitutional: well-appearing, no acute distress, sitting up in bed eating breakfast CV: regular rhythm, no murmur appreciated, extremities well-perfused, no LE edema Resp: CTABL, no wheezes/rales/rhonchi appreciated, breathing non-labored MSK: right arm in sling Neuro: alert, oriented to person only, no focal deficit appreciated, calm and cooperative Results & Data Results & Data ([facility]) Vital Signs (Past 12 Hours) Vital Signs Temp Pulse Pulse Resp BP BP Pulse Ox 12/24/20 23:36 36.5 C 77 18 102/65 97 12/24/20 19:36 111/71 12/24/20 19:24 36.7 C 74 18 117/70 91 Resident Activity Tracking Resident Involvement: Resident Care Provided Care Provided: Adult Hospital Medicine
[2020-12-25] MEDS: ATORVASTATIN 40 MG TAB PO SCH (08:06)
[2020-12-25] MEDS: DOCUSATE SODIUM 100 MG CAP PO SCH ×2 (08:06→22:41)
[2020-12-25] MEDS: ASPIRIN 81 MG ECTAB PO SCH (08:06)
[2020-12-25] MEDS: AMIODARONE 200 MG TAB PO SCH (08:06)
[2020-12-25] MEDS: METOPROLOL TARTRATE 25 MG TAB PO SCH ×2 (08:06→22:41)
[2020-12-25] MEDS: APIXABAN 5 MG TABLET PO SCH ×2 (08:06→22:33)
[2020-12-25] MEDS: lisinopril 20 MG TAB PO SCH (08:06)
[2020-12-25] MEDS: PARoxetine HCL 10 MG TAB PO SCH (08:07)
[2020-12-25] MEDS: CEROVITE ADV FORMULA TAB PO SCH (08:07)
[2020-12-25] MEDS: SPIRONOLACTONE 25 MG TAB PO SCH (08:07)
[2020-12-25] MEDS: DICLOFENAC SOD 1% GEL 100 GM TUBE EXT SCH ×4 (08:16→22:00)
--- NOTE | 2020-12-25 18:50 | Billing Data ---
Date of Service December 24, 2020 Coding Level of Care Code 90079 Subseq Hosp Care Lvl 1
--- NOTE | 2020-12-25 18:50 | Billing Data ---
Date of Service December 25, 2020 Coding Level of Care Code 17619 Subseq Hosp Care Lvl 1
[2020-12-25] MEDS: QUEtiapine FUMARATE 100 MG TABLET PO SCH (22:41)
[2020-12-26] MEDS: oxyCODONE HCL IR 5 MG TAB (IMMEDIATE RELEASE) PO PRN (03:02)
[2020-12-26] MEDS: ACETAMINOPHEN 500 MG TAB PO SCH ×3 (05:30→21:10)
--- NOTE | 2020-12-26 07:00 | Hospitalist Progress Note ---
Date of Service December 26, 2020 Assessment & Plan (1) Unwitnessed fall: Plan: 80yo male with history of atrial flutter, CAD, HTN, HLD and SARA presenting by ambulance after unwitnessed fall at home - found down in prone position, unknown down time, acute fracture of right humerus. Unwitnessed fall/dysphagia/dementia/goals of care Patient with known underlying dementia; visit from [facility] (09/2020) mention patient is resistant to care, delusional and paranoid; was held on a 302 in [address] of the right knee to further assess for possible intra-articular fracture negative PT/OT evaluation -- SNF recommended, search ongoing by CM Speech consulted; aspiration on all tested consistencies - permissive aspiration accepted by patient's son (POA) Palliative consult discussed goals of care with family; proceed with SNF, possibly hospice thereafter Frequent reorientation, fall precautions Avoid delirium-inducing agents where possible; avoid Haldol as patient had QTc of 499 Continue seroquel 100mg qhs - seems to have prevented agitation/aggression overnight Right humeral fracture Patient found to have acute oblique displaced distal diaphyseal fracture of the humerus just distal to the humeral component of the right shoulder arthroplasty. Neurovascularly intact. Splint has been placed. Patient is on Apixaban for history of PAF and VTE. Pain control with APAP 1000mg q8h scheduled, Voltaren gel; morphine 1mg IV q4h prn breakthrough pain Orthopedic surgery consulted: Continue him in this coaptation splint for another week. (As of 12/12) Hopefully, by then, he will be moved out of the hospital and we can get him into a Jack brace at our office. Need to see him back if possible in about 2 weeks from his injury, somewhere between 2 and 3 weeks. Any orthopedic questions can be directed to Dr. Caesar Ruelas at [phone]. Asymptomatic bacteriuria UA (12/26) turbid with WBCs, leuk esterase, nitrites Patient asymptomatic at this time, no treatment indicated NSTEMI Troponin 0.319 with recheck at 0.246 - peaked on 12/10 Continue Metoprolol 37.5mg PO BID Continue aspirin 81mg PO daily Continue atorvastatin 40 mg daily CAD (coronary artery disease) Cardiac catheterization in 2011 performed for elevated troponin following episode of atrial fibrillation with RVR which revealed mild diffuse CAD [facility] Continue Lisinopril Continue beta britany, ASA, statin as above Atrial flutter Paroxysmal, on chronic Eliquis therapy Continue amiodarone, continue Eliquis Hypertension Blood pressure mildly elevated in setting of pain, trauma. No CP, SOB, BERNARD, dizziness Continue Lisinopril Continue Spironolactone Continue to monitor SARA (generalized anxiety disorder), Depression Restarted Paxil 10 daily (home med per patient) Anemia Chronic, stable No intervention indicated at this time FEN: heart-healthy, [id number] diet Bowel: colace, miralax Code status: DNR/DNI DVT ppx: eliquis PT/OT: following Case management: assisting with SNF placement Dispo: med/surg Admission and Anticipated Discharge Date Admission Date: December 04, 2020 Supervising Physician Co-Signing Physician Notes I personally examined the patient and verified all zamorano points of history and exam, discussed case, and agree with decision making with Dr Suresh no meaningful HPI or ROS. In general he is in no distress. HEENT normocephalic atraumatic mucous membranes moist. Right arm in a splint and sling. Breathing unlabored no accessory muscle use good effort.. Extremities show no cyanosis. Skin shows no rashes, pallor, icterus. Humerus fracturecontinue immobilization, pain control, supportive care. splint changed. next ortho follow up in a couple weeks NSTEMIfortunately very mild. Med management. Troponin trended down after only a nominal elevation. Dysphagia/aspiration riskpermissive aspiration and supportive care. stable on RA Severe dementiasupportive care, continue to titrate seroquel Anticoagulated on apixaban For SNF once matched. Subjective Patient seen and evaluated at bedside this morning. No acute events overnight. Patient feels well today and has no complaints. Denies urinary complaints despite positive UA. Patient denies CP, SOB, abdominal pain, nausea, vomiting, lightheadedness, dizziness, and diarrhea. Review of Systems Review of Systems: See HPI Physical Exam Physical Exam: Constitutional: well-appearing, no acute distress, sitting up in bed eating breakfast CV: regular rhythm, no murmur appreciated, extremities well-perfused, no LE edema Resp: CTABL, no wheezes/rales/rhonchi appreciated, breathing non-labored MSK: right arm in sling Neuro: alert, oriented to person only, no focal deficit appreciated, calm and cooperative Results & Data Results & Data ([place]) Vital Signs (Past 12 Hours) Vital Signs Temp Pulse Resp BP Pulse Ox 12/25/20 23:21 36.5 C 88 20 111/75 94 Resident Activity Tracking Resident Involvement: Resident Care Provided Care Provided: Adult Hospital Medicine
[2020-12-26 07:04] LABS: Appearance Urine Turbid (Clear); Bacteria Urine Automated 4+ (Negative); Bilirubin Urine Negative (Negative); Blood Urine 3+ (Negative); Color Urine Dark Yellow; Glucose Urine UA Negative (Negative); Ketones Urine Negative (Negative); Leukocyte Esterase Urine 3+ (Negative); Nitrite Urine Positive (Negative); Protein Urine 1+ (Negative); Specific Gravity Urine 1.015 (1.000-1.030); Urobilinogen Urine Positive (Negative); WBC Urine Automated >30 /hpf (0-5); pH Urine 5.5 (4.5-7.5)
[2020-12-26] MEDS: APIXABAN 5 MG TABLET PO SCH ×2 (09:35→21:08)
[2020-12-26] MEDS: AMIODARONE 200 MG TAB PO SCH (09:35)
[2020-12-26] MEDS: ASPIRIN 81 MG ECTAB PO SCH (09:35)
[2020-12-26] MEDS: CEROVITE ADV FORMULA TAB PO SCH (09:36)
[2020-12-26] MEDS: lisinopril 20 MG TAB PO SCH (09:36)
[2020-12-26] MEDS: DOCUSATE SODIUM 100 MG CAP PO SCH ×2 (09:36→21:08)
[2020-12-26] MEDS: DICLOFENAC SOD 1% GEL 100 GM TUBE EXT SCH ×4 (09:36→21:08)
[2020-12-26] MEDS: METOPROLOL TARTRATE 25 MG TAB PO SCH ×2 (09:36→21:09)
[2020-12-26] MEDS: ATORVASTATIN 40 MG TAB PO SCH (09:36)
[2020-12-26 09:37] LABS: BUN Creatinine Ratio 33.7 (10-20); Calcium 8.6 mg/dl (8.5-10.1); Est GFR (African American) 88.3 ml/min; Est GFR (Non-African American) 76.2 ml/min; Potassium 4.6 mmol/L (3.5-5.1)
[2020-12-26] MEDS: PARoxetine HCL 10 MG TAB PO SCH (09:37)
[2020-12-26] MEDS: SPIRONOLACTONE 25 MG TAB PO SCH (09:37)
--- NOTE | 2020-12-26 18:19 | Billing Data ---
Date of Service December 26, 2020 Coding Level of Care Code 68607 Subseq Hosp Care Lvl 1
[2020-12-26] MEDS: QUEtiapine FUMARATE 100 MG TABLET PO SCH (21:09)
[2020-12-27] MEDS: ACETAMINOPHEN 500 MG TAB PO SCH ×3 (06:31→22:21)
--- NOTE | 2020-12-27 08:06 | Hospitalist Progress Note ---
Date of Service December 27, 2020 Assessment & Plan (1) Unwitnessed fall: Plan: 80yo male with history of atrial flutter, CAD, HTN, HLD and SARA presenting by ambulance after unwitnessed fall at home - found down in prone position, unknown down time, acute fracture of right humerus. Unwitnessed fall/dysphagia/dementia/goals of care Patient with known underlying dementia; visit from [facility] (09/2020) mention patient is resistant to care, delusional and paranoid; was held on a 302 in [address] of the right knee to further assess for possible intra-articular fracture negative PT/OT evaluation -- SNF recommended, search ongoing by CM Speech consulted; aspiration on all tested consistencies - permissive aspiration accepted by patient's son (POA) Palliative consult discussed goals of care with family; proceed with SNF, possibly hospice thereafter Frequent reorientation, fall precautions Avoid delirium-inducing agents where possible; avoid Haldol as patient had QTc of 499 Continue seroquel 100mg qhs - has been helping with aggression/agitation Right humeral fracture Patient found to have acute oblique displaced distal diaphyseal fracture of the humerus just distal to the humeral component of the right shoulder arthroplasty. Neurovascularly intact. Splint has been placed. Patient is on Apixaban for history of PAF and VTE. Pain control with APAP 1000mg q8h scheduled, Voltaren gel; morphine 1mg IV q4h prn breakthrough pain Orthopedic surgery consulted: Continue him in this coaptation splint for another week. (As of 12/12) Hopefully, by then, he will be moved out of the hospital and we can get him into a Jack brace at our office. Need to see him back if possible in about 2 weeks from his injury, somewhere between 2 and 3 weeks. Any orthopedic questions can be directed to Dr. Caesar Ruelas at [phone]. Asymptomatic bacteriuria UA (12/26) turbid with WBCs, leuk esterase, nitrites Patient asymptomatic at this time, no treatment indicated NSTEMI Troponin 0.319 with recheck at 0.246 - peaked on 12/10 Continue Metoprolol 37.5mg PO BID Continue aspirin 81mg PO daily Continue atorvastatin 40 mg daily CAD (coronary artery disease) Cardiac catheterization in 2011 performed for elevated troponin following episode of atrial fibrillation with RVR which revealed mild diffuse CAD [facility] Lisinopril Continue beta britany, ASA, statin as above Atrial flutter Paroxysmal, on chronic Eliquis therapy Continue amiodarone, continue Eliquis Hypertension Blood pressure mildly elevated in setting of pain, trauma. No CP, SOB, BERNARD, dizziness Continue Lisinopril Continue Spironolactone Continue to monitor SARA (generalized anxiety disorder), Depression Restarted Paxil 10 daily (home med per patient) Anemia Chronic, stable No intervention indicated at this time FEN: heart-healthy, [id number]-[id number] diet Bowel: colace, miralax Code status: DNR/DNI DVT ppx: eliquis PT/OT: following Case management: assisting with SNF placement Dispo: med/surg Admission and Anticipated Discharge Date Admission Date: December 04, 2020 Supervising Physician Co-Signing Physician Notes I personally examined the patient and verified all zamorano points of history and exam, discussed case, and agree with decision making with Dr Suresh no meaningful HPI or ROS. resting in brianne. In general he is in no distress. HEENT normocephalic atraumatic mucous membranes moist. Right arm in a splint and sling. Breathing unlabored no accessory muscle use good effort.. Extremities show no cyanosis. Skin shows no rashes, pallor, icterus. Humerus fracturecontinue immobilization, pain control, supportive care. splint changed. next ortho follow up in a couple weeks NSTEMIfortunately very mild. Med management. Troponin trended down after only a nominal elevation. Dysphagia/aspiration riskpermissive aspiration and supportive care. stable on RA Severe dementiasupportive care, continue to titrate seroquel Anticoagulated on apixaban For SNF once matched. Subjective Patient seen and evaluated at bedside this morning. . Patient feels well today and denies pain. Continues to deny urinary complaints. Patient denies CP, SOB, abdominal pain, nausea, vomiting, lightheadedness, dizziness, and diarrhea. Review of Systems Review of Systems: See HPI Physical Exam Physical Exam: Constitutional: well-appearing, no acute distress, sleeping in bed, easily arousable CV: regular rhythm, no murmur appreciated, extremities well-perfused, no LE edema Resp: CTABL, no wheezes/rales/rhonchi appreciated, breathing non-labored MSK: right arm in sling Neuro: alert, oriented to person only, no focal deficit appreciated, calm and cooperative Results & Data Results & Data ([facility]) Vital Signs (Past 12 Hours) Vital Signs Temp Pulse Resp BP Pulse Ox 12/27/20 07:25 65 18 103/57 L 98 12/26/20 23:01 36.4 C L 82 20 88/55 L 96 Resident Activity Tracking Resident Involvement: Resident Care Provided Care Provided: Adult Hospital Medicine
[2020-12-27] MEDS: APIXABAN 5 MG TABLET PO SCH ×3 (08:08→22:19)
[2020-12-27] MEDS: lisinopril 20 MG TAB PO SCH ×2 (08:08→09:14)
[2020-12-27] MEDS: AMIODARONE 200 MG TAB PO SCH (08:08)
[2020-12-27] MEDS: SPIRONOLACTONE 25 MG TAB PO SCH ×2 (08:08→09:15)
[2020-12-27] MEDS: METOPROLOL TARTRATE 25 MG TAB PO SCH ×3 (08:08→22:20)
[2020-12-27] MEDS: DICLOFENAC SOD 1% GEL 100 GM TUBE EXT SCH ×4 (08:08→22:19)
[2020-12-27] MEDS: ATORVASTATIN 40 MG TAB PO SCH ×2 (08:09→09:14)
[2020-12-27] MEDS: ASPIRIN 81 MG ECTAB PO SCH ×2 (08:09→09:14)
[2020-12-27] MEDS: DOCUSATE SODIUM 100 MG CAP PO SCH ×3 (08:09→22:20)
[2020-12-27] MEDS: CEROVITE ADV FORMULA TAB PO SCH ×2 (08:09→09:14)
[2020-12-27] MEDS: PARoxetine HCL 10 MG TAB PO SCH ×2 (08:09→09:14)
--- NOTE | 2020-12-27 18:44 | Billing Data ---
Date of Service December 27, 2020 Coding Level of Care Code 08086 Subseq Hosp Care Lvl 1
[2020-12-27] MEDS: QUEtiapine FUMARATE 100 MG TABLET PO SCH (22:21)
[2020-12-28] MEDS: ACETAMINOPHEN 500 MG TAB PO SCH ×3 (05:24→21:02)
--- NOTE | 2020-12-28 06:54 | Hospitalist Progress Note ---
Date of Service December 28, 2020 Assessment & Plan (1) Unwitnessed fall: Plan: 80yo male with history of atrial flutter, CAD, HTN, HLD and SARA presenting by ambulance after unwitnessed fall at home - found down in prone position, unknown down time, acute fracture of right humerus. Unwitnessed fall/dysphagia/dementia/goals of care Patient with known underlying dementia; visit from [facility] (09/2020) mention patient is resistant to care, delusional and paranoid; was held on a 302 in [address] of the right knee to further assess for possible intra-articular fracture negative PT/OT evaluation -- SNF recommended, search ongoing by CM Speech consulted; aspiration on all tested consistencies - permissive aspiration accepted by patient's son (POA) Palliative consult discussed goals of care with family; proceed with SNF, possibly hospice thereafter Frequent reorientation, fall precautions Avoid delirium-inducing agents where possible; avoid Haldol as patient had QTc of 499 Continue seroquel 100mg qhs - has been helping with aggression/agitation Right humeral fracture Patient found to have acute oblique displaced distal diaphyseal fracture of the humerus just distal to the humeral component of the right shoulder arthroplasty. Neurovascularly intact. Splint has been placed. Patient is on Apixaban for history of PAF and VTE. Pain control with APAP 1000mg q8h scheduled, Voltaren gel; morphine 1mg IV q4h prn breakthrough pain Orthopedic surgery consulted: Continue him in this coaptation splint for another week. (As of 12/12) Hopefully, by then, he will be moved out of the hospital and we can get him into a Jack brace at our office. Need to see him back if possible in about 2 weeks from his injury, somewhere between 2 and 3 weeks. Any orthopedic questions can be directed to Dr. Caesar Ruelas at [phone]. Asymptomatic bacteriuria UA (12/26) turbid with WBCs, leuk esterase, nitrites Patient asymptomatic at this time, no treatment indicated NSTEMI Troponin 0.319 with recheck at 0.246 - peaked on 12/10 Continue Metoprolol 37.5mg PO BID Continue aspirin 81mg PO daily Continue atorvastatin 40 mg daily CAD (coronary artery disease) Cardiac catheterization in 2011 performed for elevated troponin following episode of atrial fibrillation with RVR which revealed mild diffuse CAD [facility] Lisinopril Continue beta britany, ASA, statin as above Atrial flutter Paroxysmal, on chronic Eliquis therapy Continue amiodarone, continue Eliquis Hypertension Blood pressure mildly elevated in setting of pain, trauma. No CP, SOB, BERNARD, dizziness Continue Lisinopril Continue Spironolactone Continue to monitor SARA (generalized anxiety disorder), Depression Restarted Paxil 10 daily (home med per patient) Anemia Chronic, stable No intervention indicated at this time FEN: heart-healthy, [id number]-[id number] diet Bowel: colace, miralax Code status: DNR/DNI DVT ppx: eliquis PT/OT: following Case management: assisting with SNF placement Dispo: med/surg Admission and Anticipated Discharge Date Admission Date: December 04, 2020 Supervising Physician Co-Signing Physician Notes I personally examined the patient and verified all zamorano points of history and exam, discussed case, and agree with decision making with Dr Suresh no meaningful HPI or ROS. resting (sleeping) in bed. In general he is in no distress. HEENT normocephalic atraumatic mucous membranes moist. Right arm in a splint and sling. Breathing unlabored no accessory muscle use good effort.. Extremities show no cyanosis. Skin shows no rashes, pallor, icterus. Humerus fracturecontinue immobilization, pain controlled, supportive care. next ortho follow up in a couple weeks NSTEMIfortunately very mild. Med management. Troponin trended down after only a nominal elevation. Dysphagia/aspiration riskpermissive aspiration and supportive care. stable on RA Severe dementiasupportive care, continue to titrate seroquel Anticoagulated on apixaban For SNF once matched. Subjective Patient seen and evaluated at bedside this morning. Patient feels well today and only complains of a mild stomach ache which he says was caused by eating his breakfast quickly. No nausea, vomiting, fever, chills. Patient continues to deny urinary complaints. No other symptoms at this time. Review of Systems Review of Systems: See HPI Physical Exam Physical Exam: Constitutional: well-appearing, no acute distress, sitting up in bed CV: regular rhythm, no murmur appreciated Resp: CTABL, breathing non-labored MSK: right arm in sling Neuro: alert, oriented to person only, no focal deficit appreciated, calm and cooperative Results & Data Results & Data ([facility]) Vital Signs (Past 12 Hours) Vital Signs Temp Pulse Resp BP Pulse Ox 12/27/20 23:42 36.6 C 71 17 106/65 97 12/27/20 19:32 36.4 C L 95 H 18 107/71 97 Resident Activity Tracking Resident Involvement: Resident Care Provided Care Provided: Adult Hospital Medicine
[2020-12-28] MEDS: METOPROLOL TARTRATE 25 MG TAB PO SCH ×2 (07:22→21:01)
[2020-12-28] MEDS: SPIRONOLACTONE 25 MG TAB PO SCH (07:22)
[2020-12-28] MEDS: ASPIRIN 81 MG ECTAB PO SCH (07:22)
[2020-12-28] MEDS: PARoxetine HCL 10 MG TAB PO SCH (07:23)
[2020-12-28] MEDS: DOCUSATE SODIUM 100 MG CAP PO SCH ×2 (07:23→21:00)
[2020-12-28] MEDS: DICLOFENAC SOD 1% GEL 100 GM TUBE EXT SCH ×4 (07:23→20:59)
[2020-12-28] MEDS: CEROVITE ADV FORMULA TAB PO SCH (07:23)
[2020-12-28] MEDS: ATORVASTATIN 40 MG TAB PO SCH (07:23)
[2020-12-28] MEDS: lisinopril 20 MG TAB PO SCH (07:23)
[2020-12-28] MEDS: AMIODARONE 200 MG TAB PO SCH (07:23)
[2020-12-28] MEDS: APIXABAN 5 MG TABLET PO SCH ×2 (07:24→20:59)
[2020-12-28] MEDS: oxyCODONE HCL IR 5 MG TAB (IMMEDIATE RELEASE) PO PRN ×3 (10:05→21:01)
--- NOTE | 2020-12-28 18:19 | Billing Data ---
Date of Service December 28, 2020 Coding Level of Care Code 72913 Subseq Hosp Care Lvl 1
[2020-12-28] MEDS: QUEtiapine FUMARATE 100 MG TABLET PO SCH (21:01)
[2020-12-29] MEDS: ACETAMINOPHEN 500 MG TAB PO SCH ×3 (06:05→20:48)
--- NOTE | 2020-12-29 07:19 | Hospitalist Progress Note ---
Date of Service December 29, 2020 Assessment & Plan (1) Unwitnessed fall: Plan: 80yo male with history of atrial flutter, CAD, HTN, HLD and SARA presenting by ambulance after unwitnessed fall at home - found down in prone position, unknown down time, acute fracture of right humerus. Unwitnessed fall/dysphagia/dementia/goals of care Patient with known underlying dementia; visit from [facility] (09/2020) mention patient is resistant to care, delusional and paranoid; was held on a 302 in [address] of the right knee to further assess for possible intra-articular fracture negative PT/OT evaluation -- SNF recommended, search ongoing by CM Speech consulted; aspiration on all tested consistencies - permissive aspiration accepted by patient's son (POA) Palliative consult discussed goals of care with family; proceed with SNF, possibly hospice thereafter Frequent reorientation, fall precautions Avoid delirium-inducing agents where possible; avoid Haldol as patient had QTc of 499 Continue seroquel 100mg qhs - has been helping with aggression/agitation Right humeral fracture Patient found to have acute oblique displaced distal diaphyseal fracture of the humerus just distal to the humeral component of the right shoulder arthroplasty. Neurovascularly intact. Splint has been placed. Patient is on Apixaban for history of PAF and VTE. Pain control with APAP 1000mg q8h scheduled, Voltaren gel; morphine 1mg IV q4h prn breakthrough pain Orthopedic surgery consulted: Continue him in this coaptation splint for another week. (As of 12/12) Hopefully, by then, he will be moved out of the hospital and we can get him into a Jack brace at our office. Need to see him back if possible in about 2 weeks from his injury, somewhere between 2 and 3 weeks. Any orthopedic questions can be directed to Dr. Caesar Ruelas at [phone]. Asymptomatic bacteriuria UA (12/26) turbid with WBCs, leuk esterase, nitrites Patient asymptomatic at this time, no treatment indicated NSTEMI Troponin 0.319 with recheck at 0.246 - peaked on 12/10 Continue Metoprolol 37.5mg PO BID Continue aspirin 81mg PO daily Continue atorvastatin 40 mg daily CAD (coronary artery disease) Cardiac catheterization in 2011 performed for elevated troponin following episode of atrial fibrillation with RVR which revealed mild diffuse CAD [facility] Lisinopril Continue beta britany, ASA, statin as above Atrial flutter Paroxysmal, on chronic Eliquis therapy Continue amiodarone, continue Eliquis Hypertension Blood pressure mildly elevated in setting of pain, trauma. No CP, SOB, BERNARD, dizziness Continue Lisinopril Continue Spironolactone Continue to monitor SARA (generalized anxiety disorder), Depression Restarted Paxil 10 daily (home med per patient) Anemia Chronic, stable No intervention indicated at this time FEN: heart-healthy, pqqx-ro-[id number] diet Bowel: colace, miralax Code status: DNR/DNI DVT ppx: eliquis PT/OT: following Case management: assisting with SNF placement Dispo: med/surg Admission and Anticipated Discharge Date Admission Date: December 04, 2020 Supervising Physician Co-Signing Physician Notes I personally examined the patient and verified all zamorano points of history and exam, discussed case, and agree with decision making with Dr Suresh no meaningful HPI or ROS.sleeping in bed. In general he is in no distress. HEENT normocephalic atraumatic mucous membranes moist. Right arm in a splint and sling. Breathing unlabored no accessory muscle use good effort.. Extremities show no cyanosis. Skin shows no rashes, pallor, icterus. Humerus fracturecontinue immobilization, pain now overall controlled, suppor tive care. next ortho follow up in a couple weeks NSTEMIfortunately very mild. Med management. Troponin trended down after only a nominal elevation. Dysphagia/aspiration riskpermissive aspiration and supportive care. stable on RA Severe dementiasupportive care, continue to titrate seroquel (resident physician discussed risk/benefit of this with pt's son) Anticoagulated on apixaban For SNF once matched. has been a difficult placement issue Results & Data Results & Data ([facility]) Vital Signs (Past 12 Hours) Vital Signs Temp Pulse Resp BP Pulse Ox 12/28/20 23:42 36.5 C 71 18 109/76 94
[2020-12-29] MEDS: AMIODARONE 200 MG TAB PO SCH (08:42)
[2020-12-29] MEDS: DOCUSATE SODIUM 100 MG CAP PO SCH ×2 (08:43→20:44)
[2020-12-29] MEDS: DICLOFENAC SOD 1% GEL 100 GM TUBE EXT SCH ×5 (08:43→20:44)
[2020-12-29] MEDS: PARoxetine HCL 10 MG TAB PO SCH (08:43)
[2020-12-29] MEDS: APIXABAN 5 MG TABLET PO SCH ×2 (08:43→20:44)
[2020-12-29] MEDS: lisinopril 20 MG TAB PO SCH (08:43)
[2020-12-29] MEDS: SPIRONOLACTONE 25 MG TAB PO SCH (08:43)
[2020-12-29] MEDS: CEROVITE ADV FORMULA TAB PO SCH (08:43)
[2020-12-29] MEDS: ATORVASTATIN 40 MG TAB PO SCH (08:43)
[2020-12-29] MEDS: ASPIRIN 81 MG ECTAB PO SCH (08:43)
[2020-12-29] MEDS: METOPROLOL TARTRATE 25 MG TAB PO SCH ×2 (08:45→20:47)
--- NOTE | 2020-12-29 19:06 | Billing Data ---
Date of Service December 29, 2020 Coding Level of Care Code 77329 Subseq Hosp Care Lvl 1
[2020-12-29] MEDS: oxyCODONE HCL IR 5 MG TAB (IMMEDIATE RELEASE) PO PRN (20:44)
[2020-12-29] MEDS: QUEtiapine FUMARATE 100 MG TABLET PO SCH (20:45)
[2020-12-30] MEDS: ACETAMINOPHEN 500 MG TAB PO SCH ×3 (06:04→20:40)
[2020-12-30 06:52] LABS: Basophils # (auto) 0.01 K/uL (0-0.2); Basophils % (auto) 0.2 %; Eosinophils # (auto) 0.06 K/uL (0-0.5); Eosinophils % (auto) 1.1 %; Hematocrit (blood only) 36.7 % (42-52); Hemoglobin 11.7 g/dL (14.0-18.0); Immature Granulocytes # (auto) 0.01 K/uL (0.00-0.02); Immature Granulocytes % (auto) 0.2 %; Lymphocytes # (auto) 0.82 K/uL (1.2-3.4); Lymphocytes % (auto) 14.6 %; Mean Corpuscular Hemoglobin 29.1 pg (25-34); Mean Corpuscular Hgb Conc 31.9 g/dL (32-36); Mean Corpuscular Volume 91.3 fL (80-100); Mean Platelet Volume 9.2 fL (7.4-10.4); Monocytes # (auto) 0.51 K/uL (0.11-0.59); Monocytes % (auto) 9.1 %; Neutrophils # (auto) 4.19 K/uL (1.4-6.5); Neutrophils % (auto) 74.8 %; Platelet Count 178 K/uL (130-400); RDW Standard Deviation 50.3 fL (36.4-46.3); Red Blood Count 4.02 M/uL (4.7-6.1)
--- NOTE | 2020-12-30 06:59 | Hospitalist Progress Note ---
Date of Service December 30, 2020 Assessment & Plan (1) Unwitnessed fall: Plan: 80yo male with history of atrial flutter on apixaban, CAD, HTN, HLD and SARA presenting by ambulance after unwitnessed fall at home - found down in prone position, unknown down time, acute fracture of right humerus. Stable and awaiting placement. Unwitnessed fall/dysphagia/dementia/goals of care Patient with known underlying dementia; visit from [facility] (09/2020) mention patient is resistant to care, delusional and paranoid; was held on a 302 in [address] of the right knee to further assess for possible intra-articular fracture negative PT/OT evaluation -- SNF recommended, search ongoing by CM Speech consulted; aspiration on all tested consistencies - permissive aspiration accepted by patient's son (POA) Palliative consult discussed goals of care with family; proceed with SNF, possibly hospice thereafter or w/ worsening Frequent reorientation, fall precautions Avoid delirium-inducing agents where possible; avoid Haldol as patient had QTc of 499, repeat QTc 450s Continue seroquel 100mg qhs - has been helping with aggression/agitation Has PRN Zyprexa for agitation, has not needed Reached out to psych liason 12/30/20. Right humeral fracture w/ radial nerve palsy Patient found to have acute oblique displaced distal diaphyseal fracture of the humerus just distal to the humeral component of the right shoulder arthroplasty. Neurovascularly intact. Splint has been placed. Pain control with APAP 1000mg q8h scheduled, Voltaren gel; morphine 1mg IV q4h prn breakthrough pain Orthopedic surgery consulted: Continue him in this coaptation splint for another week. (As of 12/12) Hopefully, by then, he will be moved out of the hospital and we can get him into a Jack brace at our office. f/u 2 weeks from his injury, somewhere between 2 and 3 weeks. Any orthopedic questions can be directed to Dr. Caesar Ruelas at [phone]. 12/30/[address] Ruelas because of concern of minimal movement of R hand and the gross swelling. He notes that patient had similar presentation during his last encounter and that he expects the radial nerve palsy to persist and improve after some time, potentially up to months. Outpatient ortho f/u in 2 wks. He plans to examine patient tomorrow. Mild Troponin elevation sec to stress reaction -?NSTEMI Troponin 0.319 with recheck at 0.246 - peaked on 12/10 Continue Metoprolol 37.5mg PO BID Continue aspirin 81mg PO daily Continue atorvastatin 40 mg daily CAD (coronary artery disease) Cardiac catheterization in 2011 performed for elevated troponin following episode of atrial fibrillation with RVR which revealed mild diffuse CAD [facility] Lisinopril Continue beta britany, ASA, statin as above Atrial flutter Paroxysmal, on chronic Eliquis therapy Continue amiodarone, continue Eliquis Hypertension Blood pressure mildly elevated in setting of pain, trauma. No CP, SOB, BERNARD, dizziness Continue Lisinopril Continue Spironolactone SARA (generalized anxiety disorder), Depression Restarted Paxil 10 daily (home med per patient) Anemia Chronic, stable No intervention indicated at this time FEN: heart-healthy, goqx-re-jltm diet Bowel: colace, miralax Code status: DNR/DNI DVT ppx: On Apixaban for history of PAF and VTE. Case management: assisting with SNF placement Dispo: med/surg Admission and Anticipated Discharge Date Admission Date: December 04, 2020 Supervising Physician Co-Signing Physician Notes Resident Physician Supervision Note: I independently interviewed and examined the patient and verified the zamorano history and physical, reviewed labs and image studies and agree with resident Dr. Keen findings and care plan. Subjective Patient was sleeping comfortably. Upon waking up, denies any complaints. R arm pain only w/ movement. Asked about for the temperature outside and conversed briefly. PM update, per nursing, patient is more confused. Review of Systems Review of Systems: See HPI. Physical Exam Physical Exam: General: Baseline dementia, waxes/wanes. Partially oriented this AM. He knew he was in the hospital. Slight confusion as he later asks why he was asked these questions and said he thought he was in a zoo. NAD. Cooperative. Thin/frail habitus. HEENT: Atraumatic, normocephalic. Pulm: CTAB anteriorly. -wheezes, -rales, -rhonchi. No respiratory distress. Cardiac: RRR, -mrg. No LE edema. Abdominal: Nontender, nondistended, soft. Msk: Wearing shoulder sling. RUE swollen, especially at hand and darker in appearance. Minimal movement of R hand. Reassessed in PM: Patient R hand is flexed in contracture-like position at rest; however, he is able to lift arm and can flex his fingers slightly. Neuro: Sensation of RUE intact. Results & Data Results & Data ([facility]) Vital Signs (Past 12 Hours) Vital Signs irreg HR. low BP of 93/61 12/29 7AM, otherwise normotensive. sats appropriate on room air. 89 sat x1 at 0727 likely while sleeping. Temp Pulse Resp BP Pulse Ox 12/30/20 00:28 36.8 C 92 H 18 117/66 94 12/29/20 20:48 98 H 136/82 Temp Pulse Resp BP Pulse Ox 36.3 C L 81 18 122/73 89 L 12/30/20 07:27 12/30/20 07:27 12/30/20 07:27 12/30/20 07:27 12/30/20 07:27 Laboratory Results no leukocytosis. Hb stable 11.7. Na 134 stable x 1 wk. Cr 0.81. BUN/Cr 31.7H. 12/26 UA dirty. culture w/ enterobacter cloacae >100kcfu resistant to nitro furantoin 12/30/20 06:35 12/30/20 06:35 Resident Activity Tracking Resident Involvement: Resident Care Provided Care Provided: Adult Hospital Medicine
[2020-12-30 07:28] LABS: BUN Creatinine Ratio 31.7 (10-20); Calcium 8.7 mg/dl (8.5-10.1); Creatinine Clr Calc Pharmacy 74.6 ml/min; Est GFR (African American) 95.9 ml/min; Est GFR (Non-African American) 82.8 ml/min; Potassium 4.8 mmol/L (3.5-5.1)
[2020-12-30] MEDS: METOPROLOL TARTRATE 25 MG TAB PO SCH ×2 (08:58→20:29)
[2020-12-30] MEDS: SPIRONOLACTONE 25 MG TAB PO SCH (09:00)
[2020-12-30] MEDS: ASPIRIN 81 MG ECTAB PO SCH (09:00)
[2020-12-30] MEDS: CEROVITE ADV FORMULA TAB PO SCH (09:00)
[2020-12-30] MEDS: AMIODARONE 200 MG TAB PO SCH (09:00)
[2020-12-30] MEDS: DOCUSATE SODIUM 100 MG CAP PO SCH ×2 (09:01→20:31)
[2020-12-30] MEDS: APIXABAN 5 MG TABLET PO SCH ×2 (09:01→20:29)
[2020-12-30] MEDS: ATORVASTATIN 40 MG TAB PO SCH (09:01)
[2020-12-30] MEDS: PARoxetine HCL 10 MG TAB PO SCH (09:01)
[2020-12-30] MEDS: DICLOFENAC SOD 1% GEL 100 GM TUBE EXT SCH ×4 (09:02→20:28)
[2020-12-30] MEDS: lisinopril 20 MG TAB PO SCH (09:02)
--- NOTE | 2020-12-30 14:38 | Palliative Care Progress Note ---
Date of Service December 30, 2020 Assessment & Plan (1) Palliative care encounter: Plan: Mr. Muro is in no apparent distress. Patient placement has been proving to be challenging due to his restlessness and agitation. He was requiring a 1:1 which has been discontinued, which hopefully can increase his SNF placement capabilities. As previously discussed a transition to SNF for gentle rehabilitation and evaluate how he progresses, but taking into consideration his frail state, poorly healing pressure ulcers, known aspiration, and overall cognitive decline, he is getting to the point of a more conservative approach to his care. Placement concerns as case management diligently working on placement. Should he decline further medically after SNF placement or even while here in the hospital, his son would not want him to return to the hospital for further treatment and, at that time, would want to transition him to a more hospice or comfort focused approach to his care. Current FAST score is all of 6 and including 7A. 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 POLST form completed during initial encounter and conversation with patients family. See below for previously completed POLST. The above and below were discussed with the hospitalist resident and rn field case manager. Thanks for involving palliative medicine with this individual, please contact us with any additional symptom management or goal needs. (2) Dysphagia: Plan: Patient with dysphagia noted. Per Speech therapy who evaluated the patient today, had significant aspiration noted during their eval. Permissive aspiration as goal. (3) Agitation: Plan: Patient with waxing and waning agitation. Today, appears comfortable without any behavioral disturbance. He has been started on Seroquel at HS and is tolerating the 100mg QHS. He has been followed by [facility] since September 2020 for paranoia and delusions He was a 302 hold in 09/2020. Prolonged QTC on Haldol. Use behavior modifying medications with caution. Continue to have Zyprexa PRN on board no doses utilized. 1:1 has been discontinued and has not been needed to be reordered. (4) Paranoia: Plan: He has been followed by [facility] since September 2020 for paranoia and delusions He was a 302 hold in 09/2020. Minimal records have been accessed. (5) POLST (Physician Orders for Life-Sustaining Treatment): Plan: Discussed and completed over the phone with the patients son, Sam during previous encounter. 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 Avoid future hospitalizations unless cleared by family. Copy and original placed on chart last week. (6) SARA (generalized anxiety disorder): Admission and Anticipated Discharge Date Admission Date: December 04, 2020 Subjective Patient resting in his bed in no apparent distress. He had just finished eating breakfast. 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 See A/P for further details. Review of Systems Review of Systems: [place] [facility] Assessment Scale: Pain: 1/3 Anxiety: 0/3 SOB: 0/3 Tiredness: 1/3 Palliative Performance Scale: 30% Physical Exam Constitutional: + ill appearing and + frail appearing ENMT: Mouth: + dry oral mucous membranes Respiratory: normal respiratory effort Auscultation: + diminished lung sounds Cardiovascular: Rate/Rhythm: regular rate and regular rhythm Heart Sounds: normal S1 and normal S2 Extremities: normal capillary refill Gastrointestinal (Abdomen): Inspection/Auscultation: abdomen normal to inspection Skin: + ecchymosis and + pallor Psychiatric: Orientation: alert, oriented to person and cooperative Insight: + poor insight Judgement: + poor judgement Results & Data ([facility]) Vital Signs (Past 12 Hours) Vital Signs Temp Pulse Resp BP Pulse Ox 12/30/20 07:27 36.3 C L 81 18 122/73 89 L PG Care Time/CCT Total # of Minutes Spent Total Time Spent with Patient: Total time spent is greater than 50% in coordination of care (as documented) at patient's floor/unit and/or counseling patient: 35 minutes with > 50% of that time spent assessing the patient,addressing symptom management needs, and discussing plan of care with IDT Coding Level of Care Code 23451 Subseq Hosp Care Lvl 3 Diagnoses Palliative care encounter Z51.5 Dysphagia R13.10 Agitation R45.1 Paranoia F22 POLST (Physician Orders for Life-Sustaining Treatment) Z78.9 SARA (generalized anxiety disorder) F41.1 Time Spent (min) 35
[2020-12-30] MEDS: QUEtiapine FUMARATE 100 MG TABLET PO SCH (20:28)
[2020-12-31] MEDS: ACETAMINOPHEN 500 MG TAB PO SCH ×3 (06:41→21:06)
--- NOTE | 2020-12-31 06:45 | Hospitalist Progress Note ---
Date of Service December 31, 2020 Assessment & Plan (1) Unwitnessed fall: Plan: 80yo male with history of atrial flutter on apixaban, CAD, HTN, HLD and SARA presenting by ambulance after unwitnessed fall at home - found down in prone position, unknown down time, acute fracture of right humerus. Stable and awaiting placement. Unwitnessed fall/dysphagia/dementia visit from [facility] (09/2020) mention pat ient is resistant to care, delusional and paranoid; was held on a 302 in 2019 for homicidal ideations PT/OT evaluation -- SNF recommended, search ongoing by CM Frequent reorientation, fall precautions Avoid delirium-inducing agents where possible; avoid Haldol as patient had QTc of 499, repeat QTc 450s Continue seroquel 100mg qhs - has been helping with aggression/agitation Has PRN Zyprexa for agitation, has not needed Goal of care Speech consulted; aspiration on all tested consistencies - permissive aspiration accepted by patient's son (POA) Palliative consult discussed goals of care with family; proceed with SNF, possibly hospice thereafter or w/ worsening Right humeral fracture w/ radial nerve palsy Patient found to have acute oblique displaced distal diaphyseal fracture of the humerus just distal to the humeral component of the right shoulder arthroplasty. Neurovascularly intact. Splint has been placed. Pain control with APAP 1000mg q8h scheduled, Voltaren gel; morphine 1mg IV q4h prn breakthrough pain Orthopedic surgery consulted: Continue him in this coaptation splint for another week. (As of 12/12) Hopefully, by then, he will be moved out of the hospital and we can get him into a Jack brace at our office. f/u 2 weeks from his injury, somewhere between 2 and 3 weeks. Any orthopedic questions can be directed to Dr. Caesar Ruelas at [phone]. 12/31/20 Per ortho: continue Jack brace. Outpt f/u in 3 wks for xray. Wear sling most of time. Rerequested OT eval. OT will see on 01/01. Mild Troponin elevation sec to stress reaction -?NSTEMI CAD Troponin 0.319 with recheck at 0.246 - peaked on 12/10 Cardiac catheterization in 2011 performed for elevated troponin following epis ode of atrial fibrillation with RVR which revealed mild diffuse CAD [facility] Continue Lisinopril Continue beta britany, ASA, statin as above Atrial flutter Paroxysmal, on chronic Eliquis therapy Continue amiodarone, continue Eliquis Hypertension Blood pressure mildly elevated in setting of pain, trauma. No CP, SOB, BERNARD, dizziness Continue Lisinopril Continue Spironolactone SARA (generalized anxiety disorder), Depression Restarted Paxil 10 daily (home med per patient) Anemia Chronic, stable No intervention indicated at this time FEN: regular, minced and moist Bowel: colace, miralax Code status: DNR/DNI DVT ppx: On Apixaban for history of PAF and VTE. Dispo: med/surg Admission and Anticipated Discharge Date Admission Date: December 04, 2020 Supervising Physician Co-Signing Physician Notes Resident Physician Supervision Note: I independently interviewed and examined the patient and verified the zamorano history and physical, reviewed labs and image studies and agree with resident Dr. Keen findings and care plan. Subjective No complaints this morning. Denies shoulder pain or numbness/tingling. He is eating breakfast. He is more cheerful this AM and mentioned that he had a dream about being in a car. Review of Systems Review of Systems: See HPI. Other systems negative. Physical Exam Physical Exam: General: Baseline dementia, waxes/wanes. Partially oriented this AM. Conversational. Patient spoke on phone and knew he was in hospital for fall/fracture. He thought this happened 4 days ago. Cooperative. Thin/frail habitus. HEENT: Atraumatic, normocephalic. Pulm: CTAB anteriorly. -wheezes, -rales, -rhonchi. No respiratory distress. Cardiac: RRR, -mrg. No LE edema. Abdominal: Nontender, nondistended, soft. Msk: Wearing RUE Jack brace. RUE swollen, especially at hand. Patient's R hand/fingers is flexed it rest; however, he is able to lift arm and can flex his fingers slightly after he opens his fist with his other hand. Neuro: Sensation of RUE intact. Results & Data Results & Data ([facility]) Vital Signs (Past 12 Hours) Vital Signs on room air 94s. low of 89 12/30 AM. Temp Pulse Resp BP Pulse Ox 12/31/20 06:42 36.8 C 76 20 126/72 94 12/30/20 23:41 36.8 C 76 20 135/55 L 94 Temp Pulse Resp BP Pulse Ox 36.8 C 76 20 126/72 94 12/31/20 06:42 12/31/20 06:42 12/31/20 06:42 12/31/20 06:42 12/31/20 06:42 Laboratory Results cbc stable. hb 11.1. Na 134->136. Cr stable .71 12/31/20 08:00 12/31/20 08:00 Resident Activity Tracking Resident Involvement: Resident Care Provided Care Provided: Adult Hospital Medicine
[2020-12-31 08:09] LABS: Basophils # (auto) 0.01 K/uL (0-0.2); Basophils % (auto) 0.2 %; Eosinophils # (auto) 0.07 K/uL (0-0.5); Eosinophils % (auto) 1.5 %; Hematocrit (blood only) 34.5 % (42-52); Hemoglobin 11.1 g/dL (14.0-18.0); Immature Granulocytes # (auto) 0.01 K/uL (0.00-0.02); Immature Granulocytes % (auto) 0.2 %; Lymphocytes # (auto) 0.84 K/uL (1.2-3.4); Lymphocytes % (auto) 17.6 %; Mean Corpuscular Hemoglobin 29.2 pg (25-34); Mean Corpuscular Hgb Conc 32.2 g/dL (32-36); Mean Corpuscular Volume 90.8 fL (80-100); Mean Platelet Volume 9.2 fL (7.4-10.4); Monocytes # (auto) 0.39 K/uL (0.11-0.59); Monocytes % (auto) 8.2 %; Neutrophils # (auto) 3.46 K/uL (1.4-6.5); Neutrophils % (auto) 72.3 %; Platelet Count 163 K/uL (130-400); RDW Coefficient of Variation 14.9 % (11.5-14.5); RDW Standard Deviation 49.6 fL (36.4-46.3); White Blood Count 4.78 K/uL (4.8-10.8)
[2020-12-31 08:38] LABS: BUN Creatinine Ratio 30.9 (10-20); Calcium 8.7 mg/dl (8.5-10.1); Creatinine Clr Calc Pharmacy 85.1 ml/min; Est GFR (African American) 101.3 ml/min; Est GFR (Non-African American) 87.4 ml/min; Potassium 4.4 mmol/L (3.5-5.1)
[2020-12-31] MEDS: METOPROLOL TARTRATE 25 MG TAB PO SCH ×3 (08:57→20:56)
[2020-12-31] MEDS: DOCUSATE SODIUM 100 MG CAP PO SCH ×3 (08:57→20:56)
[2020-12-31] MEDS: ATORVASTATIN 40 MG TAB PO SCH ×2 (08:57→18:03)
[2020-12-31] MEDS: AMIODARONE 200 MG TAB PO SCH ×2 (08:57→18:02)
[2020-12-31] MEDS: SPIRONOLACTONE 25 MG TAB PO SCH ×2 (08:58→18:05)
[2020-12-31] MEDS: lisinopril 20 MG TAB PO SCH ×2 (08:58→18:04)
[2020-12-31] MEDS: PARoxetine HCL 10 MG TAB PO SCH ×2 (08:58→18:05)
[2020-12-31] MEDS: ASPIRIN 81 MG ECTAB PO SCH ×2 (08:58→18:03)
[2020-12-31] MEDS: CEROVITE ADV FORMULA TAB PO SCH ×2 (08:58→18:04)
[2020-12-31] MEDS: APIXABAN 5 MG TABLET PO SCH ×3 (08:59→20:56)
[2020-12-31] MEDS: DICLOFENAC SOD 1% GEL 100 GM TUBE EXT SCH ×4 (09:00→20:55)
--- NOTE | 2020-12-31 13:47 | Progress Notes ---
DATE OF SERVICE: 12/31/2020 SUBJECTIVE: An 80-year-old gentleman admitted with a right periprosthetic humeral fracture with a ra dial nerve palsy. He has been converted to a Jack brace. He is now about 3 weeks out from his injury. He is doing pretty well from the pain standpoint. Denies any real major pain. Says the bra ce is fitting okay. OBJECTIVE: VITAL SIGNS: Temperature is 36.8. Vital signs are stable. PHYSICAL EXAMINATION: EXTREMITIES: Physical examination of the right arm reveals a Jack brace to be in place. He has got moderate bruising and swelling of his right arm. The arm is acceptably aligned. The brace seem s to be fitting well. There are no areas of irritation. He still cannot extend his wrist or his fin gers. He has got diffuse edema. ASSESSMENT: An 80-year-old gentleman now 3+ weeks out from a periprosthetic right humeral diaphyseal fracture. He is in a Jack brace. The fracture does appear to be healing. PLAN: We are going to continue him in a Jack brace. I need to follow him up in about 3 weeks f or an x-ray. He should be wearing the sling most of the time. I will see him back in 3 weeks. Any orthopedic questions can be directed to me at [phone]. Job ID: [id number]
[2020-12-31] MEDS: QUEtiapine FUMARATE 100 MG TABLET PO SCH (20:59)
[2021-01-01] MEDS: ACETAMINOPHEN 500 MG TAB PO SCH ×3 (06:15→22:41)
--- NOTE | 2021-01-01 07:15 | Hospitalist Progress Note ---
Date of Service January 01, 2021 Assessment & Plan (1) Unwitnessed fall: Plan: 80yo male with history of atrial flutter on apixaban, CAD, HTN, HLD and SARA presenting by ambulance after unwitnessed fall at home - found down in prone position, unknown down time, acute fracture of right humerus, s/p brace. Stable and awaiting placement. Goal of care Speech consulted; aspiration on all tested consistencies - permissive aspiration accepted by patient's son (POA) Palliative consult discussed goals of care with family; No escalation of care. proceed with SNF, possibly hospice thereafter or w/ worsening Unwitnessed fall/dysphagia/dementia visit from [facility] (09/2020) mention patient is resistant to care, delusional and paranoid; was held on a 302 in 2019 for homicidal ideations PT/OT evaluation -- SNF recommended, search ongoing by CM Frequent reorientation, fall precautions Continue seroquel 100mg qhs - has been helping with aggression/agitation. Has PRN Zyprexa for agitation Right humeral fracture w/ radial nerve palsy Patient found to have acute oblique displaced distal diaphyseal fracture of the humerus just distal to the humeral component of the right shoulder arthroplasty. Neurovascularly intact. Splint has been placed. Pain control with APAP 1000mg q8h scheduled, Voltaren gel 12/31/20 Per ortho: continue Jack brace. Outpt f/u in 3 wks for xray. Wear sling most of time. Rerequested OT eval Mild Troponin elevation. CAD Troponin 0.319, since peaked; most likely demand ischemia Cardiac catheterization in 2011 performed for elevated troponin following episode of atrial fibrillation with RVR which revealed mild diffuse CAD Continue home regimen Atrial flutter Paroxysmal, on chronic Eliquis therapy and amiodarone Hypertension Continue home regimen SARA (generalized anxiety disorder), Depression Restarted Paxil 10 daily (home med per patient) Anemia Chronic, stable. No intervention indicated at this time FEN: regular, minced and moist Bowel: colace, miralax Code status: DNR/DNI DVT ppx: On Apixaban for history of PAF and VTE. Dispo: med/surg (2) SARA (generalized anxiety disorder): (3) CAD (coronary artery disease): (4) Hypertension: (5) Elevated troponin: (6) Goals of care, counseling/discussion: Admission and Anticipated Discharge Date Admission Date: December 04, 2020 Supervising Physician Co-Signing Physician Notes Resident Physician Supervision Note: I independently interviewed and examined the patient and verified the zamorano history and physical, reviewed labs and image studies and agree with resident Dr. Keen findings and care plan. Subjective Denies new complaints. mild pain at RUE. Last BM yesterday. Reading a book. Review of Systems Review of Systems: See HPI. Other systems negative. Physical Exam Physical Exam: General: Baseline dementia, waxes/wanes. Partially oriented this AM. Conversational. Calm. Cooperative. Thin/frail habitus. HEENT: Atraumatic, normocephalic. Pulm: CTAB anteriorly. -wheezes, -rales, -rhonchi. No respiratory distress. Cardiac: RRR, -mrg. No LE edema. Abdominal: Nontender, nondistended, soft. Msk: Wearing RUE Jack brace. RUE swollen, especially at hand. Patient's R hand/fingers is flexed it rest; however, he is able to lift arm and can flex his fingers slightly. Neuro: Sensation of RUE intact. Results & Data Results & Data ([facility]) Vital Signs (Past 12 Hours) Vital Signs Temp Pulse Resp BP Pulse Ox 01/01/21 07:35 36.8 C 87 20 134/76 92 12/31/20 15:29 37.4 C 95 H 18 125/80 97 Intake and Output 12/31/20 01/01/21 01/01/21 22:59 06:59 14:59 Intake Total 200 / 300 100 / 300 Output Total 600 / 950 350 / 950 Balance -400 / -650 -250 / -650 Intake: Oral 200 / 300 100 / 300 Output: Urine 600 / 950 350 / 950 Other: # Unmeasured Voids 1 Weight 75 kg Laboratory Results cbc stable. Hb 12.0 stable. Plt 169 stable. BMP appropriate 01/01/21 07:54 01/01/21 07:54 Resident Activity Tracking Resident Involvement: Resident Care Provided Care Provided: Adult Hospital Medicine
[2021-01-01 08:14] LABS: Basophils # (auto) 0.01 K/uL (0-0.2); Basophils % (auto) 0.2 %; Eosinophils # (auto) 0.03 K/uL (0-0.5); Eosinophils % (auto) 0.6 %; Hematocrit (blood only) 35.7 % (42-52); Immature Granulocytes # (auto) 0.01 K/uL (0.00-0.02); Immature Granulocytes % (auto) 0.2 %; Lymphocytes # (auto) 0.83 K/uL (1.2-3.4); Lymphocytes % (auto) 16.5 %; Mean Corpuscular Hemoglobin 30.2 pg (25-34); Mean Corpuscular Hgb Conc 33.6 g/dL (32-36); Mean Corpuscular Volume 89.9 fL (80-100); Mean Platelet Volume 9.6 fL (7.4-10.4); Monocytes # (auto) 0.44 K/uL (0.11-0.59); Monocytes % (auto) 8.7 %; Neutrophils # (auto) 3.71 K/uL (1.4-6.5); Neutrophils % (auto) 73.8 %; Platelet Count 169 K/uL (130-400); RDW Coefficient of Variation 14.8 % (11.5-14.5); RDW Standard Deviation 48.8 fL (36.4-46.3); Red Blood Count 3.97 M/uL (4.7-6.1); White Blood Count 5.03 K/uL (4.8-10.8)
[2021-01-01 08:37] LABS: Creatinine Clr Calc Pharmacy 91.5 ml/min; Est GFR (African American) 104.4 ml/min; Potassium 4.3 mmol/L (3.5-5.1)
[2021-01-01] MEDS: DOCUSATE SODIUM 100 MG CAP PO SCH ×2 (09:19→22:41)
[2021-01-01] MEDS: CEROVITE ADV FORMULA TAB PO SCH (09:21)
[2021-01-01] MEDS: lisinopril 20 MG TAB PO SCH (09:21)
[2021-01-01] MEDS: PARoxetine HCL 10 MG TAB PO SCH (09:21)
[2021-01-01] MEDS: SPIRONOLACTONE 25 MG TAB PO SCH (09:21)
[2021-01-01] MEDS: METOPROLOL TARTRATE 25 MG TAB PO SCH ×2 (09:22→22:42)
[2021-01-01] MEDS: DICLOFENAC SOD 1% GEL 100 GM TUBE EXT SCH ×4 (09:22→22:43)
[2021-01-01] MEDS: ATORVASTATIN 40 MG TAB PO SCH (09:22)
[2021-01-01] MEDS: AMIODARONE 200 MG TAB PO SCH (09:22)
[2021-01-01] MEDS: APIXABAN 5 MG TABLET PO SCH ×2 (09:22→22:42)
[2021-01-01] MEDS: ASPIRIN 81 MG ECTAB PO SCH (09:22)
[2021-01-01] MEDS: QUEtiapine FUMARATE 100 MG TABLET PO SCH (22:43)
[2021-01-02] MEDS: ACETAMINOPHEN 500 MG TAB PO SCH ×3 (05:42→21:21)
[2021-01-02] MEDS: CEROVITE ADV FORMULA TAB PO SCH (07:57)
[2021-01-02] MEDS: SPIRONOLACTONE 25 MG TAB PO SCH (07:57)
[2021-01-02] MEDS: ASPIRIN 81 MG ECTAB PO SCH (07:57)
[2021-01-02] MEDS: APIXABAN 5 MG TABLET PO SCH ×2 (07:57→21:21)
[2021-01-02] MEDS: METOPROLOL TARTRATE 25 MG TAB PO SCH ×2 (07:58→21:21)
[2021-01-02] MEDS: lisinopril 20 MG TAB PO SCH (07:58)
[2021-01-02] MEDS: PARoxetine HCL 10 MG TAB PO SCH (07:58)
[2021-01-02] MEDS: DICLOFENAC SOD 1% GEL 100 GM TUBE EXT SCH ×4 (07:59→21:23)
[2021-01-02] MEDS: AMIODARONE 200 MG TAB PO SCH (07:59)
[2021-01-02] MEDS: DOCUSATE SODIUM 100 MG CAP PO SCH ×2 (08:00→21:21)
[2021-01-02] MEDS: ATORVASTATIN 40 MG TAB PO SCH (08:00)
--- NOTE | 2021-01-02 08:21 | Hospitalist Progress Note ---
Date of Service January 02, 2021 Assessment & Plan (1) Unwitnessed fall: Plan: 80yo male with history of atrial flutter on apixaban, CAD, HTN, HLD and SARA presenting by ambulance after unwitnessed fall at home - found down in prone position, unknown down time, acute fracture of right humerus, s/p brace. Stable and awaiting placement. Goal of care Speech consulted; aspiration on all tested consistencies - permissive aspiration accepted by patient's son (POA) Palliative consult discussed goals of care with family; No escalation of care. proceed with SNF, possibly hospice thereafter or w/ worsening Unwitnessed fall/dysphagia/dementia visit from [facility] (09/2020) mention patient is resistant to care, delusional and paranoid; was held on a 302 in 2019 for homicidal ideations PT/OT evaluation -- SNF recommended, search ongoing by CM Frequent reorientation, fall precautions Continue seroquel 100mg qhs - has been helping with aggression/agitation. Has PRN Zyprexa for agitation Right humeral fracture w/ radial nerve palsy Patient found to have acute oblique displaced distal diaphyseal fracture of the humerus just distal to the humeral component of the right shoulder arthroplasty. Neurovascularly intact. Splint has been placed. Pain control with APAP 1000mg q8h scheduled, Voltaren gel 12/31/20 Per ortho: continue Jack brace. Outpt f/u in 3 wks for xray. Wear sling most of time. Restarted OT. Mild Troponin elevation. CAD Troponin 0.319, since peaked; most likely demand ischemia Cardiac catheterization in 2011 performed for elevated troponin following episode of atrial fibrillation with RVR which revealed mild diffuse CAD Continue home regimen Atrial flutter Paroxysmal, on chronic Eliquis therapy and amiodarone. Spits out some of the pills, so dosing may be suboptimal. As not in sustained RVR, will not treat w/ PRN at this time Hypertension Continue home regimen SARA (generalized anxiety disorder), Depression Restarted Paxil 10 daily (home med per patient) Anemia Chronic, stable. No intervention indicated at this time FEN: regular, minced and moist Bowel: colace, miralax Code status: DNR/DNI DVT ppx: On Apixaban for history of PAF and VTE. Dispo: med/surg (2) SARA (generalized anxiety disorder): (3) CAD (coronary artery disease): (4) Hypertension: (5) Elevated troponin: (6) Goals of care, counseling/discussion: Admission and Anticipated Discharge Date Admission Date: December 04, 2020 Supervising Physician Co-Signing Physician Notes Resident Physician Supervision Note: I independently interviewed and examined the patient and verified the zamorano history and physical, reviewed labs and image studies and agree with resident Dr. Keen findings and care plan. Subjective Slightly mumbling. Frustrated by not having had breakfast. Has some upper and lower back pain, and R shoulder discomfort. Denies cp/sob. Review of Systems Review of Systems: See HPI. Other systems negative. Physical Exam Physical Exam: General: Baseline dementia, waxes/wanes. Partially oriented this AM. Conversational. Cooperative. Thin/frail habitus. HEENT: Atraumatic, normocephalic. Pulm: CTAB anteriorly and laterally. -wheezes, -rales, -rhonchi. No respiratory distress. Cardiac: RRR, -mrg. No LE edema. Abdominal: Nontender, nondistended, soft. Msk: Wearing RUE Jack brace. Able to move RUE slightly. Neuro: Sensation of RUE intact. Able to wiggle fingers of right hand. Results & Data Results & Data ([facility]) Vital Signs (Past 12 Hours) Vital Signs pulse 102 intermittently. BP appropriate. afeb. 92-100 on RA. Temp Pulse Resp BP Pulse Ox 01/02/21 06:53 36.6 C 102 H 18 137/75 94 Laboratory Results no new labs ECG Additional Comments: 01/02 ecg w/ aflutter, rate 96. RBBB. Resident Activity Tracking Resident Involvement: Resident Care Provided Care Provided: Adult Hospital Medicine
[2021-01-02] MEDS ORDERED: METOPROLOL TARTRATE 1 MG/ML VIAL IV STA (16:39)
[2021-01-02] MEDS: QUEtiapine FUMARATE 100 MG TABLET PO SCH (21:21)
[2021-01-03] MEDS: ACETAMINOPHEN 500 MG TAB PO SCH ×3 (05:50→22:41)
--- NOTE | 2021-01-03 07:29 | Hospitalist Progress Note ---
Date of Service January 03, 2021 Assessment & Plan (1) Unwitnessed fall: Plan: 80yo male with history of atrial flutter on apixaban, CAD, HTN, HLD and SARA presenting by ambulance after unwitnessed fall at home - found down in prone position, unknown down time, acute fracture of right humerus, s/p brace. Stable and awaiting placement. Goal of care Speech consulted; aspiration on all tested consistencies - permissive aspiration accepted by patient's son (POA) Palliative consult discussed goals of care with family; No escalation of care. proceed with SNF, possibly hospice thereafter or w/ worsening Pressure ulcer Routine care by wound care. Repositioning. Unwitnessed fall/dysphagia/dementia visit from [facility] (09/2020) mention patient is resistant to care, delusional and paranoid; was held on a 302 in 2019 for homicidal ideations PT/OT evaluation -- SNF recommended, search ongoing by CM Frequent reorientation, fall precautions Continue seroquel 100mg qhs - has been helping with aggression/agitation. Has PRN Zyprexa for agitation Partial inadherence to medications. Reorient. Follow clinically. Right humeral fracture w/ radial nerve palsy Patient found to have acute oblique displaced distal diaphyseal fracture of the humerus just distal to the humeral component of the right shoulder arthroplasty. Neurovascularly intact. Splint has been placed. Pain control with APAP 1000mg q8h scheduled, Voltaren gel 12/31/20 Per ortho: continue Jack brace. Outpt f/u in 3 wks for xray. Wear sling most of time. Restarted OT. Mild Troponin elevation. CAD Troponin 0.319, since peaked; most likely demand ischemia Cardiac catheterization in 2011 performed for elevated troponin following episode of atrial fibrillation with RVR which revealed mild diffuse CAD Continue home regimen Atrial flutter Paroxysmal, on chronic Eliquis therapy and amiodarone. Spits out some of the pills, so dosing may be suboptimal. As not in sustained RVR, will not treat w/ PRN at this time Hypertension Continue home regimen SARA (generalized anxiety disorder), Depression Restarted Paxil 10 daily (home med per patient) Anemia Chronic, stable. No intervention indicated at this time FEN: regular, minced and moist Bowel: colace, miralax Code status: DNR/DNI DVT ppx: On Apixaban for history of PAF and VTE. Dispo: med/surg (2) SARA (generalized anxiety disorder): (3) CAD (coronary artery disease): (4) Hypertension: (5) Elevated troponin: (6) Goals of care, counseling/discussion: Admission and Anticipated Discharge Date Admission Date: December 04, 2020 Supervising Physician Co-Signing Physician Notes Resident Physician Supervision Note: I independently interviewed and examined the patient and verified the zamorano history and physical, reviewed labs and image studies and agree with resident Dr. Keen findings and care plan. Subjective States he "could be better." Main complain is pain at back. No current RUE pain. He has breakfast tray in front of him and bible open. Wound care nurse at bedside. No chest pain or SOB. Per nurse, spits up some of his medications while he is more confused. Review of Systems Review of Systems: See HPI. Other systems negative. Physical Exam Physical Exam: General: Baseline dementia, waxes/wanes. Partially oriented this AM. Conversational. Cooperative. Thin/frail habitus. HEENT: Atraumatic, normocephalic. Pulm: CTAB anteriorly and laterally. -wheezes, -rales, -rhonchi. No respiratory distress. Cardiac: RRR, -mrg. No LE edema. Abdominal: Nontender, nondistended, soft. Msk: Wearing RUE Jack brace. Able to move RUE slightly. Neuro: Sensation of RUE intact. Able to wiggle fingers of right hand. Plumbing Mechanic strength of R hand improving from prior days. Inte pressure ulcers on back, 1 at thoracic region, 2 at lumbrosacral region. Thoracic pressure ulcer ~stage 3 w/ raised/swollen area at top. Results & Data Results & Data ([facility]) Vital Signs (Past 12 Hours) Vital Signs 80s-90s o/n. BPs stable. Temp Pulse Pulse Resp BP Pulse Ox 01/03/21 03:39 37 C 84 18 112/60 95 01/02/21 23:14 36.9 C 91 H 20 105/63 96 01/02/21 21:27 85 109/65 Laboratory Results cbc stable. bmp stable. Resident Activity Tracking Resident Involvement: Resident Care Provided Care Provided: [facility]
--- NOTE | 2021-01-03 08:00 | Electrocardiogram Report ---
Test Reason : Blood Pressure : / mmHG Vent. Rate : 096 BPM Atrial Rate : 096 BPM P-R Int : 104 ms QRS Dur : 164 ms QT Int : 422 ms P-R-T Axes : 000 -20 -13 degrees QTc Int : 533 ms Poor data quality, interpretation may be adversely affected Sinus rhythm with short OK Right bundle branch block with repolarization abnormality Abnormal ECG When compared with ECG of 23-DEC-2020 20:29, Premature atrial complexes are no longer Present Confirmed by Gareth Man ([id number]) on 01/03/2021 7:59:55 AM Referred By: REFERRED SELF Confirmed By:Gareth Man
[2021-01-03] MEDS: DICLOFENAC SOD 1% GEL 100 GM TUBE EXT SCH ×4 (09:19→20:09)
[2021-01-03] MEDS: AMIODARONE 200 MG TAB PO SCH (09:19)
[2021-01-03] MEDS: CEROVITE ADV FORMULA TAB PO SCH ×2 (09:20→09:33)
[2021-01-03] MEDS: DOCUSATE SODIUM 100 MG CAP PO SCH ×3 (09:20→20:08)
[2021-01-03] MEDS: ASPIRIN 81 MG ECTAB PO SCH ×2 (09:20→09:33)
[2021-01-03] MEDS: lisinopril 20 MG TAB PO SCH (09:20)
[2021-01-03] MEDS: SPIRONOLACTONE 25 MG TAB PO SCH (09:20)
[2021-01-03] MEDS: ATORVASTATIN 40 MG TAB PO SCH ×2 (09:20→09:33)
[2021-01-03] MEDS: METOPROLOL TARTRATE 25 MG TAB PO SCH ×3 (09:20→20:09)
[2021-01-03] MEDS: PARoxetine HCL 10 MG TAB PO SCH ×2 (09:20→09:34)
[2021-01-03] MEDS: APIXABAN 5 MG TABLET PO SCH ×3 (09:20→20:08)
[2021-01-03] MEDS: QUEtiapine FUMARATE 100 MG TABLET PO SCH (20:10)
[2021-01-04] MEDS: ACETAMINOPHEN 500 MG TAB PO SCH ×3 (04:51→20:56)
[2021-01-04] MEDS: CEROVITE ADV FORMULA TAB PO SCH (08:31)
[2021-01-04] MEDS: ATORVASTATIN 40 MG TAB PO SCH (08:31)
[2021-01-04] MEDS: ASPIRIN 81 MG ECTAB PO SCH (08:31)
[2021-01-04] MEDS: APIXABAN 5 MG TABLET PO SCH (08:32)
[2021-01-04] MEDS: METOPROLOL TARTRATE 25 MG TAB PO SCH ×2 (08:32→20:03)
[2021-01-04] MEDS: PARoxetine HCL 10 MG TAB PO SCH (08:32)
[2021-01-04] MEDS: DOCUSATE SODIUM 100 MG CAP PO SCH ×2 (08:32→20:02)
--- NOTE | 2021-01-04 09:36 | Progress Notes ---
DATE OF SERVICE: 01/04/2021 SUBJECTIVE: An 80-year-old gentleman admitted with multiple medical issues and a displaced right per iprosthetic humerus fracture. He has been in a Jack brace for the past week and a half. He is doing pretty well. Denies any pain this morning. He is able to move his arm some. PHYSICAL EXAMINATION: EXTREMITIES: Physical examination of the right arm reveals a Jack brace to be in place. The ar m looks acceptably aligned. A little bit of bruising. Swelling is improved. Still has no radial ne rve function. He is in a wrist splint. ASSESSMENT: An 80-year-old gentleman now a month out from a right displaced periprosthetic humeral f racture. It does look to be healing. He still got a radial nerve palsy, which will likely improve w ith time. PLAN: We will continue the Jack brace and sling. I need to see him back in about 2 weeks. Any orthopedic questions can be directed to me at [phone]. Job ID: [id number]
--- NOTE | 2021-01-04 11:45 | Hospitalist Progress Note ---
Date of Service January 04, 2021 Assessment & Plan (1) Unwitnessed fall: Plan: 80yo male with history of atrial flutter on apixaban, CAD, HTN, HLD and SARA presenting by ambulance after unwitnessed fall at home - found down in prone position, unknown down time, acute fracture of right humerus, s/p brace. Stable. Awaiting placement. Goal of care Speech consulted; aspiration on all tested consistencies - permissive aspiration accepted by patient's son (POA) Palliative consult discussed goals of care with family; No escalation of care. proceed with SNF, possibly hospice thereafter or w/ worsening To note, there is difficulty with placement at this time as patient is NOT VACCINATED against COVID-19. Day 31 of hospitalization. Patient lacks capacity to make decision about the vaccination. POA not opposed to vaccination. Will get Ethics consult for further guidance regarding COVID vaccination. Pressure ulcer Routine care by wound care. Repositioning. Bed changed in attempt to decrease progression of pressure ulcers. Unwitnessed fall/dysphagia/dementia visit from [facility] (09/2020) mention patient is resistant to care, delusional and paranoid; was held on a 302 in 2019 for homicidal ideations PT/OT evaluation -- SNF recommended, search ongoing by CM Frequent reorientation, fall precautions Continue seroquel 100mg qhs - has been helping with aggression/agitation. Has PRN Zyprexa for agitation Partial inadherence to medications. Reorient. Follow clinically. Right humeral fracture w/ radial nerve palsy Patient found to have acute oblique displaced distal diaphyseal fracture of the humerus just distal to the humeral component of the right shoulder arthroplasty. Neurovascularly intact. Splint has been placed. Pain control with APAP 1000mg q8h scheduled, Voltaren gel 12/31/20 Per ortho: continue Jack brace. Outpt f/u in 3 wks for xray. Wear sling most of time. Restarted OT. Mild Troponin elevation. CAD Troponin 0.319, since peaked; most likely demand ischemia Cardiac catheterization in 2011 performed for elevated troponin following episode of atrial fibrillation with RVR which revealed mild diffuse CAD Continue home regimen Atrial flutter Paroxysmal, on chronic Eliquis therapy and amiodarone. Spits out some of the pills, so dosing may be suboptimal. As not in sustained RVR, will not treat w/ PRN at this time Hypertension Continue home regimen SARA (generalized anxiety disorder), Depression Restarted Paxil 10 daily (home med per patient) Anemia Chronic, stable. No intervention indicated at this time FEN: regular, minced and moist Bowel: colace, miralax Code status: DNR/DNI DVT ppx: On Apixaban for history of PAF and VTE. Dispo: med/surg (2) SARA (generalized anxiety disorder): (3) CAD (coronary artery disease): (4) Hypertension: (5) Elevated troponin: (6) Goals of care, counseling/discussion: Admission and Anticipated Discharge Date Admission Date: December 04, 2020 Supervising Physician Co-Signing Physician Notes Resident Physician Supervision Note: I independently interviewed and examined the patient and verified the zamorano history and physical, reviewed labs and image studies and agree with resident Dr. Newell findings and care plan. Subjective Patient with no specific complaints or concerns this morning. Is sitting in bed, breakfast tray brought to patient during my visit. Patient denies any pain, SOB, BERNARD. Review of Systems Review of Systems: All systems reviewed & are unremarkable except as noted in HPI & below Physical Exam Physical Exam: General: Baseline dementia, waxes/wanes; currently A/O x3. Conversational. Thin/frail habitus. HEENT: Atraumatic, normocephalic. EOMI. Pulm: CTAB anteriorly and laterally. -wheezes, -rales, -rhonchi. No respiratory distress. Cardiac: RRR, -mrg. No LE edema. Abdominal: Nontender, nondistended, soft. Normal bowel sounds. Msk: Wearing RUE Jack brace. Able to move RUE slightly. Results & Data Results & Data ([facility]) Vital Signs (Past 12 Hours) Vital Signs Temp Pulse Resp BP Pulse Ox 01/04/21 08:02 36.2 C L 76 16 114/71 100 01/04/21 03:20 80 103/69 Resident Activity Tracking Resident Involvement: Resident Care Provided Care Provided: Adult Hospital Medicine
[2021-01-04] MEDS: MoRPHine SULFATE 2 MG/ML CARP IV PRN (18:42)
[2021-01-04] MEDS: QUEtiapine FUMARATE 100 MG TABLET PO SCH (20:02)
[2021-01-05] MEDS: ACETAMINOPHEN 500 MG TAB PO SCH ×3 (05:26→21:34)
[2021-01-05] MEDS: METOPROLOL TARTRATE 25 MG TAB PO SCH ×2 (07:40→21:29)
[2021-01-05] MEDS: PARoxetine HCL 10 MG TAB PO SCH (07:41)
[2021-01-05] MEDS: ASPIRIN 81 MG ECTAB PO SCH (07:41)
[2021-01-05] MEDS: CEROVITE ADV FORMULA TAB PO SCH (07:42)
[2021-01-05] MEDS: ATORVASTATIN 40 MG TAB PO SCH (07:42)
[2021-01-05] MEDS: DOCUSATE SODIUM 100 MG CAP PO SCH ×2 (07:44→21:34)
[2021-01-05 08:12] LABS: Basophils # (auto) 0.01 K/uL (0-0.2); Basophils % (auto) 0.1 %; Eosinophils % (auto) 1.3 %; Hematocrit (blood only) 37.4 % (42-52); Hemoglobin 11.8 g/dL (14.0-18.0); Immature Granulocytes # (auto) 0.01 K/uL (0.00-0.02); Immature Granulocytes % (auto) 0.1 %; Lymphocytes # (auto) 0.68 K/uL (1.2-3.4); Lymphocytes % (auto) 8.9 %; Mean Corpuscular Hemoglobin 28.9 pg (25-34); Mean Corpuscular Hgb Conc 31.6 g/dL (32-36); Mean Corpuscular Volume 91.4 fL (80-100); Mean Platelet Volume 9.7 fL (7.4-10.4); Monocytes # (auto) 0.49 K/uL (0.11-0.59); Monocytes % (auto) 6.4 %; Neutrophils # (auto) 6.31 K/uL (1.4-6.5); Neutrophils % (auto) 83.2 %; Platelet Count 224 K/uL (130-400); RDW Coefficient of Variation 14.8 % (11.5-14.5); RDW Standard Deviation 49.8 fL (36.4-46.3); Red Blood Count 4.09 M/uL (4.7-6.1)
[2021-01-05 08:40] LABS: BUN Creatinine Ratio 37.6 (10-20); Calcium 8.7 mg/dl (8.5-10.1); Creatinine Clr Calc Pharmacy 91.5 ml/min; Est GFR (African American) 104.4 ml/min; Potassium 4.3 mmol/L (3.5-5.1)
[2021-01-05] MEDS ORDERED: BACITRACIN OINT 0.9 GM PKT EXT SCH (12:30)
[2021-01-05] MEDS: BACITRACIN OINT 15 GM TUBE EXT SCH (12:55)
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
[2021-01-05] MEDS: QUEtiapine FUMARATE 100 MG TABLET PO SCH (21:30)
[2021-01-06] MEDS: ACETAMINOPHEN 500 MG TAB PO SCH ×3 (05:07→21:10)
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
--- NOTE | 2021-01-06 08:57 | Communication Note ---
Date of Service: January 06, 2021 ethics note consulted - see a/p from yesterday's progress notes --> pt lacks capacity, if POA not opposed to covid vaccination, ethically would be OK to proceed.
[2021-01-06 09:29] LABS: Basophils # (auto) 0.01 K/uL (0-0.2); Basophils % (auto) 0.1 %; Eosinophils # (auto) 0.09 K/uL (0-0.5); Hematocrit (blood only) 33.5 % (42-52); Hemoglobin 10.7 g/dL (14.0-18.0); Immature Granulocytes # (auto) 0.02 K/uL (0.00-0.02); Immature Granulocytes % (auto) 0.2 %; Lymphocytes # (auto) 0.92 K/uL (1.2-3.4); Lymphocytes % (auto) 10.6 %; Mean Corpuscular Hemoglobin 29.1 pg (25-34); Mean Corpuscular Hgb Conc 31.9 g/dL (32-36); Mean Platelet Volume 9.4 fL (7.4-10.4); Monocytes # (auto) 0.71 K/uL (0.11-0.59); Monocytes % (auto) 8.2 %; Neutrophils # (auto) 6.95 K/uL (1.4-6.5); Neutrophils % (auto) 79.9 %; Platelet Count 203 K/uL (130-400); RDW Coefficient of Variation 15.2 % (11.5-14.5); RDW Standard Deviation 50.9 fL (36.4-46.3); Red Blood Count 3.68 M/uL (4.7-6.1)
[2021-01-06] MEDS: PARoxetine HCL 10 MG TAB PO SCH (09:45)
[2021-01-06] MEDS: ATORVASTATIN 40 MG TAB PO SCH (09:45)
[2021-01-06] MEDS: CEROVITE ADV FORMULA TAB PO SCH (09:45)
[2021-01-06] MEDS: BACITRACIN OINT 15 GM TUBE EXT SCH (09:46)
[2021-01-06] MEDS: ASPIRIN 81 MG ECTAB PO SCH (09:46)
[2021-01-06] MEDS: METOPROLOL TARTRATE 25 MG TAB PO SCH ×2 (09:46→20:32)
[2021-01-06] MEDS: DOCUSATE SODIUM 100 MG CAP PO SCH ×2 (09:48→20:33)
[2021-01-06 10:02] LABS: BUN Creatinine Ratio 37.6 (10-20); Calcium 7.9 mg/dl (8.5-10.1); Creatinine Clr Calc Pharmacy 82.8 ml/min; Est GFR (African American) 100.1 ml/min; Est GFR (Non-African American) 86.4 ml/min; Potassium 4.1 mmol/L (3.5-5.1)
--- NOTE | 2021-01-06 18:29 | Billing Data ---
Date of Service January 06, 2021 Coding Level of Care Code 09019 Subseq Hosp Care Lvl 1
[2021-01-06] MEDS: QUEtiapine FUMARATE 100 MG TABLET PO SCH (20:33)
[2021-01-07] MEDS: ACETAMINOPHEN 500 MG TAB PO SCH ×4 (06:06→23:23)
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
[2021-01-07 07:32] LABS: Basophils # (auto) 0.01 K/uL (0-0.2); Basophils % (auto) 0.1 %; Eosinophils # (auto) 0.18 K/uL (0-0.5); Eosinophils % (auto) 2.6 %; Hematocrit (blood only) 33.9 % (42-52); Hemoglobin 10.7 g/dL (14.0-18.0); Immature Granulocytes # (auto) 0.03 K/uL (0.00-0.02); Immature Granulocytes % (auto) 0.4 %; Mean Corpuscular Hemoglobin 29.1 pg (25-34); Mean Corpuscular Hgb Conc 31.6 g/dL (32-36); Mean Corpuscular Volume 92.1 fL (80-100); Mean Platelet Volume 9.6 fL (7.4-10.4); Monocytes # (auto) 0.55 K/uL (0.11-0.59); Neutrophils # (auto) 5.23 K/uL (1.4-6.5); Neutrophils % (auto) 75.9 %; Platelet Count 220 K/uL (130-400); RDW Coefficient of Variation 15.3 % (11.5-14.5); Red Blood Count 3.68 M/uL (4.7-6.1)
[2021-01-07 08:06] LABS: Albumin Level 2.1 gm/dl (3.4-5.0); BUN Creatinine Ratio 37.7 (10-20); Calcium 8.4 mg/dl (8.5-10.1); Creatinine Clr Calc Pharmacy 79.5 ml/min; Est GFR (African American) 98.5 ml/min; Potassium 4.5 mmol/L (3.5-5.1)
[2021-01-07 08:08] LABS: Albumin Globulin Ratio 0.5 (0.9-2); Bilirubin,Total 0.5 mg/dl (0.2-1); Globulin 4.1 gm/dl (2.5-4.0); Total Protein 6.2 gm/dl (6.4-8.2)
[2021-01-07] MEDS: METOPROLOL TARTRATE 25 MG TAB PO SCH ×2 (08:14→20:23)
[2021-01-07] MEDS ORDERED: MELATONIN 3 MG TAB PO PRN (08:15)
[2021-01-07] MEDS: ASPIRIN 81 MG ECTAB PO SCH (08:15)
[2021-01-07] MEDS: ATORVASTATIN 40 MG TAB PO SCH (08:15)
[2021-01-07] MEDS: CEROVITE ADV FORMULA TAB PO SCH (08:15)
[2021-01-07] MEDS: BACITRACIN OINT 15 GM TUBE EXT SCH (08:16)
[2021-01-07] MEDS: DOCUSATE SODIUM 100 MG CAP PO SCH ×2 (09:44→20:22)
[2021-01-07] MEDS: MoRPHine SULFATE 2 MG/ML CARP IV PRN (10:44)
--- NOTE | 2021-01-07 17:29 | Billing Data ---
Date of Service January 07, 2021 Coding Level of Care Code 28343 Subseq Hosp Care Lvl 1
[2021-01-07] MEDS: QUEtiapine FUMARATE 100 MG TABLET PO SCH (20:27)
[2021-01-08] MEDS: ACETAMINOPHEN 500 MG TAB PO SCH ×3 (05:41→21:40)
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
[2021-01-08] MEDS: METOPROLOL TARTRATE 25 MG TAB PO SCH ×2 (08:06→21:39)
[2021-01-08] MEDS: ATORVASTATIN 40 MG TAB PO SCH (08:06)
[2021-01-08] MEDS: ASPIRIN 81 MG ECTAB PO SCH (08:07)
[2021-01-08] MEDS: BACITRACIN OINT 15 GM TUBE EXT SCH (08:07)
[2021-01-08] MEDS: CEROVITE ADV FORMULA TAB PO SCH (08:07)
[2021-01-08] MEDS: OLANZapine ZYDIS 5 MG ORALLY DIS. TAB PO PRN (08:07)
[2021-01-08] MEDS: DOCUSATE SODIUM 100 MG CAP PO SCH ×2 (08:18→21:41)
--- NOTE | 2021-01-08 17:43 | Billing Data ---
Date of Service January 08, 2021 Coding Level of Care Code 89127 Subseq Hosp Care Lvl 1
[2021-01-08] MEDS: QUEtiapine FUMARATE 100 MG TABLET PO SCH (21:41)
[2021-01-09] MEDS: ACETAMINOPHEN 500 MG TAB PO SCH ×3 (06:12→21:42)
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
[2021-01-09] MEDS: METOPROLOL TARTRATE 25 MG TAB PO SCH ×2 (09:40→20:44)
[2021-01-09] MEDS: OLANZapine ZYDIS 5 MG ORALLY DIS. TAB PO PRN (09:40)
[2021-01-09] MEDS: ASPIRIN 81 MG ECTAB PO SCH (09:40)
[2021-01-09] MEDS: CEROVITE ADV FORMULA TAB PO SCH (09:40)
[2021-01-09] MEDS: BACITRACIN OINT 15 GM TUBE EXT SCH (09:41)
[2021-01-09] MEDS: DOCUSATE SODIUM 100 MG CAP PO SCH ×2 (09:41→20:44)
[2021-01-09] MEDS: ATORVASTATIN 40 MG TAB PO SCH (09:41)
--- NOTE | 2021-01-09 17:27 | Billing Data ---
Date of Service January 09, 2021 Coding Level of Care Code 94351 Subseq Hosp Care Lvl 1
[2021-01-09] MEDS: QUEtiapine FUMARATE 100 MG TABLET PO SCH (20:44)
[2021-01-10] MEDS: ACETAMINOPHEN 500 MG TAB PO SCH ×3 (05:54→21:04)
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
[2021-01-10] MEDS: ASPIRIN 81 MG ECTAB PO SCH (09:17)
[2021-01-10] MEDS: CEROVITE ADV FORMULA TAB PO SCH (09:17)
[2021-01-10] MEDS: METOPROLOL TARTRATE 25 MG TAB PO SCH ×2 (09:18→21:06)
[2021-01-10] MEDS: DOCUSATE SODIUM 100 MG CAP PO SCH ×2 (09:18→21:04)
[2021-01-10] MEDS: BACITRACIN OINT 15 GM TUBE EXT SCH (09:18)
[2021-01-10] MEDS ORDERED: OLANZapine ZYDIS 5 MG ORALLY DIS. TAB PO PRN (17:19)
--- NOTE | 2021-01-10 17:50 | Billing Data ---
Date of Service January 10, 2021 Coding Level of Care Code 99533 Subseq Hosp Care Lvl 1
[2021-01-10] MEDS: QUEtiapine FUMARATE 100 MG TABLET PO SCH (21:04)
[2021-01-10] MEDS: APIXABAN 5 MG TABLET PO SCH (21:04)
[2021-01-11] MEDS: ACETAMINOPHEN 500 MG TAB PO SCH ×3 (05:32→22:36)
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
[2021-01-11] MEDS: APIXABAN 5 MG TABLET PO SCH ×2 (11:08→20:52)
[2021-01-11] MEDS: AMIODARONE 200 MG TAB PO SCH (11:08)
[2021-01-11] MEDS: CEROVITE ADV FORMULA TAB PO SCH (11:09)
[2021-01-11] MEDS: METOPROLOL TARTRATE 25 MG TAB PO SCH ×2 (11:09→20:53)
[2021-01-11] MEDS: DOCUSATE SODIUM 100 MG CAP PO SCH ×2 (11:09→20:52)
[2021-01-11] MEDS: BACITRACIN OINT 15 GM TUBE EXT SCH (11:09)
[2021-01-11] MEDS: ASPIRIN 81 MG ECTAB PO SCH (11:09)
[2021-01-11] MEDS: MoRPHine SULFATE 2 MG/ML CARP IV PRN (17:15)
--- NOTE | 2021-01-11 20:44 | Billing Data ---
Date of Service January 11, 2021 Coding Level of Care Code 27239 Subseq Hosp Care Lvl 2
[2021-01-11] MEDS: QUEtiapine FUMARATE 100 MG TABLET PO SCH (20:52)
[2021-01-12] MEDS: ACETAMINOPHEN 500 MG TAB PO SCH ×3 (06:15→21:00)
[2021-01-12 07:23] LABS: BUN Creatinine Ratio 33.2 (10-20); Calcium 8.3 mg/dl (8.5-10.1); Creatinine Clr Calc Pharmacy 102.4 ml/min; Est GFR (African American) 109.3 ml/min; Est GFR (Non-African American) 94.3 ml/min; Potassium 4.2 mmol/L (3.5-5.1)
[2021-01-12 07:33] LABS: Thyroid Stimulating Hormone 0.657 uIu/ml (0.300-4.500)
[2021-01-12] MEDS: METOPROLOL TARTRATE 25 MG TAB PO SCH ×2 (08:24→20:57)
[2021-01-12] MEDS: APIXABAN 5 MG TABLET PO SCH ×2 (08:25→20:58)
[2021-01-12] MEDS: AMIODARONE 200 MG TAB PO SCH (08:25)
[2021-01-12] MEDS: BACITRACIN OINT 15 GM TUBE EXT SCH (08:26)
[2021-01-12] MEDS: CEROVITE ADV FORMULA TAB PO SCH (08:26)
[2021-01-12] MEDS: ASPIRIN 81 MG ECTAB PO SCH (08:26)
[2021-01-12] MEDS: DOCUSATE SODIUM 100 MG CAP PO SCH ×2 (08:27→20:58)
--- NOTE | 2021-01-12 10:48 | Electrocardiogram Report ---
Test Reason : Blood Pressure : / mmHG Vent. Rate : 085 BPM Atrial Rate : 208 BPM P-R Int : 000 ms QRS Dur : 148 ms QT Int : 422 ms P-R-T Axes : 000 -30 -02 degrees QTc Int : 502 ms Atrial flutter with variable A-V block Left axis deviation Right bundle branch block Abnormal ECG When compared with ECG of 02-JAN-2021 16:37, Atrial flutter has replaced Sinus rhythm Confirmed by Wilbur Paul ([id number] on 01/12/2021 10:47:54 AM Referred By: REFERRED SELF Confirmed By:Gilbert Paul
--- NOTE | 2021-01-12 10:53 | Hospitalist Progress Note ---
Date of Service January 12, 2021 Assessment & Plan (1) Unwitnessed fall: Plan: 80yo male with history of atrial flutter on apixaban, CAD, HTN, HLD and SARA presenting by ambulance after unwitnessed fall at home - found down in prone position, unknown down time, acute fracture of right humerus, s/p brace. Stable. Awaiting placement at SNF, but requires COVID-19 vaccination for placement. Unwitnessed fall/dysphagia/dementia visit from [facility] (09/2020) mention patient is resistant to care, delusional and paranoid; was held on a 302 in 2019 for homicidal ideations PT/OT evaluation -- SNF recommended, search ongoing by CM Frequent reorientation, fall precautions Continue seroquel 100mg qhs - has been helping with aggression/agitation. Has PRN Zyprexa for severe agitation Goal of care Speech consulted; aspiration on all tested consistencies - permissive aspiration accepted by patient's son (POA) Palliative consult discussed goals of care with family; No escalation of care. proceed with SNF, possibly hospice thereafter or w/ worsening To note, there is difficulty with placement at this time as patient is NOT VACCINATED against COVID-19. Patient lacks capacity to make decision about the vaccination. POA not opposed to vaccination. Ethics consulted for further guidance regarding COVID vaccination. Pt lacks capacity. Pt's son agreeable to COVID vaccination. Right humeral fracture w/ radial nerve palsy Patient found to have acute oblique displaced distal diaphyseal fracture of the humerus just distal to the humeral component of the right shoulder arthroplasty. Neurovascularly intact. Splint has been placed. Pain control with APAP 1000mg q8h scheduled, Voltaren gel 12/31/20 Per ortho: continue Jack brace. Outpt f/u in 3 wks for xray. Wear sling most of time. Restarted OT. Paroxysmal Atrial flutter continue home Eliquis and amiodarone. Prolonged QTc 01/02 ecg QTc 533. Repeat ecg today QTc 502. continue Seroquel and Amiodarone as is Pressure ulcer Routine care by wound care. Repositioning. Bed changed in attempt to decrease progression of pressure ulcers. CAD Continue home regimen Hypertension Continue home regimen SARA (generalized anxiety disorder), Depression continue Paxil 10mg PO daily FEN/GI: regular, easy to chew Code status: DNR/DNI DVT ppx: Eliquis Dispo: med/surg. Awaiting placement at SNF (pending COVID-19 vaccination) (2) SARA (generalized anxiety disorder): (3) CAD (coronary artery disease): (4) Hypertension: (5) Elevated troponin: (6) Goals of care, counseling/discussion: (7) Second degree burn of chest wall: Admission and Anticipated Discharge Date Admission Date: December 04, 2020 Supervising Physician Co-Signing Physician Notes I personally examined the patient and verified all zamorano points of history and exam, discussed case, and agree with decision making with Dr Keen resting in bed and pleasant, no new issues noted Arm in a sling Humerus fracturecontinue immobilization, pain now overall controlled, supportive care. Awaiting placement. next ortho follow up should be late next week (around 01/16) NSTEMIfortunately very mild. Med management. Troponin trended down after only a nominal elevation. Dysphagia/aspiration riskpermissive aspiration and supportive care. has been very stable in this regard Severe dementiasupportive care, continue seroquel since he has had agitation - seems to have helped calm agitation Anticoagulated on apixaban For SNF once matched. has been a difficult placement issue. Patient lacks capacity to make decisions, son okay with Covid vaccination for patient - no current mechanism to be able to actually give it in-house, though. Subjective No acute events overnight. This morning patient is A+O x4. No concerns. Eating/drinking/sleeping without issues. Review of Systems Review of Systems: Denies fever/chills, chest pain, palpitations, SOB, cough, N/V, abdominal pain, rash. Physical Exam Physical Exam: General: A&Ox4. NAD. Cooperative. HEENT: Atraumatic, normocephalic. Pulm: CTAB A&P. -wheezes, -rales, -rhonchi. Symmetrical chest rise. No increase work of breathing. No respiratory distress. Cardiac: RRR, -mrg. Radial pulses intact and symmetrical. No LE edema. Abdominal: soft, non-tender, non-distended, BS x 4 Skin: warm, dry, no rash Results & Data Results & Data ([facility]) Vital Signs (Past 12 Hours) Vital Signs Temp Pulse Resp BP BP Pulse Ox 01/12/21 08:23 88 18 111/66 01/12/21 07:26 36.7 C 86 18 97/60 L 95 01/11/21 23:25 37.2 C 97 H 16 122/64 92 Resident Activity Tracking Resident Involvement: Resident Care Provided Care Provided: Adult Hospital Medicine
--- NOTE | 2021-01-12 20:50 | Billing Data ---
Date of Service January 12, 2021 Coding Level of Care Code 00349 Subseq Hosp Care Lvl 2
[2021-01-12] MEDS: QUEtiapine FUMARATE 100 MG TABLET PO SCH (20:58)
--- NOTE | 2021-01-13 05:56 | Hospitalist Progress Note ---
Date of Service January 13, 2021 Assessment & Plan (1) Unwitnessed fall: Plan: 80yo male with history of atrial flutter on apixaban, CAD, HTN, HLD and SARA presenting by ambulance after unwitnessed fall at home - found down in prone position, unknown down time, acute fracture of right humerus, s/p brace. Stable. Awaiting placement at SNF, but requires COVID-19 vaccination for placement. Unwitnessed fall/dysphagia/dementia/deconditioning visit from [facility] (09/2020) mention patient is resistant to care, delusional and paranoid; was held on a 302 in 2019 for homicidal ideations PT/OT evaluation -- SNF recommended, search ongoing by CM Frequent reorientation, fall precautions Continue Seroquel 100mg qhs - has been helping with aggression/agitation. Has PRN Zyprexa for severe agitation Nutrition following, appreciate recommendations Goal of care Speech consulted; aspiration on all tested consistencies - permissive aspiration accepted by patient's son (POA) Palliative consult discussed goals of care with family; No escalation of care. proceed with SNF, possibly hospice thereafter or w/ worsening To note, there is difficulty with placement at this time as patient is NOT VACCINATED against COVID-19. Patient lacks capacity to make decision about the vaccination. POA not opposed to vaccination. Ethics consulted for further guidance regarding COVID vaccination. Pt lacks capacity. Pt's son agreeable to COVID vaccination. Constipation Last BM noted on 01/12, previously 5 days beforehand Continue docusate b.i.d., initiate Miralax daily Add Senna, consider mineral oil Right humeral fracture w/ radial nerve palsy Patient found to have acute oblique displaced distal diaphyseal fracture of the humerus just distal to the humeral component of the right shoulder arthroplasty. Splint has been placed. Pain control with APAP 1000mg q8h scheduled, Voltaren gel 12/31/20 Per ortho: continue Jack brace. Outpt f/u in 3 wks for xray. Wear sling most of time. Restarted OT. Paroxysmal Atrial flutter continue home Eliquis and amiodarone. Prolonged QTc 01/02 ecg QTc 533. Repeat ecg QTc 502. continue Seroquel and Amiodarone as is Pressure ulcer Routine care by wound care. Repositioning. Bed changed in attempt to decrease progression of pressure ulcers. CAD Continue home regimen Hypertension Continue home regimen SARA (generalized anxiety disorder), Depression continue Paxil 10mg PO daily FEN/GI: regular, easy to chew Code status: DNR/DNI DVT ppx: Eliquis Dispo: med/surg. Awaiting placement at SNF (pending COVID-19 vaccination) (2) SARA (generalized anxiety disorder): (3) CAD (coronary artery disease): (4) Hypertension: (5) Elevated troponin: (6) Goals of care, counseling/discussion: (7) Second degree burn of chest wall: Admission and Anticipated Discharge Date Admission Date: December 04, 2020 Supervising Physician Co-Signing Physician Notes I also saw the patient with the resident physician and confirmed zamorano portions of the history and physical examination. I agree with the impression and plan as noted in the resident documentation. Upon exam, he is resting in bed better awakens easily to her voice. He has no complaints today. Exam 132/67, 65, 18, 37.1, 96% on room air Heart regular rate and rhythm Lungs with nonlabored respiration. Right arm in sling Humeral fracture Continue mobilization Good pain control Dementia Supportive care Continue current medications Plan is for placement at [facility] facility also complicated as he is not been vaccinated for COVID-19. Subjective NAEO. Seen at the bedside this morning - no complaints or concerns. Denies pain. Denies shortness of breath. Denies numbness or tingling in RUE. Says his spirits are good. Passing moreno, voiding. Review of Systems Review of Systems: as per HPI Physical Exam Physical Exam: General: tired appearing 80yoM in NAD, sitting back in bed, A+O HEENT: NCAT. Mouth - MMM with no tonsillar edema or exudates. Cardiac: Normal rate and regular rhythm; S1 and S2 present with no murmurs, rubs, or gallops. Pulmonary: Good respiratory effort with symmetric expansion of the chest. No use of accessory muscles. Lungs were clear to auscultation bilaterally with no crackles or wheezes. Abdominal: Normoactive bowel sounds. Abdomen was soft, nondistended, and non- tender to palpation. Extremities: Upper and lower extremities are warm and well perfused. RUE demonstrating wrist drop, in sling. Dye Tank Tender strength moderately reduced. Sensation not reliably assessed. Results & Data Results & Data ([facility]) Vital Signs (Past 12 Hours) Vital Signs Temp Pulse Resp BP BP Pulse Ox 01/13/21 05:43 36.8 C 97 H 18 117/70 91 01/12/21 20:42 36.8 C 95 H 18 145/74 H 96 Resident Activity Tracking Resident Involvement: Resident Care Provided Care Provided: Adult Hospital Medicine
[2021-01-13] MEDS: ACETAMINOPHEN 500 MG TAB PO SCH ×4 (06:03→23:39)
[2021-01-13] MEDS: ASPIRIN 81 MG ECTAB PO SCH (09:49)
[2021-01-13] MEDS: METOPROLOL TARTRATE 25 MG TAB PO SCH ×3 (09:49→23:39)
[2021-01-13] MEDS: APIXABAN 5 MG TABLET PO SCH ×3 (09:53→23:39)
[2021-01-13] MEDS: AMIODARONE 200 MG TAB PO SCH (09:54)
[2021-01-13] MEDS: DOCUSATE SODIUM 100 MG CAP PO SCH ×3 (09:54→23:39)
[2021-01-13] MEDS: CEROVITE ADV FORMULA TAB PO SCH (09:54)
[2021-01-13] MEDS: BACITRACIN OINT 15 GM TUBE EXT SCH (09:55)
[2021-01-13] MEDS: POLYETHYLENE (MIRALAX) 17 GM PACK PO SCH (09:56)
[2021-01-13] MEDS: QUEtiapine FUMARATE 100 MG TABLET PO SCH ×2 (21:36→23:38)
[2021-01-14] MEDS: ACETAMINOPHEN 500 MG TAB PO SCH ×4 (02:25→21:11)
[2021-01-14] MEDS: QUEtiapine FUMARATE 100 MG TABLET PO SCH ×2 (02:26→21:11)
[2021-01-14] MEDS: APIXABAN 5 MG TABLET PO SCH ×3 (02:26→21:12)
[2021-01-14] MEDS: METOPROLOL TARTRATE 25 MG TAB PO SCH ×3 (02:26→21:12)
[2021-01-14] MEDS: DOCUSATE SODIUM 100 MG CAP PO SCH ×3 (02:26→21:12)
--- NOTE | 2021-01-14 06:26 | Hospitalist Progress Note ---
Date of Service January 14, 2021 Assessment & Plan (1) Unwitnessed fall: Plan: 80yo male with history of atrial flutter on apixaban, CAD, HTN, HLD and SARA presenting by ambulance after unwitnessed fall at home - found down in prone position, unknown down time, acute fracture of right humerus, s/p brace. Stable. Awaiting placement at SNF, but requires COVID-19 vaccination for placement. Unwitnessed fall/dysphagia/dementia/deconditioning visit from [facility] (09/2020) mention patient is resistant to care, delusional and paranoid; was held on a 302 in 2019 for homicidal ideations PT/OT evaluation -- SNF recommended, search ongoing by CM in setting of COVID- 19 vaccination situation Frequent reorientation, fall precautions Continue Seroquel 100mg qhs - has been helping with aggression/agitation. Has PRN Zyprexa for severe agitation Nutrition following, appreciate recommendations Goal of care Speech consulted; aspiration on all tested consistencies - permissive aspiration accepted by patient's son (POA) Palliative consult discussed goals of care with family; No escalation of care. proceed with SNF, possibly hospice thereafter or w/ worsening To note, there is difficulty with placement at this time as patient is NOT VACCINATED against COVID-19. Patient lacks capacity to make decision about the v accination. POA not opposed to vaccination. Ethics consulted for further guidance regarding COVID vaccination. Pt lacks capacity. Pt's son agreeable to COVID vaccination. Appreciate CM insight / aid into getting vaccination while inpatient Right humeral fracture w/ radial nerve palsy Patient found to have acute oblique displaced distal diaphyseal fracture of the humerus just distal to the humeral component of the right shoulder arthroplasty. Splint has been placed. Pain control with APAP 1000mg q8h scheduled, Voltaren gel 12/31/20 Per ortho: continue Jack brace. Outpt f/u in 3 wks for xray. Wear sling most of time. Restarted OT. Will reach out to ortho re: any recs regarding radial nerve palsy bracing/exercises. Continue PT Will require re-evaluation by orthopedics at the end of this week (01/16) Constipation (resolved) Last BM on 01/12, previously 5 days beforehand Continue docusate b.i.d., initiate Miralax daily Add Senna, consider mineral oil Paroxysmal Atrial flutter continue home Eliquis and amiodarone. Prolonged QTc 01/02 ecg QTc 533. Repeat ecg QTc 502. continue Seroquel and Amiodarone Pressure ulcer Routine care by wound care. Repositioning. Bed changed in attempt to decrease progression of pressure ulcers. CAD Continue home regimen Hypertension Continue home regimen SARA (generalized anxiety disorder), Depression continue Paxil 10mg PO daily FEN/GI: regular, easy to chew Code status: DNR/DNI DVT ppx: Eliquis Dispo: med/surg. Awaiting placement at SNF (pending COVID-19 vaccination) (2) SARA (generalized anxiety disorder): (3) CAD (coronary artery disease): (4) Hypertension: (5) Elevated troponin: (6) Goals of care, counseling/discussion: (7) Second degree burn of chest wall: Admission and Anticipated Discharge Date Admission Date: December 04, 2020 Supervising Physician Co-Signing Physician Notes I also saw the patient with the resident physician and confirmed zamorano portions of the history and physical examination. I agree with the impression and plan as noted in the resident documentation. Upon exam, he is resting in bed better awakens easily to her voice. He has no complaints today. Exam 143/81, 104, 18, 36.9, 94% RA Heart regular rate and rhythm Lungs with nonlabored respiration. Right arm in sling Flexed right wrist; unable to extend his risk without much pain, although without support, slowly returns for a flexed position. Humeral fracture Radial nerve palsy Continue immobilization of right shoulder PT to right wrist; cock up splint to prevent contracture Discussed with orthopedics who will also see today Dementia Supportive care Continue current medications Plan is for placement at [facility] facility also complicated as he is not been vaccinated for COVID-19. Subjective No concerns this AM. Feeling well. NAEO. Denies pain. Good appetite. Wrist drop still appreciable. Sensation in-tact over hand and arm. No CP/palpitations/SOB. Voiding, stooling fine. Review of Systems Review of Systems: as per HPI Physical Exam Physical Exam: General: tired appearing 80yoM in NAD, sitting back in bed, A+O HEENT: NCAT. Mouth - MMM with no tonsillar edema or exudates. Cardiac: Normal rate and regular rhythm; S1 and S2 present with no murmurs, rubs, or gallops. Pulmonary: Good respiratory effort with symmetric expansion of the chest. No use of accessory muscles. Lungs were clear to auscultation bilaterally with no crackles or wheezes. Abdominal: Normoactive bowel sounds. Abdomen was soft, nondistended, and non- tender to palpation. Extremities: Upper and lower extremities are warm and well perfused. RUE demonstrating wrist drop, in brace. Steam Drier Tender strength moderately reduced. Sensation grossly in tact. Results & Data Results & Data ([facility]) Vital Signs (Past 12 Hours) Vital Signs Temp Pulse Resp BP Pulse Ox 01/13/21 23:38 37.0 C 99 H 16 115/69 95 Resident Activity Tracking Resident Involvement: Resident Care Provided Care Provided: Adult Hospital Medicine
[2021-01-14] MEDS: BACITRACIN OINT 15 GM TUBE EXT SCH (07:45)
[2021-01-14] MEDS: POLYETHYLENE (MIRALAX) 17 GM PACK PO SCH (07:46)
[2021-01-14] MEDS: ASPIRIN 81 MG ECTAB PO SCH (07:53)
[2021-01-14] MEDS: CEROVITE ADV FORMULA TAB PO SCH (07:53)
[2021-01-14] MEDS: AMIODARONE 200 MG TAB PO SCH (07:53)
--- NOTE | 2021-01-14 13:46 | Progress Notes ---
DATE OF SERVICE: 01/14/2021 SUBJECTIVE: An 80-year-old gentleman admitted with a right periprosthetic humerus fracture. He has got a radial nerve palsy. He is now ____ 6 weeks after his injury. He reports no particular pain. He still has no real wrist extension or finger extension. OBJECTIVE: VITAL SIGNS: Temperature 36.9. PHYSICAL EXAMINATION: Shows a pleasant, elderly male. He is sitting up in bed. His sling is wrappe d around his elbow in an inappropriate position. The fracture brace is in place. His cock-up wrist splint is no longer around. He still has some bruising of his arm. There are no areas of skin irrit ation from the brace. He has got no wrist or finger extension. Swelling is markedly improved. ASSESSMENT: An 80-year-old gentleman now about 6 weeks out from a right periprosthetic humeral fract ure with a radial nerve palsy, doing okay. The fracture seems to be solidifying. He still got a kayy y dense radial nerve palsy. PLAN: We are going to get an x-ray of his humerus and see what that looks like and see how it is daniel perdomo. We will get him a new cockup wrist splint. He should continue to wear the sling. Any orthope dic questions can be directed to me at [phone]. Based on the subsequent x-ray, I need to see tyree cagle back in about 1 month. Job ID: [id number]
--- NOTE | 2021-01-14 16:40 | XRay Report ---
XR humerus RT 2V CLINICAL HISTORY: Right Humerus fracture. Follow-up. COMPARISON STUDY: Right humerus 12/04/2020. FINDINGS: There is again noted a right total shoulder arthroplasty. The bones are osteopenic. Slight improved alignment of the displaced and angulated fracture at the distal shaft of the right humerus. This demonstrates 2 cm of posterior displacement, previously measuring up to 2.4 cm. There is been in terval callus formation and bony bridging consistent with healing. There is persistent medial angulat ion of the fracture and mild overlap. There is mild callus formation at the proximal humeral shaft co nsistent with an additional healing periprosthetic fracture. IMPRESSION: Healing fractures involving the proximal and distal humeral shaft as described above. ACT 112: Negative or not required by law. Electronically signed by: Oscar Scott M.D. 01/14/2021 4:38 PM
[2021-01-15] MEDS: ACETAMINOPHEN 500 MG TAB PO SCH ×3 (05:37→20:53)
--- NOTE | 2021-01-15 06:45 | Hospitalist Progress Note ---
Date of Service January 15, 2021 Assessment & Plan (1) Unwitnessed fall: Plan: 80yo male with history of atrial flutter on apixaban, CAD, HTN, HLD and SARA presenting by ambulance after unwitnessed fall at home - found down in prone position, unknown down time, acute fracture of right humerus, s/p brace. Stable. Awaiting placement at SNF, but requires COVID-19 vaccination for placement. Unwitnessed fall/dysphagia/dementia/deconditioning visit from [facility] (09/2020) mention patient is resistant to care, delusional and paranoid; was held on a 302 in 2019 for homicidal ideations PT/OT evaluation -- SNF recommended, preferably with long-term care abilities, search ongoing by CM in setting of COVID-19 vaccination situation Frequent reorientation, fall precautions Continue Seroquel 100mg qhs - has been helping with aggression/agitation. Has PRN Zyprexa for severe agitation Nutrition following, appreciate recommendations Goal of care Speech consulted; aspiration on all tested consistencies - permissive aspiration accepted by patient's son (POA) Palliative consult discussed goals of care with family; No escalation of care. proceed with SNF, possibly hospice thereafter or w/ worsening To note, there is difficulty with placement at this time as patient is NOT VACCINATED against COVID-19. Patient lacks capacity to make decision about the vaccination. POA not opposed to vaccination. Ethics consulted for further guidance regarding COVID vaccination. Pt lacks capacity. Pt's son agreeable to COVID vaccination. Appreciate CM insight / aid into getting vaccination while inpatient Right humeral fracture w/ radial nerve palsy Patient found to have acute oblique displaced distal diaphyseal fracture of the humerus just distal to the humeral component of the right shoulder arthroplasty. Splint has been placed. Pain: Transition Tylenol q8h ELI --> q12h ELI ; continue diclofenac gel Orthopedics following: (01/14) XR ordered, as below. Continue wearing sling, wrist splint. F/U again in 1 month Repeat XR (01/14): Healing humeral fracture Constipation / Bowel Regimen (resolved) Continue docusate b.i.d., initiate Miralax daily Paroxysmal Atrial Flutter continue home Eliquis and amiodarone. Prolonged QTc 01/02 ECG QTc 533. Repeat ECG QTc 502. continue Seroquel and Amiodarone Pressure Ulcer Routine care by wound care. Repositioning. Bed changed in attempt to decrease progression of pressure ulcers. CAD Continue home regimen Hypertension Continue home regimen SARA (generalized anxiety disorder), Depression continue Paxil 10mg PO daily FEN/GI: regular, easy to chew Code status: DNR/DNI DVT ppx: Eliquis Dispo: med/surg. Awaiting placement at at SNF w/ long-term care capabilities (pending COVID-19 vaccination). Continuing to discuss with CM the various options. (2) SARA (generalized anxiety disorder): (3) CAD (coronary artery disease): (4) Hypertension: (5) Elevated troponin: (6) Goals of care, counseling/discussion: (7) Second degree burn of chest wall: Admission and Anticipated Discharge Date Admission Date: December 04, 2020 Supervising Physician Co-Signing Physician Notes I also saw the patient with the resident physician and confirmed zamorano portions of the history and physical examination. I agree with the impression and plan as noted in the resident documentation. He has no complaints today. Exam 124/78, 92, 18, 36.6, 94% room air Heart regular rate and rhythm Lungs with nonlabored respiration. 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 Subjective NAEO. In good spirits this morning. Tolerating wrist brace well. No pain. Denies numbness/tingling. Eager to transition out of the hospital. Denies any CP, palpitations, SOB, n/v/d. Good appetite. No questions/concerns. Happy to hear XR appears stable. Review of Systems Review of Systems: as per HPI Physical Exam Physical Exam: General: tired appearing 80yoM in NAD, sitting back in bed, A+O HEENT: NCAT. Mouth - MMM with no tonsillar edema or exudates. Cardiac: Normal rate and regular rhythm; S1 and S2 present with no murmurs, rubs, or gallops. Pulmonary: Good respiratory effort with symmetric expansion of the chest. No use of accessory muscles. Lungs were clear to auscultation bilaterally with no crackles or wheezes. Abdominal: Normoactive bowel sounds. Abdomen was soft, nondistended, and non- tender to palpation. Extremities: Upper and lower extremities are warm and well perfused. RUE demonstrating wrist drop, now in brace. Sling in place. Assessment Expert strength moderately reduced. Sensation grossly in tact. Results & Data Results & Data ([facility]) Vital Signs (Past 12 Hours) Vital Signs Temp Pulse Resp BP BP Pulse Ox 01/15/21 06:08 36.6 C 84 18 133/77 94 01/14/21 22:11 36.8 C 90 18 134/82 93 Resident Activity Tracking Resident Involvement: Resident Care Provided Care Provided: Adult Hospital Medicine
[2021-01-15] MEDS: APIXABAN 5 MG TABLET PO SCH ×2 (09:28→20:52)
[2021-01-15] MEDS: AMIODARONE 200 MG TAB PO SCH (09:28)
[2021-01-15] MEDS: ASPIRIN 81 MG ECTAB PO SCH (09:28)
[2021-01-15] MEDS: CEROVITE ADV FORMULA TAB PO SCH (09:28)
[2021-01-15] MEDS: BACITRACIN OINT 15 GM TUBE EXT SCH (09:29)
[2021-01-15] MEDS: DOCUSATE SODIUM 100 MG CAP PO SCH ×2 (09:29→20:56)
[2021-01-15] MEDS: POLYETHYLENE (MIRALAX) 17 GM PACK PO SCH (09:29)
[2021-01-15] MEDS: METOPROLOL TARTRATE 25 MG TAB PO SCH ×2 (09:29→20:55)
[2021-01-15] MEDS: MoRPHine SULFATE 2 MG/ML CARP IV PRN (14:08)
[2021-01-15] MEDS: QUEtiapine FUMARATE 100 MG TABLET PO SCH (20:51)
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
[2021-01-16] MEDS: ACETAMINOPHEN 500 MG TAB PO SCH (10:15)
[2021-01-16] MEDS: AMIODARONE 200 MG TAB PO SCH (10:21)
[2021-01-16] MEDS: APIXABAN 5 MG TABLET PO SCH ×2 (10:21→20:47)
[2021-01-16] MEDS: METOPROLOL TARTRATE 25 MG TAB PO SCH ×2 (10:22→20:48)
[2021-01-16] MEDS: DOCUSATE SODIUM 100 MG CAP PO SCH ×2 (10:22→20:48)
[2021-01-16] MEDS: ASPIRIN 81 MG ECTAB PO SCH (10:22)
[2021-01-16] MEDS: BACITRACIN OINT 15 GM TUBE EXT SCH (10:22)
[2021-01-16] MEDS: CEROVITE ADV FORMULA TAB PO SCH (10:22)
[2021-01-16] MEDS: POLYETHYLENE (MIRALAX) 17 GM PACK PO SCH (10:23)
[2021-01-16] MEDS: QUEtiapine FUMARATE 100 MG TABLET PO SCH (20:49)
[2021-01-17] MEDS: ACETAMINOPHEN 325 MG TAB PO PRN ×2 (05:18→20:20)
[2021-01-17] MEDS: POLYETHYLENE (MIRALAX) 17 GM PACK PO SCH (10:03)
[2021-01-17] MEDS: AMIODARONE 200 MG TAB PO SCH (10:03)
[2021-01-17] MEDS: APIXABAN 5 MG TABLET PO SCH ×2 (10:03→20:19)
[2021-01-17] MEDS: DOCUSATE SODIUM 100 MG CAP PO SCH ×2 (10:03→20:19)
[2021-01-17] MEDS: ASPIRIN 81 MG ECTAB PO SCH (10:03)
[2021-01-17] MEDS: CEROVITE ADV FORMULA TAB PO SCH (10:04)
[2021-01-17] MEDS: METOPROLOL TARTRATE 25 MG TAB PO SCH ×2 (10:04→20:20)
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
--- NOTE | 2021-01-17 11:39 | Progress Notes ---
DATE OF SERVICE: 01/17/2021 SUBJECTIVE: An 80-year-old gentleman now 6 weeks out from a right periprosthetic humerus fracture. He has been in the hospital for 6 weeks now. He is doing reasonably well orthopedically. He denies any significant arm pain. OBJECTIVE: VITAL SIGNS: Temperature 36.5. Vital signs are stable. PHYSICAL EXAMINATION: EXTREMITIES: Physical examination of the left arm reveals some mild residual bruising. His Sarmient o brace is in place. There are no areas of skin irritation. The fracture seems to be healing. Ther e is no gross motion at the fracture site. He still has no significant radial nerve function. No wr ist extension. He is not wearing his brace today. X-RAYS: X-rays of the right humerus were reviewed. It shows a healing periprosthetic humeral diaphy seal fracture. There is a little bit of varus, which is certainly acceptable. It looks like there h as been quite a bit of interval callus formed. ASSESSMENT: An 80-year-old gentleman 6 weeks out from a right periprosthetic humerus fracture, doing reasonably well. The fracture appears to be healing. It is slightly angulated, but certainly accep table. His radial nerve palsy is still present without any signs of recovery. He has not been weari ng his wrist splint today. PLAN: Continue the Jack brace for another month. Sling for another month. It is good for him to have somebody work on stretching his wrist and his fingers so that they do not get contracted. He should be wearing his wrist splint and I replaced that today. I need to see him back in about Wed. Any orthopedic questions can be directed to me at [phone]. Job ID: [id number]
[2021-01-17] MEDS: BACITRACIN OINT 15 GM TUBE EXT SCH (12:08)
[2021-01-17] MEDS ORDERED: COVID-19 VAC,AD26(JANSSEN)/PF 0.5 ML SYR IM ONE (19:30)
[2021-01-17] MEDS: QUEtiapine FUMARATE 100 MG TABLET PO SCH (20:19)
[2021-01-17] MEDS: guaiFENesin 600 MG TABCR PO SCH (20:28)
[2021-01-18] MEDS: DOCUSATE SODIUM 100 MG CAP PO SCH ×2 (09:55→21:06)
[2021-01-18] MEDS: METOPROLOL TARTRATE 25 MG TAB PO SCH ×2 (09:55→21:07)
[2021-01-18] MEDS: guaiFENesin 600 MG TABCR PO SCH ×2 (09:55→21:06)
[2021-01-18] MEDS: APIXABAN 5 MG TABLET PO SCH ×2 (09:55→21:06)
[2021-01-18] MEDS: ASPIRIN 81 MG ECTAB PO SCH (09:56)
[2021-01-18] MEDS: AMIODARONE 200 MG TAB PO SCH (09:56)
[2021-01-18] MEDS: CEROVITE ADV FORMULA TAB PO SCH (09:56)
[2021-01-18] MEDS: POLYETHYLENE (MIRALAX) 17 GM PACK PO SCH (09:57)
[2021-01-18] MEDS: BACITRACIN OINT 15 GM TUBE EXT SCH (09:57)
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
[2021-01-18] MEDS: QUEtiapine FUMARATE 100 MG TABLET PO SCH (21:06)
[2021-01-18] MEDS: ACETAMINOPHEN 325 MG TAB PO PRN (23:09)
[2021-01-19] MEDS: METOPROLOL TARTRATE 25 MG TAB PO SCH ×2 (09:51→21:00)
[2021-01-19] MEDS: guaiFENesin 600 MG TABCR PO SCH ×2 (09:51→20:56)
[2021-01-19] MEDS: APIXABAN 5 MG TABLET PO SCH ×2 (09:51→20:56)
[2021-01-19] MEDS: AMIODARONE 200 MG TAB PO SCH (09:51)
[2021-01-19] MEDS: ASPIRIN 81 MG ECTAB PO SCH (09:51)
[2021-01-19] MEDS: CEROVITE ADV FORMULA TAB PO SCH (09:51)
[2021-01-19] MEDS: DOCUSATE SODIUM 100 MG CAP PO SCH ×2 (09:51→20:56)
[2021-01-19] MEDS: POLYETHYLENE (MIRALAX) 17 GM PACK PO SCH (09:52)
[2021-01-19] MEDS: BACITRACIN OINT 15 GM TUBE EXT SCH (09:52)
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
[2021-01-19 11:53] LABS: BUN Creatinine Ratio 30.1 (10-20); Calcium 8.5 mg/dl (8.5-10.1); Creatinine Clr Calc Pharmacy 88.7 ml/min; Est GFR (African American) 106.4 ml/min; Est GFR (Non-African American) 91.8 ml/min; Potassium 3.8 mmol/L (3.5-5.1)
[2021-01-19] MEDS: QUEtiapine FUMARATE 100 MG TABLET PO SCH (20:57)
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
[2021-01-20] MEDS: APIXABAN 5 MG TABLET PO SCH ×2 (08:23→21:57)
[2021-01-20] MEDS: ASPIRIN 81 MG ECTAB PO SCH (08:23)
[2021-01-20] MEDS: METOPROLOL TARTRATE 25 MG TAB PO SCH ×2 (08:24→21:57)
[2021-01-20] MEDS: AMIODARONE 200 MG TAB PO SCH (08:25)
[2021-01-20] MEDS: guaiFENesin 600 MG TABCR PO SCH ×2 (08:25→21:57)
[2021-01-20] MEDS: BACITRACIN OINT 15 GM TUBE EXT SCH (08:25)
[2021-01-20] MEDS: CEROVITE ADV FORMULA TAB PO SCH (08:25)
[2021-01-20] MEDS: POLYETHYLENE (MIRALAX) 17 GM PACK PO SCH (08:25)
[2021-01-20] MEDS: DOCUSATE SODIUM 100 MG CAP PO SCH ×2 (08:26→21:57)
[2021-01-20] MEDS: ACETAMINOPHEN 325 MG TAB PO PRN ×2 (11:01→19:00)
--- NOTE | 2021-01-20 20:40 | Billing Data ---
Date of Service January 20, 2021 Coding Level of Care Code 69713 Subseq Hosp Care Lvl 1
[2021-01-20] MEDS: QUEtiapine FUMARATE 100 MG TABLET PO SCH (21:57)
[2021-01-21] MEDS: ACETAMINOPHEN 325 MG TAB PO PRN ×3 (00:39→22:38)
[2021-01-21] MEDS: MoRPHine SULFATE 2 MG/ML CARP IV PRN (02:07)
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
[2021-01-21] MEDS: APIXABAN 5 MG TABLET PO SCH ×2 (10:13→21:54)
[2021-01-21] MEDS: ASPIRIN 81 MG ECTAB PO SCH (10:13)
[2021-01-21] MEDS: AMIODARONE 200 MG TAB PO SCH (10:13)
[2021-01-21] MEDS: DOCUSATE SODIUM 100 MG CAP PO SCH ×2 (10:14→21:54)
[2021-01-21] MEDS: guaiFENesin 600 MG TABCR PO SCH ×2 (10:15→21:55)
[2021-01-21] MEDS: METOPROLOL TARTRATE 25 MG TAB PO SCH ×2 (10:16→21:58)
[2021-01-21] MEDS: CEROVITE ADV FORMULA TAB PO SCH (10:17)
[2021-01-21] MEDS: POLYETHYLENE (MIRALAX) 17 GM PACK PO SCH (10:18)
--- NOTE | 2021-01-21 10:37 | Billing Data ---
Date of Service January 21, 2021 Coding Level of Care Code 10211 Subseq Hosp Care Lvl 1
[2021-01-21 11:26] LABS: Basophils # (auto) 0.01 K/uL (0-0.2); Basophils % (auto) 0.2 %; Eosinophils # (auto) 0.07 K/uL (0-0.5); Eosinophils % (auto) 1.2 %; Hematocrit (blood only) 32.8 % (42-52); Hemoglobin 10.2 g/dL (14.0-18.0); Immature Granulocytes # (auto) 0.01 K/uL (0.00-0.02); Immature Granulocytes % (auto) 0.2 %; Lymphocytes # (auto) 0.95 K/uL (1.2-3.4); Lymphocytes % (auto) 16.4 %; Mean Corpuscular Hgb Conc 31.1 g/dL (32-36); Mean Corpuscular Volume 93.2 fL (80-100); Mean Platelet Volume 8.8 fL (7.4-10.4); Monocytes # (auto) 0.54 K/uL (0.11-0.59); Monocytes % (auto) 9.3 %; Neutrophils # (auto) 4.21 K/uL (1.4-6.5); Neutrophils % (auto) 72.7 %; Platelet Count 276 K/uL (130-400); RDW Coefficient of Variation 16.2 % (11.5-14.5); Red Blood Count 3.52 M/uL (4.7-6.1); White Blood Count 5.79 K/uL (4.8-10.8)
[2021-01-21 11:47] LABS: BUN Creatinine Ratio 29.1 (10-20); Calcium 8.4 mg/dl (8.5-10.1); Creatinine Clr Calc Pharmacy 79.5 ml/min; Est GFR (African American) 104.4 ml/min; Potassium 3.6 mmol/L (3.5-5.1)
[2021-01-21] MEDS: BACITRACIN OINT 15 GM TUBE EXT SCH (15:17)
[2021-01-21] MEDS: QUEtiapine FUMARATE 100 MG TABLET PO SCH (21:55)
[2021-01-22] MEDS: ACETAMINOPHEN 325 MG TAB PO PRN ×2 (06:03→16:48)
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
[2021-01-22] MEDS ORDERED: ACETAMINOPHEN 325 MG TAB PO SCH (09:00)
[2021-01-22] MEDS: METOPROLOL TARTRATE 25 MG TAB PO SCH ×3 (09:13→21:58)
[2021-01-22] MEDS: APIXABAN 5 MG TABLET PO SCH ×3 (09:14→21:58)
[2021-01-22] MEDS: CEROVITE ADV FORMULA TAB PO SCH ×2 (09:14→13:28)
[2021-01-22] MEDS: ASPIRIN 81 MG ECTAB PO SCH ×2 (09:14→13:28)
[2021-01-22] MEDS: DOCUSATE SODIUM 100 MG CAP PO SCH ×3 (09:14→21:58)
[2021-01-22] MEDS: AMIODARONE 200 MG TAB PO SCH ×2 (09:14→13:28)
[2021-01-22] MEDS: guaiFENesin 600 MG TABCR PO SCH (09:15)
[2021-01-22] MEDS: POLYETHYLENE (MIRALAX) 17 GM PACK PO SCH (09:16)
[2021-01-22] MEDS: BACITRACIN OINT 15 GM TUBE EXT SCH ×2 (09:16→10:50)
--- NOTE | 2021-01-22 16:03 | Electrocardiogram Report ---
Test Reason : Blood Pressure : / mmHG Vent. Rate : 105 BPM Atrial Rate : 105 BPM P-R Int : 128 ms QRS Dur : 148 ms QT Int : 382 ms P-R-T Axes : 252 -36 -37 degrees QTc Int : 504 ms Poor data quality, interpretation may be adversely affected Unusual P axis and short VA, probable junctional tachycardia Left axis deviation Right bundle branch block Abnormal ECG When compared with ECG of 12-JAN-2021 07:57, Junctional rhythm has replaced Atrial flutter Confirmed by Clifford Bowling ([id number]) on 01/22/2021 4:03:36 PM Referred By: REFERRED SELF Confirmed By:Clifford Bowling
--- NOTE | 2021-01-22 17:58 | Billing Data ---
Date of Service January 22, 2021 Coding Level of Care Code 23131 Subseq Hosp Care Lvl 1
[2021-01-22] MEDS ORDERED: QUEtiapine FUMARATE 25 MG TABLET PO SCH (21:00)
[2021-01-22] MEDS: QUEtiapine FUMARATE 100 MG TABLET PO SCH (21:59)
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
[2021-01-23] MEDS: METOPROLOL TARTRATE 25 MG TAB PO SCH ×2 (08:08→21:33)
[2021-01-23] MEDS: ASPIRIN 81 MG ECTAB PO SCH (08:14)
[2021-01-23] MEDS: DOCUSATE SODIUM 100 MG CAP PO SCH ×2 (08:14→21:36)
[2021-01-23] MEDS: POLYETHYLENE (MIRALAX) 17 GM PACK PO SCH (08:14)
[2021-01-23] MEDS: APIXABAN 5 MG TABLET PO SCH ×2 (08:14→21:33)
[2021-01-23] MEDS: AMIODARONE 200 MG TAB PO SCH (08:14)
[2021-01-23] MEDS: CEROVITE ADV FORMULA TAB PO SCH (08:14)
[2021-01-23] MEDS: BACITRACIN OINT 15 GM TUBE EXT SCH (08:14)
--- NOTE | 2021-01-23 19:18 | Billing Data ---
Date of Service January 23, 2021 Coding Level of Care Code 96350 Subseq Hosp Care Lvl 1
[2021-01-23] MEDS: QUEtiapine FUMARATE 100 MG TABLET PO SCH (21:36)
[2021-01-24] MEDS: MoRPHine SULFATE 2 MG/ML CARP IV PRN (05:17)
[2021-01-24] MEDS: BACITRACIN OINT 15 GM TUBE EXT SCH (09:53)
[2021-01-24] MEDS: APIXABAN 5 MG TABLET PO SCH ×2 (10:10→20:57)
[2021-01-24] MEDS: AMIODARONE 200 MG TAB PO SCH (10:10)
[2021-01-24] MEDS: METOPROLOL TARTRATE 25 MG TAB PO SCH ×2 (10:10→20:58)
[2021-01-24] MEDS: ASPIRIN 81 MG ECTAB PO SCH (10:10)
[2021-01-24] MEDS: DOCUSATE SODIUM 100 MG CAP PO SCH ×2 (10:10→20:57)
[2021-01-24] MEDS: POLYETHYLENE (MIRALAX) 17 GM PACK PO SCH (10:11)
[2021-01-24] MEDS: CEROVITE ADV FORMULA TAB PO SCH (10:11)
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
--- NOTE | 2021-01-24 18:41 | Billing Data ---
Date of Service January 24, 2021 Coding Level of Care Code 46899 Subseq Hosp Care Lvl 1
[2021-01-24] MEDS: DOXYCYCLINE HYCLATE 100 MG in DEXTROSE 5% 100 ML IV SCH (20:57)
[2021-01-24] MEDS: QUEtiapine FUMARATE 100 MG TABLET PO SCH (20:57)
[2021-01-25] MEDS: DOXYCYCLINE HYCLATE 100 MG in DEXTROSE 5% 100 ML IV SCH (07:32)
[2021-01-25] MEDS: METOPROLOL TARTRATE 50 MG TAB PO SCH (09:48)
[2021-01-25] MEDS: ASPIRIN 81 MG ECTAB PO SCH (09:48)
[2021-01-25] MEDS: APIXABAN 5 MG TABLET PO SCH ×2 (09:48→20:15)
[2021-01-25] MEDS: AMIODARONE 200 MG TAB PO SCH (09:48)
[2021-01-25] MEDS: DOCUSATE SODIUM 100 MG CAP PO SCH ×2 (10:08→20:16)
[2021-01-25] MEDS: POLYETHYLENE (MIRALAX) 17 GM PACK PO SCH (10:08)
[2021-01-25] MEDS: CEROVITE ADV FORMULA TAB PO SCH (10:08)
[2021-01-25] MEDS: BACITRACIN OINT 15 GM TUBE EXT SCH (10:08)
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
[2021-01-25 13:16] LABS: Basophils # (auto) 0.01 K/uL (0-0.2); Basophils % (auto) 0.2 %; Eosinophils # (auto) 0.09 K/uL (0-0.5); Eosinophils % (auto) 1.5 %; Hematocrit (blood only) 36.2 % (42-52); Hemoglobin 11.2 g/dL (14.0-18.0); Immature Granulocytes # (auto) 0.02 K/uL (0.00-0.02); Immature Granulocytes % (auto) 0.3 %; Lymphocytes # (auto) 1.22 K/uL (1.2-3.4); Lymphocytes % (auto) 20.8 %; Mean Corpuscular Hemoglobin 28.6 pg (25-34); Mean Corpuscular Hgb Conc 30.9 g/dL (32-36); Mean Corpuscular Volume 92.6 fL (80-100); Mean Platelet Volume 9.4 fL (7.4-10.4); Monocytes # (auto) 0.56 K/uL (0.11-0.59); Monocytes % (auto) 9.5 %; Neutrophils # (auto) 3.97 K/uL (1.4-6.5); Neutrophils % (auto) 67.7 %; Platelet Count 288 K/uL (130-400); RDW Coefficient of Variation 16.2 % (11.5-14.5); Red Blood Count 3.91 M/uL (4.7-6.1); White Blood Count 5.87 K/uL (4.8-10.8)
[2021-01-25 13:45] LABS: BUN Creatinine Ratio 33.7 (10-20); Calcium 8.7 mg/dl (8.5-10.1); Creatinine Clr Calc Pharmacy 95.1 ml/min; Est GFR (Non-African American) 94.9 ml/min; Potassium 4.1 mmol/L (3.5-5.1)
--- NOTE | 2021-01-25 19:43 | Billing Data ---
Date of Service January 25, 2021 Coding Level of Care Code 71955 Subseq Hosp Care Lvl 2
[2021-01-25] MEDS: QUEtiapine FUMARATE 100 MG TABLET PO SCH (20:15)
[2021-01-25] MEDS: DOXYCYCLINE HYCLATE 100 MG CAP PO SCH (20:16)
[2021-01-25] MEDS: METOPROLOL TARTRATE 25 MG TAB PO SCH (20:16)
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
[2021-01-26 08:00] LABS: Basophils # (auto) 0.03 K/uL (0-0.2); Basophils % (auto) 0.6 %; Hematocrit (blood only) 34.9 % (42-52); Hemoglobin 10.7 g/dL (14.0-18.0); Immature Granulocytes # (auto) 0.04 K/uL (0.00-0.02); Immature Granulocytes % (auto) 0.8 %; Lymphocytes # (auto) 1.03 K/uL (1.2-3.4); Lymphocytes % (auto) 20.9 %; Mean Corpuscular Hemoglobin 28.5 pg (25-34); Mean Corpuscular Hgb Conc 30.7 g/dL (32-36); Mean Corpuscular Volume 92.8 fL (80-100); Mean Platelet Volume 9.2 fL (7.4-10.4); Monocytes # (auto) 0.48 K/uL (0.11-0.59); Monocytes % (auto) 9.8 %; Neutrophils # (auto) 3.24 K/uL (1.4-6.5); Neutrophils % (auto) 65.9 %; Platelet Count 264 K/uL (130-400); RDW Coefficient of Variation 16.3 % (11.5-14.5); RDW Standard Deviation 54.1 fL (36.4-46.3); Red Blood Count 3.76 M/uL (4.7-6.1); White Blood Count 4.92 K/uL (4.8-10.8)
[2021-01-26] MEDS: ASPIRIN 81 MG ECTAB PO SCH (08:33)
[2021-01-26] MEDS: APIXABAN 5 MG TABLET PO SCH ×2 (08:33→21:40)
[2021-01-26] MEDS: DOXYCYCLINE HYCLATE 100 MG CAP PO SCH ×2 (08:34→21:10)
[2021-01-26] MEDS: METOPROLOL TARTRATE 50 MG TAB PO SCH (08:34)
[2021-01-26] MEDS: AMIODARONE 200 MG TAB PO SCH (08:34)
[2021-01-26] MEDS: BACITRACIN OINT 15 GM TUBE EXT SCH (09:08)
[2021-01-26] MEDS: POLYETHYLENE (MIRALAX) 17 GM PACK PO SCH (09:09)
[2021-01-26] MEDS: DOCUSATE SODIUM 100 MG CAP PO SCH ×2 (09:09→21:40)
[2021-01-26] MEDS: CEROVITE ADV FORMULA TAB PO SCH (09:09)
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
--- NOTE | 2021-01-26 18:27 | Billing Data ---
Date of Service January 26, 2021 Coding Level of Care Code 95101 Subseq Hosp Care Lvl 2
[2021-01-26] MEDS: MoRPHine SULFATE 2 MG/ML CARP IV PRN (19:43)
[2021-01-26] MEDS: QUEtiapine FUMARATE 100 MG TABLET PO SCH (21:40)
[2021-01-26] MEDS: METOPROLOL TARTRATE 25 MG TAB PO SCH (21:40)
[2021-01-27] MEDS: METOPROLOL TARTRATE 50 MG TAB PO SCH (07:55)
[2021-01-27] MEDS: AMIODARONE 200 MG TAB PO SCH (07:55)
[2021-01-27] MEDS: APIXABAN 5 MG TABLET PO SCH ×2 (07:56→20:26)
[2021-01-27] MEDS: BACITRACIN OINT 15 GM TUBE EXT SCH (07:58)
[2021-01-27] MEDS: DOCUSATE SODIUM 100 MG CAP PO SCH ×2 (07:58→20:27)
[2021-01-27] MEDS: DOXYCYCLINE HYCLATE 100 MG CAP PO SCH ×2 (07:58→20:27)
[2021-01-27] MEDS: ASPIRIN 81 MG ECTAB PO SCH (07:58)
[2021-01-27] MEDS: CEROVITE ADV FORMULA TAB PO SCH (07:58)
[2021-01-27] MEDS: POLYETHYLENE (MIRALAX) 17 GM PACK PO SCH (07:59)
[2021-01-27] MEDS: METOPROLOL TARTRATE 25 MG TAB PO SCH (20:28)
[2021-01-27] MEDS: QUEtiapine FUMARATE 100 MG TABLET PO SCH (20:28)
--- NOTE | 2021-01-27 22:07 | Hospitalist Progress Note ---
Date of Service January 27, 2021 Assessment & Plan (1) Unwitnessed fall: Plan: 80yo male with history of atrial flutter on apixaban, CAD, HTN, HLD and SARA presenting by ambulance after unwitnessed fall at home - found down in prone position, unknown down time, acute fracture of right humerus, s/p brace. Stable. Awaiting placement at SNF. Patient vaccinated against COVID-19 with J&J vaccine on 01/17/2021 around 10:00 pm. May potentially require an additional ~2 weeks' time to ensure immunity before SNF can accept (depending on SNF policies for COVID-19 vaccination); CM assisting in placement search. Goal of care / Placement: - Speech consulted previously - permissive aspiration accepted by patient's son (POA) - Palliative discussed goals of care with family. No escalation of care. - Patient lacks capacity to make medical decisions (Ethics consulted); son is POC if needed - Patient vaccinated against COVID-19 as of 01/17/2021 with J&J vaccine. Bed search ongoing -- many facilities require a certain amount of time (e.g., 2 weeks) post-vax before accept. Pressure Ulcer and Burn to L Flank Region: - patient frequently refusing Wound Care assistance/evaluation -Left flank burn wound is improving, continue wound care -Back wound appeared to have significant exudate, continue wound care - Started Doxycycline 100mg BID on 01/24 for concern for low-grade temperature elevation-no return of fevers-complete 7-day course - Continue frequent repositioning. - Bed changed in attempt to decrease progression of pressure ulcers. - Encouraged patient to work with Wound Care - General Surgery consult: recommended continued wound care Unwitnessed fall/dysphagia/dementia/deconditioning: - [facility] (09/2020) mentioned patient was resistant to care, delusional and paranoid; was held on a 302 in 2019 for homicidal ideations - PT/OT evaluation -- SNF recommended, preferably with long-term care abilities, search ongoing by CM - Frequent reorientation, fall precautions - Continue Seroquel 100mg qHS - has been helping with aggression/agitation. - PRN Zyprexa for severe agitation - has not needed - Nutrition following - Boost, MVI, bowel regimen Right humeral fracture w/ radial nerve palsy: - Patient found to have acute oblique displaced distal diaphyseal fracture of the humerus just distal to the humeral component of the right shoulder arthroplasty. Splint has been placed. - Pain: acetaminophen to PRN (no longer scheduled) - Repeat XR (01/14): Healing humeral fracture - Orthopedics (01/17/21): Recommendations: continue Jack brace for another 1 month and sling for another month. Continue stretching wrist/fingers so that they do not get contracted. F/u in 1 month. - Continue bracing with goal of slow extension of wrist -- orthotics assisting -Needs continued occupational therapy Tachycardia: junctional based on ECG -Was having ongoing tachycardia, with rates in the low 100s - No chest symptoms. Respiratory status stable. -Continue metoprolol - Continue amiodarone Constipation / Bowel Regimen (resolved): - Continue docusate b.i.d., continue Miralax daily Paroxysmal Atrial Flutter: - continue home Eliquis and amiodarone. Prolonged QTc: - 01/02 ECG QTc 533. Repeat ECG QTc 502. - Stable, continue Seroquel and Amiodarone Coronary Artery Disease: - Continue home metoprolol, aspirin Hypertension: Blood pressures are controlled - Continue metoprolol -Home lisinopril, furosemide, and spironolactone have been discontinued SARA (generalized anxiety disorder), Depression: -Is not on Paxil 10mg PO daily as previously statedunclear if he is supposed to be taking this? It does not appear it has been prescribed as an outpatient in a long time Diet: regular, easy to chew Code status: DNR/DNI DVT ppx: Eliquis Dispo: med/surg. Awaiting placement at at [facility] w/ long-term care capabilities. No updates at this time. (2) SARA (generalized anxiety disorder): (3) CAD (coronary artery disease): (4) Hypertension: (5) Elevated troponin: (6) Goals of care, counseling/discussion: (7) Second degree burn of chest wall: Admission and Anticipated Discharge Date Admission Date: December 04, 2020 Subjective Patient is very pleasant with me today. He grabs my hand and holds it and is emotional telling me that he spoke to his son on the phone today and was very happy about their conversation. He denies pain in his arm. Nurse reports that it is still difficult at times to get him to take all of his medications that are prescribed. Review of Systems Review of Systems: All systems reviewed & are unremarkable except as noted in HPI & below Physical Exam Constitutional: WD/WN, vitals as above Eyes: + anicteric sclerae Neck: trachea midline, no thyromegaly Respiratory: normal respiratory effort, lungs clear to auscultation Cardiovascular: RRR, no murmur, no edema Chest (Breasts): Chest: normal inspection of chest Gastrointestinal (Abdomen): normal bowel sounds, soft, nontender, no hepatosplenomegaly Musculoskeletal: Extremities: + extremities abnormal to inspection (Right humerus with brace in place, right hand with brace in place, edema), no cyanosis and no clubbing Skin: no rashes, warm and dry Neurologic: moves all extremities, + focal motor deficit (Inability to extend at the wrist on the right) and awake Psychiatric: Orientation: alert, oriented to person, oriented to place and cooperative Lymphatic: no lymphedema Results & Data Results & Data ([facility]) Vital Signs (Past 12 Hours) Vital Signs Temp Pulse Pulse Resp BP BP Pulse Ox 01/27/21 19:41 37.2 C 93 H 14 112/72 97 01/27/21 15:49 36.4 C L 95 H 18 123/80 95 PG Care Time/CCT Total # of Minutes Spent Total Time Spent with Patient: Total time spent is greater than 50% in coordination of care (as documented) at patient's floor/unit and/or counseling patient: Coding Level of Care Code 18919 Subseq Hosp Care Lvl 1 Diagnoses Unwitnessed fall R29.6 SARA (generalized anxiety disorder) F41.1 CAD (coronary artery disease) I25.10 Hypertension I10 Elevated troponin R77.8 Goals of care, counseling/discussion Z71.89 Second degree burn of chest wall T21.21XA
--- NOTE | 2021-01-28 07:40 | Surgery Progress Note ---
Date of Service January 28, 2021 Assessment & Plan (1) Second degree burn of chest wall: Plan: Patient seen with Dr. Kraus No need for surgical debridement at this time Patient awaiting placement, please call again if there are any changes Admission and Anticipated Discharge Date Admission Date: December 04, 2020 Supervising Physician Co-Signing Physician Notes compared with pictures of 01/20/21 the escar is much smaller and no need to mechanical debridement rec continued treatment by wound clinic et al Subjective awake, somewhat cooperative with exam Physical Exam Skin: left flank wound improved, minimal eschar Results & Data ([facility]) Vital Signs (Past 12 Hours) Vital Signs Temp Pulse Pulse Resp BP Pulse Ox 01/27/21 23:15 97 H 123/80 01/27/21 19:41 37.2 C 93 H 14 112/72 97 PG Care Time/CCT Total # of Minutes Spent Total Time Spent with Patient: Total time spent is greater than 50% in coordination of care (as documented) at patient's floor/unit and/or counseling patient: Coding Level of Care Code 03054 Subseq Hosp Care Lvl 1 Diagnoses Second degree burn of chest wall T21.21XA
[2021-01-28] MEDS: AMIODARONE 200 MG TAB PO SCH (10:45)
[2021-01-28] MEDS: METOPROLOL TARTRATE 50 MG TAB PO SCH (10:45)
[2021-01-28] MEDS: APIXABAN 5 MG TABLET PO SCH ×2 (10:45→21:13)
[2021-01-28] MEDS: DOXYCYCLINE HYCLATE 100 MG CAP PO SCH ×2 (10:46→21:13)
[2021-01-28] MEDS: BACITRACIN OINT 15 GM TUBE EXT SCH (10:49)
[2021-01-28] MEDS: ASPIRIN 81 MG ECTAB PO SCH (10:49)
[2021-01-28] MEDS: CEROVITE ADV FORMULA TAB PO SCH (10:49)
[2021-01-28] MEDS: DOCUSATE SODIUM 100 MG CAP PO SCH ×2 (10:49→21:13)
[2021-01-28] MEDS: POLYETHYLENE (MIRALAX) 17 GM PACK PO SCH (10:49)
[2021-01-28] MEDS: METOPROLOL TARTRATE 25 MG TAB PO SCH (21:14)
[2021-01-28] MEDS: QUEtiapine FUMARATE 100 MG TABLET PO SCH (21:14)
--- NOTE | 2021-01-28 23:18 | Hospitalist Progress Note ---
Date of Service January 28, 2021 Assessment & Plan (1) Unwitnessed fall: Plan: 80yo male with history of atrial flutter on apixaban, CAD, HTN, HLD and SARA presenting by ambulance after unwitnessed fall at home - found down in prone position, unknown down time, acute fracture of right humerus, s/p brace. Stable. Awaiting placement at SNF. Patient vaccinated against COVID-19 with J&J vaccine on 01/17/2021 around 10:00 pm. May potentially require an additional ~2 weeks' time to ensure immunity before SNF can accept (depending on SNF policies for COVID-19 vaccination); CM assisting in placement search. Goal of care / Placement: - Speech consulted previously - permissive aspiration accepted by patient's son (POA) - Palliative discussed goals of care with family. No escalation of care. - Patient lacks capacity to make medical decisions (Ethics consulted); son is POC if needed - Patient vaccinated against COVID-19 as of 01/17/2021 with J&J vaccine. Bed search ongoing -- many facilities require a certain amount of time (e.g., 2 weeks) post-vax before accept. Pressure Ulcer of mid back and Burn to L Flank Region: - patient frequently refusing Wound Care assistance/evaluation, but was able to participate today on 01/28 -Left flank burn wound is improving, continue wound care, general surgery saw the patient did not think any debridement was needed -Back wound appeared to have significant exudate, continue wound care as per wound care nurses recommendations - Started Doxycycline 100mg BID on 01/24 for concern for low-grade temperature elevation-no return of fevers-complete 7-day course - Continue frequent repositioning. - Bed changed in attempt to decrease progression of pressure ulcers. -Follow-up with outpatient wound care clinic after discharge Unwitnessed fall/dysphagia/dementia/deconditioning: - [facility] (09/2020) mentioned patient was resistant to care, delusional and paranoid; was held on a 302 in 2019 for homicidal ideations - PT/OT evaluation -- SNF recommended, preferably with long-term care abilities, search ongoing by CM - Frequent reorientation, fall precautions - Continue Seroquel 100mg qHS - has been helping with aggression/agitation. - PRN Zyprexa for severe agitation - has not needed - Nutrition following - Boost, MVI, bowel regimen Right humeral fracture w/ radial nerve palsy: - Patient found to have acute oblique displaced distal diaphyseal fracture of the humerus just distal to the humeral component of the right shoulder arthroplasty. Splint has been placed. - Pain: acetaminophen to PRN (no longer scheduled) - Repeat XR (01/14): Healing humeral fracture - Orthopedics (01/17/21): Recommendations: continue Jack brace for another 1 month and sling for another month. Continue stretching wrist/fingers so that they do not get contracted. F/u in 1 month. - Continue bracing with goal of slow extension of wrist -- orthotics assisting -Needs continued occupational therapy Tachycardia: junctional based on ECG -Was having ongoing tachycardia, with rates in the low 100s - No chest symptoms. Respiratory status stable. -Continue metoprolol - Continue amiodarone Constipation / Bowel Regimen (resolved): - Continue docusate b.i.d., continue Miralax daily Paroxysmal Atrial Flutter: - continue home Eliquis and amiodarone. Prolonged QTc: - 01/02 ECG QTc 533. Repeat ECG QTc 502. - Stable, continue Seroquel and Amiodarone Coronary Artery Disease: - Continue home metoprolol, aspirin Hypertension: Blood pressures are controlled - Continue metoprolol -Home lisinopril, furosemide, and spironolactone have been discontinued SARA (generalized anxiety disorder), Depression: -Is not on Paxil 10mg PO daily as previously stated -unclear if he is supposed to be taking this? It does not appear it has been prescribed as an outpatient in a long time Diet: regular, easy to chew Code status: DNR/DNI DVT ppx: Eliquis Dispo: med/surg. Awaiting placement at at SNF w/ long-term care capabilities. No updates at this time. (2) SARA (generalized anxiety disorder): (3) CAD (coronary artery disease): (4) Hypertension: (5) Elevated troponin: (6) Goals of care, counseling/discussion: (7) Second degree burn of chest wall: Admission and Anticipated Discharge Date Admission Date: December 04, 2020 Subjective Patient confused as usual. Keeps asking me if I am bringing him a hamburger even though I told him that I am his doctor and I have nothing to do with food services. Otherwise, he seems frustrated. Denies pain. Review of Systems Review of Systems: All systems reviewed & are unremarkable except as noted in HPI & below Physical Exam Constitutional: WD/WN, vitals as above Eyes: + anicteric sclerae Neck: trachea midline, no thyromegaly Respiratory: normal respiratory effort, lungs clear to auscultation Cardiovascular: RRR, no murmur, no edema Chest (Breasts): Chest: normal inspection of chest Gastrointestinal (Abdomen): normal bowel sounds, soft, nontender, no hepatosplenomegaly Musculoskeletal: Extremities: + extremities abnormal to inspection (Right hum erus with brace in place, right hand with brace in place, edema), no cyanosis and no clubbing Skin: Dressings not removed on left flank and mid back wounds today Neurologic: moves all extremities, + focal motor deficit (Inability to extend at the wrist on the right) and awake Psychiatric: Orientation: alert, oriented to person, oriented to place and cooperative Lymphatic: no lymphedema Results & Data Results & Data ([facility]) Vital Signs (Past 12 Hours) Vital Signs Temp Pulse Pulse Pulse Resp BP BP 01/28/21 23:01 36.5 C 96 H 16 108/71 01/28/21 21:11 96 H 155/89 H 01/28/21 15:25 36.8 C 55 L 16 136/84 Pulse Ox 01/28/21 23:01 96 01/28/21 21:11 01/28/21 15:25 98 PG Care Time/CCT Total # of Minutes Spent Total Time Spent with Patient: Total time spent is greater than 50% in coordination of care (as documented) at patient's floor/unit and/or counseling patient: Coding Level of Care Code 81506 Subseq Hosp Care Lvl 1 Diagnoses Unwitnessed fall R29.6 SARA (generalized anxiety disorder) F41.1 CAD (coronary artery disease) I25.10 Hypertension I10 Elevated troponin R77.8 Goals of care, counseling/discussion Z71.89 Second degree burn of chest wall T21.21XA
[2021-01-29] MEDS: METOPROLOL TARTRATE 50 MG TAB PO SCH (07:59)
[2021-01-29] MEDS: AMIODARONE 200 MG TAB PO SCH (07:59)
[2021-01-29] MEDS: APIXABAN 5 MG TABLET PO SCH ×2 (08:00→22:03)
[2021-01-29] MEDS: DOXYCYCLINE HYCLATE 100 MG CAP PO SCH ×2 (08:00→22:04)
[2021-01-29] MEDS: POLYETHYLENE (MIRALAX) 17 GM PACK PO SCH (08:02)
[2021-01-29] MEDS: DOCUSATE SODIUM 100 MG CAP PO SCH ×2 (08:05→22:04)
[2021-01-29] MEDS: CEROVITE ADV FORMULA TAB PO SCH (08:05)
[2021-01-29] MEDS: BACITRACIN OINT 15 GM TUBE EXT SCH (08:06)
[2021-01-29] MEDS: ASPIRIN 81 MG ECTAB PO SCH (08:06)
--- NOTE | 2021-01-29 13:22 | Hospitalist Progress Note ---
Date of Service January 29, 2021 Assessment & Plan (1) Unwitnessed fall: Plan: 80yo male with history of atrial flutter on apixaban, CAD, HTN, HLD and SARA presenting by ambulance after unwitnessed fall at home - found down in prone position, unknown down time, acute fracture of right humerus, s/p brace. Stable. Awaiting placement at SNF. Patient vaccinated against COVID-19 with J&J vaccine on 01/17/2021 around 10:00 pm. May potentially require an additional ~2 weeks' time to ensure immunity before SNF can accept (depending on SNF policies for COVID-19 vaccination); CM assisting in placement search. Goal of care / Placement: - Speech consulted previously - permissive aspiration accepted by patient's son (POA) - Palliative discussed goals of care with family. No escalation of care. - Patient lacks capacity to make medical decisions (Ethics consulted); son is POC if needed - Patient vaccinated against COVID-19 as of 01/17/2021 with J&J vaccine. Bed search ongoing -- many facilities require a certain amount of time (e.g., 2 weeks) post-vax before accept. Pressure Ulcer of mid back and Burn to L Flank Region: - patient frequently refusing Wound Care assistance/evaluation, but was able to participate today on 01/28 -Left flank burn wound is improving, continue wound care, general surgery saw the patient did not think any debridement was needed -Back wound appeared to have significant exudate, continue wound care as per wound care nurses recommendations - Started Doxycycline 100mg BID on 01/24 for concern for low-grade temperature elevation-no return of fevers-complete 7-day course-last day of treatment is 01/31 - Continue frequent repositioning. - Bed changed in attempt to decrease progression of pressure ulcers. -Follow-up with outpatient wound care clinic after discharge Unwitnessed fall/dysphagia/dementia/deconditioning: - [facility] (09/2020) mentioned patient was resistant to care, delusional and paranoid; was held on a 302 in 2019 for homicidal ideations - PT/OT evaluation -- SNF recommended, preferably with long-term care abilities, search ongoing by CM - Frequent reorientation, fall precautions - Continue Seroquel 100mg qHS - has been helping with aggression/agitation. - PRN Zyprexa for severe agitation - has not needed - Nutrition following - Boost, MVI, bowel regimen Right humeral fracture w/ radial nerve palsy: - Patient found to have acute oblique displaced distal diaphyseal fracture of the humerus just distal to the humeral component of the right shoulder arthroplasty. Splint has been placed. - Pain: acetaminophen to PRN (no longer scheduled) - Repeat XR (01/14): Healing humeral fracture - Orthopedics (01/17/21): Recommendations: continue Jack brace for another 1 month and sling for another month. Continue stretching wrist/fingers so that they do not get contracted. F/u in 1 month. - Continue bracing with goal of slow extension of wrist -- orthotics assisting -Needs continued occupational therapy Tachycardia: junctional based on ECG -Was having ongoing tachycardia, with rates in the low 100s - No chest symptoms. Respiratory status stable. -Continue metoprolol - Continue amiodarone Constipation / Bowel Regimen (resolved): - Continue docusate b.i.d., continue Miralax daily Paroxysmal Atrial Flutter: - continue home Eliquis and amiodarone. Prolonged QTc: - 01/02 ECG QTc 533. Repeat ECG QTc 502. - Stable, continue Seroquel and Amiodarone Coronary Artery Disease: - Continue home metoprolol, aspirin Hypertension: Blood pressures are controlled - Continue metoprolol -Home lisinopril, furosemide, and spironolactone have been discontinued SARA (generalized anxiety disorder), Depression: -Is not on Paxil 10mg PO daily as previously stated in earlier progress notes - unclear if he is supposed to be taking this? It does not appear it has been prescribed as an outpatient in a long time Diet: regular, easy to chew Code status: DNR/DNI DVT ppx: Eliquis Dispo: med/surg. Awaiting placement at at [facility] w/ long-term care capabilities. Pt really wants to go home but requires 24/7 care and can't even stand up on his own, needs rehab. Latest CM notes say that bed might be available next week at [facility]. He was vaccinated against COVID 19 during this admission (2) SARA (generalized anxiety disorder): (3) CAD (coronary artery disease): (4) Hypertension: (5) Elevated troponin: (6) Goals of care, counseling/discussion: (7) Second degree burn of chest wall: Admission and Anticipated Discharge Date Admission Date: December 04, 2020 Subjective Pt asks if he can just go home. He says there is always someone there at home with him but CM notes say otherwise. He is frustrated that he is still in the hospital. Review of Systems Review of Systems: All systems reviewed & are unremarkable except as noted in HPI & below Physical Exam Constitutional: WD/WN, vitals as above Eyes: + anicteric sclerae Neck: trachea midline, no thyromegaly Respiratory: normal respiratory effort, lungs clear to auscultation Cardiovascular: RRR, no murmur, no edema Chest (Breasts): Chest: normal inspection of chest Gastrointestinal (Abdomen): normal bowel sounds, soft, nontender, no hepatosplenomegaly Musculoskeletal: Extremities: + extremities abnormal to inspection (Right humerus with brace in place, right hand with brace in place, edema), no cyanosis and no clubbing Skin: no rashes, warm and dry Neurologic: moves all extremities, + focal motor deficit (Inability to extend at the wrist on the right) and awake Psychiatric: Orientation: alert, oriented to person, oriented to place and cooperative Lymphatic: no lymphedema Results & Data Results & Data ([facility]) Vital Signs (Past 12 Hours) Vital Signs Temp Pulse Pulse Resp BP BP Pulse Ox 01/29/21 07:27 36.9 C 96 H 20 120/74 95 01/29/21 07:15 36.9 C 96 H 19 120/74 95 PG Care Time/CCT Total # of Minutes Spent Total Time Spent with Patient: Total time spent is greater than 50% in coordination of care (as documented) at patient's floor/unit and/or counseling patient: Coding Level of Care Code 46978 Subseq Hosp Care Lvl 1 Diagnoses Unwitnessed fall R29.6 SARA (generalized anxiety disorder) F41.1 CAD (coronary artery disease) I25.10 Hypertension I10 Elevated troponin R77.8 Goals of care, counseling/discussion Z71.89 Second degree burn of chest wall T21.21XA
[2021-01-29] MEDS: QUEtiapine FUMARATE 100 MG TABLET PO SCH (22:05)
[2021-01-29] MEDS: METOPROLOL TARTRATE 25 MG TAB PO SCH (22:05)
[2021-01-30] MEDS: CEROVITE ADV FORMULA TAB PO SCH (09:19)
[2021-01-30] MEDS: APIXABAN 5 MG TABLET PO SCH ×2 (09:20→20:23)
[2021-01-30] MEDS: DOXYCYCLINE HYCLATE 100 MG CAP PO SCH ×2 (09:20→20:23)
[2021-01-30] MEDS: AMIODARONE 200 MG TAB PO SCH (09:20)
[2021-01-30] MEDS: ASPIRIN 81 MG ECTAB PO SCH (09:20)
[2021-01-30] MEDS: DOCUSATE SODIUM 100 MG CAP PO SCH ×2 (09:20→20:23)
[2021-01-30] MEDS: METOPROLOL TARTRATE 50 MG TAB PO SCH (09:24)
[2021-01-30] MEDS: BACITRACIN OINT 15 GM TUBE EXT SCH (09:25)
[2021-01-30] MEDS: POLYETHYLENE (MIRALAX) 17 GM PACK PO SCH (09:36)
--- NOTE | 2021-01-30 14:45 | Hospitalist Progress Note ---
Date of Service January 30, 2021 Assessment & Plan (1) Unwitnessed fall: Plan: Had an unwitnessed fall Sustained a humeral fracture, which has been splinted by ortho Will continue brace and sling for 1 month according to ortho (2) SARA (generalized anxiety disorder): Plan: SARA (generalized anxiety disorder), Depression: -On paxil 12.5 mg (3) CAD (coronary artery disease): Plan: Coronary Artery Disease: - Continue home metoprolol, aspirin (4) Atrial flutter: Plan: Paroxysmal Atrial Flutter: - continue home Eliquis and amiodarone. (5) Hypertension: Plan: Hypertension: BP 124/77 today - Continue metoprolol -Home lisinopril, furosemide, and spironolactone have been discontinued (6) Closed right humeral fracture: Plan: Right humeral fracture w/ radial nerve palsy: - Patient found to have acute oblique displaced distal diaphyseal fracture of the humerus just distal to the humeral component of the right shoulder arth roplasty. Splint has been placed. - Pain: acetaminophen to PRN (no longer scheduled) - Repeat XR (01/14): Healing humeral fracture - Orthopedics (01/17/21): Recommendations: continue Jack brace for another 1 month and sling for another month. Continue stretching wrist/fingers so that they do not get contracted. F/u in 1 month. - Continue bracing with goal of slow extension of wrist -- orthotics assisting -Needs continued occupational therapy (7) Second degree burn of chest wall: Plan: Healthy granulation tissue No need for further debridement according to surgery Pressure Ulcer of mid back and Burn to L Flank Region: - patient frequently refusing Wound Care assistance/evaluation, but was able to participate today on 01/28 -Left flank burn wound is improving, continue wound care, general surgery saw the patient did not think any debridement was needed -Back wound appeared to have significant exudate, continue wound care as per wound care nurses recommendations - Started Doxycycline 100mg BID on 01/24 for concern for low-grade temperature elevation-no return of fevers-complete 7-day course-last day of treatment is 01/31 - Continue frequent repositioning. - Bed changed in attempt to decrease progression of pressure ulcers. -Follow-up with outpatient wound care clinic after discharge (8) Elevated troponin: (9) Goals of care, counseling/discussion: Plan: Goal of care / Placement: - Speech consulted previously - permissive aspiration accepted by patient's son (POA) - Palliative discussed goals of care with family. No escalation of care. - Patient lacks capacity to make medical decisions (Ethics consulted); son is POC if needed - Patient vaccinated against COVID-19 as of 01/17/2021 with J&J vaccine. Bed search ongoing -- many facilities require a certain amount of time (e.g., 2 weeks) post-vax before accept. It will be 2 week on 01/31 (10) Dementia with behavioral disturbance: Plan: stable Plan: Diet: regular, easy to chew Code status: DNR/DNI DVT ppx: Eliquis Dispo: med/surg. Awaiting placement at at [facility] w/ long-term care capabilities. Pt really wants to go home but requires 24/7 care and can't even stand up on his own, needs rehab. Latest notes say that bed might be available next week at [facility]. He was vaccinated against COVID 19 during this admission Admission and Anticipated Discharge Date Admission Date: December 04, 2020 Subjective patient seen and examined, confused, was telling me stories about his moped Review of Systems Review of Systems: unreliable due to confusion Physical Exam Physical Exam: The patient is awake, alert, oriented x2 HEENT--PERRL, EOMI, mucous membranes and oropharynx mildly dry Neck--supple. No JVD. No bruits. Thyroid normal, trachea midline, no adenopathy. Heart--normal S1 and S2. No murmurs, rubs or gallops. Lungs--clear bilaterally, no respiratory distress, no accessory muscle use. Abdomen--normal bowel sounds and soft. Mild epigastric and left sided abdominal pain Extremities--right upper extremity in sling Dermatologic--normal skin turgor, normal color, no abnormal lymph nodes, no rash. Neurologic--cranial nerves II through XII grossly intact. Rheumatologic--normal range of motion. Psychiatric--normal affect. Results & Data Results & Data ([facility]) Vital Signs (Past 12 Hours) Vital Signs Temp Pulse Resp BP BP Pulse Ox 01/30/21 09:24 96 H 124/77 97 01/30/21 07:40 97.5 F L 84 16 105/63 84 L PG Care Time/CCT Total # of Minutes Spent Total Time Spent with Patient: Total time spent is greater than 50% in coordination of care (as documented) at patient's floor/unit and/or counseling patient: Coding Level of Care Code 99223 Subseq Hosp Care Lvl 2 Diagnoses Unwitnessed fall R29.6 SARA (generalized anxiety disorder) F41.1 CAD (coronary artery disease) I25.10 Hypertension I10 Elevated troponin R77.8 Goals of care, counseling/discussion Z71.89 Second degree burn of chest wall T21.21XA Closed right humeral fracture S42.331A Encounter type: initial encounter Fracture alignment: displaced Fracture morphology: oblique Humerus Location: shaft Dementia with behavioral disturbance F03.91 Atrial flutter I48.92 Time Spent (min) 35 (1) Closed right humeral fracture Encounter type: initial encounter Fracture alignment: displaced Fracture mor phology: oblique Humerus Location: shaft Qualified Code(s): S42.331A - Displ aced oblique fracture of shaft of humerus, right arm, initial encounter for closed fracture
[2021-01-30] MEDS: PARoxetine HCl CONTROLLED REL 12.5 MG TABCR PO SCH (15:12)
[2021-01-30] MEDS: QUEtiapine FUMARATE 100 MG TABLET PO SCH (20:24)
[2021-01-30] MEDS: METOPROLOL TARTRATE 25 MG TAB PO SCH (20:31)
[2021-01-30] MEDS: ACETAMINOPHEN 325 MG TAB PO PRN (20:36)
[2021-01-31] MEDS: DOXYCYCLINE HYCLATE 100 MG CAP PO SCH (08:36)
[2021-01-31] MEDS: CEROVITE ADV FORMULA TAB PO SCH (08:36)
[2021-01-31] MEDS: DOCUSATE SODIUM 100 MG CAP PO SCH ×2 (08:36→20:49)
[2021-01-31] MEDS: AMIODARONE 200 MG TAB PO SCH (08:37)
[2021-01-31] MEDS: ASPIRIN 81 MG ECTAB PO SCH (08:37)
[2021-01-31] MEDS: APIXABAN 5 MG TABLET PO SCH ×2 (08:37→20:49)
[2021-01-31] MEDS: METOPROLOL TARTRATE 50 MG TAB PO SCH (08:53)
[2021-01-31] MEDS: BACITRACIN OINT 15 GM TUBE EXT SCH (09:13)
[2021-01-31] MEDS: POLYETHYLENE (MIRALAX) 17 GM PACK PO SCH (10:12)
[2021-01-31] MEDS: PARoxetine HCl CONTROLLED REL 12.5 MG TABCR PO SCH (12:02)
--- NOTE | 2021-01-31 14:37 | Hospitalist Progress Note ---
Date of Service January 31, 2021 Assessment & Plan (1) Unwitnessed fall: Plan: Had an unwitnessed fall Sustained a humeral fracture, which has been splinted by ortho Will continue brace and sling for 1 month according to ortho (2) SARA (generalized anxiety disorder): Plan: SARA (generalized anxiety disorder), Depression: -On paxil 12.5 mg (3) CAD (coronary artery disease): Plan: Coronary Artery Disease: - Continue home metoprolol, aspirin (4) Atrial flutter: Plan: Paroxysmal Atrial Flutter: - continue home Eliquis and amiodarone. (5) Hypertension: Plan: Hypertension: BP well controlled - Continue metoprolol -Home lisinopril, furosemide, and spironolactone have been discontinued (6) Closed right humeral fracture: Plan: Right humeral fracture w/ radial nerve palsy: - Patient found to have acute oblique displaced distal diaphyseal fracture of the humerus just distal to the humeral component of the right shoulder a rthroplasty. Splint has been placed. - Pain: acetaminophen to PRN (no longer scheduled) - Repeat XR (01/14): Healing humeral fracture - Orthopedics (01/17/21): Recommendations: continue Jack brace for another 1 month and sling for another month. Continue stretching wrist/fingers so that they do not get contracted. F/u in 1 month. - Continue bracing with goal of slow extension of wrist -- orthotics assisting -Needs continued occupational therapy (7) Second degree burn of chest wall: Plan: Healthy granulation tissue No need for further debridement according to surgery Pressure Ulcer of mid back and Burn to L Flank Region: - patient frequently refusing Wound Care assistance/evaluation -Left flank burn wound is improving, continue wound care, general surgery saw the patient did not think any debridement was needed (8) Pressure ulcer: Plan: present on admission Back wound appeared to have significant exudate, continue wound care as per wound care nurses recommendations - Completed Doxy for suspicion of infection - Continue frequent repositioning. - Bed changed in attempt to decrease progression of pressure ulcers. -Follow-up with wound care outpatient upon discarge (9) Elevated troponin: (10) Goals of care, counseling/discussion: Plan: Goal of care / Placement: - Speech consulted previously - permissive aspiration accepted by patient's son (POA) - Palliative discussed goals of care with family. No escalation of care. - Patient lacks capacity to make medical decisions (Ethics consulted); son is POC if needed - Patient vaccinated against COVID-19 as of 01/17/2021 with J&J vaccine. Bed search ongoing -- many facilities require a certain amount of time (e.g., 2 weeks) post-vax before accept. It was 2 week on 01/31 (11) Dementia with behavioral disturbance: Plan: stable Plan: Diet: regular, easy to chew Code status: DNR/DNI DVT ppx: Eliquis Dispo: med/surg. Awaiting placement at at SNF w/ long-term care capabilities. Pt really wants to go home but requires 24/7 care and can't even stand up on his own, needs rehab. Latest notes say that bed might be available next week at [facility]. He was vaccinated against COVID 19 during this admission Admission and Anticipated Discharge Date Admission Date: December 04, 2020 Subjective patient seen and examined, no new complaints Review of Systems Review of Systems: unreliable due to confusion Physical Exam Physical Exam: The patient is awake, alert, oriented x2 HEENT--PERRL, EOMI, mucous membranes and oropharynx mildly dry Neck--supple. No JVD. No bruits. Thyroid normal, trachea midline, no adenopathy. Heart--normal S1 and S2. No murmurs, rubs or gallops. Lungs--clear bilaterally, no respiratory distress, no accessory muscle use. Abdomen--normal bowel sounds and soft. Mild epigastric and left sided abdominal pain Extremities--right upper extremity in sling Dermatologic--normal skin turgor, normal color, no abnormal lymph nodes, no rash. Neurologic--cranial nerves II through XII grossly intact. Rheumatologic--normal range of motion. Psychiatric--normal affect. Results & Data Results & Data ([facility]) Vital Signs (Past 12 Hours) Vital Signs Temp Pulse Resp BP Pulse Ox 01/31/21 07:53 97.9 F 63 18 117/75 90 PG Care Time/CCT Total # of Minutes Spent Total Time Spent with Patient: Total time spent is greater than 50% in coordination of care (as documented) at patient's floor/unit and/or counseling patient: Coding Level of Care Code 75482 Subseq Hosp Care Lvl 2 Diagnoses Unwitnessed fall R29.6 SARA (generalized anxiety disorder) F41.1 CAD (coronary artery disease) I25.10 Atrial flutter I48.92 Hypertension I10 Closed right humeral fracture S42.331A Encounter type: initial encounter Fracture alignment: displaced Fracture morphology: oblique Humerus Location: shaft Second degree burn of chest wall T21.21XA Elevated troponin R77.8 Goals of care, counseling/discussion Z71.89 Dementia with behavioral disturbance F03.91 Pressure ulcer L89.90 Time Spent (min) 35 (1) Closed right humeral fracture Encounter type: initial encounter Fracture alignment: displaced Fracture morphology: oblique Humerus Location: shaft Qualified Code(s): S42.331A - Displaced oblique fracture of shaft of humerus, right arm, initial encounter for closed fracture
[2021-01-31] MEDS: METOPROLOL TARTRATE 25 MG TAB PO SCH (20:49)
[2021-01-31] MEDS: QUEtiapine FUMARATE 100 MG TABLET PO SCH (20:51)
[2021-02-01 06:30] LABS: Hematocrit (blood only) 35.4 % (42-52); Hemoglobin 10.8 g/dL (14.0-18.0); Mean Corpuscular Hemoglobin 28.8 pg (25-34); Mean Corpuscular Hgb Conc 30.5 g/dL (32-36); Mean Corpuscular Volume 94.4 fL (80-100); Mean Platelet Volume 9.4 fL (7.4-10.4); Platelet Count 225 K/uL (130-400); RDW Coefficient of Variation 16.8 % (11.5-14.5); RDW Standard Deviation 57.1 fL (36.4-46.3); Red Blood Count 3.75 M/uL (4.7-6.1); White Blood Count 5.52 K/uL (4.8-10.8)
[2021-02-01 07:07] LABS: BUN Creatinine Ratio 30.9 (10-20); Calcium 8.8 mg/dl (8.5-10.1); Creatinine Clr Calc Pharmacy 93.3 ml/min; Est GFR (African American) 108.5 ml/min; Est GFR (Non-African American) 93.6 ml/min; Potassium 4.3 mmol/L (3.5-5.1)
[2021-02-01] MEDS: APIXABAN 5 MG TABLET PO SCH ×2 (08:54→21:20)
[2021-02-01] MEDS: ASPIRIN 81 MG ECTAB PO SCH (08:55)
[2021-02-01] MEDS: AMIODARONE 200 MG TAB PO SCH (08:55)
[2021-02-01] MEDS: CEROVITE ADV FORMULA TAB PO SCH (08:55)
[2021-02-01] MEDS: DOCUSATE SODIUM 100 MG CAP PO SCH ×2 (08:55→21:19)
[2021-02-01] MEDS: PARoxetine HCl CONTROLLED REL 12.5 MG TABCR PO SCH (08:55)
[2021-02-01] MEDS: METOPROLOL TARTRATE 50 MG TAB PO SCH (08:55)
[2021-02-01] MEDS: POLYETHYLENE (MIRALAX) 17 GM PACK PO SCH (08:58)
--- NOTE | 2021-02-01 14:49 | Hospitalist Progress Note ---
Date of Service February 01, 2021 Assessment & Plan (1) Unwitnessed fall: Plan: Had an unwitnessed fall Sustained a humeral fracture, which has been splinted by ortho Will continue brace and sling for 1 month according to ortho (2) SARA (generalized anxiety disorder): Plan: SARA (generalized anxiety disorder), Depression: -On paxil 12.5 mg (3) CAD (coronary artery disease): Plan: Coronary Artery Disease: - Continue home metoprolol, aspirin (4) Atrial flutter: Plan: Paroxysmal Atrial Flutter: - continue home Eliquis and amiodarone. (5) Hypertension: Plan: Hypertension: BP well controlled - Continue metoprolol -Home lisinopril, furosemide, and spironolactone have been discontinued (6) Closed right humeral fracture: Plan: Right humeral fracture w/ radial nerve palsy: - Patient found to have acute oblique displaced distal diaphyseal fracture of the humerus just distal to the humeral component of the right shoulder a rthroplasty. Splint has been placed. - Pain: acetaminophen to PRN (no longer scheduled) - Repeat XR (01/14): Healing humeral fracture - Orthopedics (01/17/21): Recommendations: continue Jack brace for another 1 month and sling for another month. Continue stretching wrist/fingers so that they do not get contracted. F/u in 1 month. - Continue bracing with goal of slow extension of wrist -- orthotics assisting -Needs continued occupational therapy (7) Second degree burn of chest wall: Plan: Healthy granulation tissue No need for further debridement according to surgery Pressure Ulcer of mid back and Burn to L Flank Region: - patient frequently refusing Wound Care assistance/evaluation -Left flank burn wound is improving, continue wound care, general surgery saw the patient did not think any debridement was needed (8) Pressure ulcer: Plan: present on admission Back wound appeared to have significant exudate, continue wound care as per wound care nurses recommendations - Completed Doxy for suspicion of infection - Continue frequent repositioning. - Bed changed in attempt to decrease progression of pressure ulcers. -Follow-up with wound care outpatient upon discarge (9) Elevated troponin: (10) Goals of care, counseling/discussion: Plan: Goal of care / Placement: - Speech consulted previously - permissive aspiration accepted by patient's son (POA) - Palliative discussed goals of care with family. No escalation of care. - Patient lacks capacity to make medical decisions (Ethics consulted); son is POC if needed - Patient vaccinated against COVID-19 as of 01/17/2021 with J&J vaccine. Bed search ongoing -- many facilities require a certain amount of time (e.g., 2 weeks) post-vax before accept. It was 2 week on 01/31 (11) Dementia with behavioral disturbance: Plan: stable Plan: Diet: regular, easy to chew Code status: DNR/DNI DVT ppx: Eliquis Dispo: med/surg. Awaiting placement at at SNF w/ long-term care capabilities. Pt really wants to go home but requires 24/7 care and can't even stand up on his own, needs rehab. Latest notes say that bed might be available next week at [facility]. He was vaccinated against COVID 19 during this admission Admission and Anticipated Discharge Date Admission Date: December 04, 2020 Subjective patient seen and examined, no new complaints, still confused Review of Systems Review of Systems: unreliable due to confusion Physical Exam Physical Exam: The patient is awake, alert, oriented x2 HEENT--PERRL, EOMI, mucous membranes and oropharynx mildly dry Neck--supple. No JVD. No bruits. Thyroid normal, trachea midline, no adenopathy. Heart--normal S1 and S2. No murmurs, rubs or gallops. Lungs--clear bilaterally, no respiratory distress, no accessory muscle use. Abdomen--normal bowel sounds and soft. Mild epigastric and left sided abdominal pain Extremities--right upper extremity in sling and brace Dermatologic--normal skin turgor, normal color, no abnormal lymph nodes, no rash. Neurologic--cranial nerves II through XII grossly intact. Rheumatologic--normal range of motion. Psychiatric--normal affect. Results & Data Results & Data ([facility]) Vital Signs (Past 12 Hours) Vital Signs Temp Pulse Resp BP Pulse Ox 02/01/21 07:57 97.5 F L 84 18 113/73 95 PG Care Time/CCT Total # of Minutes Spent Total Time Spent with Patient: Total time spent is greater than 50% in coordination of care (as documented) at patient's floor/unit and/or counseling patient: Coding Level of Care Code 01971 Subseq Hosp Care Lvl 2 Diagnoses Unwitnessed fall R29.6 SARA (generalized anxiety disorder) F41.1 CAD (coronary artery disease) I25.10 Atrial flutter I48.92 Hypertension I10 Closed right humeral fracture S42.331A Encounter type: initial encounter Fracture alignment: displaced Fracture morphology: oblique Humerus Location: shaft Second degree burn of chest wall T21.21XA Pressure ulcer L89.90 Elevated troponin R77.8 Goals of care, counseling/discussion Z71.89 Dementia with behavioral disturbance F03.91 Time Spent (min) 35 (1) Closed right humeral fracture Encounter type: initial encounter Fracture alignment: displaced Fracture morphology: oblique Humerus Location: shaft Qualified Code(s): S42.331A - Displaced oblique fracture of shaft of humerus, right arm, initial encounter for closed fracture
[2021-02-01] MEDS: BACITRACIN OINT 15 GM TUBE EXT SCH (16:27)
[2021-02-01] MEDS: METOPROLOL TARTRATE 25 MG TAB PO SCH (21:20)
[2021-02-01] MEDS: QUEtiapine FUMARATE 100 MG TABLET PO SCH (21:21)
[2021-02-01] MEDS: ACETAMINOPHEN 325 MG TAB PO PRN (23:11)
[2021-02-02] MEDS: CEROVITE ADV FORMULA TAB PO SCH (08:54)
[2021-02-02] MEDS: PARoxetine HCl CONTROLLED REL 12.5 MG TABCR PO SCH (08:54)
[2021-02-02] MEDS: AMIODARONE 200 MG TAB PO SCH (08:55)
[2021-02-02] MEDS: APIXABAN 5 MG TABLET PO SCH ×2 (08:55→19:56)
[2021-02-02] MEDS: ASPIRIN 81 MG ECTAB PO SCH (08:55)
[2021-02-02] MEDS: METOPROLOL TARTRATE 50 MG TAB PO SCH (08:55)
[2021-02-02] MEDS: DOCUSATE SODIUM 100 MG CAP PO SCH ×2 (08:55→19:55)
[2021-02-02] MEDS: POLYETHYLENE (MIRALAX) 17 GM PACK PO SCH (08:55)
[2021-02-02] MEDS: BACITRACIN OINT 15 GM TUBE EXT SCH (11:51)
--- NOTE | 2021-02-02 14:12 | Hospitalist Progress Note ---
Date of Service February 02, 2021 Assessment & Plan (1) Unwitnessed fall: Plan: Had an unwitnessed fall Sustained a humeral fracture, which has been splinted by ortho Will continue brace and sling for 1 month according to ortho Outpatient follow up (2) SARA (generalized anxiety disorder): Plan: SARA (generalized anxiety disorder), Depression: -On paxil 12.5 mg (3) CAD (coronary artery disease): Plan: Coronary Artery Disease: - Continue home metoprolol, aspirin (4) Atrial flutter: Plan: Paroxysmal Atrial Flutter: - continue home Eliquis and amiodarone. (5) Hypertension: Plan: Hypertension: BP well controlled - Continue metoprolol -Home lisinopril, furosemide, and spironolactone have been discontinued (6) Closed right humeral fracture: Plan: Right humeral fracture w/ radial nerve palsy: - Patient found to have acute oblique displaced distal diaphyseal fracture of the humerus just distal to the humeral component of the right shoulder arthroplasty. Splint has been placed. - Pain: acetaminophen to PRN - Repeat XR (01/14): Healing humeral fracture - Orthopedics (01/17/21): Recommendations: continue Jack brace for another 1 month and sling for another month. Continue stretching wrist/fingers so that they do not get contracted. F/u in 1 month. - Continue bracing with goal of slow extension of wrist -- orthotics assisting -Needs continued occupational therapy (7) Second degree burn of chest wall: Plan: Healthy granulation tissue No need for further debridement according to surgery Pressure Ulcer of mid back and Burn to L Flank Region: - patient frequently refusing Wound Care assistance/evaluation -Left flank burn wound is improving, continue wound care, general surgery saw the patient did not think any debridement was needed Continue wound care and daily dressing change (8) Pressure ulcer: Plan: present on admission Back wound appeared to have significant exudate, continue wound care as per wound care nurses recommendations - Completed Doxy for suspicion of infection - Continue frequent repositioning. - Bed changed in attempt to decrease progression of pressure ulcers. -Continue daily wound dressing -Follow-up with wound care outpatient upon discharge (9) Elevated troponin: (10) Goals of care, counseling/discussion: Plan: Goal of care / Placement: - Speech consulted previously - permissive aspiration accepted by patient's son (POA) - Palliative discussed goals of care with family. No escalation of care. - Patient lacks capacity to make medical decisions (Ethics consulted); son is POC if needed - Patient vaccinated against COVID-19 as of 01/17/2021 with J&J vaccine. Bed search ongoing -- many facilities require a certain amount of time (e.g., 2 weeks) post-vax before accept. It was 2 week on 01/31 (11) Dementia with behavioral disturbance: Plan: stable Plan: Diet: regular, easy to chew Code status: DNR/DNI DVT ppx: Eliquis Dispo: med/surg. Awaiting placement at at SNF w/ long-term care capabilities. Pt really wants to go home but requires 24/7 care and can't even stand up on his own, needs rehab. Latest notes say that bed might be available next week at [facility]. He was vaccinated against COVID 19 during this admission Admission and Anticipated Discharge Date Admission Date: December 04, 2020 Subjective patient seen and examined, no new complaints, still confused, denies chest pain or SOB Review of Systems Review of Systems: unreliable due to confusion Physical Exam Physical Exam: The patient is awake, alert, oriented x2 HEENT--PERRL, EOMI, mucous membranes and oropharynx mildly dry Neck--supple. No JVD. No bruits. Thyroid normal, trachea midline, no adenopathy. Heart--normal S1 and S2. No murmurs, rubs or gallops. Lungs--clear bilaterally, no respiratory distress, no accessory muscle use. Abdomen--normal bowel sounds and soft. Mild epigastric and left sided abdominal pain Extremities--right upper extremity in sling and brace Dermatologic--normal skin turgor, normal color, no abnormal lymph nodes, no rash. Neurologic--cranial nerves II through XII grossly intact. Rheumatologic--normal range of motion. Psychiatric--normal affect. Results & Data Results & Data ([facility]) Vital Signs (Past 12 Hours) Vital Signs Temp Pulse Resp BP Pulse Ox 02/02/21 08:10 97.5 F L 66 18 109/68 98 PG Care Time/CCT Total # of Minutes Spent Total Time Spent with Patient: Total time spent is greater than 50% in coordination of care (as documented) at patient's floor/unit and/or counseling patient: Coding Level of Care Code 96785 Subseq Hosp Care Lvl 2 Diagnoses Unwitnessed fall R29.6 SARA (generalized anxiety disorder) F41.1 CAD (coronary artery disease) I25.10 Atrial flutter I48.92 Hypertension I10 Closed right humeral fracture S42.331A Encounter type: initial encounter Fracture alignment: displaced Fracture morphology: oblique Humerus Location: shaft Second degree burn of chest wall T21.21XA Pressure ulcer L89.90 Elevated troponin R77.8 Goals of care, counseling/discussion Z71.89 Dementia with behavioral disturbance F03.91 Time Spent (min) 35 (1) Closed right humeral fracture Encounter type: initial encounter Fracture alignment: displaced Fracture morphology: oblique Humerus Location: shaft Qualified Code(s): S42.331A - Displaced oblique fracture of shaft of humerus, right arm, initial encounter for closed fracture
[2021-02-02] MEDS: QUEtiapine FUMARATE 100 MG TABLET PO SCH (19:55)
[2021-02-02] MEDS: METOPROLOL TARTRATE 25 MG TAB PO SCH (19:55)
[2021-02-03 07:19] LABS: Hematocrit (blood only) 35.8 % (42-52); Hemoglobin 11.1 g/dL (14.0-18.0); Mean Corpuscular Hemoglobin 28.8 pg (25-34); Mean Corpuscular Volume 92.7 fL (80-100); Mean Platelet Volume 9.4 fL (7.4-10.4); Platelet Count 225 K/uL (130-400); RDW Coefficient of Variation 16.8 % (11.5-14.5); RDW Standard Deviation 55.8 fL (36.4-46.3); Red Blood Count 3.86 M/uL (4.7-6.1); White Blood Count 5.36 K/uL (4.8-10.8)
[2021-02-03 08:00] LABS: BUN Creatinine Ratio 29.6 (10-20); Calcium 8.5 mg/dl (8.5-10.1); Creatinine Clr Calc Pharmacy 93.3 ml/min; Est GFR (African American) 108.5 ml/min; Est GFR (Non-African American) 93.6 ml/min; Potassium 4.3 mmol/L (3.5-5.1)
[2021-02-03] MEDS: APIXABAN 5 MG TABLET PO SCH ×2 (08:36→20:20)
[2021-02-03] MEDS: PARoxetine HCl CONTROLLED REL 12.5 MG TABCR PO SCH ×2 (08:36→08:50)
[2021-02-03] MEDS: BACITRACIN OINT 15 GM TUBE EXT SCH (08:37)
[2021-02-03] MEDS: DOCUSATE SODIUM 100 MG CAP PO SCH ×2 (08:47→20:20)
[2021-02-03] MEDS: AMIODARONE 200 MG TAB PO SCH (08:47)
[2021-02-03] MEDS: ASPIRIN 81 MG ECTAB PO SCH (08:47)
[2021-02-03] MEDS: CEROVITE ADV FORMULA TAB PO SCH (08:48)
[2021-02-03] MEDS: POLYETHYLENE (MIRALAX) 17 GM PACK PO SCH (08:48)
[2021-02-03] MEDS: METOPROLOL TARTRATE 50 MG TAB PO SCH (08:49)
--- NOTE | 2021-02-03 15:33 | Hospitalist Progress Note ---
Date of Service February 03, 2021 Assessment & Plan (1) Unwitnessed fall: Plan: Had an unwitnessed fall Sustained a humeral fracture, which has been splinted by ortho Will continue brace and sling for 1 month according to ortho Continue physical therapy Outpatient follow up (2) SARA (generalized anxiety disorder): Plan: SARA (generalized anxiety disorder), Depression: -On paxil 12.5 mg (3) CAD (coronary artery disease): Plan: Coronary Artery Disease: - Continue home metoprolol, aspirin (4) Atrial flutter: Plan: Paroxysmal Atrial Flutter: - continue home Eliquis and amiodarone. (5) Hypertension: Plan: Hypertension: BP well controlled - Continue metoprolol -Home lisinopril, furosemide, and spironolactone have been discontinued (6) Closed right humeral fracture: Plan: Right humeral fracture w/ radial nerve palsy: - Patient found to have acute oblique displaced distal diaphyseal fracture of the humerus just distal to the humeral component of the right shoulder arthroplasty. Splint has been placed. - Pain: acetaminophen to PRN - Repeat XR (01/14): Healing humeral fracture - Orthopedics (01/17/21): Recommendations: continue Jack brace for another 1 month and sling for another month. Continue stretching wrist/fingers so that they do not get contracted. F/u in 1 month. - Continue bracing with goal of slow extension of wrist -- orthotics assisting -Needs continued occupational therapy (7) Second degree burn of chest wall: Plan: Healthy granulation tissue on exam No need for further debridement according to surgery Pressure Ulcer of mid back and Burn to L Flank Region: - patient occasionally refusing Wound Care assistance/evaluation. -However, the RN does daily wound dressing and change -Left flank burn wound is improving, continue wound care, general surgery saw the patient did not think any debridement was needed Continue wound care and daily dressing change (8) Pressure ulcer: Plan: present on admission Back wound appeared to have significant exudate, continue wound care as per wound care nurses recommendations - Completed Doxy for suspicion of infection - Continue frequent repositioning. - Bed changed in attempt to decrease progression of pressure ulcers. -Continue daily wound dressing -Follow-up with wound care outpatient upon discharge (9) Elevated troponin: (10) Goals of care, counseling/discussion: Plan: Goal of care / Placement: - Speech consulted previously - permissive aspiration accepted by patient's son (POA) - Palliative discussed goals of care with family. No escalation of care. - Patient lacks capacity to make medical decisions (Ethics consulted); son is POC if needed - Patient vaccinated against COVID-19 as of 01/17/2021 with J&J vaccine. Bed search ongoing -- many facilities require a certain amount of time (e.g., 2 weeks) post-vax before accept. It was 2 week on 01/31 (11) Dementia with behavioral disturbance: Plan: stable Plan: Diet: regular, easy to chew Code status: DNR/DNI DVT ppx: Eliquis Dispo: med/surg. Awaiting placement at at [facility] w/ long-term care capabilities. Pt really wants to go home but requires 24/7 care and can't even stand up on his own, needs rehab. Latest notes say that bed might be available next week at [facility]. He was vaccinated against COVID 19 during this admission Admission and Anticipated Discharge Date Admission Date: December 04, 2020 awaiting discharge to SNF Subjective patient seen and examined, no new complaints, still confused, denies chest pain or SOB, says his right hand bothers his Review of Systems Review of Systems: unreliable due to confusion Physical Exam Physical Exam: The patient is awake, alert, oriented x2 HEENT--PERRL, EOMI, mucous membranes and oropharynx mildly dry Neck--supple. No JVD. No bruits. Thyroid normal, trachea midline, no adenopathy. Heart--normal S1 and S2. No murmurs, rubs or gallops. Lungs--clear bilaterally, no respiratory distress, no accessory muscle use. Abdomen--normal bowel sounds and soft. Mild epigastric and left sided abdominal pain Extremities--right upper extremity in sling and brace Dermatologic--normal skin turgor, normal color, no abnormal lymph nodes, no rash. Neurologic--cranial nerves II through XII grossly intact. Rheumatologic--normal range of motion. Psychiatric--normal affect. Results & Data Results & Data ([facility]) Vital Signs (Past 12 Hours) Vital Signs Temp Pulse Resp BP Pulse Ox 02/03/21 07:15 98.4 F 74 18 137/80 97 PG Care Time/CCT Total # of Minutes Spent Total Time Spent with Patient: Total time spent is greater than 50% in coordination of care (as documented) at patient's floor/unit and/or counseling patient: Coding Level of Care Code 73958 Subseq Hosp Care Lvl 2 Diagnoses Unwitnessed fall R29.6 SARA (generalized anxiety disorder) F41.1 CAD (coronary artery disease) I25.10 Atrial flutter I48.92 Hypertension I10 Closed right humeral fracture S42.331A Encounter type: initial encounter Fracture alignment: displaced Fracture morphology: oblique Humerus Location: shaft Second degree burn of chest wall T21.21XA Pressure ulcer L89.90 Elevated troponin R77.8 Goals of care, counseling/discussion Z71.89 Dementia with behavioral disturbance F03.91 Time Spent (min) 35 (1) Closed right humeral fracture Encounter type: initial encounter Fracture alignment: displaced Fracture morphology: oblique Humerus Location: shaft Qualified Code(s): S42.331A - Displaced oblique fracture of shaft of humerus, right arm, initial encounter for closed fracture
[2021-02-03] MEDS: METOPROLOL TARTRATE 25 MG TAB PO SCH (20:20)
[2021-02-03] MEDS: QUEtiapine FUMARATE 100 MG TABLET PO SCH (20:20)
[2021-02-04] MEDS: AMIODARONE 200 MG TAB PO SCH (08:57)
[2021-02-04] MEDS: APIXABAN 5 MG TABLET PO SCH ×2 (08:57→21:31)
[2021-02-04] MEDS: CEROVITE ADV FORMULA TAB PO SCH (08:58)
[2021-02-04] MEDS: PARoxetine HCl CONTROLLED REL 12.5 MG TABCR PO SCH (08:58)
[2021-02-04] MEDS: DOCUSATE SODIUM 100 MG CAP PO SCH ×2 (08:58→21:31)
[2021-02-04] MEDS: METOPROLOL TARTRATE 50 MG TAB PO SCH (08:58)
[2021-02-04] MEDS: ASPIRIN 81 MG ECTAB PO SCH (08:59)
[2021-02-04] MEDS: POLYETHYLENE (MIRALAX) 17 GM PACK PO SCH (09:04)
[2021-02-04] MEDS: BACITRACIN OINT 15 GM TUBE EXT SCH (09:05)
--- NOTE | 2021-02-04 12:46 | Hospitalist Progress Note ---
Date of Service February 04, 2021 Assessment & Plan (1) Unwitnessed fall: Plan: Patient Had an unwitnessed fall He Sustained a right humeral fracture, which has been splinted by ortho Will continue brace and sling for 1 month according to ortho Continue physical therapy Outpatient follow up (2) SARA (generalized anxiety disorder): Plan: SARA (generalized anxiety disorder), Depression: -On paxil 12.5 mg (3) CAD (coronary artery disease): Plan: Coronary Artery Disease: - Continue home metoprolol, aspirin (4) Atrial flutter: Plan: Paroxysmal Atrial Flutter: - continue home Eliquis and amiodarone. (5) Hypertension: Plan: Hypertension: BP well controlled - Continue metoprolol -Home lisinopril, furosemide, and spironolactone have been discontinued (6) Closed right humeral fracture: Plan: Right humeral fracture w/ radial nerve palsy: - Patient found to have acute oblique displaced distal diaphyseal fracture of the humerus just distal to the humeral component of the right shoulder arthroplasty. Splint has been placed. - Pain: acetaminophen to PRN - Repeat XR (01/14): Healing humeral fracture - Orthopedics (01/17/21): Recommendations: continue Jack brace for another 1 month and sling for another month. Continue stretching wrist/fingers so that they do not get contracted. F/u in 1 month. - Continue bracing with goal of slow extension of wrist -- orthotics assisting -Needs continued occupational therapy (7) Second degree burn of chest wall: Plan: Healthy granulation tissue on exam No need for further debridement according to surgery Pressure Ulcer of mid back and Burn to L Flank Region: - patient occasionally refusing Wound Care assistance/evaluation. -However, the RN does daily wound dressing and change -Left flank burn wound is improving, continue wound care, general surgery saw the patient did not think any debridement was needed Continue wound care and daily dressing change (8) Pressure ulcer: Plan: present on admission Back wound appeared to have significant exudate, continue wound care as per wound care nurses recommendations - Completed Doxy for suspicion of infection - Continue frequent repositioning. - Bed changed in attempt to decrease progression of pressure ulcers. -Continue daily wound dressing -Follow-up with wound care outpatient upon discharge (9) Elevated troponin: (10) Goals of care, counseling/discussion: Plan: Goal of care / Placement: - Speech consulted previously - permissive aspiration accepted by patient's son (POA) - Palliative discussed goals of care with family. No escalation of care. - Patient lacks capacity to make medical decisions (Ethics consulted); son is POC if needed - Patient vaccinated against COVID-19 as of 01/17/2021 with J&J vaccine. Bed search ongoing -- many facilities require a certain amount of time (e.g., 2 weeks) post-vax before accept. It was 2 week on 01/31 (11) Dementia with behavioral disturbance: Plan: stable Plan: Diet: regular, easy to chew Code status: DNR/DNI DVT ppx: Eliquis Dispo: med/surg. Awaiting placement at at [facility] w/ long-term care capabilities. Pt really wants to go home but requires 24/7 care and can't even stand up on his own, needs rehab. Latest notes say that bed might be available next week at [facility]. He was vaccinated against COVID 19 during this admission Admission and Anticipated Discharge Date Admission Date: December 04, 2020 Patient could be discharged to [facility] when accepted Subjective patient seen and examined, no new complaints, still confused, denies chest pain or SOB Review of Systems Review of Systems: unreliable due to confusion Physical Exam Physical Exam: The patient is awake, alert, oriented x2 HEENT--PERRL, EOMI, mucous membranes and oropharynx mildly dry Neck--supple. No JVD. No bruits. Thyroid normal, trachea midline, no adenopathy. Heart--normal S1 and S2. No murmurs, rubs or gallops. Lungs--clear bilaterally, no respiratory distress, no accessory muscle use. Abdomen--normal bowel sounds and soft. Mild epigastric and left sided abdominal pain Extremities--right upper extremity in sling and brace Dermatologic--normal skin turgor, normal color, no abnormal lymph nodes, no rash. Neurologic--cranial nerves II through XII grossly intact. Rheumatologic--normal range of motion. Psychiatric--normal affect. Results & Data Results & Data ([facility]) Vital Signs (Past 12 Hours) Vital Signs Temp Pulse Resp BP Pulse Ox 02/04/21 07:48 98.2 F 92 H 16 120/83 98 PG Care Time/CCT Total # of Minutes Spent Total Time Spent with Patient: Total time spent is greater than 50% in coordination of care (as documented) at patient's floor/unit and/or counseling patient: Coding Level of Care Code 08035 Subseq Hosp Care Lvl 2 Diagnoses Unwitnessed fall R29.6 SARA (generalized anxiety disorder) F41.1 CAD (coronary artery disease) I25.10 Atrial flutter I48.92 Hypertension I10 Closed right humeral fracture S42.331A Encounter type: initial encounter Fracture alignment: displaced Fracture morphology: oblique Humerus Location: shaft Second degree burn of chest wall T21.21XA Pressure ulcer L89.90 Elevated troponin R77.8 Goals of care, counseling/discussion Z71.89 Dementia with behavioral disturbance F03.91 Time Spent (min) 35 (1) Closed right humeral fracture Encounter type: initial encounter Fracture alignment: displaced Fracture morphology: oblique Humerus Location: shaft Qualified Code(s): S42.331A - Displaced oblique fracture of shaft of humerus, right arm, initial encounter for closed fracture
[2021-02-04] MEDS: QUEtiapine FUMARATE 100 MG TABLET PO SCH (21:31)
[2021-02-04] MEDS: METOPROLOL TARTRATE 25 MG TAB PO SCH (21:32)
[2021-02-05 08:27] LABS: Hematocrit (blood only) 37.2 % (42-52); Hemoglobin 11.5 g/dL (14.0-18.0); Mean Corpuscular Hemoglobin 28.8 pg (25-34); Mean Corpuscular Hgb Conc 30.9 g/dL (32-36); Mean Corpuscular Volume 93.2 fL (80-100); Mean Platelet Volume 9.4 fL (7.4-10.4); Platelet Count 206 K/uL (130-400); RDW Coefficient of Variation 16.8 % (11.5-14.5); RDW Standard Deviation 56.7 fL (36.4-46.3); Red Blood Count 3.99 M/uL (4.7-6.1); White Blood Count 4.72 K/uL (4.8-10.8)
[2021-02-05 08:38] LABS: BUN Creatinine Ratio 28.7 (10-20); Calcium 8.5 mg/dl (8.5-10.1); Creatinine Clr Calc Pharmacy 96.5 ml/min; Est GFR (Non-African American) 94.9 ml/min; Potassium 4.2 mmol/L (3.5-5.1)
[2021-02-05] MEDS: METOPROLOL TARTRATE 50 MG TAB PO SCH (08:59)
[2021-02-05] MEDS: APIXABAN 5 MG TABLET PO SCH ×2 (09:00→21:46)
[2021-02-05] MEDS: PARoxetine HCl CONTROLLED REL 12.5 MG TABCR PO SCH (09:00)
[2021-02-05] MEDS: DOCUSATE SODIUM 100 MG CAP PO SCH ×2 (09:00→21:46)
[2021-02-05] MEDS: ASPIRIN 81 MG ECTAB PO SCH (09:00)
[2021-02-05] MEDS: CEROVITE ADV FORMULA TAB PO SCH (09:00)
[2021-02-05] MEDS: POLYETHYLENE (MIRALAX) 17 GM PACK PO SCH (09:05)
[2021-02-05] MEDS: AMIODARONE 200 MG TAB PO SCH ×2 (12:36→13:01)
[2021-02-05] MEDS: ACETAMINOPHEN 325 MG TAB PO PRN ×2 (13:00→19:55)
--- NOTE | 2021-02-05 20:27 | Hospitalist Progress Note ---
Date of Service February 05, 2021 Assessment & Plan (1) Unwitnessed fall: Plan: Patient Had an unwitnessed fall He Sustained a right humeral fracture, which has been splinted by ortho Will continue brace and sling for 1 month according to ortho (February 17) Continue physical therapy Outpatient follow up x 1 month (Feb 17) (2) SARA (generalized anxiety disorder): Plan: SARA (generalized anxiety disorder), Depression: -On paxil 12.5 mg (3) CAD (coronary artery disease): Plan: Coronary Artery Disease: - Continue home metoprolol, aspirin (4) Atrial flutter: Plan: Paroxysmal Atrial Flutter: - continue home Eliquis and amiodarone. (5) Hypertension: Plan: Hypertension: BP well controlled - Continue metoprolol -Home lisinopril, furosemide, and spironolactone have been discontinued (6) Closed right humeral fracture: Plan: Right humeral fracture w/ radial nerve palsy: - Patient found to have acute oblique displaced distal diaphyseal fracture of the humerus just distal to the humeral component of the right shoulder arthroplasty. Splint has been placed. - Pain: acetaminophen PRN - Repeat XR (01/14): Healing humeral fracture - Orthopedics (01/17/21): Recommendations: continue Jack brace for another 1 month and sling for another month. Continue stretching wrist/fingers so that they do not get contracted. F/u in 1 month. - Continue bracing with goal of slow extension of wrist -- orthotics assisting -Needs continued occupational therapy (7) Second degree burn of chest wall: Plan: Healthy granulation tissue on exam No need for further debridement according to surgery Pressure Ulcer of mid back and Burn to L Flank Region: - patient occasionally refusing Wound Care assistance/evaluation. -However, the RN does daily wound dressing and change -Left flank burn wound is improving, continue wound care, general surgery saw the patient did not think any debridement was needed Continue wound care and daily dressing change (8) Pressure ulcer: Plan: present on admission Back wound appeared to have significant exudate, continue wound care as per wound care nurses recommendations - Completed Doxy for suspicion of infection - Continue frequent repositioning. - Bed changed in attempt to decrease progression of pressure ulcers. -Continue daily wound dressing -Follow-up with wound care outpatient upon discharge (9) Goals of care, counseling/discussion: Plan: Goal of care / Placement: - Speech consulted previously - permissive aspiration accepted by patient's son (POA) - Palliative discussed goals of care with family. No escalation of care. - Patient lacks capacity to make medical decisions (Ethics consulted); son is POC if needed - Patient vaccinated against COVID-19 as of 01/17/2021 with J&J vaccine. Bed search ongoing -- many facilities require a certain amount of time (e.g., 2 weeks) post-vax before accept. It was 2 week on 01/31 (10) Dementia with behavioral disturbance: Plan: stable Plan: Diet: regular, easy to chew Code status: DNR/DNI DVT ppx: Eliquis Dispo: med/surg. Awaiting placement at at [facility] w/ long-term care capabilities. Pt really wants to go home but requires 24/7 care and can't even stand up on his own, needs rehab. He was vaccinated against COVID 19 during this admission Admission and Anticipated Discharge Date Admission Date: December 04, 2020 Subjective Pt has been sleeping most of the day. He continues to await placement Results & Data Results & Data ([facility]) Vital Signs (Past 12 Hours) Vital Signs Temp Pulse Pulse Resp BP Pulse Ox 02/05/21 19:52 76 114/76 02/05/21 14:13 36.3 C L 77 16 112/70 95 02/05/21 10:38 91 H 119/73 PG Care Time/CCT Total # of Minutes Spent Total Time Spent with Patient: Total time spent is greater than 50% in coordination of care (as documented) at patient's floor/unit and/or counseling patient: Coding Level of Care Code 99177 Subseq Hosp Care Lvl 1 Diagnoses Unwitnessed fall R29.6 SARA (generalized anxiety disorder) F41.1 CAD (coronary artery disease) I25.10 Atrial flutter I48.92 Hypertension I10 Closed right humeral fracture S42.331A Encounter type: initial encounter Fracture alignment: displaced Fracture morphology: oblique Humerus Location: shaft Second degree burn of chest wall T21.21XA Pressure ulcer L89.90 Goals of care, counseling/discussion Z71.89 Dementia with behavioral disturbance F03.91 (1) Closed right humeral fracture Encounter type: initial encounter Fracture alignment: displaced Fracture morphology: oblique Humerus Location: shaft Qualified Code(s): S42.331A - Displaced oblique fracture of shaft of humerus, right arm, initial encounter for closed fracture
[2021-02-05] MEDS: METOPROLOL TARTRATE 25 MG TAB PO SCH (21:46)
[2021-02-05] MEDS: QUEtiapine FUMARATE 100 MG TABLET PO SCH (21:46)
[2021-02-06] MEDS: AMIODARONE 200 MG TAB PO SCH (09:35)
[2021-02-06] MEDS: POLYETHYLENE (MIRALAX) 17 GM PACK PO SCH (09:35)
[2021-02-06] MEDS: METOPROLOL TARTRATE 50 MG TAB PO SCH (09:35)
[2021-02-06] MEDS: CEROVITE ADV FORMULA TAB PO SCH (09:35)
[2021-02-06] MEDS: DOCUSATE SODIUM 100 MG CAP PO SCH ×2 (09:35→19:56)
[2021-02-06] MEDS: PARoxetine HCl CONTROLLED REL 12.5 MG TABCR PO SCH (09:35)
[2021-02-06] MEDS: ASPIRIN 81 MG ECTAB PO SCH (09:35)
[2021-02-06] MEDS: APIXABAN 5 MG TABLET PO SCH ×2 (09:35→19:56)
[2021-02-06] MEDS: MoRPHine SULFATE 2 MG/ML CARP IV PRN (10:25)
--- NOTE | 2021-02-06 18:20 | Hospitalist Progress Note ---
Date of Service February 06, 2021 Assessment & Plan (1) Unwitnessed fall: Plan: - Patient had an unwitnessed fall; sustained a R humeral fracture - non- operative approach - Plan to continue brace and sling for 1 month according to ortho (February 17) - Continue physical therapy - Outpatient follow up x 1 month...or inpatient depending on placement (Feb 17) (2) SARA (generalized anxiety disorder): Plan: SARA (generalized anxiety disorder), Depression: -On paxil 12.5 mg (3) CAD (coronary artery disease): Plan: - Continue home metoprolol, aspirin (4) Atrial flutter: Plan: - Paroxysmal - continue home Eliquis and amiodarone. (5) Hypertension: Plan: Hypertension: BP well controlled - Continue metoprolol -Home lisinopril, furosemide, and spironolactone have been discontinued (6) Closed right humeral fracture: Plan: - Right humeral fracture w/ radial nerve palsy - Patient found to have acute oblique displaced distal diaphyseal fracture of the humerus just distal to the humeral component of the right shoulder arthroplasty. Splint has been placed. - Pain: acetaminophen PRN - Repeat XR (01/14): Healing humeral fracture - Orthopedics (01/17/21): Recommendations: continue Jack brace for another 1 month and sling for another month. Continue stretching wrist/fingers so that they do not get contracted. F/u in 1 month. - Continue bracing with goal of slow extension of wrist -- orthotics assisting - Needs continued occupational therapy (7) Second degree burn of chest wall: Plan: - Healthy granulation tissue on exam; No need for further debridement according to surgery - Patient occasionally refusing Wound Care assistance/evaluation; nursing with dressing changes -- cleanse with saline; apply xerofoam; cover with optifoam; change daily - Continue wound care and daily dressing change (8) Pressure ulcer: Plan: - Present on admission - Back wound appeared to have significant exudate, continue wound care as per wound care nurses recommendations - Completed Doxy for suspicion of infection for ulcer and burn - Continue frequent repositioning. - Bed changed in attempt to decrease progression of pressure ulcers. -Follow-up with wound care outpatient upon discharge -- [phone] (9) Goals of care, counseling/discussion: Plan: Goal of care / Placement: - Speech consulted previously - permissive aspiration accepted by patient's son (POA) - Palliative discussed goals of care with family. No escalation of care. - Patient lacks capacity to make medical decisions (Ethics consulted); son is POC if needed - Patient vaccinated against COVID-19 as of 01/17/2021 with J&J vaccine. Bed search ongoing -- many facilities require a certain amount of time (e.g., 2 weeks) post-vax before accept. It was 2 week on 01/31 (10) Dementia with behavioral disturbance: Plan: - Stable - Continue Seroquel 100 mg HS; Zyprexa PRN Plan: Diet: regular, easy to chew Code status: DNR/DNI DVT ppx: Eliquis Dispo: med/surg. Awaiting placement at at SNF w/ long-term care capabilities. Pt really wants to go home but requires 24/7 care and can't even stand up on his own, needs rehab. He was vaccinated against COVID 19 during this admission - Updated son Sam on 02/06 Admission and Anticipated Discharge Date Admission Date: December 04, 2020 Subjective Reports doing well today. He states he arm feels a bit better everyday. Just wants to be able to go home but does understand he needs to get stronger. 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 Review of Systems Review of Systems: All systems reviewed & are unremarkable except as noted in Subjective Physical Exam Physical Exam: PHYSICAL EXAM General Appearance: Elderly male in NAD Neck: Supple; Trachea midline; Neg JVD; Neg lymphadenopathy Heart: RRR with no M/G/R Lungs: Respirations unlabored; Neg accessory muscle use Extremities: RUE braced/Sling Neurological: Speech clear Psychiatric: Appropriate mood/affect Skin: Normal Color; Warm/Dry Results & Data Results & Data ([facility]) Vital Signs (Past 12 Hours) Vital Signs Temp Pulse Resp BP Pulse Ox 02/06/21 15:51 36.7 C 89 16 124/85 98 02/06/21 07:27 36.4 C L 76 16 139/83 96 PG Care Time/CCT Total # of Minutes Spent Total Time Spent with Patient: Total time spent is greater than 50% in coordination of care (as documented) at patient's floor/unit and/or counseling patient: Coding Level of Care Code 98419 Subseq Hosp Care Lvl 2 Diagnoses Unwitnessed fall R29.6 SARA (generalized anxiety disorder) F41.1 CAD (coronary artery disease) I25.10 Atrial flutter I48.92 Hypertension I10 Closed right humeral fracture S42.331A Encounter type: initial encounter Fracture alignment: displaced Fracture morphology: oblique Humerus Location: shaft Second degree burn of chest wall T21.21XA Pressure ulcer L89.90 Goals of care, counseling/discussion Z71.89 Dementia with behavioral disturbance F03.91 (1) Closed right humeral fracture Encounter type: initial encounter Fracture alignment: displaced Fracture morphology: oblique Humerus Location: shaft Qualified Code(s): S42.331A - Displaced oblique fracture of shaft of humerus, right arm, initial encounter for closed fracture
[2021-02-06] MEDS: QUEtiapine FUMARATE 100 MG TABLET PO SCH (19:56)
[2021-02-06] MEDS: METOPROLOL TARTRATE 25 MG TAB PO SCH (19:57)
[2021-02-07] MEDS: APIXABAN 5 MG TABLET PO SCH ×2 (08:09→20:33)
[2021-02-07] MEDS: ASPIRIN 81 MG ECTAB PO SCH (08:09)
[2021-02-07] MEDS: POLYETHYLENE (MIRALAX) 17 GM PACK PO SCH (08:09)
[2021-02-07] MEDS: DOCUSATE SODIUM 100 MG CAP PO SCH ×2 (08:09→20:32)
[2021-02-07] MEDS: PARoxetine HCl CONTROLLED REL 12.5 MG TABCR PO SCH (08:09)
[2021-02-07] MEDS: AMIODARONE 200 MG TAB PO SCH (08:09)
[2021-02-07] MEDS: METOPROLOL TARTRATE 50 MG TAB PO SCH (08:09)
[2021-02-07] MEDS: CEROVITE ADV FORMULA TAB PO SCH (08:09)
--- NOTE | 2021-02-07 19:59 | Hospitalist Progress Note ---
Date of Service February 07, 2021 Assessment & Plan (1) Unwitnessed fall: Plan: - Patient had an unwitnessed fall; sustained a R humeral fracture - non- operative approach - Plan to continue brace and sling for 1 month according to ortho (February 17) - Continue physical therapy - Outpatient follow up x 1 month...or inpatient depending on placement (Feb 17) (2) SARA (generalized anxiety disorder): Plan: SARA (generalized anxiety disorder), Depression: -On paxil 12.5 mg (3) CAD (coronary artery disease): Plan: - Continue home metoprolol, aspirin (4) Atrial flutter: Plan: - Paroxysmal - continue home Eliquis and amiodarone. (5) Hypertension: Plan: Hypertension: BP well controlled - Continue metoprolol -Home lisinopril, furosemide, and spironolactone have been discontinued (6) Closed right humeral fracture: Plan: - Right humeral fracture w/ radial nerve palsy - Patient found to have acute oblique displaced distal diaphyseal fracture of the humerus just distal to the humeral component of the right shoulder arthroplasty. Splint has been placed. - Pain: acetaminophen PRN - Repeat XR (01/14): Healing humeral fracture - Orthopedics (01/17/21): Recommendations: continue Jack brace for another 1 month and sling for another month. Continue stretching wrist/fingers so that they do not get contracted. F/u in 1 month. - Continue bracing with goal of slow extension of wrist -- orthotics assisting - Needs continued occupational therapy (7) Second degree burn of chest wall: Plan: - Healthy granulation tissue on exam; No need for further debridement according to surgery - Patient occasionally refusing Wound Care assistance/evaluation; nursing with dressing changes -- cleanse with saline; apply xerofoam; cover with optifoam; change daily - Continue wound care and daily dressing change (8) Pressure ulcer: Plan: - Present on admission - Back wound appeared to have significant exudate, continue wound care as per wound care nurses recommendations - Completed Doxy for suspicion of infection for ulcer and burn - Continue frequent repositioning. - Bed changed in attempt to decrease progression of pressure ulcers. -Follow-up with wound care outpatient upon discharge -- [phone] (9) Goals of care, counseling/discussion: Plan: Goal of care / Placement: - Speech consulted previously - permissive aspiration accepted by patient's son (POA) - Palliative discussed goals of care with family. No escalation of care. - Patient lacks capacity to make medical decisions (Ethics consulted); son is POC if needed - Patient vaccinated against COVID-19 as of 01/17/2021 with J&J vaccine. Bed search ongoing -- many facilities require a certain amount of time (e.g., 2 weeks) post-vax before accept. It was 2 week on 01/31 (10) Dementia with behavioral disturbance: Plan: - Stable - Continue Seroquel 100 mg HS; Zyprexa PRN Plan: Diet: regular, easy to chew Code status: DNR/DNI DVT ppx: Eliquis Dispo: med/surg. Awaiting placement at at [facility] w/ long-term care capabilities. Pt really wants to go home but requires 24/7 care and can't even stand up on his own, needs rehab. He was vaccinated against COVID 19 during this admission - Updated son Sam on 02/06 Admission and Anticipated Discharge Date Admission Date: December 04, 2020 Supervising Physician Co-Signing Physician Notes PA Supervision Note: I did not personally see or examine the patient today, but I verified all zamorano points of MARIA ESTHER Patricio's assessment and plan with the following exceptions/additions: None Subjective Patient reports no complaints today. He continues to state his arm is feeling a bit better. Just eager to return home. May have a bed next week at [facility] Review of Systems Review of Systems: All systems reviewed & are unremarkable except as noted in Subjective Physical Exam Physical Exam: PHYSICAL EXAM General Appearance: Elderly male in NAD Neck: Supple; Trachea midline; Neg JVD; Neg lymphadenopathy Heart: RRR with no M/G/R Lungs: Respirations unlabored; Neg accessory muscle use Extremities: RUE braced/Sling Neurological: Speech clear Psychiatric: Appropriate mood/affect Skin: Normal Color; Warm/Dry Results & Data Results & Data ([facility]) Vital Signs (Past 12 Hours) Vital Signs Temp Pulse Resp BP Pulse Ox 02/07/21 15:12 36.7 C 81 16 131/77 96 PG Care Time/CCT Total # of Minutes Spent Total Time Spent with Patient: Total time spent is greater than 50% in coordination of care (as documented) at patient's floor/unit and/or counseling patient: Coding Level of Care Code 38764 Subseq Hosp Care Lvl 1 Diagnoses Unwitnessed fall R29.6 SARA (generalized anxiety disorder) F41.1 CAD (coronary artery disease) I25.10 Atrial flutter I48.92 Hypertension I10 Closed right humeral fracture S42.331A Encounter type: initial encounter Fracture alignment: displaced Fracture morphology: oblique Humerus Location: shaft Second degree burn of chest wall T21.21XA Pressure ulcer L89.90 Goals of care, counseling/discussion Z71.89 Dementia with behavioral disturbance F03.91 (1) Closed right humeral fracture Encounter type: initial encounter Fracture alignment: displaced Fracture morphology: oblique Humerus Location: shaft Qualified Code(s): S42.331A - Di splaced oblique fracture of shaft of humerus, right arm, initial encounter for closed fracture
[2021-02-07] MEDS: METOPROLOL TARTRATE 25 MG TAB PO SCH (20:33)
[2021-02-07] MEDS: QUEtiapine FUMARATE 100 MG TABLET PO SCH (20:33)
--- NOTE | 2021-02-08 09:09 | Hospitalist Progress Note ---
Date of Service February 08, 2021 Assessment & Plan (1) Unwitnessed fall: Plan: - Patient had an unwitnessed fall; sustained a R humeral fracture - non- operative approach - Plan to continue brace and sling for 1 month according to ortho (February 17) - Continue physical therapy - Outpatient follow up x 1 month...or inpatient depending on placement (Feb 17) (2) SARA (generalized anxiety disorder): Plan: SARA (generalized anxiety disorder), Depression: stable Continue paxil 12.5 mg (3) CAD (coronary artery disease): Plan: No CP Continue home metoprolol, aspirin (4) Atrial flutter: Plan: - Paroxysmal - continue home Eliquis and amiodarone. (5) Hypertension: Plan: BP well controlled Continue metoprolol *Home lisinopril, furosemide, and spironolactone have been discontinued (6) Closed right humeral fracture: Plan: - Right humeral fracture w/ radial nerve palsy - Patient found to have acute oblique displaced distal diaphyseal fracture of the humerus just distal to the humeral component of the right shoulder arthroplasty. Splint has been placed. - Pain: acetaminophen PRN - Repeat XR (01/14): Healing humeral fracture --> repeat 02/08 with re- demonstration of displaced and angulated humeral shaft fracture with healing changes noted - Orthopedics (01/17/21): Recommendations: continue Jack brace for another 1 month and sling for another month. Continue stretching wrist/fingers so that they do not get contracted. F/u in 1 month. - Continue bracing with goal of slow extension of wrist -- orthotics assisting - Needs continued occupational therapy Repeat imaging (7) Second degree burn of chest wall: Plan: - Healthy granulation tissue on exam; No need for further debridement according to surgery - Patient occasionally refusing Wound Care assistance/evaluation; nursing with dressing changes -- cleanse with saline; apply xerofoam; cover with optifoam; change daily - Continue wound care and daily dressing change (8) Pressure ulcer: Plan: - Present on admission - Back wound appeared to have significant exudate days prior, continue wound care as per wound care nurses recommendations - Completed Doxy for suspicion of infection for ulcer and burn - Continue frequent repositioning to prevent - Bed changed in attempt to decrease progression of pressure ulcers. -Follow-up with wound care outpatient upon discharge -- [phone] (9) Goals of care, counseling/discussion: Plan: Goal of care / Placement: - Speech consulted previously - permissive aspiration accepted by patient's son (POA) - Palliative discussed goals of care with family. No escalation of care. - Patient lacks capacity to make medical decisions (Ethics consulted); son is POC if needed - Patient vaccinated against COVID-19 as of 01/17/2021 with J&J vaccine. Bed search ongoing -- many facilities require a certain amount of time (e.g., 2 weeks) post-vax before accept. It was 2 week on 01/31 (10) Dementia with behavioral disturbance: Plan: - Stable - Continue Seroquel 100 mg HS; Zyprexa PRN Plan: Diet: regular, easy to chew Code status: DNR/DNI DVT ppx: Eliquis Dispo: med/surg. Awaiting placement at at SNF w/ long-term care capabilities. Pt really wants to go home but requires 24/7 care and can't even stand up on his own, needs rehab. He was vaccinated against COVID 19 during this admission - Updated son Sam on 02/06 Possible bed at [facility] this upcoming week Admission and Anticipated Discharge Date Admission Date: December 04, 2020 Supervising Physician Co-Signing Physician Notes PA Supervision Note: I did not personally see or examine the patient today, but I verified all zamorano p oints of MARIA ESTHER Dougherty's assessment and plan with the following exceptions/additions: None Subjective patient evaluated this afternoon, resting in bed. pain controlled with ordered medications. no new issues except that he is unable to find his cell phone at this time. no fever, chills, chest pain, shortness of breath, abdominal pain, nausea or vomiting. Review of Systems Review of Systems: All systems reviewed & are unremarkable except as noted in HPI & below Physical Exam Physical Exam: PHYSICAL EXAM General Appearance: Elderly male in NAD, laying in bed resting Neck: Supple; Trachea midline; Neg JVD; Neg lymphadenopathy Heart: RRR with no M/G/R Lungs: Respirations unlabored; Neg accessory muscle use Extremities: RUE braced/Sling, fingers mobile, sensation intact Neurological: Speech clear Psychiatric: Appropriate mood/affect Skin: Normal Color; Warm/Dry Results & Data Results & Data ([facility]) Vital Signs (Past 12 Hours) Vital Signs Temp Pulse Resp BP Pulse Ox 02/08/21 07:43 36.6 C 92 H 16 101/63 96 02/07/21 23:26 36.7 C 67 16 94/58 L 94 Diagnostic Findings Humerus X-Ray 02/08/21 09:27 XR humerus RT 2V CLINICAL HISTORY: Right humerus fracture follow-up TECHNIQUE: 2 radiographic views of the right humerus were obtained. Comparison: Comparison is made to humerus radiograph 01/14/2021 FINDINGS: Redemonstration of right shoulder arthroplasty. Displaced and angulated fracture of the right humeral shaft is again seen. There are faint bony bridging changes compatible with healing. IMPRESSION: Redemonstration of displaced and angulated humeral shaft fracture with healing changes noted. ACT 112: Negative or not required by law. Electronically signed by: Everton Fitzpatrick M.D. 02/08/2021 11:29 AM PG Care Time/CCT Total # of Minutes Spent Total Time Spent with Patient: Total time spent is greater than 50% in coordination of care (as documented) at patient's floor/unit and/or counseling patient: Coding Level of Care Code 62834 Subseq Hosp Care Lvl 1 Diagnoses Unwitnessed fall R29.6 SARA (generalized anxiety disorder) F41.1 CAD (coronary artery disease) I25.10 Atrial flutter I48.92 Hypertension I10 Closed right humeral fracture S42.331A Encounter type: initial encounter Fracture alignment: displaced Fracture morphology: oblique Humerus Location: shaft Second degree burn of chest wall T21.21XA Pressure ulcer L89.90 Goals of care, counseling/discussion Z71.89 Dementia with behavioral disturbance F03.91 (1) Closed right humeral fracture Encounter type: initial encounter Fracture alignment: displaced Fracture morphology: oblique Humerus Location: shaft Qualified Code(s): S42.331A - Displaced oblique fracture of shaft of humerus, right arm, initial encounter for closed fracture
[2021-02-08] MEDS: POLYETHYLENE (MIRALAX) 17 GM PACK PO SCH (10:16)
[2021-02-08] MEDS: APIXABAN 5 MG TABLET PO SCH ×3 (10:16→20:16)
[2021-02-08] MEDS: AMIODARONE 200 MG TAB PO SCH (10:16)
[2021-02-08] MEDS: DOCUSATE SODIUM 100 MG CAP PO SCH ×3 (10:16→20:16)
[2021-02-08] MEDS: PARoxetine HCl CONTROLLED REL 12.5 MG TABCR PO SCH (10:16)
[2021-02-08] MEDS: ASPIRIN 81 MG ECTAB PO SCH (10:17)
[2021-02-08] MEDS: CEROVITE ADV FORMULA TAB PO SCH (10:17)
--- NOTE | 2021-02-08 11:30 | XRay Report ---
XR humerus RT 2V CLINICAL HISTORY: Right humerus fracture follow-up TECHNIQUE: 2 radiographic views of the right humerus were obtained. Comparison: Comparison is made to humerus radiograph 01/14/2021 FINDINGS: Redemonstration of right shoulder arthroplasty. Displaced and angulated fracture of the right humeral shaft is again seen. There are faint bony bridging changes compatible with healing. IMPRESSION: Redemonstration of displaced and angulated humeral shaft fracture with healing changes noted. ACT 112: Negative or not required by law. Electronically signed by: Everton Fitzpatrick M.D. 02/08/2021 11:29 AM
[2021-02-08] MEDS: METOPROLOL TARTRATE 50 MG TAB PO SCH (13:57)
[2021-02-08] MEDS: METOPROLOL TARTRATE 25 MG TAB PO SCH ×2 (20:11→20:16)
[2021-02-08] MEDS: QUEtiapine FUMARATE 100 MG TABLET PO SCH ×2 (20:12→20:17)
--- NOTE | 2021-02-09 08:38 | Hospitalist Progress Note ---
Date of Service February 09, 2021 Assessment & Plan (1) Unwitnessed fall: Plan: - Patient had an unwitnessed fall; sustained a R humeral fracture - non- operative approach - Plan to continue brace and sling for 1 month according to ortho (February 17) - Continue physical therapy - Outpatient follow up x 1 month...or inpatient depending on placement (Feb 17) --> Seen by Dr. Ruelas 02/09. Xray 02/08 with healing humeral diaphyseal fracture with slight varus alignment --> Jack brace removed, but to continue to use wrist split. Will need monitoring of radial nerve over time. --> NEEDS FOLLOW UP IN APPROXIMATELY 1 MONTH (03/11/21) (2) SARA (generalized anxiety disorder): Plan: SARA (generalized anxiety disorder), Depression: stable Continue paxil 12.5 mg (3) CAD (coronary artery disease): Plan: No CP Continue home metoprolol, aspirin (4) Atrial flutter: Plan: - Paroxysmal - continue home Eliquis and amiodarone. (5) Hypertension: Plan: BP well controlled Continue metoprolol *Home lisinopril, furosemide, and spironolactone have been discontinued (6) Closed right humeral fracture: Plan: - Right humeral fracture w/ radial nerve palsy - Patient found to have acute oblique displaced distal diaphyseal fracture of the humerus just distal to the humeral component of the right shoulder arthroplasty. Splint placed. - Pain: acetaminophen PRN - Repeat XR (01/14): Healing humeral fracture --> repeat 02/08 with re- demonstration of displaced and angulated humeral shaft fracture with healing changes noted - Orthopedics (01/17/21): Recommendations: continue Jack brace for another 1 month and sling for another month. Continue stretching wrist/fingers so that they do not get contracted. F/u in 1 month. - Continue bracing with goal of slow extension of wrist -- orthotics assisting - Needs continued occupational therapy Repeat imaging 02/08 WITH HEALING --> Jack brace removed 02/09, continue wrist split. Will need f/u [address] Ruelas 03/11/21 (7) Second degree burn of chest wall: Plan: - Healthy granulation tissue on exam; No need for further debridement according to surgery - Patient occasionally refusing Wound Care assistance/evaluation; nursing with dressing changes -- cleanse with saline; apply xerofoam; cover with optifoam; change daily - Continue wound care and daily dressing change (8) Pressure ulcer: Plan: - Present on admission - Back wound appeared to have significant exudate days prior, continue wound care as per wound care nurses recommendations - Completed Doxy for suspicion of infection for ulcer and burn - Continue frequent repositioning to prevent - Bed changed in attempt to decrease progression of pressure ulcers. -Follow-up with wound care outpatient upon discharge -- [phone] (9) Goals of care, counseling/discussion: Plan: Goal of care / Placement: - Speech consulted previously - permissive aspiration accepted by patient's son (POA) - Palliative discussed goals of care with family. No escalation of care. - Patient lacks capacity to make medical decisions (Ethics consulted); son is POC if needed - Patient vaccinated against COVID-19 as of 01/17/2021 with J&J vaccine. Bed search ongoing -- many facilities require a certain amount of time (e.g., 2 weeks) post-vax before accept. It was 2 week on 01/31 (10) Dementia with behavioral disturbance: Plan: - Stable - Continue Seroquel 100 mg HS; Zyprexa PRN Plan: Diet: regular, easy to chew Code status: DNR/DNI DVT ppx: Eliquis Dispo: med/surg. Awaiting placement at at [facility] w/ long-term care capabilities. Pt really wants to go home but requires 24/7 care and can't even stand up on his own, needs rehab. He was vaccinated against COVID 19 during this admission - Updated son Sam on 02/06. Possible bed at [facility] this upcoming week. Admission and Anticipated Discharge Date Admission Date: December 04, 2020 Supervising Physician Co-Signing Physician Notes MARIA ESTHER Supervision Note: I did not personally see or examine the patient today, but I verified all zamorano points of MARIA ESTHER Dougherty's assessment and plan with the following exceptions/additions: None Subjective patient evaluated this morning, resting in bed, just finished breakfast pain well controlled and said he saw ortho this morning who removed the brace to his shoulder but to keep the wrist splint. awaiting rehab at [facility] this upcoming week. no issues at this time -- no fever, chills, chest pain, shortness of breath, abdominal pain, nausea or vomiting. Review of Systems Review of Systems: All systems reviewed & are unremarkable except as noted in HPI & below Physical Exam Physical Exam: PHYSICAL EXAM General Appearance: Elderly male in NAD, laying in bed resting Neck: Supple; Trachea midline; Neg JVD; Neg lymphadenopathy Heart: RRR with no M/G/R Lungs: Respirations unlabored; Neg accessory muscle use Extremities: RUE braced/Sling (REMOVED), fingers mobile in wrist split, sensation intact Neurological: Speech clear Psychiatric: Appropriate mood/affect Skin: Normal Color; Warm/Dry Results & Data Results & Data ([facility]) Vital Signs (Past 12 Hours) Vital Signs Temp Pulse Resp BP Pulse Ox 02/09/21 08:12 36.7 C 88 16 114/71 96 02/08/21 22:45 37.0 C 89 16 123/69 93 Diagnostic Findings Humerus X-Ray 02/08/21 09:27 XR humerus RT 2V CLINICAL HISTORY: Right humerus fracture follow-up TECHNIQUE: 2 radiographic views of the right humerus were obtained. Comparison: Comparison is made to humerus radiograph 01/14/2021 FINDINGS: Redemonstration of right shoulder arthroplasty. Displaced and angulated fracture of the right humeral shaft is again seen. There are faint bony bridging changes compatible with healing. IMPRESSION: Redemonstration of displaced and angulated humeral shaft fracture with healing changes noted. ACT 112: Negative or not required by law. Electronically signed by: Everton Fitzpatrick M.D. 02/08/2021 11:29 AM PG Care Time/CCT Total # of Minutes Spent Total Time Spent with Patient: Total time spent is greater than 50% in coordination of care (as documented) at patient's floor/unit and/or counseling patient: Coding Level of Care Code 89944 Subseq Hosp Care Lvl 1 Diagnoses Unwitnessed fall R29.6 SARA (generalized anxiety disorder) F41.1 CAD (coronary artery disease) I25.10 Atrial flutter I48.92 Hypertension I10 Closed right humeral fracture S42.331A Encounter type: initial encounter Fracture alignment: displaced Fracture morphology: oblique Humerus Location: shaft Second degree burn of chest wall T21.21XA Pressure ulcer L89.90 Goals of care, counseling/discussion Z71.89 Dementia with behavioral disturbance F03.91 (1) Closed right humeral fracture Encounter type: initial encounter Fracture alignment: displaced Fracture morphology: oblique Humerus Location: shaft Qualified Code(s): S42.331A - Displaced oblique fracture of shaft of humerus, right arm, initial encounter for closed fracture
--- NOTE | 2021-02-09 08:47 | Progress Notes ---
DATE OF SERVICE: 02/09/2021. SUBJECTIVE: An 80-year-old gentleman now a little over 2 months out from a right periprosthetic jacob ral diaphyseal fracture. He is doing well. He says it does not hurt at all anymore. OBJECTIVE: GENERAL: Physical examination shows an elderly, frail male. He is lying in bed with a disheveled sl ing in place. His Jack brace is in place. EXTREMITIES: Arm looks reasonably well aligned. He has got a splint on his wrist, which is a bit ma l fitting. No areas of soft tissue problems. There is no gross motion at the fracture site. He has got good passive and active shoulder and elbow motion. He still has no radial nerve function. X-RAYS: X-rays of the right humerus were reviewed. It shows healing of humeral diaphyseal fracture. There is some slight varus alignment. ASSESSMENT: An 80-year-old male, 2+ months out from a right humeral periprosthetic diaphyseal fractu re. There has been a bunion callus. Clinically, the bone appears healed. He is having no pain. PLAN: At this point, we will discontinue use of the Jack brace. He will continue to use the wr ist splint. We will just have to observe his radial nerve over time. I need to see him back in [facility] t a month. Any orthopedic questions can be directed to me at [phone]. He does need to follow kristina ghosh to see me in about a month. Job ID: [id number]
[2021-02-09] MEDS: CEROVITE ADV FORMULA TAB PO SCH (08:51)
[2021-02-09] MEDS: ASPIRIN 81 MG ECTAB PO SCH (08:51)
[2021-02-09] MEDS: METOPROLOL TARTRATE 50 MG TAB PO SCH (08:51)
[2021-02-09] MEDS: PARoxetine HCl CONTROLLED REL 12.5 MG TABCR PO SCH (08:51)
[2021-02-09] MEDS: AMIODARONE 200 MG TAB PO SCH (08:51)
[2021-02-09] MEDS: APIXABAN 5 MG TABLET PO SCH (08:51)
[2021-02-09] MEDS: DOCUSATE SODIUM 100 MG CAP PO SCH ×2 (08:52→19:41)
[2021-02-09] MEDS: POLYETHYLENE (MIRALAX) 17 GM PACK PO SCH (08:52)
[2021-02-09] MEDS: QUEtiapine FUMARATE 100 MG TABLET PO SCH (19:41)
[2021-02-09] MEDS: METOPROLOL TARTRATE 25 MG TAB PO SCH (19:41)
[2021-02-10] MEDS: DOCUSATE SODIUM 100 MG CAP PO SCH (08:03)
[2021-02-10] MEDS: POLYETHYLENE (MIRALAX) 17 GM PACK PO SCH (08:03)
[2021-02-10 08:05] LABS: Basophils # (auto) 0.02 K/uL (0-0.2); Basophils % (auto) 0.4 %; Eosinophils # (auto) 0.06 K/uL (0-0.5); Eosinophils % (auto) 1.3 %; Hematocrit (blood only) 39.2 % (42-52); Hemoglobin 12.1 g/dL (14.0-18.0); Immature Granulocytes # (auto) 0.01 K/uL (0.00-0.02); Immature Granulocytes % (auto) 0.2 %; Lymphocytes # (auto) 1.01 K/uL (1.2-3.4); Lymphocytes % (auto) 21.6 %; Mean Corpuscular Hemoglobin 29.7 pg (25-34); Mean Corpuscular Hgb Conc 30.9 g/dL (32-36); Mean Corpuscular Volume 96.1 fL (80-100); Mean Platelet Volume 9.4 fL (7.4-10.4); Monocytes # (auto) 0.35 K/uL (0.11-0.59); Monocytes % (auto) 7.5 %; Neutrophils # (auto) 3.23 K/uL (1.4-6.5); Platelet Count 178 K/uL (130-400); RDW Coefficient of Variation 17.5 % (11.5-14.5); RDW Standard Deviation 61.1 fL (36.4-46.3); Red Blood Count 4.08 M/uL (4.7-6.1); White Blood Count 4.68 K/uL (4.8-10.8)
[2021-02-10] MEDS ORDERED: OLANZapine 5 MG TABLET PO PRN (08:07)
--- NOTE | 2021-02-10 08:34 | Hospitalist Progress Note ---
Date of Service February 10, 2021 Assessment & Plan Admission and Anticipated Discharge Date Admission Date: December 04, 2020 Results & Data Results & Data ([facility]) Vital Signs (Past 12 Hours) Vital Signs Temp Pulse Resp BP Pulse Ox 02/09/21 22:12 36.6 C 82 16 113/73 96 Laboratory Results 02/10/21 02/10/21 Range/Units 07:38 07:38 WBC 4.68 L (4.8-10.8) K/uL RBC 4.08 L (4.7-6.1) M/uL Hgb 12.1 L (14.0-18.0) g/dL Hct 39.2 L (42-52) % MCV 96.1 (80-100) fL MCH 29.7 (25-34) pg MCHC 30.9 L (32-36) g/dL RDW Std Deviation 61.1 H (36.4-46.3) fL RDW Coeff of Martha 17.5 H (11.5-14.5) % Plt Count 178 (130-400) K/uL MPV 9.4 (7.4-10.4) fL Immature Gran % (Auto) 0.2 % Neut % (Auto) 69.0 % Lymph % (Auto) 21.6 % [place] % (Auto) 7.5 % Eos % (Auto) 1.3 % Baso % (Auto) 0.4 % Neut # (Auto) 3.23 (1.4-6.5) K/uL Lymph # (Auto) 1.01 L (1.2-3.4) K/uL [place] # (Auto) 0.35 (0.11-0.59) K/uL Eos # (Auto) 0.06 (0-0.5) K/uL Baso # (Auto) 0.02 (0-0.2) K/uL Immature Gran # (Auto) 0.01 (0.00-0.02) K/uL Sodium Pending Potassium Pending Chloride Pending Carbon Dioxide Pending Anion Gap Pending BUN Pending Creatinine Pending Est Cr Clr Drug Dosing Pending Est GFR ( Amer) Pending Est GFR (Non-Af Amer) Pending BUN/Creatinine Ratio Pending Glucose Pending Calcium Pending Total Bilirubin Pending AST Pending ALT Pending Alkaline Phosphatase Pending Total Protein Pending Albumin Pending Globulin Pending Albumin/Globulin Ratio Pending PG Care Time/CCT Total # of Minutes Spent Total Time Spent with Patient: Total time spent is greater than 50% in coordination of care (as documented) at patient's floor/unit and/or counseling patient: Coding
[2021-02-10 08:40] LABS: Albumin Level 2.4 gm/dl (3.4-5.0); BUN Creatinine Ratio 32.9 (10-20); Calcium 8.8 mg/dl (8.5-10.1); Creatinine Clr Calc Pharmacy 98.2 ml/min; Est GFR (African American) 110.8 ml/min; Est GFR (Non-African American) 95.6 ml/min; Potassium 4.3 mmol/L (3.5-5.1)
[2021-02-10 08:43] LABS: Albumin Globulin Ratio 0.6 (0.9-2); Globulin 3.8 gm/dl (2.5-4.0); Total Protein 6.2 gm/dl (6.4-8.2)
[2021-02-10] MEDS ORDERED: APIXABAN 5 MG TABLET PO SCH (09:00)
[2021-02-10] MEDS: PARoxetine HCl CONTROLLED REL 12.5 MG TABCR PO SCH (10:15)
[2021-02-10] MEDS: CEROVITE ADV FORMULA TAB PO SCH (10:15)
[2021-02-10] MEDS: METOPROLOL TARTRATE 50 MG TAB PO SCH (10:15)
[2021-02-10 10:25] LABS: Bilirubin,Total 0.4 mg/dl (0.2-1)
[2021-02-10] MEDS: AMIODARONE 200 MG TAB PO SCH (11:27)
[2021-02-10] MEDS: ASPIRIN 81 MG ECTAB PO SCH (11:28)
--- NOTE | 2021-02-10 14:01 | Discharge Summary ---
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 apply xeroform, cover with optifoams, change daily. May benefit from santyl daily to areas of slough. Mid-back -- apply aquacell ag, secure with optifoam, change every 3 days and as needed Left back -- apply optifoam, change every 3 days and prn Buttocks/sacrum -- apply stoma powder and barrier cream daily and prn. Lease offload patient from pressure to bondy prominences at all times. Suggest follow- [facility] appointment for [facility] -- appointment has been made February 26 at 1pm. Please have son attend appointment or call wound center to provide consent to # [phone]. You have been evaluated by therapy and recommendations for SNF. Arrangements have been made for [facility]. Please return to the emergency department with any fever/chills, chest pain, shortness of breath, uncontrolled pain, or for any other symptoms that are concerning for you. It has been a pleasure being a part of the medical team providing for you while you have been in the hospital. Take care! Addtl Test Department Helper Provider Instructions: Per Palliative Care: Care discussed with son Barb. Patient and son not actively pursuing hospice. However, should patient decline further medically after SNF placement or even while here in the hospital, he would not want to return to the hospital for further treatment and, at that time, would want to transition to a more hospice or comfort focused approach to his care. Current FAST score is all of 6 and including 7A. 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 POLST form completed. Pending Studies at Discharge: No Stand-Alone Forms: My [facility] Skilled Items Patient informed of condition?: Yes DNR: Yes Discharge Level of Care: Skilled Communicable Disease: No Discharge Prognosis: Stable Lines: None Urinary Catheter: No Medications and DC Order Prescriptions: New metoprolol tartrate 25 mg Tablet 37.5 mg PO QPM 30 Days Qty: 45 RF: 0 metoprolol tartrate 50 mg Tablet 50 mg PO QAM 30 Days Qty: 30 RF: 0 acetaminophen 325 mg Tablet 650 mg PO Q6H PRNQty: 0 RF: 0 aspirin 81 mg Tablet,Delayed Release (Dr/Ec) 81 mg PO QAM Qty: 30 RF: 0 paroxetine HCl 12.5 mg Tablet Extended Release 24 Hr 12.5 mg PO QAM 30 Days Qty: 30 RF: 0 quetiapine 100 mg Tablet 100 mg PO HS 30 Days Qty: 30 RF: 0 Certavite-Antioxidant 18-400 mg-mcg Tablet 1 tab PO QAM Qty: 30 RF: 0 Continued cyanocobalamin (vitamin B-12) 500 mcg Tablet 500 mcg PO DAILY RF: 0 docusate sodium 100 mg Tablet 100 mg PO DAILY RF: 0 vitamin E 400 unit Capsule 400 unit PO DAILY RF: 0 cholecalciferol (vitamin D3) [Vitamin D3] 1,000 unit Capsule 2,000 unit PO DAILY RF: 0 apixaban 5 mg Tablet 5 mg PO Q12 RF: 0 amiodarone 200 mg tablet 200 mg PO DAILY RF: 0 Discontinued furosemide 20 mg Tablet 20 mg PO DAILY RF: 0 lisinopril 20 mg Tablet 20 mg PO DAILY RF: 0 spironolactone 25 mg tablet 25 mg PO DAILY RF: 0 tramadol 50 mg tablet 50 mg PO Q8H PRN (Reason: pain) Qty: 10 RF: 0 Discharge Orders: Discharge Order (Routine); Ordered 02/10/21 Ordered By: Juana Dougherty Admission Data Admit Date/Time: 12/04/20 21:01 Attending Provider: Francesca Kee Admit Provider: Alie Ruelas Primary Care Provider: Caesar Rodriguez Other Providers: Joaquín Yen [facility] ; [facility] ; [place] ; Caesar Ruelas ; Kenzie Wang ; Alie Ruelas ; Caesar Ruelas ; Aleah Santiago ; Gennaro Oquendo ; Irvin Kraus Other Interventions: Discharge Summary Assessment (RN) Last Done: 02/10/21 14:08 Supervising Physician Co-Signing Physician Notes PA Supervision Note: I personally saw and examined the patient. I verified all zamorano points and agree with MARIA ESTHER Dougherty with the following exceptions and/or additions: S-Pt upset that his ride is not coming sooner to go to rehab. Asks me to call his friend on his cell phone and then proceeds to talk on the phone and would not participate further in my interview. Is agitated a bit. O- Vitals reviewed Gen-NAD, alert awake, oriented x 3 Unlabored breahting SKin no rashes Ext Rt hand in brace Neuro MAEW A/P-80 yo male here with fall with right humerus fracture, with prolonged stay due to difficulty finding placement. Plan outlined otherwise as above f/u Ortho in 1 month Needs continued wound care for sarmiento and pressure wound on back Coding Level of Care Code D/C DAY MANAGEMENT >30 MINS Diagnoses Unwitnessed fall R29.6 SARA (generalized anxiety disorder) F41.1 CAD (coronary artery disease) I25.10 Atrial flutter I48.92 Hypertension I10 Closed right humeral fracture S42.331A Encounter type: initial encounter Fracture alignment: displaced Fracture morphology: oblique Humerus Location: shaft Second degree burn of chest wall T21.21XA Pressure ulcer L89.90 Goals of care, counseling/discussion Z71.89 Dementia with behavioral disturbance F03.91
== END 2021-02-10 17:12 | DRG 562 ==
LOC: ED 16:18 → SUATTDRO 21:01 → EDINP 21:05 → 2W 12-05 02:34 → 3E 12-07 04:31 → 2W 12-10 03:40 → 3N 01-03 12:19